=== PATIENT | female | born 1935 | race Caucasian/White ===

== ENCOUNTER → 2016-05-08 | Emergency (ER) | payer MEDICARE, OTHER ==
[~2016-05-08] VITALS: Wt 79.0 kg
[~2016-05-08] MED LIST: ATOR20TA38 PO; GLIP-95 PO; HYDR-905 PO; HYDROCODONE/APAP (5/325) TAB PO ONE; IBUP400T22 PO; IBUPROFEN 200 MG TAB PO ONE; LOSA100T47 PO; METF500T4 PO; METH-70 PO; OMEP40CA6 PO; RANI25TA PO
--- NOTE | 2016-05-08 20:48 | ERD ---
ER Documentation Chief Complaint Date/Time DATE: 05/08/16 TIME: 20:45 Chief Complaint RIGHT NECK AND RIGHT ARM PAIN NON TRAUMATIC FOR 5 DAYS. NO RAZO OR NEURO DEF HPI This is a 80-year-old female complains of pain to the right trapezius and right shoulder with radiation down the right arm with some tingling to the digits 3 4 and 5. This is been going on for the past 5 days. Patient has no headache no symptoms in the legs no speech change no visual change. Pain is described as sharp and worse with movement better with rest. No weakness in the arm. Pain is worse with movement specifically when she shrugs her shoulders or moves her shoulder joint ROS All systems reviewed and are negative except as per history of present illness. Medications Home Meds Active Scripts Hydrocodone/Acetaminophen ([place] 7.5-325 Tablet) 1 Each Tablet, 1 EACH PO EVERY 4-6 HOURS, #14 TAB Prov:CARIN CHÁVEZ DO 05/08/16 Methocarbamol* (Robaxin*) 750 Mg Tablet, 750 MG PO BID for MUSCLE SPASMS, #14 TAB Prov:CARIN CHÁVEZ. DO 05/08/16 Ibuprofen* (Motrin*) 400 Mg Tab, 400 MG PO Q8, #30 TAB Prov:CARIN CHÁVEZ DO 05/08/16 Reported Medications Losartan Potassium* (Cozaar*) 100 Mg Tablet, 100 MG PO DAILY 12/08/12 Atorvastatin Calcium* (Atorvastatin Calcium*) 20 Mg Tablet, 20 MG PO DAILY 12/08/12 Metformin* (Glucophage*) 500 Mg Tab, 500 MG PO DAILY 12/08/12 Glipizide* (Glipizide*) 10 Mg Tablet, 10 MG PO DAILY 12/08/12 Ranitidine Hcl (Zantac 25) 25 Mg Tablet.eff, 300 MG PO DAILY 12/08/12 Omeprazole* (Omeprazole*) 40 Mg Capsule.dr, 40 MG PO DAILY 12/08/12 Allergies Allergies: Coded Allergies: No Known Allergy (Unverified , 12/08/12) PMhx/Soc History of Surgery: Yes (HYSTERECTOMY, CHOLECYSTECTOMY) Anesthesia Reaction: No Hx Neurological Disorder: No Hx Respiratory Disorders: Yes (CURRENT COUGH 1 MONTH, STATES ONLY CLEAR SPUTUM) Hx Cardiac Disorders: Yes (HTN ) Hx Psychiatric Problems: No Hx Miscellaneous Medical Probl: No Hx Alcohol Use: No Hx Substance Use: No Hx Tobacco Use: No Smoking Status: Never smoker FmHx Family History: No coronary disease Physical Exam Vitals Vital Signs Date Time Temp Pulse Resp B/P Pulse Ox O2 Delivery O2 Flow Rate FiO2 05/08/16 18:15 98.9 72 20 168/74 98 Physical Exam Const: Well-developed, well-nourished Head: Atraumatic, normocephalic Eyes: Normal Conjunctiva, PERRLA, EOMI, normal sclera, no nystagmus ENT: Normal External Ears, Nose and Mouth, moist mucus membranes. Neck: Full range of motion. No meningismus, no lymphadenopathy. Resp: Clear to auscultation bilaterally, no wheezing, rhonchi, rales Cardio: Regular rate and rhythm, no murmurs, S1 S2 present Abd: Soft, non tender x 4, non distended. Normal bowel sounds, no guarding or rebound, no pulsitile abdominal masses or bruits Skin: No petechiae or rashes, no ecchymosis , no maculopapular rash Back: No midline or flank tenderness Ext: No cyanosis, or edema, FROM x 4, normal inspection, neurovascularly intact x 4, severe muscle spasm to the right trapezius and right paraspinal cervical region along with some pain with range of motion of the right shoulder. There is also some subjective tingling in the digits as described above. Strength is 5 out of 5. Turning the head to the left with right arm extension and abduction will cause worsening symptoms. Neur: Awake and alert, STR 5/5 x 4, sensation intact x 4, no focal findings, cerebellum intact Psych: Normal Mood and Affect Results 24 hrs Current Medications Medications (Trade) Dose Ordered Sig/Shakira Route PRN Reason Start Time Stop Time Status Last Admin Dose Admin Ibuprofen (Motrin) 400 mg ONCE ONCE PO 05/08/16 21:00 05/08/16 21:01 Acetaminophen/ Hydrocodone Bitart ([place]ell (5/325)) 1 tab ONCE ONCE PO 05/08/16 21:00 05/08/16 21:01 Procedures/MDM Feel this is clearly a musculoskeletal issue with muscle spasm and radiculopathy she may have something such as a disc bulge causing nerve impingement she will need to follow up with her primary Departure Diagnosis: Primary Impression: Cervical radiculopathy Condition: Stable Patient Instructions: Radiculopathy, Cervical CARIN CHÁVEZ DO May 08, 2016 20:48
== END | disposition home or self-care (01) ==
LOC: FTE 17:57
DX: M54.12 Radiculopathy, cervical region (principal); I10 Essential (primary) hypertension; E11.9 Type 2 diabetes mellitus without complications; Z79.84 Long term (current) use of oral hypoglycemic drugs
CPT/HCPCS: 99284

== ENCOUNTER 2018-03-15 06:05 | Inpatient (IN) | payer OTHER ==
[~2018-03-15] VITALS: Ht 162.6 cm; Wt 85.0 kg
[~2018-03-15 06:05] MED LIST changes: +ASPI-903 PO; +ATEN-51 PO; -ATOR20TA38 PO; +ATOR40TA68 PO; +CALC500T91 PO; +CARB1TAB34 PO; +FENO145T37 PO; +GEMF600T8 PO; +GLIM2TAB PO; -GLIP-95 PO; +GLIP10TA14 PO; -HYDR-905 PO; -HYDROCODONE/APAP (5/325) TAB PO ONE; -IBUP400T22 PO; -IBUPROFEN 200 MG TAB PO ONE; +LISI10TA2 PO; -LOSA100T47 PO; +MECL-77 PO; +MELO7.5O PO; -METF500T4 PO; -METH-70 PO; +ONDA4TAB14 PO; +OXYB5TAB22 PO; -RANI25TA PO; +ROPI0.5T2 PO; +VENL75CA89 PO
[2018-03-15 06:07] VITALS: Ht 162.6 cm; Wt 85.0 kg
--- NOTE | 2018-03-15 06:45 | ERD ---
ER Documentation Chief Complaint Chief Complaint BIB DTR; ALOC X1DAY; RECENTLY DX'D WITH STOMACH INFECTION HPI 82-year-old female history of diabetes, hypertension, hyperlipidemia, coronary artery disease status post remote hysterectomy, appendectomy, cholecystectomy brought to the ED by daughter for evaluation of 5-day history of abdominal pain with fevers and mild confusion since yesterday. Patient complains of mild, generalized, crampy and sharp, nonradiating pain was localized to the upper abdomen. For the first several days of the illness had profuse watery diarrhea which has since resolved but continues to have pain. Mild nausea but no vomiting. No hematemesis, hematochezia or melanotic stools. Foul-smelling ur ine and incontinence but no dysuria. Denies chest pain, palpitations, shortness of breath or cough. Daughter reports that at times patient has brief episodes of confusion but not currently. Patient denies headache, neck or back pain. No visual changes, focal weakness or numbness. Subjective fevers and chills. Patient last seen in the ED 03/12/2017 for abdominal pain and diagnosed with gastroenteritis likely viral. ROS All systems reviewed and are negative except as per history of present illness. Medications Home Meds Active Scripts Pantoprazole* (Pantoprazole*) 40 Mg Tablet.dr, 40 MG PO DAILY for 30 Days, #30 TAB 1 Refill Prov:ABMARYDAVID . 03/18/18 Lactobacillus Rhamnosus* (Culturelle*) 1 Each Cap.sprink, 1 CAP PO BID, #20 CAP Prov:ABMARYDAVID . 03/18/18 Levofloxacin* (Levaquin*) 750 Mg Tablet, 750 MG PO DAILY for 7 Days, #7 TAB Prov:ABMARYDAVID . 03/18/18 Nitrofurantoin Monohyd Macrocr* (Macrobid*) 100 Mg Capsr, 100 MG PO BID, #20 CAP Prov:ABMARYDAVID . 03/18/18 Reported Medications Cholecalciferol* (Vitamin D*) Unknown Strength Tablet, PO DAILY, TAB 03/15/18 Aspirin* (Aspirin* Chew) 81 Mg Tab.chew, 81 MG PO DAILY, TAB.CHEW 03/12/18 Calcium Carbonate ([id number]) 500 Mg Tablet, 500 MG PO BID, TAB 03/12/18 Fenofibrate Nanocrystallized* (Fenofibrate*) 145 Mg Tablet, 145 MG PO DAILY, TAB 03/12/18 Venlafaxine Hcl* (Venlafaxine Hcl ER*) 75 Mg Cap.er.24h, 75 MG PO DAILY, CAP 03/12/18 Ropinirole Hcl* (Ropinirole Hcl*) 0.5 Mg Tablet, 0.5 MG PO QID TAKE AT 7:00 A.M, 11:00 AM, 3:00PM, & 7:00 PM 03/12/18 Carbidopa/Levodopa (Carbidopa-Levodopa 25-100 Tab) 1 Each Tablet, 1 TAB PO QID 03/12/18 Meclizine Hcl* (Meclizine Hcl*) 25 Mg Tablet, 12.5 MG PO Q8H PRN for DIZZINESS, TAB 03/12/18 Oxybutynin Chloride* (Ditropan* XL) 5 Mg Tabsr, 5 MG PO DAILY, TAB.SA 03/12/18 Meloxicam* (Meloxicam*) 7.5 Mg/5 Ml Oral.susp, 15 MG PO DAILY, #300 ML 03/12/18 Gemfibrozil* (Gemfibrozil*) 600 Mg Tablet, 600 MG PO BID, TAB 03/12/18 Atorvastatin* (Atorvastatin*) 40 Mg Tablet, 40 MG PO QHS, #30 TAB 03/12/18 Lisinopril* (Lisinopril*) 10 Mg Tablet, 10 MG PO DAILY, #30 TAB 03/12/18 Atenolol* (Atenolol*) 25 Mg Tablet, 25 MG PO DAILY, #30 TAB 03/12/18 Glipizide* (Glipizide*) 10 Mg Tablet, 10 MG PO BID 12/08/12 Omeprazole* (Omeprazole*) 40 Mg Capsule.dr, 40 MG PO AC BREAKFAST 12/08/12 Discontinued Reported Medications Fenofibrate* (Fenofibrate*) 200 Mg Cap, 160 MG PO DAILY, CAP 03/15/18 Glimepiride* (Glimepiride*) 2 Mg Tablet, 2 MG PO DAILY, TAB 03/12/18 Losartan Potassium* (Cozaar*) 100 Mg Tablet, 100 MG PO DAILY 12/08/12 Atorvastatin Calcium* (Atorvastatin Calcium*) 20 Mg Tablet, 20 MG PO DAILY 12/08/12 Metformin* (Glucophage*) 500 Mg Tab, 500 MG PO DAILY 12/08/12 Ranitidine Hcl (Zantac 25) 25 Mg Tablet.eff, 300 MG PO DAILY 12/08/12 Discontinued Scripts Ondansetron (Ondansetron Odt) 4 Mg Tab.rapdis, 4 MG PO Q6H PRN for NAUSEA AND/OR VOMITING, #10 TAB Prov:RICKIE LARSEN MD 03/12/18 Hydrocodone/Acetaminophen ([place] 7.5-325 Tablet) 1 Each Tablet, 1 EACH PO EVERY 4-6 HOURS, #14 TAB Prov:LEKKOS,APOSTOLOS A. DO 05/08/16 Methocarbamol* (Robaxin*) 750 Mg Tablet, 750 MG PO BID for MUSCLE SPASMS, #14 TAB Prov:LEKKOS,APOSTOLOS A. DO 05/08/16 Ibuprofen* (Motrin*) 400 Mg Tab, 400 MG PO Q8, #30 TAB Prov:LEKKOS,APOSTOLOS A. DO 05/08/16 Allergies Allergies: Coded Allergies: No Known Allergies (Unverified Allergy, Unknown, 03/15/18) PMhx/Soc Reviewed in chart. As per HPI. History of Surgery: Yes (HYSTERECTOMY, appendectomy, cholecystectomy ) Anesthesia Reaction: No Hx Neurological Disorder: Yes (PARKINSONS DISORDER) Hx Respiratory Disorders: No Hx Cardiac Disorders: Yes (PA, htn , high cholesterol ) Hx Psychiatric Problems: No Hx Miscellaneous Medical Probl: Yes (DM ) Hx Alcohol Use: No Hx Substance Use: No Hx Tobacco Use: No FmHx Daughter: Ovarian cancer. Mother: Diabetes and hypertension. Physical Exam Vitals Vital Signs Date Temp Pulse Resp B/P (MAP) Pulse Ox O2 O2 Flow FiO2 Time Delivery Rate 03/15/18 98.8 66 16 108/62 100 Nasal 2.0 07:55 (77) Cannula 03/15/18 Nasal 2 07:22 Cannula 03/15/18 101.5 07:19 Physical Exam Const: Moderate distress. Head: Atraumatic Eyes: Pupils equal reactive to light, extraocular movements are intact. Normal Conjunctiva ENT: Normal External Ears, Nose and Mouth. Pharynx is clear without erythema or exudate. Mucous membranes are dry. Neck: Full range of motion. Nontender. No JVD. No meningismus. Resp: Breath sounds are equal but mildly diminished at the bases. Clear to auscultation without rales rhonchi or wheezes. Cardio: Regular rate and rhythm, no murmurs Abd: Soft, mild, generalized tenderness but no rebound or guarding. No masses. Normal bowel sounds Skin: No petechiae or rashes Back: No midline or flank tenderness Ext: No cyanosis, or edema Neur: Awake and alert. Cranial nerves II through XII are grossly intact. Motor and sensory equal bilaterally. No focal deficit. Psych: Cooperative. Normal Mood and Affect Result Diagram: 03/18/1853203/18/18 05 Results 24 hrs Laboratory Tests Test 03/15/18 07:12 03/15/18 07:15 03/15/18 07:33 03/15/18 09:20 Prothrombin Time 13.7 Sec Prothrombin Time 1.1 Ratio INR International 1.04 Normalized Ratio Activated 33.2 Sec Partial Thrombopl ast Time Urine Color YELLOW Urine Clarity SLIGHTLY CLOUDY Urine pH 7.0 Urine Specific 1.013 [place] Urine Ketones NEGATIVE mg/dL Urine Nitrite NEGATIVE mg/dL Urine Bilirubin NEGATIVE mg/dL Urine 1+ mg/dL Urobilinogen Urine Leukocyte 1+ Noe/ul Esterase Urine Microscopic 1 /HPF RBC Urine Microscopic 12 /HPF WBC Urine Bacteria FEW /HPF Urine Hemoglobin 1+ mg/dL Urine Glucose NEGATIVE mg/dL Urine Total NEGATIVE mg/dl Protein Hemoglobin A1c 6.4 % Osmolality 272 mOsm/kg B-Type 907 PG/ML Natriuretic Peptide Lipase 292 U/L Thyroid 3.180 MIU/L Stimulating Hormone (TSH) Free Thyroxine 0.99 ng/dl White Blood Count 8.1 10^3/ul Red Blood Count 4.14 10^6/ul Hemoglobin 12.1 g/dl Hematocrit 36.3 % Mean Corpuscular 87.7 fl Volume Mean Corpuscular 29.2 pg Hemoglobin Mean Corpuscular 33.3 g/dl Hemoglobin Concen t Red Cell 13.6 % Distribution Width Platelet Count 257 10^3/UL Mean Platelet 10.8 fl Volume Immature 0.400 % Granulocytes % Neutrophils % 73.2 % Lymphocytes % 19.2 % Monocytes % 6.7 % Eosinophils % 0.1 % Basophils % 0.4 % Nucleated Red 0.0 /100WBC Blood Cells % Immature 0.030 10^3/ul Granulocytes # Neutrophils # 5.9 10^3/ul Lymphocytes # 1.6 10^3/ul Monocytes # 0.5 10^3/ul Eosinophils # 0.0 10^3/ul Basophils # 0.0 10^3/ul Nucleated Red 0.0 10^3/ul Blood Cells # Sodium Level 129 mmol/L Potassium Level 4.8 mmol/L Chloride Level 92 mmol/L Carbon Dioxide 28 mmol/L Level Anion Gap 9 Blood Urea 22 mg/dl Nitrogen Creatinine 1.01 mg/dl Est Glomerular mL/min Filtrat Rate mL/min Glucose Level 145 mg/dl Calcium Level 9.0 mg/dl Total Bilirubin 0.2 mg/dl Direct Bilirubin 0.00 mg/dl Indirect 0.2 mg/dl Bilirubin Aspartate Amino 82 IU/L Transf (AST/SGOT) Alanine 97 IU/L Aminotransferase (ALT/SGPT) Alkaline 58 IU/L Phosphatase Troponin I < 0.012 ng/ml Total Protein 7.3 g/dl Albumin 3.9 g/dl Globulin 3.40 g/dl Albumin/Globulin 1.14 Ratio POC Venous 1.6 mmol/L 1.2 mmol/L Lactate Current Medications Medications Dose Sig/Shakira Start Time Status Last (Trade) Ordered Route PRN Stop Time Admin Dose Reason Admin Sodium 2,540 ml BOLUS OVER 2 03/15/18 DC 03/15/18 Chloride HOURS STAT 06:53 07:18 (NS) IV* 03/15/18 06:57 650 mg ONCE STAT 03/15/18 DC 03/15/18 Acetaminophen PO 06:53 07:19 (Tylenol 03/15/18 06:57 Tab) Ondansetron 4 mg ONCE STAT 03/15/18 DC 03/15/18 HCl (Zofran IV 06:53 07:18 Inj) 03/15/18 06:57 Piperacillin 100 ml @ ONCE STAT 03/15/18 DC 03/15/18 Sod/ 200 mls/hr IVPB 06:53 07:18 Tazobactam 03/15/18 07:22 Sod IV Flush 10 ml STK-MED 03/15/18 DC 03/15/18 (NS 10 ml) ONCE .ROUTE 07:59 08:21 03/15/18 08:00 Sodium 100 ml @ ud STK-MED 03/15/18 DC 03/15/18 Chloride ONCE .ROUTE 07:59 08:21 03/15/18 08:00 Iodixanol 100 ml STK-MED 03/15/18 DC 03/15/18 (Visipaque ONCE .ROUTE 07:59 08:21 Locm) 03/15/18 08:00 Procedures/MDM DOCUMENTS REVIEWED: ED nurse, prior ED, prior records EKG: Time: 0743. Sinus rhythm. Ventricular rate 68. Normal [place] and QRS. Incomplete right bundle branch block. Poor R wave progression in the anterior leads. No acute ST segment elevation or depression. No ectopy. My Interpretation IMAGING: PROCEDURE: XR chest. CLINICAL INDICATION: Possible sepsis TECHNIQUE: A single portable view of the chest was obtained. COMPARISON: None. FINDINGS: The lung volumes are small with patchy interstitial and airspace opacities in the mid to lower lungs which could represent atelectasis and/or airspace disease. No pleural effusion or pneumothorax is seen. The cardiac silhouette is within normal limits for the portable AP technique. The aorta is tortuous and atherosclerotic. IMPRESSION: 1. Patchy interstitial and airspace opacities most prominent in the mid to lower lungs may represent infection or pulmonary edema in the acute setting. Recommend follow-up to resolution. RPTAT: AAEE Physician Jadyn Date Time Electronically viewed and signed by Physician Jadyn on 03/15/2018 07:26 RF/ PROCEDURE: CT Abdomen and Pelvis with contrast. CLINICAL INDICATION: Abdominal pain, fever TECHNIQUE: CT scan of the abdomen and pelvis with contrast was performed on a multi-detector high-resolution CT scanner. The patient was scanned following the uncomplicated intravenous administration of 90 cc of Visipaque 320. Coronal and sagittal reformatted images were obtained from the axial source images. The total exam CTDI equals 16 mGy and the total exam DLP equals 929 mGy-cm. DICOM images are available. One or more of the following dose reduction techniques were utilized: 1.) Automated exposure control 2.) Adjustment of the mA +/- kV according to patient's size 3.) Use of iterative reconstruction technique. COMPARISON: None FINDINGS: Imaged portions of the chest demonstrates bibasilar dependent atelectasis. The liver, pancreas, and spleen are unremarkable. The patient status post cholecystectomy. There is expected postoperative dilatation of the biliary tree. No adrenal nodules are identified. The kidneys enhance symmetrically bilaterally and there is no hydronephrosis. There is a left-sided renal cysts tiny low attenuation renal lesions, too small to characterize. The patient status post hysterectomy. There are no suspicious adnexal lesions. The urinary bladder is unremarkable. There is no evidence for bowel obstruction. The appendix is not identified. There are no right lower quadrant inflammatory changes seen. There is colonic diverticulosis without evidence for diverticulitis. Smooth wall thickening involving the sigmoid colon is likely on the basis of intramural hypertrophy. There is no ascites. There is no intra-abdominal free air. There is no mesenteric, retroperitoneal or pelvic sidewall lymphadenopathy. The abdominal aorta is normal in caliber. There are atherosclerotic changes per Visualized osseous structures are intact. There are degenerative changes of the spine. IMPRESSION: Sigmoid diverticulosis without definite evidence for diverticulitis. Wall thickening of the sigmoid colon is favored to be on the basis of intramural hypertrophy without discrete pericolonic inflammatory change. Status post cholecystectomy with expected postoperative dilatation of the biliary tree. Remainder of the findings, as described above. RPTAT: HAP Admit-r Aly Physician Date Time Electronically viewed and signed by Suzy Lu, Physician on 03/15/2018 08:32 AP/ MEDICAL DECISION MAKIN-year-old female history of diabetes, hypertension, hyperlipidemia, coronary artery disease status post remote hysterectomy, appendectomy, cholecystectomy brought to the ED by daughter for evaluation of 5- day history of abdominal pain with fevers and mild confusion since yesterday. CBC unremarkable for leukocytosis, anemia or thrombocytopenia. Chemistry reveals mild hyponatremia and elevated BUN/creatinine. Liver function test significant for mild transaminitis but no hyperbilirubinemia. Lipase is negative. Urinalysis reveals 12 WBCs with 1+ esterase but negative nitrate and a culture is pending. EKG negative for acute ischemic changes, dysrhythmia or heart block. Chest x-ray reveals bilateral interstitial changes in the lower l obes, differential includes volume overload versus infection. CT of the abdomen and pelvis significant for prior cholecystectomy, diverticulosis without diverticulitis and colonic wall thickening but there is no evidence of ischemic colitis. Patient has had intermittent episodes of confusion consistent with acute encephalopathy but she has no focal deficits, signs of CVA/TIA and CT of the brain is not indicated. Patient presents with fever but no other criteria for systemic inflammatory response syndrome or sepsis. Serial lactates are less than 2.0 mmol/L. Infectious etiology is uncertain but potential etiologies include pneumonia, urinary tract infection and intra-abdominal source. Broad- spectrum antibiotics are initiated after cultures. Admit to med/surg for further evaluation and management. PATIENT CARE TRANSITIONED: Time: 0938, Dr. Raleigh Le. Counseled patient and family regarding diagnosis, diagnostic results and plan for admission. Departure Diagnosis: Primary Impression: Fever Fever type: unspecified Qualified Codes: R50.9 - Fever, unspecified Additional Impressions: UTI (urinary tract infection) Urinary tract infection type: acute cystitis Hematuria presence: without hematuria Qualified Codes: N30.00 - Acute cystitis without hematuria Acute generalized abdominal pain Diabetes mellitus type 2 in obese Dehydration Hyponatremia Acute encephalopathy Condition: Serious NAYA BENAVIDES MD Mar 15, 2018 06:45
[2018-03-15] MEDS ORDERED: ONDANSETRON 4 MG INJ IV STA (06:53)
[2018-03-15] MEDS ORDERED: ACETAMINOPHEN 325 MG TAB PO STA (06:53)
[2018-03-15] MEDS ORDERED: PIPER-TAZO 3.375 GM IV (PMX) 100 ML IVPB STA (06:53)
[2018-03-15] MEDS ORDERED: SODIUM CHLORIDE 0.9% 1L BAG IV* STA (06:53)
[2018-03-15] MEDS ORDERED: IODIXANOL LOCM 100 ML BTL ONE (07:59)
[2018-03-15] MEDS ORDERED: SOD CHLORIDE 0.9% 100 ML ONE (07:59)
--- NOTE | 2018-03-15 08:25 | NUR ---
Procedure Ordered:CT ABD/PEL W/CONTRAST Reason for Exam Today:ABD PAIN/FEVER Previous Exams: Allergies:NKDA Current Medications Taken: Glucophage ( ) Metformin ( ) Previous reaction to contrast media: Yes ( ) No (X ) : Yes ( ) No (X ) Asthma: Yes ( ) No (X ) Diabetes: Yes ( X) No ( ) Myeloma: Yes ( ) No (X ) Heart Disease: Yes (X ) No ( ) Cardiac Disease: Yes (X ) No ( ) Kidney Disease: Yes ( ) No ( X) Vascular Disease: Yes ( ) No ( X) Patient Teaching done: Yes ( ) No ( ) Yeast Culture Operator Used: Yes ( ) No ( ) Name of Yeast Culture Operator: Language Used: As part of the test requested by your doctor, contrast media may be injected into your vein while the x-rays are being taken. Occasionally, reactions from IV contrast may occur. The physician and staff of this hospital are trained to treat these reactions. Select the type of Contrast that will be given to patient: Isovue 300 ( ) Isovue 370 ( ) Visipaque ( X) Cystografin ( ) Gastrographin ( ) Redi-cat ( ) Volumen ( ) Amount of contrast to be given: 90CC IV ( X) PO ( ) Date given:03/15/18 Lab Values: BUN: 22 Creatinine:1.01 Reason why contrast cannot be given: Location of patient pre-procedure:[facility] Location of patient post procedure:[facility] 10 PT TOLERATED IV CONTRAST INJECTION WELL
[2018-03-15] MEDS ORDERED: ONDANSETRON 4 MG INJ IV PRN ×2 (10:00→11:00)
[2018-03-15] MEDS ORDERED: ACETAMINOPHEN 325 MG TAB PO PRN ×2 (10:00→11:00)
[2018-03-15] MEDS ORDERED: NACL 0.9% 3 ML SYG IV SCH (11:00)
[2018-03-15 11:33] VITALS: BP 113/56; PULSE 57; RESP 16
--- NOTE | 2018-03-15 11:34 | NUR ---
RECEIVED PT FROM ER AT 1045 IN STABLE CONDITION. DAUGHTER WITH PT. PT PASHTO SPEAKING ONLY, ABLE TO PROVIDE TRANSLATION WITH DAUGHTER. VSS, ORIENTED TO ROOM, CALL LIGHT PLACED WITHIN REACH. MD INFORMED OF PT'S ARRIVAL. NO COMPLAINTS OF PAIN, NO FEVER. ENDORSED CARE TO ONCOMING NURSE DENITA RESTREPO.
[2018-03-15] MEDS: SOD CHLORIDE 0.9% 1,000 ML IV SCH ×2 (12:06→23:52)
--- NOTE | 2018-03-15 12:09 | HP ---
Date/Time of Note Date/Time of Note DATE: 03/15/18 TIME: 12:09 Assessment/Plan VTE Prophylaxis Pharmacological prophylaxis: LMWH Assessment/Plan Hospital Course 82-year-old female with comorbidities including hypertension, diabetes mellitus type 2, dyslipidemia, Parkinson's disease, TIA, gastric ulcer, hiatal hernia, gastroesophageal reflux disease, and gastritis who started having abdominal pain since 03/10/2018 and was evaluated by the ER on 03/12/2018. The patient returned back to the ER on 03/15/2018 because of continuing abdominal pain with associated nausea, vomiting, diarrhea, and confusion. The patient will be admitted to inpatient setting for further treatment and evaluation. 1. Acute abdominal pain with associated gastrointestinal symptoms. -Etiology unclear. -Started after eating meat exported from [place]. -Continue empiric antimicrobials including coverage for anaerobes -Send stool studies. -Gastroenterology consult. -PPI(known history of GERD, gastritis, and gastric ulcers). 2. Suspected community-acquired pneumonia. -Continue antimicrobials. 3. Hyponatremia. -Etiology unclear. -Obtain serum and urine osmolality, and urine sodium levels. -Correct sodium level slowly. -Obtain nephrology consult. 4. Acute encephalopathy. -Most probably toxic metabolic in origin. -Monitor mental status closely. 5. Essential hypertension. -Resume antihypertensives 6. Diabetes mellitus type 2. -Hold oral medications -Start the patient on SSI. -Obtain hemoglobin A1c to evaluate the blood glucose control over the past few weeks. 7. Parkinson's disease. -Resume antiparkinsonian medications. 8. History of, gastritis, gastric ulcer. -Continue PPI. Plan: The patient will be admitted to inpatient medical surgical floor. The patient will be started on a clear liquid diet. The patient will be started on DVT prophylaxis and gastrointestinal prophylaxis. The patient will remain a full code. Activities will be as tolerated. The rest of the patient's management will be based on the clinical course, inputs from consultants, and the results of diagnostic studies. Based on the patient's clinical presentation, she most probably requires at least 2 midnights' stay for further management and evaluation of her clinical presentation. Patient was seen in collaboration with Dr. Le. Result Diagram: 03/15/18 0715 03/15/18 0715 Results 24hrs Laboratory Tests Test 03/15/18 07:12 03/15/18 07:15 1/21/19 07:33 03/15/18 09:20 Prothrombin Time 13.7 Prothrombin Time 1.1 Ratio INR International 1.04 Normalized Ratio Activated 33.2 Partial Thrombopl ast Time Urine Color YELLOW Urine Clarity SLIGHTLY CLOUDY A Urine pH 7.0 Urine Specific 1.013 [place] Urine Ketones NEGATIVE Urine Nitrite NEGATIVE Urine Bilirubin NEGATIVE Urine 1+ H Urobilinogen Urine Leukocyte 1+ H Esterase Urine Microscopic 1 RBC Urine Microscopic 12 H WBC Urine Bacteria FEW A Urine Hemoglobin 1+ H Urine Glucose NEGATIVE Urine Total NEGATIVE Protein Lipase 292 White Blood Count 8.1 # Red Blood Count 4.14 L Hemoglobin 12.1 Hematocrit 36.3 L Mean Corpuscular 87.7 Volume Mean Corpuscular 29.2 Hemoglobin Mean Corpuscular 33.3 Hemoglobin Concen t Red Cell 13.6 Distribution Width Platelet Count 257 Mean Platelet 10.8 H Volume Immature 0.400 Granulocytes % Neutrophils % 73.2 Lymphocytes % 19.2 Monocytes % 6.7 Eosinophils % 0.1 Basophils % 0.4 Nucleated Red 0.0 Blood Cells % Immature 0.030 Granulocytes # Neutrophils # 5.9 Lymphocytes # 1.6 Monocytes # 0.5 Eosinophils # 0.0 Basophils # 0.0 Nucleated Red 0.0 Blood Cells # Sodium Level 129 L Potassium Level 4.8 Chloride Level 92 L Carbon Dioxide 28 Level Anion Gap 9 Blood Urea 22 H Nitrogen Creatinine 1.01 H Est Glomerular Filtrat Rate mL/min Glucose Level 145 Calcium Level 9.0 Total Bilirubin 0.2 Direct Bilirubin 0.00 Indirect 0.2 Bilirubin Aspartate Amino 82 H Transf (AST/SGOT) Alanine 97 H Aminotransferase (ALT/SGPT) Alkaline 58 Phosphatase Troponin I < 0.012 Total Protein 7.3 Albumin 3.9 Globulin 3.40 H Albumin/Globulin 1.14 Ratio POC Venous 1.6 1.2 Lactate Test 03/15/18 10:44 Lactic Acid Level 0.9 HPI/ROS Admit Date/Time Admit Date/Time Mar 15, 2018 at 09:50 ROS This is a 82-year-old female with past medical history of hypertension, diabetes mellitus type 2, dyslipidemia, TIA, Parkinson's disease, gastritis, G ERD, hiatal hernia, and gastric ulcer. The patient started having abdominal pain on 03/10/2018. The patient initially came to the emergency room on March 12, 2018 because of abdominal pain, when she was evaluated and was discharged home on PRN Zofran. The patient started having abdominal pain with episodes of nausea, nonbloody nonbilious vomiting, and multiple episodes of diarrhea. There was no reported hematemesis, nausea, or melena. Patient's family did report eating meat from [place]". The patient started having symptoms since she ate this meat. However, the family members who ate the same meat has no gastrointestinal symptoms. The patient has also becoming progressively confused over the past few days. The patient had increased urinary frequency and urgency. The patient was also noticed to be diaphoretic by the family. The patient's family also reported a cough. There was no reported dyspnea. There was no reported rhinorrhea. In the emergency room, the patient was noticed as a fever as high as 101.5 F. The patient's urinalysis was positive with urine leukocyte esterase 1+ and urine microscopic WBC of 12. The patient underwent a CT scan of the abdomen and pelv is that was showing sigmoid diverticulosis without definite evidence for diverticulitis. The patient's chest x-ray was showing patchy interstitial and airspace opacities most prominent in the mid to lower lungs, that may represent infection or pulmonary edema. The patient was treated with a single dose of IV Zosyn along with IV fluids in the emergency room. Constitutional: chills, diaphoresis Eyes: no complaints ENT: no complaints Respiratory: cough Cardiovascular: no complaints Gastrointestinal: pain, diarrhea, nausea, vomiting Genitourinary: other (Urgency) Musculoskeletal: no complaints Skin: no complaints Neurologic: confusion Endocrine: polyuria Lymphatic: no complaints Psychological: confusion Immunologic: no complaints PMH/Family/Social Past Medical History 1. Gastritis. 2. GERD. 3. Hiatal hernia. 4. Gastric ulcer. 5. TIA. 6. Dyslipidemia. 7. Diabetes mellitus type 2. 8. Hypertension. 9. Parkinson's disease. Medications Current Medications Sodium Chloride 1,000 ml @ 75 mls/hr [id number] IV Last administered on 03/15/18at 12:06; Admin Dose 75 MLS/HR; Start 03/15/18 at 10:32 IV Flush (NS 3 ml) 3 ml PER PROTOCOL IV ; Start 03/15/18 at 11:00 Ondansetron HCl (Zofran Inj) 4 mg Q6H PRN IV NAUSEA AND/OR VOMITING; Start 03/15/18 at 11:00 Acetaminophen (Tylenol Tab) 650 mg Q6H PRN PO PAIN LEVEL 1-3 OR FEVER; Start 03/15/18 at 11:00 Coded Allergies: No Known Allergies (Unverified Allergy, Unknown, 03/15/18) Past Surgical History 1. Appendectomy. 2. Cholecystectomy. 3. Hysterectomy. Social History The patient lives at home with her family. Alcohol Use: none Smoking Status: Never smoker Drug Use: none Exam/Review of Systems Vital Signs Vitals Vital Signs Date Temp Pulse Resp B/P (MAP) Pulse Ox O2 O2 Flow FiO2 Time Delivery Rate 03/15/18 98.0 57 16 113/56 98 Nasal 2.0 11:33 (75) Cannula Exam Exam General: Adequately build 82 year-old female lying in bed in no apparent distress. HEENT: Normocephalic, atraumatic. Eyes: Anicteric sclerae, conjunctivae clear. ENT: Nasal septum midline, oral mucosa is dry moist. Neck supple. Respiratory: Bilaterally diminished breath sounds. No use of accessory muscles of respiration. No adventitious breath sounds. Cardiovascular: S1, S2 heard. Regular rate and rhythm. Abdomen: Soft and distended. Bowel sounds positive in all 4 quadrants. Genitourinary: Deferred. Extremities: No cyanosis, no clubbing, no edema. Peripheral pulses palpable. Neurologic: The patient is somnolent. Wakes up to call. Oriented to self and place. Additional Comments CT Abdomen and Pelvis IMPRESSION: Sigmoid diverticulosis without definite evidence for diverticulitis. Wall thickening of the sigmoid colon is favored to be on the basis of intramural hypertrophy without discrete pericolonic inflammatory change. Status post cholecystectomy with expected postoperative dilatation of the bili dora tree. CXR IMPRESSION: 1. Patchy interstitial and airspace opacities most prominent in the mid to lower lungs may represent infection or pulmonary edema in the acute setting. ALVARO JEAN NP Mar 15, 2018 12:09
[2018-03-15] MEDS ORDERED: VANCOMYCIN IV PER PHARMACY XX SCH (12:30)
[2018-03-15] MEDS ORDERED: VANCOMYCIN HCL 1.5 GM in SOD CHLORIDE 0.9% 250 ML IVPB SCH (14:00)
[2018-03-15] MEDS: ROPINIROLE 0.25 MG TAB PO SCH ×3 (14:21→21:07)
[2018-03-15] MEDS: CARBIDOPA/LEVODOPA (25/100) TAB PO SCH ×3 (14:21→20:39)
--- NOTE | 2018-03-15 14:23 | CONS ---
Date/Time of Note Date/Time of Note DATE: 03/15/18 TIME: 14:00 Assessment/Plan Assessment/Plan Hospital Course Summary Assessment and Plan: Assessment: Epigastric pain, with reported melena Diarrhea- resolved N/V/Fevers (influenza neg) Query PNA Hypertension DM, type 2, dyslipidemia Parkinson's disease History of :TIA, gastric ulcer Plan: Pt has been started on empirically antibiotics PPI BID We will await microbiology work-up NPO after 03/16/399 EGD tomorrow Patient seen in collaboration with Dr. Moser Result Diagram: 03/15/18 0715 03/15/1815 Results 24hrs Laboratory Tests Test 03/15/18 07:12 03/15/18 07:15 03/15/18 07:33 03/15/18 09:20 Prothrombin Time 13.7 Prothrombin Time 1.1 Ratio INR International 1.04 Normalized Ratio Activated 33.2 Partial Thrombopl ast Time Urine Color YELLOW Urine Clarity SLIGHTLY CLOUDY A Urine pH 7.0 Urine Specific 1.013 [place] Urine Ketones NEGATIVE Urine Nitrite NEGATIVE Urine Bilirubin NEGATIVE Urine 1+ H Urobilinogen Urine Leukocyte 1+ H Esterase Urine Microscopic 1 RBC Urine Microscopic 12 H WBC Urine Bacteria FEW A Urine Hemoglobin 1+ H Urine Glucose NEGATIVE Urine Total NEGATIVE Protein Hemoglobin A1c 6.4 H Osmolality 272 L B-Type 907 H Natriuretic Peptide Lipase 292 Thyroid 3.180 Stimulating Hormone (TSH) Free Thyroxine 0.99 White Blood Count 8.1 # Red Blood Count 4.14 L Hemoglobin 12.1 Hematocrit 36.3 L Mean Corpuscular 87.7 Volume Mean Corpuscular 29.2 Hemoglobin Mean Corpuscular 33.3 Hemoglobin Concen t Red Cell 13.6 Distribution Width Platelet Count 257 Mean Platelet 10.8 H Volume Immature 0.400 Granulocytes % Neutrophils % 73.2 Lymphocytes % 19.2 Monocytes % 6.7 Eosinophils % 0.1 Basophils % 0.4 Nucleated Red 0.0 Blood Cells % Immature 0.030 Granulocytes # Neutrophils # 5.9 Lymphocytes # 1.6 Monocytes # 0.5 Eosinophils # 0.0 Basophils # 0.0 Nucleated Red 0.0 Blood Cells # Sodium Level 129 L Potassium Level 4.8 Chloride Level 92 L Carbon Dioxide 28 Level Anion Gap 9 Blood Urea 22 H Nitrogen Creatinine 1.01 H Est Glomerular Filtrat Rate mL/min Glucose Level 145 Calcium Level 9.0 Total Bilirubin 0.2 Direct Bilirubin 0.00 Indirect 0.2 Bilirubin Aspartate Amino 82 H Transf (AST/SGOT) Alanine 97 H Aminotransferase (ALT/SGPT) Alkaline 58 Phosphatase Troponin I < 0.012 Total Protein 7.3 Albumin 3.9 Globulin 3.40 H Albumin/Globulin 1.14 Ratio POC Venous 1.6 1.2 Lactate Test 03/15/18 10:44 03/15/18 12:57 Lactic Acid Level 0.9 Bedside Glucose 89 CC: ARLINE MOSER ; Consultation Date/Type/Reason Admit Date/Time Mar 15, 2018 at 09:50 Date of Consultation: Mar 15, 2018 Type of Consult GI Reason for Consultation abdominal pain, melena Hx of Present Illness This is an 82 year old female with PMH of hypertension, diabetes mellitus type 2, dyslipidemia, Parkinson's disease, TIA, gastric ulcer, hiatal hernia, pyrosis, who presented to the ED with c/o change in mental status, n/v, abdominal pain, and diarrhea. Family is at bedside, patient now less confused but continues to have periods of forgetfulness. Pt's daughter symptoms began after she made meat from [employer], however the patient was the only one who then presented with symptoms. All other have been well. Daughter states diarrhea has now almost resolved, pt now having very small BMs,described as black. Pt c/o epigastric pain with palpation. No c/o n/v. Currently afebrile although did have a fever this am. CXR- Patchy interstitial and airspace opacities most prominent in the mid to lower lungs may represent infection or pulmonary edema in the acute setting, ABX have been started, CT abd/pelvis Sigmoid diverticulosis without definite evidence for diverticulitis. Wall thickening of the sigmoid colon is favored to be on the basis of intramural hypertrophy without discrete pericolonic inflammatory change. Status post cholecystectomy with expected postoperative dilatation of the biliary tree. Plan to proceed with EGD tomorrow given black stools and upper abd pain. However we will reschedule if respiratory status changes. Plan to continue PPI and alit further microbiology work-up. Review of Systems: A 12 system, review was conducted and is negative except as noted in the HPI or here. Past Medical History Medications Current Medications Sodium Chloride 1,000 ml @ 75 mls/hr [id number] IV Last administered on 03/15/18at 12:06; Admin Dose 75 MLS/HR; Start 03/15/18 at 10:32 IV Flush (NS 3 ml) 3 ml PER PROTOCOL IV ; Start 03/15/18 at 11:00 Ondansetron HCl (Zofran Inj) 4 mg Q6H PRN IV NAUSEA AND/OR VOMITING; Start 03/15/18 at 11:00 Acetaminophen (Tylenol Tab) 650 mg Q6H PRN PO PAIN LEVEL 1-3 OR FEVER; Start 03/15/18 at 11:00 Insulin Aspart (Novolog Insulin Pen) NOVOLOG *MILD* ALGORITHM WITH MEALS BEDTIME SC ; Start 03/15/18 at 18:00 Aspirin (Aspirin) 81 mg DAILY PO ; Start 03/16/18 at 09:00 Atenolol (Tenormin) 25 mg DAILY PO ; Start 03/16/18 at 09:00 Atorvastatin Calcium (Lipitor) 40 mg QHS PO ; Start 03/15/18 at 21:00 Calcium Carbonate (Oyster Shell Calcium) 1.25 gm BID PO ; Start 03/15/18 at 21:00 Carbidopa/Levodopa (Sinemet (25/ 100)) 1 tab QID PO ; Start 03/15/18 at 13:00 Fenofibrate (Tricor) 145 mg DAILY PO ; Start 03/16/18 at 09:00 Gemfibrozil (Lopid) 600 mg BID PO ; Start 03/15/18 at 21:00 Lisinopril (Zestril) 10 mg DAILY PO ; Start 03/16/18 at 09:00 Oxybutynin Chloride (Ditropan Xl) 5 mg DAILY PO ; Start 03/16/18 at 09:00 Ropinirole HCl (Requip) 0.5 mg QID PO ; Start 03/15/18 at 13:00 Venlafaxine HCl (Effexor Xr) 75 mg DAILY PO ; Start 03/16/18 at 09:00 Piperacillin Sod/ Tazobactam Sod 100 ml @ 200 mls/hr Q6 IVPB ; Start 03/15/18 at 18:00 Vancomycin HCl (Vanco Iv Per Pharmacy) VANCOMYCIN PER PHARMACY PER PROTOCOL XX ; Start 03/15/18 at 12:30 Pantoprazole (Protonix Iv) 40 mg BID@06,18 IV ; Start 03/15/18 at 18:00 Enoxaparin Sodium (Lovenox) 40 mg DAILY SC ; Start 03/16/18 at 09:00 Vancomycin HCl 1.5 gm/Sodium Chloride 250 ml @ 83.333 mls/ hr NOW IVPB ; Start 03/15/18 at 14:00; Stop 03/15/18 at 20:00 Allergies: Coded Allergies: No Known Allergies (Unverified Allergy, Unknown, 03/15/18) Social History Alcohol Use: none Smoking Status: Never smoker Drug Use: none Exam/Review of Systems Vital Signs Vitals Vital Signs Date Temp Pulse Resp B/P (MAP) Pulse Ox O2 O2 Flow FiO2 Time Delivery Rate 03/15/18 Nasal 2.0 12:16 Cannula 03/15/18 98.0 57 16 113/56 98 11:33 (75) Exam PHYSICAL EXAMINATION: GENERAL: Alert & oriented x 3, in no acute distress SKIN: No lesions EYES: Pupils equal reactive to light, no discharge. EARS/NOSE AND THROAT: Ears normal, nose normal, oropharynx normal NECK: Supple CHEST: Inspection within normal limits. CARDIOVASCULAR: Heart: Regular rate and rhythm RESPIRATORY: Diminished GASTROINTESTINAL AND LIVER: Abdomen: Soft, non tenderness, non-distended, no hernias, no masses, no organomegaly, no ascites, no guarding, no rebound tenderness, normoactive bowel sounds. Rectal: Deferred. Medications Medications Current Medications Sodium Chloride 1,000 ml @ 75 mls/hr [id number] IV Last administered on 03/15/18at 12:06; Admin Dose 75 MLS/HR; Start 03/15/18 at 10:32 IV Flush (NS 3 ml) 3 ml PER PROTOCOL IV ; Start 03/15/18 at 11:00 Ondansetron HCl (Zofran Inj) 4 mg Q6H PRN IV NAUSEA AND/OR VOMITING; Start 03/15/18 at 11:00 Acetaminophen (Tylenol Tab) 650 mg Q6H PRN PO PAIN LEVEL 1-3 OR FEVER; Start 03/15/18 at 11:00 Insulin Aspart (Novolog Insulin Pen) NOVOLOG *MILD* ALGORITHM WITH MEALS BEDTIME SC ; Start 03/15/18 at 18:00 Aspirin (Aspirin) 81 mg DAILY PO ; Start 03/16/18 at 09:00 Atenolol (Tenormin) 25 mg DAILY PO ; Start 03/16/18 at 09:00 Atorvastatin Calcium (Lipitor) 40 mg QHS PO ; Start 03/15/18 at 21:00 Calcium Carbonate (Oyster Shell Calcium) 1.25 gm BID PO ; Start 03/15/18 at 21:00 Carbidopa/Levodopa (Sinemet (25/ 100)) 1 tab QID PO ; Start 03/15/18 at 13:00 Fenofibrate (Tricor) 145 mg DAILY PO ; Start 03/16/18 at 09:00 Gemfibrozil (Lopid) 600 mg BID PO ; Start 03/15/18 at 21:00 Lisinopril (Zestril) 10 mg DAILY PO ; Start 03/16/18 at 09:00 Oxybutynin Chloride (Ditropan Xl) 5 mg DAILY PO ; Start 03/16/18 at 09:00 Ropinirole HCl (Requip) 0.5 mg QID PO ; Start 03/15/18 at 13:00 Venlafaxine HCl (Effexor Xr) 75 mg DAILY PO ; Start 03/16/18 at 09:00 Piperacillin Sod/ Tazobactam Sod 100 ml @ 200 mls/hr Q6 IVPB ; Start 03/15/18 at 18:00 Vancomycin HCl (Vanco Iv Per Pharmacy) VANCOMYCIN PER PHARMACY PER PROTOCOL XX ; Start 03/15/18 at 12:30 Pantoprazole (Protonix Iv) 40 mg BID@06,18 IV ; Start 03/15/18 at 18:00 Enoxaparin Sodium (Lovenox) 40 mg DAILY SC ; Start 03/16/18 at 09:00 Vancomycin HCl 1.5 gm/Sodium Chloride 250 ml @ 83.333 mls/ hr NOW IVPB ; Start 03/15/18 at 14:00; Stop 03/15/18 at 20:00 MARCIANO WEBB Mar 15, 2018 14:14
[2018-03-15] MEDS ORDERED: CHOL400T10 PO (15:22)
[2018-03-15] MEDS ORDERED: FENO200 PO (15:22)
--- NOTE | 2018-03-15 15:22 | NUR ---
VANCOMYCIN PER RX S/O: 82 y/o F to be started on vancomycin vs r/o CAP and diverticulitis. Also on Zosyn. Ht: 5'4" wt 84 kg Bun/Cr: 22/1.01 WBC 8.1 Tm 101.5 A/P: 1) Fever 2) Will load pt with 1.5 gm vanco, then 1.25 gm q24h 3) Rx will f/u level and renal fxn
--- NOTE | 2018-03-15 15:37 | CONS ---
Date/Time of Note Date/Time of Note DATE: 03/15/18 TIME: 15:37 Assessment/Plan Assessment/Plan Assessment/Plan 1. Hyponatremia due to hypovolemic Hyponatremia 2. Abdominal pain due to acute gastroenteritis 3. Possible Community acquired PNA 4. H/o HTN 5. H/o HL 6. H/o DM II 7. H/o Parkinsonism Plan: IVF NS at 80 cc/hr Iv abx zosyn and vancomycin to cover for Pneumonia,renally dose all abx and monitor electrolytes Urine na, urine osmolarity, Serum Osmolarity, Uric acid with AM albs continue other home meds Expecting Na to improve with AM albs Thanks for consultation, I will continue to follow up Result Diagram: 03/15/1815 03/15/1815 Results 24hrs Laboratory Tests Test 03/15/18 07:12 03/15/18 07:15 03/15/18 07:33 03/15/18 09:20 Prothrombin Time 13.7 Prothrombin Time 1.1 Ratio INR International 1.04 Normalized Ratio Activated 33.2 Partial Thrombopl ast Time Urine Color YELLOW Urine Clarity SLIGHTLY CLOUDY A Urine pH 7.0 Urine Specific 1.013 Huddy Urine Ketones NEGATIVE Urine Nitrite NEGATIVE Urine Bilirubin NEGATIVE Urine 1+ H Urobilinogen Urine Leukocyte 1+ H Esterase Urine Microscopic 1 RBC Urine Microscopic 12 H WBC Urine Bacteria FEW A Urine Hemoglobin 1+ H Urine Glucose NEGATIVE Urine Total NEGATIVE Protein Hemoglobin A1c 6.4 H Osmolality 272 L B-Type 907 H Natriuretic Peptide Lipase 292 Thyroid 3.180 Stimulating Hormone (TSH) Free Thyroxine 0.99 White Blood Count 8.1 # Red Blood Count 4.14 L Hemoglobin 12.1 Hematocrit 36.3 L Mean Corpuscular 87.7 Volume Mean Corpuscular 29.2 Hemoglobin Mean Corpuscular 33.3 Hemoglobin Concen t Red Cell 13.6 Distribution Width Platelet Count 257 Mean Platelet 10.8 H Volume Immature 0.400 Granulocytes % Neutrophils % 73.2 Lymphocytes % 19.2 Monocytes % 6.7 Eosinophils % 0.1 Basophils % 0.4 Nucleated Red 0.0 Blood Cells % Immature 0.030 Granulocytes # Neutrophils # 5.9 Lymphocytes # 1.6 Monocytes # 0.5 Eosinophils # 0.0 Basophils # 0.0 Nucleated Red 0.0 Blood Cells # Sodium Level 129 L Potassium Level 4.8 Chloride Level 92 L Carbon Dioxide 28 Level Anion Gap 9 Blood Urea 22 H Nitrogen Creatinine 1.01 H Est Glomerular Filtrat Rate mL/min Glucose Level 145 Calcium Level 9.0 Total Bilirubin 0.2 Direct Bilirubin 0.00 Indirect 0.2 Bilirubin Aspartate Amino 82 H Transf (AST/SGOT) Alanine 97 H Aminotransferase (ALT/SGPT) Alkaline 58 Phosphatase Troponin I < 0.012 Total Protein 7.3 Albumin 3.9 Globulin 3.40 H Albumin/Globulin 1.14 Ratio POC Venous 1.6 1.2 Lactate Test 03/15/18 10:44 03/15/18 12:57 Lactic Acid Level 0.9 Bedside Glucose 89 Consultation Date/Type/Reason Admit Date/Time Mar 15, 2018 at 09:50 Date of Consultation: Mar 15, 2018 Type of Consult NEPHROLOGY Reason for Consultation acute kidney injury, Hyponatremia Requesting Provider: JC MAGANA MD Hx of Present Illness 82-year-old female with comorbidities including hypertension, diabetes mellitus type 2, dyslipidemia, Parkinson's disease, TIA, gastric ulcer, hiatal hernia, gastroesophageal reflux disease, and gastritis who started having abdominal pain since 03/10/2018 and was evaluated by the ER on 03/12/2018. The patient returned back to the ER on 03/15/2018 because of continuing abdominal pain with associated nausea, vomiting, diarrhea, and a confusion.pt has a possible suspected Pneumonia, has been started on IV abx, pt had a Na 129 and renal has been consulted for hyponatremia. Constitutional: no complaints Eyes: no complaints ENT: no complaints Respiratory: shortness of breath Cardiovascular: no complaints Gastrointestinal: pain, vomiting Genitourinary: no complaints Musculoskeletal: no complaints Skin: no complaints Neurologic: no complaints Endocrine: no complaints Lymphatic: no complaints Psychological: no complaints Immunologic: no complaints Past Medical History Medical History: diabetes, high cholesterol, hypertension, other (Parkinson's disease, TIA, gastric ulcer, hiatal hernia, gastroesophageal reflux disease, and gastritis) Medications Current Medications Sodium Chloride 1,000 ml @ 75 mls/hr [id number] IV Last administered on 03/15/18at 12:06; Admin Dose 75 MLS/HR; Start 03/15/18 at 10:32 IV Flush (NS 3 ml) 3 ml PER PROTOCOL IV ; Start 03/15/18 at 11:00 Ondansetron HCl (Zofran Inj) 4 mg Q6H PRN IV NAUSEA AND/OR VOMITING; Start 03/15/18 at 11:00 Acetaminophen (Tylenol Tab) 650 mg Q6H PRN PO PAIN LEVEL 1-3 OR FEVER; Start 03/15/18 at 11:00 Insulin Aspart (Novolog Insulin Pen) NOVOLOG *MILD* ALGORITHM WITH MEALS BEDTIME SC ; Start 03/15/18 at 18:00 Aspirin (Aspirin) 81 mg DAILY PO ; Start 03/16/18 at 09:00 Atenolol (Tenormin) 25 mg DAILY PO ; Start 03/16/18 at 09:00 Atorvastatin Calcium (Lipitor) 40 mg QHS PO ; Start 03/15/18 at 21:00 Calcium Carbonate (Oyster Shell Calcium) 1.25 gm BID PO ; Start 03/15/18 at 21:00 Carbidopa/Levodopa (Sinemet (25/ 100)) 1 tab QID PO Last administered on 03/15at 14:21; Admin Dose 1 TAB; Start 03/15/18 at 13:00 Fenofibrate (Tricor) 145 mg DAILY PO ; Start 03/16/18 at 09:00 Gemfibrozil (Lopid) 600 mg BID PO ; Start 03/15/18 at 21:00 Lisinopril (Zestril) 10 mg DAILY PO ; Start 03/16/18 at 09:00 Oxybutynin Chloride (Ditropan Xl) 5 mg DAILY PO ; Start 03/16/18 at 09:00 Ropinirole HCl (Requip) 0.5 mg QID PO Last administered on 03/15/18at 14:21; Admin Dose 0.5 MG; Start 03/15/18 at 13:00 Venlafaxine HCl (Effexor Xr) 75 mg DAILY PO ; Start 03/16/18 at 09:00 Piperacillin Sod/ Tazobactam Sod 100 ml @ 200 mls/hr Q6 IVPB ; Start 03/15/18 at 18:00 Vancomycin HCl (Vanco Iv Per Pharmacy) VANCOMYCIN PER PHARMACY PER PROTOCOL XX ; Start 03/15/18 at 12:30 Pantoprazole (Protonix Iv) 40 mg BID@06,18 IV ; Start 03/15/18 at 18:00 Enoxaparin Sodium (Lovenox) 40 mg DAILY SC ; Start 03/16/18 at 09:00 Vancomycin HCl 1.5 gm/Sodium Chloride 250 ml @ 83.333 mls/ hr NOW IVPB ; Start 03/15/18 at 14:00; Stop 03/15/18 at 20:00 Vancomycin HCl 1.25 gm/Sodium Chloride 250 ml @ 83.333 mls/ hr Q24H IVPB ; Start 03/16/18 at 14:00 Allergies: Coded Allergies: No Known Allergies (Unverified Allergy, Unknown, 03/15/18) Past Surgical History Past Surgical Hx: appendectomy, cholecystectomy, other (Hysterectomy ) Family History Significant Family History: no pertinent family hx Social History Alcohol Use: none Smoking Status: Never smoker Drug Use: none Exam/Review of Systems Vital Signs Vitals Vital Signs Date Temp Pulse Resp B/P (MAP) Pulse Ox O2 O2 Flow FiO2 Time Delivery Rate 03/15/18 Nasal 2.0 12:16 Cannula 03/15/18 98.0 57 16 113/56 98 11:33 (75) Exam Constitutional: alert Psych: no complaints Head: normocephalic Eyes: nl conjunctiva ENMT: nl external ears & nose Neck: supple, non-tender Respiratory: clear to auscultation, diminished breath sounds Cardiovascular: regular rate and rhythm, nl pulses Gastrointestinal: soft, distended, tender Musculoskeletal: nl extremities to inspection Extremities: normal pulses Neurological: LYRIC WRITER II-XII intact, nl mental status, nl speech, nl strength Skin: nl turgor Lymph: nl lymph nodes Medications Medications Current Medications Sodium Chloride 1,000 ml @ 75 mls/hr [id number] IV Last administered on 03/15/18at 12:06; Admin Dose 75 MLS/HR; Start 03/15/18 at 10:32 IV Flush (NS 3 ml) 3 ml PER PROTOCOL IV ; Start 03/15/18 at 11:00 Ondansetron HCl (Zofran Inj) 4 mg Q6H PRN IV NAUSEA AND/OR VOMITING; Start 03/15/18 at 11:00 Acetaminophen (Tylenol Tab) 650 mg Q6H PRN PO PAIN LEVEL 1-3 OR FEVER; Start 03/15/18 at 11:00 Insulin Aspart (Novolog Insulin Pen) NOVOLOG *MILD* ALGORITHM WITH MEALS BEDTIME SC ; Start 03/15/18 at 18:00 Aspirin (Aspirin) 81 mg DAILY PO ; Start 03/16/18 at 09:00 Atenolol (Tenormin) 25 mg DAILY PO ; Start 03/16/18 at 09:00 Atorvastatin Calcium (Lipitor) 40 mg QHS PO ; Start 03/15/18 at 21:00 Calcium Carbonate (Oyster Shell Calcium) 1.25 gm BID PO ; Start 03/15/18 at 21:00 Carbidopa/Levodopa (Sinemet (25/ 100)) 1 tab QID PO Last administered on 03/15at 14:21; Admin Dose 1 TAB; Start 03/15/18 at 13:00 Fenofibrate (Tricor) 145 mg DAILY PO ; Start 03/16/18 at 09:00 Gemfibrozil (Lopid) 600 mg BID PO ; Start 03/15/18 at 21:00 Lisinopril (Zestril) 10 mg DAILY PO ; Start 03/16/18 at 09:00 Oxybutynin Chloride (Ditropan Xl) 5 mg DAILY PO ; Start 03/16/18 at 09:00 Ropinirole HCl (Requip) 0.5 mg QID PO Last administered on 03/15/18at 14:21; Admin Dose 0.5 MG; Start 03/15/18 at 13:00 Venlafaxine HCl (Effexor Xr) 75 mg DAILY PO ; Start 03/16/18 at 09:00 Piperacillin Sod/ Tazobactam Sod 100 ml @ 200 mls/hr Q6 IVPB ; Start 03/15/18 at 18:00 Vancomycin HCl (Vanco Iv Per Pharmacy) VANCOMYCIN PER PHARMACY PER PROTOCOL XX ; Start 03/15/18 at 12:30 Pantoprazole (Protonix Iv) 40 mg BID@06,18 IV ; Start 03/15/18 at 18:00 Enoxaparin Sodium (Lovenox) 40 mg DAILY SC ; Start 03/16/18 at 09:00 Vancomycin HCl 1.5 gm/Sodium Chloride 250 ml @ 83.333 mls/ hr NOW IVPB ; Start 03/15/18 at 14:00; Stop 03/15/18 at 20:00 Vancomycin HCl 1.25 gm/Sodium Chloride 250 ml @ 83.333 mls/ hr Q24H IVPB ; Start 03/16/18 at 14:00 MATTY MANCILLA MD Mar 15, 2018 15:37
[2018-03-15] MEDS: INSULIN ASPART [NOVOLOG] 3 ML PEN SC SCH ×2 (17:20→20:40)
[2018-03-15] MEDS: PANTOPRAZOLE 40 MG INJ IV SCH (17:26)
--- NOTE | 2018-03-15 18:59 | NUR ---
End of shift report Received pt around 1100 from DENITA Hollingsworth. Occasional confusion and forgetfulness reported by daughter. Able to ambulate short distance in steady gait with assist. Able to verbalize needs. No complaints of pain/discomfort noted throughout the shift. Will continue to monitor.
[2018-03-15 20:10] VITALS: BP 132/62; PULSE 66; RESP 18
[2018-03-15] MEDS: PIPER-TAZO 3.375 GM IV (PMX) 100 ML IVPB SCH (20:31)
[2018-03-15] MEDS: ATORVASTATIN 40 MG TAB PO SCH (20:39)
[2018-03-15] MEDS: CALCIUM CARBONATE 1.25 GM TAB PO SCH (20:40)
[2018-03-15] MEDS: GEMFIBROZIL 600 MG TAB PO SCH (20:40)
[2018-03-16] VITALS (12 sets, daily range): BP systolic 118–166; BP diastolic 48–78; PULSE 54–69; RESP 16–24
[2018-03-16] MEDS: PIPER-TAZO 3.375 GM IV (PMX) 100 ML IVPB SCH ×5 (01:13→23:44)
[2018-03-16] MEDS: PANTOPRAZOLE 40 MG INJ IV SCH ×2 (05:36→17:17)
[2018-03-16] MEDS: SOD CHLORIDE 0.9% 1,000 ML IV SCH (05:38)
--- NOTE | 2018-03-16 06:30 | NUR ---
END OF SHIFT REPORT Pt alert and oriented x4. Pt's daughter at bedside. Pt on bed in low position with call light within reach and bed alarm activated. Pt ambulates to bathroom. Vitals stable. No acute distress noted. All due meds given. All stool and urine collected and sent to lab. Throat culture for strep A collected and sent to lab. Pt NPO after midnight for EGD today. Will endorse pt to AM shift nurse for continuation of care.
[2018-03-16] MEDS: INSULIN ASPART [NOVOLOG] 3 ML PEN SC SCH ×4 (08:00→20:28)
[2018-03-16] MEDS: CARBIDOPA/LEVODOPA (25/100) TAB PO SCH ×4 (08:30→20:28)
[2018-03-16] MEDS: ROPINIROLE 0.25 MG TAB PO SCH ×4 (08:31→20:28)
[2018-03-16] MEDS: VENLAFAXINE (XR) 75 MG CAP PO SCH (08:31)
[2018-03-16] MEDS: LISINOPRIL 10 MG TAB PO SCH (08:31)
[2018-03-16] MEDS: CALCIUM CARBONATE 1.25 GM TAB PO SCH ×2 (08:31→20:28)
[2018-03-16] MEDS: GEMFIBROZIL 600 MG TAB PO SCH ×2 (08:31→20:28)
[2018-03-16] MEDS: ATENOLOL 25 MG TAB PO SCH (08:32)
[2018-03-16] MEDS: FENOFIBRATE 145 MG TAB PO SCH (08:33)
[2018-03-16] MEDS: OXYBUTYNIN (XL) 5 MG TAB PO SCH (08:33)
[2018-03-16] MEDS: ASPIRIN 81 MG TAB PO SCH (08:33)
[2018-03-16] MEDS ORDERED: DEXTROSE 50% 50 ML SYRINGE IV ONE (09:00)
[2018-03-16] MEDS ORDERED: ENOXAPARIN 40 MG/0.4 ML SYG SC SCH (09:00)
--- NOTE | 2018-03-16 12:10 | CONS ---
Assessment/Plan Assessment/Plan Assessment/Plan 1. Hyponatremia due to hypovolemic Hyponatremia 2. Abdominal pain due to acute gastroenteritis 3. Possible Community acquired PNA 4. H/o HTN 5. H/o HL 6. H/o DM II 7. H/o Parkinsonism Plan: Na imrpoved to 133, plan for EGD today - decrease IVF NS to 50 cc/hr to avoid fluid overload Iv abx zosyn and vancomycin to cover for Pneumonia,renally dose all abx and monitor electrolytes continue other home meds will follow up Result Diagram: 03/15/18 0715 03/15/18 0715 Results 24hrs Laboratory Tests Test 03/15/18 12:57 03/15/18 17:20 03/15/18 20:38 03/15/18 21:00 Bedside Glucose 89 97 109 Urine Osmolality 283 Urine Random Sodium 76 Test 03/16/18 08:15 03/16/18 08:58 03/16/18 12:07 Bedside Glucose 50 L 132 72 Consultation Date/Type/Reason Admit Date/Time Mar 15, 2018 at 09:50 Initial Consult Date 03/15/18 Type of Consult NEPHROLOGY Requesting Provider: JC MAGANA MD 24 HR Interval Summary Free Text/Dictation Na improved to 133, Bp stable Exam/Review of Systems Vital Signs Vitals Vital Signs Date Temp Pulse Resp B/P (MAP) Pulse Ox O2 O2 Flow FiO2 Time Delivery Rate 03/16/18 Nasal 2.0 11:00 Cannula 03/16/18 98.5 66 16 138/64 95 07:42 (88) Intake and Output 03/15/18 03/15/18 03/16/18 1515:00 23:00 07:00 IntakeIntake Total 350 ml 1300 ml BalanceBalance 350 ml 1300 ml Exam Constitutional: alert Respiratory: clear to auscultation, diminished breath sounds Cardiovascular: regular rate and rhythm, nl pulses Gastrointestinal: soft, distended, tender Musculoskeletal: nl extremities to inspection Extremities: normal pulses Neurological: PHARMACEUTICAL PLANT OPERATOR II-XII intact, nl mental status, nl speech, nl strength Medications Medications Current Medications Sodium Chloride 1,000 ml @ 75 mls/hr [id number] IV Last administered on 03/16/18at 05:38; Admin Dose 75 MLS/HR; Start 03/15/18 at 10:32 IV Flush (NS 3 ml) 3 ml PER PROTOCOL IV ; Start 03/15/18 at 11:00 Ondansetron HCl (Zofran Inj) 4 mg Q6H PRN IV NAUSEA AND/OR VOMITING; Start 03/15/18 at 11:00 Acetaminophen (Tylenol Tab) 650 mg Q6H PRN PO PAIN LEVEL 1-3 OR FEVER; Start 03/15/18 at 11:00 Insulin Aspart (Novolog Insulin Pen) NOVOLOG *MILD* ALGORITHM WITH MEALS BEDTIME SC ; Start 03/15/18 at 18:00 Aspirin (Aspirin) 81 mg DAILY PO Last administered on 03/16/18 08:33; Admin Dose 81 MG; Start 03/16/18 at 09:00 Atenolol (Tenormin) 25 mg DAILY PO Last administered on 03/16/18 08:32; Admin Dose 25 MG; Start 03/16/18 at 09:00 Atorvastatin Calcium (Lipitor) 40 mg QHS PO Last administered on 03/15/18 20:39; Admin Dose 40 MG; Start 03/15/18 at 21:00 Calcium Carbonate (Oyster Shell Calcium) 1.25 gm BID PO Last administered on 03/16/18 08:31; Admin Dose 1.25 GM; Start 03/15/18 at 21:00 Carbidopa/Levodopa (Sinemet (25/ 100)) 1 tab QID PO Last administered on 03/16/18 08:30; Admin Dose 1 TAB; Start 03/15/18 at 13:00 Fenofibrate (Tricor) 145 mg DAILY PO Last administered on 03/16/18 08:33; Admin Dose 145 MG; Start 03/16/18 at 09:00 Gemfibrozil (Lopid) 600 mg BID PO Last administered on 03/16/18 08:31; Admin Dose 600 MG; Start 03/15/18 at 21:00 Lisinopril (Zestril) 10 mg DAILY PO Last administered on 03/16/18 08:31; Admin Dose 10 MG; Start 03/16/18 at 09:00 Oxybutynin Chloride (Ditropan Xl) 5 mg DAILY PO Last administered on 03/16/18 08:33; Admin Dose 5 MG; Start 03/16/18 at 09:00 Ropinirole HCl (Requip) 0.5 mg QID PO Last administered on 03/16/18at 08:31; Ad min Dose 0.5 MG; Start 03/15/18 at 13:00 Venlafaxine HCl (Effexor Xr) 75 mg DAILY PO Last administered on 03/16/18at 08:31; Admin Dose 75 MG; Start 03/16/18 at 09:00 Piperacillin Sod/ Tazobactam Sod 100 ml @ 200 mls/hr Q6 IVPB Last administered on 03/16/18at 12:08; Admin Dose 200 MLS/HR; Start 03/15/18 at 18:00 Vancomycin HCl (Vanco Iv Per Pharmacy) VANCOMYCIN PER PHARMACY PER PROTOCOL XX ; Start 03/15/18 at 12:30 Pantoprazole (Protonix Iv) 40 mg BID@06,18 IV Last administered on 03/16/18at 05:36; Admin Dose 40 MG; Start 03/15/18 at 18:00 Enoxaparin Sodium (Lovenox) 40 mg DAILY SC ; Start 03/16/18 at 09:00 Vancomycin HCl 1.25 gm/Sodium Chloride 250 ml @ 83.333 mls/ hr Q24H IVPB ; Start 03/16/18 at 16:30 Date/Time of Note Date/Time of Note DATE: 03/16/18 TIME: 12:10 MATTY MANCILLA MD Mar 16, 2018 12:10
[2018-03-16] MEDS ORDERED: GLUCAGON 1 MG INJ IM PRN (12:30)
[2018-03-16] MEDS ORDERED: DEXTROSE 50% 50 ML SYRINGE IV PRN ×2 (12:30)
[2018-03-16] MEDS ORDERED: GLUCOSE GEL 15 GRAM TUBE BUCCAL PRN (12:30)
[2018-03-16] MEDS ORDERED: GLUCOSE GEL 15 GRAM TUBE PO PRN ×2 (12:30)
--- NOTE | 2018-03-16 12:59 | PN ---
Date/Time of Note Date/Time of Note DATE: 03/16/18 TIME: 12:53 Assessment/Plan VTE Prophylaxis Risk score (from Ns)>0 risk: 4 SCD applied (from Ns): Yes Pharmacological prophylaxis: other Pharm contraindication: bleeding Lines/Catheters IV [facility]ter Type (from [facility]): Peripheral IV Urinary Cath still in place: No Assessment/Plan Hospital Course SUBJECTIVE: Patient had 2 hypoglycemic episodes today. The patient is no more confused as per the family. No diarrhea reported. Continues to have abdominal pain. OBJECTIVE: Physical Exam General: Adequately build 82 year-old female lying in bed in no apparent distress. HEENT: Normocephalic, atraumatic. Eyes: Anicteric sclerae, conjunctivae clear. ENT: Nasal septum midline, oral mucosa is dry moist. Neck supple. Respiratory: Bilaterally diminished breath sounds. No use of accessory muscles of respiration. No adventitious breath sounds. Cardiovascular: S1, S2 heard. Regular rate and rhythm. Abdomen: Soft and distended. Bowel sounds positive in all 4 quadrants. Genitourinary: Deferred. Extremities: No cyanosis, no clubbing, no edema. Peripheral pulses palpable. Neurologic: The patient is somnolent. Wakes up to call. Oriented to self and place. Labs & Vitals per chart ASSESSMENT & PLAN 82-year-old female with comorbidities including hypertension, diabetes mellitus type 2, dyslipidemia, Parkinson's disease, TIA, gastric ulcer, hiatal hernia, gastroesophageal reflux disease, and gastritis who started having abdominal pain since 03/10/2018 and was evaluated by the ER on 03/12/2018. The patient returned back to the ER on 03/15/2018 because of continuing abdominal pain with associated nausea, vomiting, diarrhea, and confusion. The patient was admitted to inpatient setting for further treatment and evaluation. 1. Acute abdominal pain with associated gastrointestinal symptoms. -Etiology unclear. -CT of the abdomen and pelvis showing sigmoid diverticulosis without definite evidence for diverticulitis with wall thickening of the sigmoid colon. -Started after eating meat exported from [place]. -Continue empiric antimicrobials including coverage for anaerobes -Stool studies negative so far. -Gastroenterology following. -Plan for esophagogastroduodenoscopy. -PPI(known history of GERD, gastritis, and gastric ulcers). 2. Suspected community-acquired pneumonia. -Continue antimicrobials. 3. Hyponatremia. -Etiology unclear. -Probably secondary to hypovolemia. -Correct sodium level slowly. -Nephrology following. 4. Complicated urinary tract infection. -Urine culture showing gram-negative rods with colony count more than 100,000 CFU per mL. -Continue empiric antibiotics until final culture and sensitivities are available. 5. Acute encephalopathy. -Most probably toxic metabolic in origin. -Monitor mental status closely. 6. Essential hypertension. -Continue antihypertensives. 7. Diabetes mellitus type 2. -Hold oral medications -Continue the patient on SSI. -Hemoglobin A1c 6.4. 8. Parkinson's disease. -Continue antiparkinsonian medications. 9. History of, gastritis, gastric ulcer. -Continue PPI. -Plan for esophagogastroduodenoscopy. 10. Fluids, electrolytes, and nutrition. -N.p.o. for procedure. -Continue IV fluids. 11. DVT prophylaxis. -Bilateral SCDs. 12. Plan. -Continue empiric antimicrobials. -Continue PPI. -Await esophagogastroduodenoscopy. -Await final cultures. The patient was seen in collaboration with Dr. Le. Plan of care was explained to the patient's daughter, who was at the bedside. Result Diagram: 03/15/18 0715 03/15/1815 Results 24hrs Laboratory Tests Test 03/15/18 12:57 03/15/18 17:20 03/15/18 20:38 03/15/18 21:00 Bedside Glucose 89 97 109 Urine Osmolality 283 Urine Random Sodium 76 Test 03/16/18 08:15 03/16/18 08:58 03/16/18 12:07 Bedside Glucose 50 L 132 72 Exam/Review of Systems Vital Signs Vitals Vital Signs Date Temp Pulse Resp B/P (MAP) Pulse Ox O2 O2 Flow FiO2 Time Delivery Rate 03/16/18 Nasal 2.0 11:00 Cannula 03/16/18 98.5 66 16 138/64 95 07:42 (88) Intake and Output 03/15/18 03/15/18 03/16/18 1515:00 23:00 07:00 IntakeIntake Total 350 ml 1300 ml BalanceBalance 350 ml 1300 ml Medications Medications Current Medications Sodium Chloride 1,000 ml @ 75 mls/hr [id number] IV Last administered on 03/16/18at 05:38; Admin Dose 75 MLS/HR; Start 03/15/18 at 10:32 IV Flush (NS 3 ml) 3 ml PER PROTOCOL IV ; Start 03/15/18 at 11:00 Ondansetron HCl (Zofran Inj) 4 mg Q6H PRN IV NAUSEA AND/OR VOMITING; Start 03/15/18 at 11:00 Acetaminophen (Tylenol Tab) 650 mg Q6H PRN PO PAIN LEVEL 1-3 OR FEVER; Start 03/15/18 at 11:00 Insulin Aspart (Novolog Insulin Pen) NOVOLOG *MILD* ALGORITHM WITH MEALS BEDTIME SC ; Start 03/15/18 at 18:00 Aspirin (Aspirin) 81 mg DAILY PO Last administered on 03/16/18 08:33; Admin Dose 81 MG; Start 03/16/18 at 09:00 Atenolol (Tenormin) 25 mg DAILY PO Last administered on 03/16/18 08:32; Admin Dose 25 MG; Start 03/16/18 at 09:00 Atorvastatin Calcium (Lipitor) 40 mg QHS PO Last administered on 03/15/18at 20:39; Admin Dose 40 MG; Start 03/15/18 at 21:00 Calcium Carbonate (Oyster Shell Calcium) 1.25 gm BID PO Last administered on 03/16/18 08:31; Admin Dose 1.25 GM; Start 03/15/18 at 21:00 Carbidopa/Levodopa (Sinemet (25/ 100)) 1 tab QID PO Last administered on 03/16/18 08:30; Admin Dose 1 TAB; Start 03/15/18 at 13:00 Fenofibrate (Tricor) 145 mg DAILY PO Last administered on 03/16/18 08:33; Admin Dose 145 MG; Start 03/16/18 at 09:00 Gemfibrozil (Lopid) 600 mg BID PO Last administered on 03/16/18 08:31; Admin Dose 600 MG; Start 03/15/18 at 21:00 Lisinopril (Zestril) 10 mg DAILY PO Last administered on 03/16/18 08:31; Admin Dose 10 MG; Start 03/16/18 at 09:00 Oxybutynin Chloride (Ditropan Xl) 5 mg DAILY PO Last administered on 03/16/18 08:33; Admin Dose 5 MG; Start 03/16/18 at 09:00 Ropinirole HCl (Requip) 0.5 mg QID PO Last administered on 03/16/18at 08:31; Admin Dose 0.5 MG; Start 03/15/18 at 13:00 Venlafaxine HCl (Effexor Xr) 75 mg DAILY PO Last administered on 03/16/18at 08:31; Admin Dose 75 MG; Start 03/16/18 at 09:00 Piperacillin Sod/ Tazobactam Sod 100 ml @ 200 mls/hr Q6 IVPB Last administered on 03/16/18at 12:08; Admin Dose 200 MLS/HR; Start 03/15/18 at 18:00 Vancomycin HCl (Vanco Iv Per Pharmacy) VANCOMYCIN PER PHARMACY PER PROTOCOL XX ; Start 03/15/18 at 12:30 Pantoprazole (Protonix Iv) 40 mg BID@06,18 IV Last administered on 03/16/18at 05:36; Admin Dose 40 MG; Start 03/15/18 at 18:00 Enoxaparin Sodium (Lovenox) 40 mg DAILY SC ; Start 03/16/18 at 09:00 Vancomycin HCl 1.25 gm/Sodium Chloride 250 ml @ 83.333 mls/ hr Q24H IVPB ; Start 03/16/18 at 16:30 Miscellaneous Information 1 ea NOTE XX ; Start 03/16/18 at 12:30 Glucose (Glutose) 15 gm Q15M PRN PO DECREASED GLUCOSE; Start 03/16/18 at 12:30 Glucose (Glutose) 22.5 gm Q15M PRN PO DECREASED GLUCOSE; Start 03/16/18 at 12:30 Dextrose (D50w Syringe) 25 ml Q15M PRN IV DECREASED GLUCOSE; Start 03/16/18 at 12:30 Dextrose (D50w Syringe) 50 ml Q15M PRN IV DECREASED GLUCOSE; Start 03/16/18 at 12:30 Glucagon (Glucagen) 1 mg Q15M PRN IM DECREASED GLUCOSE; Start 03/16/18 at 12:30 Glucose (Glutose) 15 gm Q15M PRN BUCCAL DECREASED GLUCOSE; Start 03/16/18 at 12:30 ALVARO JEAN NP Mar 16, 2018 12:59
[2018-03-16] MEDS ORDERED: VANCOMYCIN HCL 1.25 GM in SOD CHLORIDE 0.9% 250 ML IVPB SCH ×2 (14:00→16:30)
--- NOTE | 2018-03-16 14:46 | NUR ---
EGD Pt went down to GI for EGD
--- NOTE | 2018-03-16 15:09 | PREAC ---
Date/Time of Note Date/Time of Note DATE: 03/16/18 TIME: 15:06 Anesthesia Eval and Record Evaluation Time Pre-Procedure Interview DATE: 03/16/18 TIME: 15:06 Age 82 Sex female NPO: 8 hrs Preoperative diagnosis Abdominal Pain Planned procedure EGD Past Medical History Past Medical History: Includes Cardio: HTN, Dyslipidemia, ID (previoud History of ID), CAD Endo: Diabetes Neuro: Other (history of stroke, parkinsons) Surgery & Anesthesia Issues No known issue Meds Anticoagulation: No Beta Laila within 24 hr: No Reason Beta Laila not given: Pt. not on B-Laila Active Scripts Ondansetron (Ondansetron Odt) 4 Mg Tab.rapdis, 4 MG PO Q6H PRN for NAUSEA AND/OR VOMITING, #10 TAB Prov:RICKIE LARSEN MD 03/12/18 Reported Medications Fenofibrate* (Fenofibrate*) 200 Mg Cap, 160 MG PO DAILY, CAP 03/15/18 Cholecalciferol* (Vitamin D*) Unknown Strength Tablet, PO DAILY, TAB 03/15/18 Aspirin* (Aspirin* Chew) 81 Mg Tab.chew, 81 MG PO DAILY, TAB.CHEW 03/12/18 Calcium Carbonate ([id number]) 500 Mg Tablet, 500 MG PO BID, TAB 03/12/18 Fenofibrate Nanocrystallized* (Fenofibrate*) 145 Mg Tablet, 145 MG PO DAILY, TAB 03/12/18 Venlafaxine Hcl* (Venlafaxine Hcl ER*) 75 Mg Cap.er.24h, 75 MG PO DAILY, CAP 03/12/18 Ropinirole Hcl* (Ropinirole Hcl*) 0.5 Mg Tablet, 0.5 MG PO QID TAKE AT 7:00 A.M, 11:00 AM, 3:00PM, & 7:00 PM 03/12/18 Carbidopa/Levodopa (Carbidopa-Levodopa 25-100 Tab) 1 Each Tablet, 1 TAB PO QID 03/12/18 Meclizine Hcl* (Meclizine Hcl*) 25 Mg Tablet, 12.5 MG PO Q8H PRN for DIZZINESS, TAB 03/12/18 Oxybutynin Chloride* (Ditropan* XL) 5 Mg Tabsr, 5 MG PO DAILY, TAB.SA 03/12/18 Meloxicam* (Meloxicam*) 7.5 Mg/5 Ml Oral.susp, 15 MG PO DAILY, #300 ML 03/12/18 Gemfibrozil* (Gemfibrozil*) 600 Mg Tablet, 600 MG PO BID, TAB 03/12/18 Atorvastatin* (Atorvastatin*) 40 Mg Tablet, 40 MG PO QHS, #30 TAB 03/12/18 Glimepiride* (Glimepiride*) 2 Mg Tablet, 2 MG PO DAILY, TAB 03/12/18 Lisinopril* (Lisinopril*) 10 Mg Tablet, 10 MG PO DAILY, #30 TAB 03/12/18 Atenolol* (Atenolol*) 25 Mg Tablet, 25 MG PO DAILY, #30 TAB 03/12/18 Glipizide* (Glipizide*) 10 Mg Tablet, 10 MG PO BID 12/08/12 Omeprazole* (Omeprazole*) 40 Mg Capsule.dr, 40 MG PO AC BREAKFAST 12/08/12 Discontinued Reported Medications Losartan Potassium* (Cozaar*) 100 Mg Tablet, 100 MG PO DAILY 12/08/12 Atorvastatin Calcium* (Atorvastatin Calcium*) 20 Mg Tablet, 20 MG PO DAILY 12/08/12 Metformin* (Glucophage*) 500 Mg Tab, 500 MG PO DAILY 12/08/12 Ranitidine Hcl (Zantac 25) 25 Mg Tablet.eff, 300 MG PO DAILY 12/08/12 Discontinued Scripts Hydrocodone/Acetaminophen ([place] 7.5-325 Tablet) 1 Each Tablet, 1 EACH PO EVERY 4-6 HOURS, #14 TAB Prov:RUCHI CHÁVEZSTPAULS A. DO 05/08/16 Methocarbamol* (Robaxin*) 750 Mg Tablet, 750 MG PO BID for MUSCLE SPASMS, #14 TAB Prov:LEKKOS,APOSTOLOS A. DO 05/08/16 Ibuprofen* (Motrin*) 400 Mg Tab, 400 MG PO Q8, #30 TAB Prov:LEKKOS,APOSTOLOS A. DO 05/08/16 Current Medications Sodium Chloride 1,000 ml @ 75 mls/hr [id number] IV Last administered on 03/16/18at 05:38; Admin Dose 75 MLS/HR; Start 03/15/18 at 10:32 IV Flush (NS 3 ml) 3 ml PER PROTOCOL IV ; Start 03/15/18 at 11:00 Ondansetron HCl (Zofran Inj) 4 mg Q6H PRN IV NAUSEA AND/OR VOMITING; Start 03/15/18 at 11:00 Acetaminophen (Tylenol Tab) 650 mg Q6H PRN PO PAIN LEVEL 1-3 OR FEVER; Start 03/15/18 at 11:00 Insulin Aspart (Novolog Insulin Pen) NOVOLOG *MILD* ALGORITHM WITH MEALS BEDTIME SC ; Start 03/15/18 at 18:00 Aspirin (Aspirin) 81 mg DAILY PO Last administered on 03/16/18 08:33; Admin Dose 81 MG; Start 03/16/18 at 09:00 Atenolol (Tenormin) 25 mg DAILY PO Last administered on 03/16/18 08:32; Admin Dose 25 MG; Start 03/16/18 at 09:00 Atorvastatin Calcium (Lipitor) 40 mg QHS PO Last administered on 03/15/18 20:39; Admin Dose 40 MG; Start 03/15/18 at 21:00 Calcium Carbonate (Oyster Shell Calcium) 1.25 gm BID PO Last administered on 03/16/18 08:31; Admin Dose 1.25 GM; Start 03/15/18 at 21:00 Carbidopa/Levodopa (Sinemet (25/ 100)) 1 tab QID PO Last administered on 03/16/18 13:24; Admin Dose 1 TAB; Start 03/15/18 at 13:00 Fenofibrate (Tricor) 145 mg DAILY PO Last administered on 03/16/18 08:33; Admin Dose 145 MG; Start 03/16/18 at 09:00 Gemfibrozil (Lopid) 600 mg BID PO Last administered on 03/16/18 08:31; Admin Dose 600 MG; Start 03/15/18 at 21:00 Lisinopril (Zestril) 10 mg DAILY PO Last administered on 03/16/18 08:31; Admin Dose 10 MG; Start 03/16/18 at 09:00 Oxybutynin Chloride (Ditropan Xl) 5 mg DAILY PO Last administered on 03/16/18 08:33; Admin Dose 5 MG; Start 03/16/18 at 09:00 Ropinirole HCl (Requip) 0.5 mg QID PO Last administered on 03/16/18at 13:25; Admin Dose 0.5 MG; Start 03/15/18 at 13:00 Venlafaxine HCl (Effexor Xr) 75 mg DAILY PO Last administered on 03/16/18at 08:31; Admin Dose 75 MG; Start 03/16/18 at 09:00 Piperacillin Sod/ Tazobactam Sod 100 ml @ 200 mls/hr Q6 IVPB Last administered on 03/16/18at 12:08; Admin Dose 200 MLS/HR; Start 03/15/18 at 18:00 Vancomycin HCl (Vanco Iv Per Pharmacy) VANCOMYCIN PER PHARMACY PER PROTOCOL XX ; Start 03/15/18 at 12:30 Pantoprazole (Protonix Iv) 40 mg BID@06,18 IV Last administered on 03/16/18at 05:36; Admin Dose 40 MG; Start 03/15/18 at 18:00 Enoxaparin Sodium (Lovenox) 40 mg DAILY SC ; Start 03/16/18 at 09:00 Vancomycin HCl 1.25 gm/Sodium Chloride 250 ml @ 83.333 mls/ hr Q24H IVPB ; Start 03/16/18 at 16:30 Miscellaneous Information 1 ea NOTE XX ; Start 03/16/18 at 12:30 Glucose (Glutose) 15 gm Q15M PRN PO DECREASED GLUCOSE; Start 03/16/18 at 12:30 Glucose (Glutose) 22.5 gm Q15M PRN PO DECREASED GLUCOSE; Start 03/16/18 at 12:30 Dextrose (D50w Syringe) 25 ml Q15M PRN IV DECREASED GLUCOSE; Start 03/16/18 at 12:30 Dextrose (D50w Syringe) 50 ml Q15M PRN IV DECREASED GLUCOSE; Start 03/16/18 at 12:30 Glucagon (Glucagen) 1 mg Q15M PRN IM DECREASED GLUCOSE; Start 03/16/18 at 12:30 Glucose (Glutose) 15 gm Q15M PRN BUCCAL DECREASED GLUCOSE; Start 03/16/18 at 12:30 Meds reviewed: Yes Allergies Coded Allergies: No Known Allergies (Unverified Allergy, Unknown, 03/15/18) Allergies Reviewed: Yes Labs/Studies Labs Reviewed: Reviewed by anesthesiologist Result Diagram: 03/15/18 0715 03/16/18 1231 Laboratory Tests 03/16/18 12:31 test: N/A Studies: ECG (n/a), CXR (n/a) Pre-procedure Exam Last vitals Vital Signs Date Temp Pulse Resp B/P (MAP) Pulse Ox O2 O2 Flow FiO2 Time Delivery Rate 03/16/18 98.1 60 124/56 98 Nasal 14:27 (78) Cannula 03/16/18 2.0 11:00 03/16/18 16 07:42 Airway: Adequate mouth opening, Adequate thyromental dist Mallampati: Mallampati II Teeth: Normal Lung: Normal Heart: Normal ASA Physical Status ASA physical status: 3 Emergency: None Planned Anesthetic General/MAC: MAC Planned Pain Management Parenteral pain med Pre-operative Attestations Prior to commencing anesthesia and surgery, the patient was re-evaluated, there was verification of: *The patient's identity *The results of appropriate recent lab work and preoperative vital signs *The above evaluation not changing prior to induction *Anesthetic plan, risk benefits, alternative and complications discussed with patient/family; questions answered; patient/family understands, accepts and wishes to proceed. AMY BAILEY MD Mar 16, 2018 15:09
[2018-03-16] MEDS ORDERED: METOCLOPRAMIDE 10 MG INJ IV PRN (15:30)
[2018-03-16] MEDS ORDERED: LABETALOL HCL 20MG INJ IV PRN (15:30)
[2018-03-16] MEDS ORDERED: HYDROmorphONE 1 MG/5 ML IV SYRINGE IV PRN ×2 (15:30)
[2018-03-16] MEDS ORDERED: FENTAnyl 50 MCG/ML VIAL IV PRN ×2 (15:30)
[2018-03-16] MEDS ORDERED: ONDANSETRON 4 MG INJ IV PRN (15:30)
[2018-03-16] MEDS ORDERED: EPHEDrine SULFATE 50 MG/5 ML SYG IV PRN (15:30)
[2018-03-16] MEDS ORDERED: hydrALAzine 20 MG INJ IV PRN (15:30)
--- NOTE | 2018-03-16 15:31 | PAC ---
Date/Time of Note Date/Time of Note DATE: 03/16/18 TIME: 15:31 Post-Anesthesia Notes Post-Anesthesia Note Last documented vital signs Vital Signs Date Temp Pulse Resp B/P (MAP) Pulse Ox O2 O2 Flow FiO2 Time Delivery Rate 03/16/18 98.1 60 16 124/56 98 Nasal 15:37 (78) Cannula 03/16/18 2.0 11:00 03/16/18 16 07:42 Activity: WNL Respiratory function: WNL Cardiovascular function: WNL Mental status: Baseline Pain reasonably controlled: Yes Hydration appropriate: Yes Nausea/Vomiting absent: Yes AMY BAILEY MD Mar 16, 2018 15:31
[2018-03-16] MEDS ORDERED: PROPOFOL 40 ML ONE (15:32)
--- NOTE | 2018-03-16 15:43 | NUR ---
S/P EGD. STABLE. DENIES PAIN/DISCOMFORT.V/S WNL. AWAKE/ALERT FOLLOWS COMMANDS
--- NOTE | 2018-03-16 15:53 | HPN ---
Date/Time of Note Date/Time of Note DATE: 03/16/18 TIME: 15:53 Interval H&P Admission Note Pt. seen H&P reviewed: No system changes ARLINE MOSER Mar 16, 2018 15:53
--- NOTE | 2018-03-16 18:03 | NUR ---
END OF SHIFT SUMMARY Pt alert and oriented, all due meds given as ordered. No acute distress noted. Pt remained NPO until EGD was done at approx.3pm. Study showed gastritis without bleeding. Plan is to wait for biopsy results avoid GERD producing foods and take PPI. Pt able to eat now; carb controlled diet, tolerating well. IV ATB hung per order. Accu-checks done as indicated. Pt was hypoglycemic in the AM. BK Barney made aware. IV dextrose ordered and given. Pt tolerated well, stabilized. Will continue to monitor pt and endorse new plan of care to oncoming shift.
[2018-03-16] MEDS: ATORVASTATIN 40 MG TAB PO SCH (20:27)
[2018-03-17 02:00] VITALS: BP 146/67; PULSE 59; RESP 17
[2018-03-17] MEDS: SOD CHLORIDE 0.9% 1,000 ML IV SCH ×2 (02:07→05:01)
--- NOTE | 2018-03-17 04:26 | NUR ---
nurses notes: patient alert and oriented x3.no respiratory distress noted. denies any pain.vital signs stable.turned q 2 hrs.call light within reach instructed to call for assistance.slept at intervals.bed alarm on.bed in lowest position.no significant changes overnight.monitored through the night.
[2018-03-17] MEDS: PIPER-TAZO 3.375 GM IV (PMX) 100 ML IVPB SCH ×3 (05:58→17:24)
[2018-03-17] MEDS: PANTOPRAZOLE 40 MG INJ IV SCH ×2 (05:58→17:24)
[2018-03-17 08:00] VITALS: BP 126/59; PULSE 64; RESP 18
[2018-03-17] MEDS: INSULIN ASPART [NOVOLOG] 3 ML PEN SC SCH ×4 (08:00→20:37)
--- NOTE | 2018-03-17 08:18 | CONS ---
Assessment/Plan Assessment/Plan Assessment/Plan 1. Hyponatremia due to hypovolemic Hyponatremia 2. Abdominal pain due to acute gastroenteritis 3. Possible Community acquired PNA 4. H/o HTN 5. H/o HL 6. H/o DM II 7. H/o Parkinsonism Plan: Na imrpoved to 135, d/c IVF now Iv abx zosyn and vancomycin to cover for Pneumonia,renally dose all abx and monitor electrolytes continue other home meds will follow up Result Diagram: 03/17/18 0543 03/17/1843 Results 24hrs Laboratory Tests Test 03/16/18 08:58 03/16/18 12:07 03/16/18 12:31 03/16/18 17:15 Bedside Glucose 132 72 51 L Sodium Level 133 L Potassium Level 3.9 Chloride Level 98 Carbon Dioxide Level 26 Anion Gap 9 Blood Urea Nitrogen 11 # Creatinine 0.97 Est Glomerular Filtrat Rate mL/min Glucose Level 69 #L Calcium Level 8.3 L Test 03/16/18 19:08 03/16/18 20:26 03/17/18 05:43 03/17/18 07:43 Bedside Glucose 141 149 175 White Blood Count 6.2 # Red Blood Count 3.31 #L Hemoglobin 9.8 L Hematocrit 29.6 L Mean Corpuscular 89.4 Volume Mean Corpuscular 29.6 Hemoglobin Mean Corpuscular 33.1 Hemoglobin Concent Red Cell 13.6 Distribution Width Platelet Count 218 Mean Platelet Volume 10.5 H Immature 0.600 H Granulocytes % Neutrophils % 66.7 Lymphocytes % 24.1 Monocytes % 6.7 Eosinophils % 1.4 Basophils % 0.5 Nucleated Red Blood 0.0 Cells % Immature 0.040 H Granulocytes # Neutrophils # 4.2 Lymphocytes # 1.5 Monocytes # 0.4 Eosinophils # 0.1 Basophils # 0.0 Nucleated Red Blood 0.0 Cells # Sodium Level 135 Potassium Level 3.8 Chloride Level 99 Carbon Dioxide Level 25 Anion Gap 11 Blood Urea Nitrogen 11 Creatinine 0.89 Est Glomerular Filtrat Rate mL/min Glucose Level 172 # Calcium Level 8.3 L Magnesium Level 1.8 Total Bilirubin 0.1 L Direct Bilirubin 0.00 Indirect Bilirubin 0.1 Aspartate Amino 56 H Transf (AST/SGOT) Alanine 39 Aminotransferase (AL T/SGPT) Alkaline Phosphatase 44 Total Protein 6.0 #L Albumin 3.0 L Globulin 3.00 Albumin/Globulin 1.00 Ratio Hepatitis B Surface NEGATIVE Antigen Hepatitis B Surface NEGATIVE Antibody Hepatitis B Core NEGATIVE Total Antibody Hepatitis C Antibody NEGATIVE Consultation Date/Type/Reason Admit Date/Time Mar 15, 2018 at 09:50 Initial Consult Date 03/15/18 Type of Consult NEPHROLOGY Requesting Provider: JC MAGANA MD Exam/Review of Systems Vital Signs Vitals Vital Signs Date Temp Pulse Resp B/P (MAP) Pulse Ox O2 O2 Flow FiO2 Time Delivery Rate 03/17/18 98.7 59 17 146/67 100 02:00 (93) 03/16/18 Nasal 2.0 20:00 Cannula Intake and Output 03/16/18 03/16/18 03/17/18 1414:59 22:59 06:59 IntakeIntake Total 100 ml 550 ml 1250 ml BalanceBalance 100 ml 550 ml 1250 ml Exam Constitutional: alert Respiratory: clear to auscultation, diminished breath sounds Cardiovascular: regular rate and rhythm, nl pulses Gastrointestinal: soft, distended, tender Musculoskeletal: nl extremities to inspection Extremities: normal pulses Neurological: PROGRAM DIRECTOR/AIR PERSONALITY II-XII intact, nl mental status, nl speech, nl strength Medications Medications Current Medications Sodium Chloride 1,000 ml @ 50 mls/hr Q20H IV Last administered on 03/17/18at 02:07; Admin Dose 50 MLS/HR; Start 03/15/18 at 10:32 IV Flush (NS 3 ml) 3 ml PER PROTOCOL IV ; Start 03/15/18 at 11:00 Ondansetron HCl (Zofran Inj) 4 mg Q6H PRN IV NAUSEA AND/OR VOMITING; Start 03/15/18 at 11:00 Acetaminophen (Tylenol Tab) 650 mg Q6H PRN PO PAIN LEVEL 1-3 OR FEVER; Start 03/15/18 at 11:00 Insulin Aspart (Novolog Insulin Pen) NOVOLOG *MILD* ALGORITHM WITH MEALS BEDTIME SC ; Start 03/15/18 at 18:00 Aspirin (Aspirin) 81 mg DAILY PO Last administered on 03/16/18at 08:33; Admin Dose 81 MG; Start 03/16/18 at 09:00 Atenolol (Tenormin) 25 mg DAILY PO Last administered on 03/16/18at 08:32; Admin Dose 25 MG; Start 03/16/18 at 09:00 Atorvastatin Calcium (Lipitor) 40 mg QHS PO Last administered on 03/16/18 20:27; Admin Dose 40 MG; Start 03/15/18 at 21:00 Calcium Carbonate (Oyster Shell Calcium) 1.25 gm BID PO Last administered on 03/16/18 20:28; Admin Dose 1.25 GM; Start 03/15/18 at 21:00 Carbidopa/Levodopa (Sinemet (25/ 100)) 1 tab QID PO Last administered on 03/16 20:28; Admin Dose 1 TAB; Start 03/15/18 at 13:00 Fenofibrate (Tricor) 145 mg DAILY PO Last administered on 03/16/18 08:33; Admin Dose 145 MG; Start 03/16/18 at 09:00 Gemfibrozil (Lopid) 600 mg BID PO Last administered on 03/16/18 20:28; Admin Dose 600 MG; Start 03/15/18 at 21:00 Lisinopril (Zestril) 10 mg DAILY PO Last administered on 03/16/18 08:31; Admin Dose 10 MG; Start 03/16/18 at 09:00 Oxybutynin Chloride (Ditropan Xl) 5 mg DAILY PO Last administered on 03/16/18 08:33; Admin Dose 5 MG; Start 03/16/18 at 09:00 Ropinirole HCl (Requip) 0.5 mg QID PO Last administered on 03/16/18 20:28; Admin Dose 0.5 MG; Start 03/15/18 at 13:00 Venlafaxine HCl (Effexor Xr) 75 mg DAILY PO Last administered on 03/16/18 08:31; Admin Dose 75 MG; Start 03/16/18 at 09:00 Piperacillin Sod/ Tazobactam Sod 100 ml @ 200 mls/hr Q6 IVPB Last administered on 03/17/18 05:58; Admin Dose 200 MLS/HR; Start 03/15/18 at 18:00 Vancomycin HCl (Vanco Iv Per Pharmacy) VANCOMYCIN PER PHARMACY PER PROTOCOL XX ; Start 03/15/18 at 12:30 Pantoprazole (Protonix Iv) 40 mg BID@06,18 IV Last administered on 03/17/18 05:58; Admin Dose 40 MG; Start 03/15/18 at 18:00 Enoxaparin Sodium (Lovenox) 40 mg DAILY SC ; Start 03/16/18 at 09:00; Status Hold Vancomycin HCl 1.25 gm/Sodium Chloride 250 ml @ 83.333 mls/ hr Q24H IVPB Last administered on 03/16/18at 16:39; Admin Dose 83.333 MLS/HR; Start 03/16/18 at 16:30 Miscellaneous Information 1 ea NOTE XX ; Start 03/16/18 at 12:30 Glucose (Glutose) 15 gm Q15M PRN PO DECREASED GLUCOSE; Start 03/16/18 at 12:30 Glucose (Glutose) 22.5 gm Q15M PRN PO DECREASED GLUCOSE; Start 03/16/18 at 12:30 Dextrose (D50w Syringe) 25 ml Q15M PRN IV DECREASED GLUCOSE; Start 03/16/18 at 12:30 Dextrose (D50w Syringe) 50 ml Q15M PRN IV DECREASED GLUCOSE; Start 03/16/18 at 12:30 Glucagon (Glucagen) 1 mg Q15M PRN IM DECREASED GLUCOSE; Start 03/16/18 at 12:30 Glucose (Glutose) 15 gm Q15M PRN BUCCAL DECREASED GLUCOSE; Start 03/16/18 at 12:30 Date/Time of Note Date/Time of Note DATE: 03/17/18 TIME: 08:18 MATTY MANCILLA MD Mar 17, 2018 08:18
[2018-03-17] MEDS: CALCIUM CARBONATE 1.25 GM TAB PO SCH ×2 (08:42→20:36)
[2018-03-17] MEDS: ASPIRIN 81 MG TAB PO SCH (08:42)
[2018-03-17] MEDS: CARBIDOPA/LEVODOPA (25/100) TAB PO SCH ×4 (08:42→20:36)
[2018-03-17] MEDS: VENLAFAXINE (XR) 75 MG CAP PO SCH (08:42)
[2018-03-17] MEDS: LISINOPRIL 10 MG TAB PO SCH (08:42)
[2018-03-17] MEDS: FENOFIBRATE 145 MG TAB PO SCH (08:42)
[2018-03-17] MEDS: ROPINIROLE 0.25 MG TAB PO SCH ×4 (08:42→20:35)
[2018-03-17] MEDS: GEMFIBROZIL 600 MG TAB PO SCH ×2 (08:43→20:36)
[2018-03-17] MEDS: ATENOLOL 25 MG TAB PO SCH (08:43)
[2018-03-17] MEDS: OXYBUTYNIN (XL) 5 MG TAB PO SCH (08:45)
--- NOTE | 2018-03-17 10:17 | NUR ---
isolation precautions initiated r/t ESBL in urine
--- NOTE | 2018-03-17 13:43 | PN ---
Date/Time of Note Date/Time of Note DATE: 03/17/18 TIME: 13:43 Assessment/Plan VTE Prophylaxis Risk score (from Ns)>0 risk: 3 SCD applied (from Ns): Yes Pharmacological prophylaxis: NA/contraindicated Pharm contraindication: other (Anemia.) Lines/Catheters IV C[facility]ter Type (from [facility] Peripheral IV Urinary Cath still in place: No Assessment/Plan Hospital Course SUBJECTIVE: Denies any abdominal pain. Denies any diarrhea. OBJECTIVE: Physical Exam General: Adequately build 82 year-old female lying in bed in no apparent distress. HEENT: Normocephalic, atraumatic. Eyes: Anicteric sclerae, conjunctivae clear. ENT: Nasal septum midline, oral mucosa is dry moist. Neck supple. Respiratory: Bilaterally diminished breath sounds. No use of accessory muscles of respiration. No adventitious breath sounds. Cardiovascular: S1, S2 heard. Regular rate and rhythm. Abdomen: Soft and distended. Bowel sounds positive in all 4 quadrants. Genitourinary: Deferred. Extremities: No cyanosis, no clubbing, no edema. Peripheral pulses palpable. Neurologic: The patient is awake, alert, and oriented. Labs & Vitals per chart ASSESSMENT & PLAN 82-year-old female with comorbidities including hypertension, diabetes mellitus type 2, dyslipidemia, Parkinson's disease, TIA, gastric ulcer, hiatal hernia, gastroesophageal reflux disease, and gastritis who started having abdominal pain since 03/10/2018 and was evaluated by the ER on 03/12/2018. The patient returned back to the ER on 03/15/2018 because of continuing abdominal pain with associated nausea, vomiting, diarrhea, and confusion. The patient was admitted to inpatient setting for further treatment and evaluation. 1. Acute abdominal pain with associated gastrointestinal symptoms. -Etiology unclear. -CT of the abdomen and pelvis showing sigmoid diverticulosis without definite evidence for diverticulitis with wall thickening of the sigmoid colon. -Started after eating meat exported from [place]. -Continue empiric antimicrobials including coverage for anaerobes -Stool studies negative so far. -Gastroenterology following. - S/P esophagogastroduodenoscopy on 03/16/2018. -PPI(known history of GERD, gastritis, and gastric ulcers). 2. Suspected community-acquired pneumonia. -Continue antimicrobials. -Repeat CXR showing no infiltrates. 3. Hyponatremia. -Etiology unclear. -Probably secondary to hypovolemia. -Resolved. -Nephrology following. 4. Complicated urinary tract infection with E. coli ESBL. -Continue antimicrobials as per sensitivities. 5. Acute encephalopathy. -Most probably toxic metabolic in origin. -Monitor mental status closely. -Resolved. 6. Essential hypertension. -Continue antihypertensives. 7. Diabetes mellitus type 2. -Hold oral medications -Continue the patient on SSI. -Hemoglobin A1c 6.4. 8. Parkinson's disease. -Continue antiparkinsonian medications. 9. History of, gastritis, gastric ulcer. -Continue PPI. -Status post esophagogastroduodenoscopy on 03/16/2018. 10. Fluids, electrolytes, and nutrition. -Carbohydrate controlled diet. 11. DVT prophylaxis. -Subcutaneous Lovenox on hold because of drop in H&H. 12. Plan. -Continue antimicrobials. -Continue PPI. -ID consult for antimicrobial management. -Stop IV vancomycin. The patient was seen in collaboration with Dr. Le. Plan of care was explained to the patient's daughter, who was at the bedside. Result Diagram: 03/17/18 0543 03/17/18 0543 Results 24hrs Laboratory Tests Test 03/16/18 17:15 03/16/18 19:08 03/16/18 20:26 03/17/18 05:43 Bedside Glucose 51 L 141 149 White Blood Count 6.2 # Red Blood Count 3.31 #L Hemoglobin 9.8 L Hematocrit 29.6 L Mean Corpuscular 89.4 Volume Mean Corpuscular 29.6 Hemoglobin Mean Corpuscular 33.1 Hemoglobin Concent Red Cell 13.6 Distribution Width Platelet Count 218 Mean Platelet Volume 10.5 H Immature 0.600 H Granulocytes % Neutrophils % 66.7 Lymphocytes % 24.1 Monocytes % 6.7 Eosinophils % 1.4 Basophils % 0.5 Nucleated Red Blood 0.0 Cells % Immature 0.040 H Granulocytes # Neutrophils # 4.2 Lymphocytes # 1.5 Monocytes # 0.4 Eosinophils # 0.1 Basophils # 0.0 Nucleated Red Blood 0.0 Cells # Sodium Level 135 Potassium Level 3.8 Chloride Level 99 Carbon Dioxide Level 25 Anion Gap 11 Blood Urea Nitrogen 11 Creatinine 0.89 Est Glomerular Filtrat Rate mL/min Glucose Level 172 # Calcium Level 8.3 L Magnesium Level 1.8 Total Bilirubin 0.1 L Direct Bilirubin 0.00 Indirect Bilirubin 0.1 Aspartate Amino 56 H Transf (AST/SGOT) Alanine 39 Aminotransferase (AL T/SGPT) Alkaline Phosphatase 44 Total Protein 6.0 #L Albumin 3.0 L Globulin 3.00 Albumin/Globulin 1.00 Ratio Hepatitis B Surface NEGATIVE Antigen Hepatitis B Surface NEGATIVE Antibody Hepatitis B Core NEGATIVE Total Antibody Hepatitis C Antibody NEGATIVE Test 03/17/18 07:43 03/17/18 12:25 Bedside Glucose 175 169 Exam/Review of Systems Vital Signs Vitals Vital Signs Date Temp Pulse Resp B/P (MAP) Pulse Ox O2 O2 Flow FiO2 Time Delivery Rate 03/17/18 Nasal 2.0 09:45 Cannula 03/17/18 98.2 64 18 126/59 97 08:00 (81) Intake and Output 03/16/18 03/16/18 03/17/18 1515:00 23:00 07:00 IntakeIntake Total 100 ml 550 ml 1250 ml BalanceBalance 100 ml 550 ml 1250 ml Medications Medications Current Medications Sodium Chloride 1,000 ml @ 50 mls/hr Q20H IV Last administered on 03/17/18at 02:07; Admin Dose 50 MLS/HR; Start 03/15/18 at 10:32 IV Flush (NS 3 ml) 3 ml PER PROTOCOL IV ; Start 03/15/18 at 11:00 Ondansetron HCl (Zofran Inj) 4 mg Q6H PRN IV NAUSEA AND/OR VOMITING; Start 03/15/18 at 11:00 Acetaminophen (Tylenol Tab) 650 mg Q6H PRN PO PAIN LEVEL 1-3 OR FEVER; Start 03/15/18 at 11:00 Insulin Aspart (Novolog Insulin Pen) NOVOLOG *MILD* ALGORITHM WITH MEALS BEDTIME SC Last administered on 03/17/18at 12:27; Admin Dose 1 UNIT; Start 03/15/18 at 18:00 Aspirin (Aspirin) 81 mg DAILY PO Last administered on 03/17/18at 08:42; Admin Dose 81 MG; Start 03/16/18 at 09:00 Atenolol (Tenormin) 25 mg DAILY PO Last administered on 03/17/18at 08:43; Admin Dose 25 MG; Start 03/16/18 at 09:00 Atorvastatin Calcium (Lipitor) 40 mg QHS PO Last administered on 03/16/18at 20:27; Admin Dose 40 MG; Start 03/15/18 at 21:00 Calcium Carbonate (Oyster Shell Calcium) 1.25 gm BID PO Last administered on 03/17/18 08:42; Admin Dose 1.25 GM; Start 03/15/18 at 21:00 Carbidopa/Levodopa (Sinemet (25/ 100)) 1 tab QID PO Last administered on 03/17/18 12:26; Admin Dose 1 TAB; Start 03/15/18 at 13:00 Fenofibrate (Tricor) 145 mg DAILY PO Last administered on 03/17/18 08:42; Admin Dose 145 MG; Start 03/16/18 at 09:00 Gemfibrozil (Lopid) 600 mg BID PO Last administered on 03/17/18 08:43; Admin Dose 600 MG; Start 03/15/18 at 21:00 Lisinopril (Zestril) 10 mg DAILY PO Last administered on 03/17/18 08:42; Admin Dose 10 MG; Start 03/16/18 at 09:00 Oxybutynin Chloride (Ditropan Xl) 5 mg DAILY PO Last administered on 03/17/18 08:45; Admin Dose 5 MG; Start 03/16/18 at 09:00 Ropinirole HCl (Requip) 0.5 mg QID PO Last administered on 03/17/18 12:26; Admin Dose 0.5 MG; Start 03/15/18 at 13:00 Venlafaxine HCl (Effexor Xr) 75 mg DAILY PO Last administered on 03/17/18 08:42; Admin Dose 75 MG; Start 03/16/18 at 09:00 Piperacillin Sod/ Tazobactam Sod 100 ml @ 200 mls/hr Q6 IVPB Last administered on 03/17/18 12:27; Admin Dose 200 MLS/HR; Start 03/15/18 at 18:00 Vancomycin HCl (Vanco Iv Per Pharmacy) VANCOMYCIN PER PHARMACY PER PROTOCOL XX ; Start 03/15/18 at 12:30 Pantoprazole (Protonix Iv) 40 mg BID@06,18 IV Last administered on 03/17/18 05:58; Admin Dose 40 MG; Start 03/15/18 at 18:00 Enoxaparin Sodium (Lovenox) 40 mg DAILY SC ; Start 03/16/18 at 09:00; Status Hold Vancomycin HCl 1.25 gm/Sodium Chloride 250 ml @ 83.333 mls/ hr Q24H IVPB Last administered on 03/16/18at 16:39; Admin Dose 83.333 MLS/HR; Start 03/16/18 at 16:30 Miscellaneous Information 1 ea NOTE XX ; Start 03/16/18 at 12:30 Glucose (Glutose) 15 gm Q15M PRN PO DECREASED GLUCOSE; Start 03/16/18 at 12:30 Glucose (Glutose) 22.5 gm Q15M PRN PO DECREASED GLUCOSE; Start 03/16/18 at 12:30 Dextrose (D50w Syringe) 25 ml Q15M PRN IV DECREASED GLUCOSE; Start 03/16/18 at 12:30 Dextrose (D50w Syringe) 50 ml Q15M PRN IV DECREASED GLUCOSE; Start 03/16/18 at 12:30 Glucagon (Glucagen) 1 mg Q15M PRN IM DECREASED GLUCOSE; Start 03/16/18 at 12:30 Glucose (Glutose) 15 gm Q15M PRN BUCCAL DECREASED GLUCOSE; Start 03/16/18 at 12:30 ALVARO JEAN NP Mar 17, 2018 13:43
[2018-03-17 14:00] VITALS: BP 116/57; PULSE 55; RESP 18
--- NOTE | 2018-03-17 14:36 | CONS ---
DATE OF ADMISSION: 03/15/2018 DATE OF CONSULTATION: 03/17/2018 TYPE OF CONSULTATION: Infectious disease. REASON FOR CONSULTATION: Antibiotic management. HISTORY OF PRESENT ILLNESS: Davina Mckenzie is an 82-year-old female who was brought in by her daughter f or altered levels of consciousness for 1 day. As noted, she is an 82-year-old female. Her past problems include: 1. Adult-onset diabetes mellitus. 2. Hypertension. 3. Hyperlipidemia. 4. Coronary artery disease. 5. Status post remote hysterectomy. 6. Appendectomy. 7. Cholecystectomy. The patient was brought into the ER by her daughter for evaluation of 5-day history of abdominal pain with fevers and some mild confusion since yesterday. The patient complains of mild, generalized, cr ampy and sharp, nonradiating pain which was localized to the upper abdomen. She had profuse watery d iarrhea for the first few days which has since resolved, but she continues to have pain. She has mil d nausea, but no vomiting, no hematemesis or melena, foul-smelling urine, urinary incontinence, but n o dysuria. Denies chest pain, palpitation, shortness of breath or cough. Daughter reports that at t imes the patient has brief episodes of confusion. She denies headache, neck or back pain, no visual changes. She was last seen in the emergency room in 03/12/2018 for abdominal pain and diagnosed with gastroenteritis likely viral. PAST SURGICAL HISTORY: Status post hysterectomy, status post appendectomy, status post cholecystecto my. PAST MEDICAL HISTORY: Neurologically, she has Parkinson's disease. Cardiac: She has a history of M I, hypertension, hypercholesterolemia. She has a history of diabetes mellitus as mentioned. FAMILY HISTORY: Positive for ovarian cancer, diabetes and hypertension. SOCIAL HISTORY: She does not smoke, drink or abuse drugs. ALLERGIES: NONE TO PENICILLIN, SULFA OR FOODS. MEDICATIONS: Per chart. REVIEW OF SYSTEMS: As per HPI. PHYSICAL EXAMINATION: GENERAL: The patient is alert, responsive, in no acute distress. VITAL SIGNS: T-max in the emergency room when she was admitted was 101.1. SKIN: Without generalized rash. HEENT: Within normal limits. NECK: Supple. LYMPH NODES: None palpable. CHEST: Decreased breath sounds at the bases. HEART: Without murmur or gallop. ABDOMEN: Soft, nontender without organosplenomegaly or masses. EXTREMITIES: Without cyanosis, clubbing or edema. RECTAL AND GENITAL: Deferred. NEUROLOGIC: No focal neurological abnormality. ANCILLARY LABORATORY DATA: White count of 8.1, H and H of 12.1 and 36.3, platelet count 257,000. BU N and creatinine is 22/1.01. Random glucose of 145. Urine is negative for nitrite, 1+ leukocyte est erase, 12 white cells per high powered field. The patient was started on Zosyn. DIAGNOSTIC DATA: Chest x-ray showed patchy interstitial and airspace opacities most prominent in mid to lower lungs, may represent infection or pulmonary edema in the acute setting. A CT scan of the a bdomen and pelvis showed sigmoid diverticulosis without any evidence of diverticulitis, wall thickeni ng of the sigmoid colon is favored on the basis of intramural hypertrophy without discrete pericoloni c inflammatory change, status post cholecystectomy with expected postoperative dilatation of the bili dora tree. Remaining of the findings are chest which demonstrates bibasilar dependent atelectasis. L iver, pancreas and spleen are unremarkable, status post cholecystectomy, status post hysterectomy. N o ascites. No degenerative changes of the spine. HOSPITAL COURSE: The patient was seen in collaboration with Dr. Adams of GI and EGD was scheduled. Sh e was seen by Dr. Hemal Mccracken. The patient is on vancomycin and Zosyn to cover for pneumonia, myke lly dosed. Currently, the patient is an 82-year-old female with multiple comorbidities. She has acu te abdominal pain with associated GI symptoms. CT of the abdomen showed diverticulosis without evide nce of definite diverticulitis. This started after eating meat exported from [place]. Stool studies are so far negative. Status post EGD on 03/16/2018. IMPRESSION AND PLAN: The patient has a history of gastroesophageal reflux disease, gastritis, gastri c ulcers, suspect community-acquired pneumonia, acute encephalopathy, toxic metabolic in origin, poss ibly related to sepsis. We will continue antimicrobial agents at this point. She grew out Escherich ia coli extended-spectrum beta-lactamase from the urine, sensitive to cefepime and to Zosyn. Rapid S trep antigen was negative. The patient is on Zosyn at the present time. We will continue her on cur rent therapy. I will dictate my findings to the hospitalist and the aforementioned consultants. Dictated By: BARBARA PIMENTEL MD, JD/MATTHEW Conf#: [id number] DID#: [id number] CC: JC MAGANA MD;*End*
--- NOTE | 2018-03-17 15:16 | PN ---
Date/Time of Note Date/Time of Note DATE: 03/17/18 TIME: 15:16 Assessment/Plan VTE Prophylaxis Risk score (from Ns)>0 risk: 3 SCD applied (from Ns): Yes Pharmacological prophylaxis: other (scds) Lines/Catheters IV Catheter Type (from [facility]): Peripheral IV Urinary Cath still in place: No Assessment/Plan Hospital Course Summary Assessment and Plan: Assessment: Epigastric pain, with reported melena 03/16/18 EGD Gastritis, unspecified, without bleeding Diarrhea- resolved N/V/Fevers (influenza neg) Query PNA UTI- E.coli Isolated elevated AST, mild- trending down Hypertension DM, type 2, dyslipidemia Parkinson's disease History of :TIA, gastric ulcer Plan: ABX per ID Plan await biopsy results PPI twice daily Avoid NSAIDs Antiemetics PRN Patient seen in collaboration with Dr. Adams/noah Subjective: Course reviewed with nursing staff Patient interviewed and examined All labs, imaging and other results reviewed The patient states she feels a little better today, epigastric pain has improved No c/o n/v or diarrhea. Tolerating diet well. Continue observation. PHYSICAL EXAMINATION: GENERAL: Alert & oriented x 3, in no acute distress SKIN: No lesions EYES: Pupils equal reactive to light, no discharge. EARS/NOSE AND THROAT: Ears normal, nose normal, oropharynx normal NECK: Supple CHEST: Inspection within normal limits. CARDIOVASCULAR: Heart: Regular rate and rhythm RESPIRATORY: Diminished GASTROINTESTINAL AND LIVER: Abdomen: Soft, non tenderness, non-distended, no h ernias, no masses, no organomegaly, no ascites, no guarding, no rebound tenderness, normoactive bowel sounds. Rectal: Deferred. Result Diagram: 03/17/18 0543 03/17/18 0543 Results 24hrs Laboratory Tests Test 03/16/18 17:15 03/16/18 19:08 03/16/18 20:26 03/17/18 05:43 Bedside Glucose 51 L 141 149 White Blood Count 6.2 # Red Blood Count 3.31 #L Hemoglobin 9.8 L Hematocrit 29.6 L Mean Corpuscular 89.4 Volume Mean Corpuscular 29.6 Hemoglobin Mean Corpuscular 33.1 Hemoglobin Concent Red Cell 13.6 Distribution Width Platelet Count 218 Mean Platelet Volume 10.5 H Immature 0.600 H Granulocytes % Neutrophils % 66.7 Lymphocytes % 24.1 Monocytes % 6.7 Eosinophils % 1.4 Basophils % 0.5 Nucleated Red Blood 0.0 Cells % Immature 0.040 H Granulocytes # Neutrophils # 4.2 Lymphocytes # 1.5 Monocytes # 0.4 Eosinophils # 0.1 Basophils # 0.0 Nucleated Red Blood 0.0 Cells # Sodium Level 135 Potassium Level 3.8 Chloride Level 99 Carbon Dioxide Level 25 Anion Gap 11 Blood Urea Nitrogen 11 Creatinine 0.89 Est Glomerular Filtrat Rate mL/min Glucose Level 172 # Calcium Level 8.3 L Magnesium Level 1.8 Total Bilirubin 0.1 L Direct Bilirubin 0.00 Indirect Bilirubin 0.1 Aspartate Amino 56 H Transf (AST/SGOT) Alanine 39 Aminotransferase (AL T/SGPT) Alkaline Phosphatase 44 Total Protein 6.0 #L Albumin 3.0 L Globulin 3.00 Albumin/Globulin 1.00 Ratio Hepatitis B Surface NEGATIVE Antigen Hepatitis B Surface NEGATIVE Antibody Hepatitis B Core NEGATIVE Total Antibody Hepatitis C Antibody NEGATIVE Test 03/17/18 07:43 03/17/18 12:25 Bedside Glucose 175 169 Exam/Review of Systems Vital Signs Vitals Vital Signs Date Temp Pulse Resp B/P (MAP) Pulse Ox O2 O2 Flow FiO2 Time Delivery Rate 03/17/18 Nasal 2.0 09:45 Cannula 03/17/18 98.2 64 18 126/59 97 08:00 (81) Intake and Output 03/16/18 03/16/18 03/17/18 1414:59 22:59 06:59 IntakeIntake Total 100 ml 550 ml 1250 ml BalanceBalance 100 ml 550 ml 1250 ml Medications Medications Current Medications Sodium Chloride 1,000 ml @ 50 mls/hr Q20H IV Last administered on 03/17/18at 02:07; Admin Dose 50 MLS/HR; Start 03/15/18 at 10:32 IV Flush (NS 3 ml) 3 ml PER PROTOCOL IV ; Start 03/15/18 at 11:00 Ondansetron HCl (Zofran Inj) 4 mg Q6H PRN IV NAUSEA AND/OR VOMITING; Start 03/15/18 at 11:00 Acetaminophen (Tylenol Tab) 650 mg Q6H PRN PO PAIN LEVEL 1-3 OR FEVER; Start 03/15/18 at 11:00 Insulin Aspart (Novolog Insulin Pen) NOVOLOG *MILD* ALGORITHM WITH MEALS BEDTIME SC Last administered on 03/17/18 12:27; Admin Dose 1 UNIT; Start 03/15/18 at 18:00 Aspirin (Aspirin) 81 mg DAILY PO Last administered on 03/17/18 08:42; Admin Dose 81 MG; Start 03/16/18 at 09:00 Atenolol (Tenormin) 25 mg DAILY PO Last administered on 03/17/18 08:43; Admin Dose 25 MG; Start 03/16/18 at 09:00 Atorvastatin Calcium (Lipitor) 40 mg QHS PO Last administered on 03/16/18 20:27; Admin Dose 40 MG; Start 03/15/18 at 21:00 Calcium Carbonate (Oyster Shell Calcium) 1.25 gm BID PO Last administered on 03/17/18 08:42; Admin Dose 1.25 GM; Start 03/15/18 at 21:00 Carbidopa/Levodopa (Sinemet (25/ 100)) 1 tab QID PO Last administered on 03/17/18 12:26; Admin Dose 1 TAB; Start 03/15/18 at 13:00 Fenofibrate (Tricor) 145 mg DAILY PO Last administered on 03/17/18 08:42; Admin Dose 145 MG; Start 03/16/18 at 09:00 Gemfibrozil (Lopid) 600 mg BID PO Last administered on 03/17/18 08:43; Admin Dose 600 MG; Start 03/15/18 at 21:00 Lisinopril (Zestril) 10 mg DAILY PO Last administered on 03/17/18 08:42; Admin Dose 10 MG; Start 03/16/18 at 09:00 Oxybutynin Chloride (Ditropan Xl) 5 mg DAILY PO Last administered on 03/17/18 08:45; Admin Dose 5 MG; Start 03/16/18 at 09:00 Ropinirole HCl (Requip) 0.5 mg QID PO Last administered on 03/17/18 12:26; Admin Dose 0.5 MG; Start 03/15/18 at 13:00 Venlafaxine HCl (Effexor Xr) 75 mg DAILY PO Last administered on 03/17/18 08:42; Admin Dose 75 MG; Start 03/16/18 at 09:00 Piperacillin Sod/ Tazobactam Sod 100 ml @ 200 mls/hr Q6 IVPB Last administered on 03/17/18at 12:27; Admin Dose 200 MLS/HR; Start 03/15/18 at 18:00 Pantoprazole (Protonix Iv) 40 mg BID@06,18 IV Last administered on 03/17/18at 05:58; Admin Dose 40 MG; Start 03/15/18 at 18:00 Enoxaparin Sodium (Lovenox) 40 mg DAILY SC ; Start 03/16/18 at 09:00; Status Hold Miscellaneous Information 1 ea NOTE XX ; Start 03/16/18 at 12:30 Glucose (Glutose) 15 gm Q15M PRN PO DECREASED GLUCOSE; Start 03/16/18 at 12:30 Glucose (Glutose) 22.5 gm Q15M PRN PO DECREASED GLUCOSE; Start 03/16/18 at 12:30 Dextrose (D50w Syringe) 25 ml Q15M PRN IV DECREASED GLUCOSE; Start 03/16/18 at 12:30 Dextrose (D50w Syringe) 50 ml Q15M PRN IV DECREASED GLUCOSE; Start 03/16/18 at 12:30 Glucagon (Glucagen) 1 mg Q15M PRN IM DECREASED GLUCOSE; Start 03/16/18 at 12:30 Glucose (Glutose) 15 gm Q15M PRN BUCCAL DECREASED GLUCOSE; Start 03/16/18 at 12:30 MARCIANO WEBB Mar 17, 2018 15:16
--- NOTE | 2018-03-17 17:53 | NUR ---
aox3, no complaints of pain during this shift, family at bedside, blood glucose in the upper 100s, pt has good appetite, OOB to chair for half the shift
[2018-03-17 20:21] VITALS: BP 121/58; PULSE 58; RESP 16
[2018-03-17] MEDS: ATORVASTATIN 40 MG TAB PO SCH (20:35)
[2018-03-18] MEDS: PIPER-TAZO 3.375 GM IV (PMX) 100 ML IVPB SCH ×2 (00:15→05:56)
[2018-03-18 02:34] VITALS: BP 144/67; PULSE 58; RESP 16
[2018-03-18] MEDS: SOD CHLORIDE 0.9% 1,000 ML IV SCH (02:44)
[2018-03-18] MEDS: PANTOPRAZOLE 40 MG INJ IV SCH (05:56)
--- NOTE | 2018-03-18 06:57 | NUR ---
Patient calm and comfortable on bed, able to make needs known, no sob, no fever, no chills, no nausea, no vomiting, no abdominal pain or discomfort, no diarrhea, no pain noted overnight. Will continue to monitor, patient's daughter at bedside for support.
[2018-03-18 07:41] VITALS: BP 137/65; PULSE 56; RESP 18
[2018-03-18] MEDS: INSULIN ASPART [NOVOLOG] 3 ML PEN SC SCH ×2 (08:00→12:00)
[2018-03-18] MEDS: ASPIRIN 81 MG TAB PO SCH (08:55)
[2018-03-18] MEDS: VENLAFAXINE (XR) 75 MG CAP PO SCH (08:55)
[2018-03-18] MEDS: FENOFIBRATE 145 MG TAB PO SCH (08:55)
[2018-03-18] MEDS: CALCIUM CARBONATE 1.25 GM TAB PO SCH (08:55)
[2018-03-18] MEDS: GEMFIBROZIL 600 MG TAB PO SCH (08:55)
[2018-03-18] MEDS: ROPINIROLE 0.25 MG TAB PO SCH ×2 (08:55→12:47)
[2018-03-18] MEDS: OXYBUTYNIN (XL) 5 MG TAB PO SCH (08:55)
[2018-03-18] MEDS: CARBIDOPA/LEVODOPA (25/100) TAB PO SCH ×2 (08:55→12:47)
[2018-03-18] MEDS: LISINOPRIL 10 MG TAB PO SCH (08:56)
[2018-03-18] MEDS: ATENOLOL 25 MG TAB PO SCH (08:56)
--- NOTE | 2018-03-18 11:26 | CONS ---
Assessment/Plan Assessment/Plan Assessment/Plan (Daily) 1. Hyponatremia due to hypovolemic Hyponatremia 2. Abdominal pain due to acute gastroenteritis 3. Possible Community acquired PNA 4. H/o HTN 5. H/o HL 6. H/o DM II 7. H/o Parkinsonism Plan: Na imrpoved to 137, d/c IVF now Iv abx zosyn and vancomycin to cover for Pneumonia,renally dose all abx and monitor electrolytes continue other home meds will follow up Consultation Date/Type/Reason Admit Date/Time Mar 15, 2018 at 09:50 Initial Consult Date 03/15/18 Type of Consult NEPHROLOGY Requesting Provider: JC MAGANA MD Exam/Review of Systems Vital Signs Vitals Vital Signs Date Temp Pulse Resp B/P (MAP) Pulse Ox O2 O2 Flow FiO2 Time Delivery Rate 03/18/18 Nasal 2.0 08:00 Cannula 03/18/18 98.0 56 18 137/65 94 07:41 (89) Intake and Output 03/17/18 03/17/18 03/18/18 1515:00 23:00 07:00 IntakeIntake Total 900 ml 960 ml 565 ml BalanceBalance 900 ml 960 ml 565 ml Exam Constitutional: alert Respiratory: clear to auscultation, diminished breath sounds Cardiovascular: regular rate and rhythm, nl pulses Gastrointestinal: soft, distended, tender Musculoskeletal: nl extremities to inspection Extremities: normal pulses Neurological: OPTICAL DISPENSER II-XII intact, nl mental status, nl speech, nl strength Results Result Diagram: 03/18/18 0533 03/18/18 0533 Results 24hrs Laboratory Tests Test 03/17/18 12:25 03/17/18 17:07 03/17/18 20:34 03/18/18 02:45 Bedside Glucose 169 154 190 125 Test 03/18/18 05:33 03/18/18 07:14 03/18/18 08:07 White Blood Count 6.2 Red Blood Count 3.30 L Hemoglobin 9.7 L Hematocrit 29.5 L Mean Corpuscular 89.4 Volume Mean Corpuscular 29.4 Hemoglobin Mean Corpuscular 32.9 Hemoglobin Concent Red Cell 13.6 Distribution Width Platelet Count 277 # Mean Platelet 10.7 H Volume Immature 0.600 H Granulocytes % Neutrophils % 53.8 Lymphocytes % 35.0 Monocytes % 7.6 Eosinophils % 2.7 Basophils % 0.3 Nucleated Red 0.0 Blood Cells % Immature 0.040 H Granulocytes # Neutrophils # 3.3 Lymphocytes # 2.2 Monocytes # 0.5 Eosinophils # 0.2 Basophils # 0.0 Nucleated Red 0.0 Blood Cells # Sodium Level 137 Potassium Level 4.1 Chloride Level 103 Carbon Dioxide 24 Level Anion Gap 10 Blood Urea 14 Nitrogen Creatinine 0.83 Est Glomerular Filtrat Rate mL/min Glucose Level 106 # Calcium Level 8.9 Phosphorus Level 3.4 Magnesium Level 1.7 Total Bilirubin 0.0 L Direct Bilirubin 0.00 Indirect Bilirubin 0.0 Aspartate Amino 39 Transf (AST/SGOT) Alanine 26 Aminotransferase ( ALT/SGPT) Alkaline 44 Phosphatase Total Protein 6.1 Albumin 3.2 L Globulin 2.90 Albumin/Globulin 1.10 Ratio Lab Scanned Report REFERENCE LAB Bedside Glucose 109 Date/Time of Note Date/Time of Note DATE: 03/18/18 TIME: 11:26 MATTY MANCILLA MD Mar 18, 2018 11:26
[2018-03-18] MEDS ORDERED: ERTAPENEM SODIUM 1 GM in SOD CHLORIDE 0.9% 100 ML IVPB SCH (13:00)
[2018-03-18 14:45] VITALS: BP 124/57; PULSE 54; RESP 18
--- NOTE | 2018-03-18 14:56 | PN ---
Date/Time of Note Date/Time of Note DATE: 03/18/18 TIME: 14:55 Assessment/Plan VTE Prophylaxis Risk score (from Ns)>0 risk: 5 SCD applied (from Ns): Yes Pharmacological prophylaxis: other (scds) Lines/Catheters IV [facility]ter [facility] (from [facility] Peripheral IV Urinary Cath still in place: No Assessment/Plan Hospital Course Summary Assessment and Plan: Assessment: Epigastric pain, with reported melena 03/16/18 EGD Gastritis, unspecified, without bleeding Diarrhea- resolved N/V/Fevers (influenza neg) Query PNA UTI- E.coli Isolated elevated AST, mild- trending down Hypertension DM, type 2, dyslipidemia Parkinson's disease History of :TIA, gastric ulcer Plan: HGB stable- pt appears stable from GI point of view for out-pt management- pt to continue PPI daily x4 weeks Recommend to f/u in office to review gastric bx results Patient seen in collaboration with Dr. Adams/noah Subjective: Course reviewed with nursing staff Patient interviewed and examined All labs, imaging and other results reviewed No over night events HGB stable, patient tolerating diet well Cleared from GI for out-pt management PHYSICAL EXAMINATION: GENERAL: Alert & oriented x 3, in no acute distress SKIN: No lesions EYES: Pupils equal reactive to light, no discharge. EARS/NOSE AND THROAT: Ears normal, nose normal, oropharynx normal NECK: Supple CHEST: Inspection within normal limits. CARDIOVASCULAR: Heart: Regular rate and rhythm RESPIRATORY: Diminished GASTROINTESTINAL AND LIVER: Abdomen: Soft, non tenderness, non-distended, no hernias, no masses, no organomegaly, no ascites, no guarding, no rebound tenderness, normoactive bowel sounds. Rectal: Deferred. Result Diagram: 03/18/1833 03/18/18 0533 Results 24hrs Laboratory Tests Test 03/17/18 17:07 03/17/18 20:34 03/18/18 02:45 03/18/18 05:33 Bedside Glucose 154 190 125 White Blood Count 6.2 Red Blood Count 3.30 L Hemoglobin 9.7 L Hematocrit 29.5 L Mean Corpuscular 89.4 Volume Mean Corpuscular 29.4 Hemoglobin Mean Corpuscular 32.9 Hemoglobin Concent Red Cell 13.6 Distribution Width Platelet Count 277 # Mean Platelet 10.7 H Volume Immature 0.600 H Granulocytes % Neutrophils % 53.8 Lymphocytes % 35.0 Monocytes % 7.6 Eosinophils % 2.7 Basophils % 0.3 Nucleated Red 0.0 Blood Cells % Immature 0.040 H Granulocytes # Neutrophils # 3.3 Lymphocytes # 2.2 Monocytes # 0.5 Eosinophils # 0.2 Basophils # 0.0 Nucleated Red 0.0 Blood Cells # Sodium Level 137 Potassium Level 4.1 Chloride Level 103 Carbon Dioxide 24 Level Anion Gap 10 Blood Urea 14 Nitrogen Creatinine 0.83 Est Glomerular Filtrat Rate mL/min Glucose Level 106 # Calcium Level 8.9 Phosphorus Level 3.4 Magnesium Level 1.7 Total Bilirubin 0.0 L Direct Bilirubin 0.00 Indirect Bilirubin 0.0 Aspartate Amino 39 Transf (AST/SGOT) Alanine 26 Aminotransferase ( ALT/SGPT) Alkaline 44 Phosphatase Total Protein 6.1 Albumin 3.2 L Globulin 2.90 Albumin/Globulin 1.10 Ratio Test 03/18/18 07:14 03/18/18 08:07 03/18/18 12:44 Lab Scanned Report REFERENCE LAB Bedside Glucose 109 124 Exam/Review of Systems Exam Vitals Vital Signs Date Temp Pulse Resp B/P (MAP) Pulse Ox O2 O2 Flow FiO2 Time Delivery Rate 03/18/18 Nasal 2.0 08:00 Cannula 03/18/18 98.0 56 18 137/65 94 07:41 (89) Intake and Output 03/17/18 03/17/18 03/18/18 1515:00 23:00 07:00 IntakeIntake Total 900 ml 960 ml 565 ml BalanceBalance 900 ml 960 ml 565 ml Results Results 24hrs Laboratory Tests Test 03/17/18 17:07 03/17/18 20:34 03/18/18 02:45 03/18/18 05:33 Bedside Glucose 154 190 125 White Blood Count 6.2 Red Blood Count 3.30 L Hemoglobin 9.7 L Hematocrit 29.5 L Mean Corpuscular 89.4 Volume Mean Corpuscular 29.4 Hemoglobin Mean Corpuscular 32.9 Hemoglobin Concent Red Cell 13.6 Distribution Width Platelet Count 277 # Mean Platelet 10.7 H Volume Immature 0.600 H Granulocytes % Neutrophils % 53.8 Lymphocytes % 35.0 Monocytes % 7.6 Eosinophils % 2.7 Basophils % 0.3 Nucleated Red 0.0 Blood Cells % Immature 0.040 H Granulocytes # Neutrophils # 3.3 Lymphocytes # 2.2 Monocytes # 0.5 Eosinophils # 0.2 Basophils # 0.0 Nucleated Red 0.0 Blood Cells # Sodium Level 137 Potassium Level 4.1 Chloride Level 103 Carbon Dioxide 24 Level Anion Gap 10 Blood Urea 14 Nitrogen Creatinine 0.83 Est Glomerular Filtrat Rate mL/min Glucose Level 106 # Calcium Level 8.9 Phosphorus Level 3.4 Magnesium Level 1.7 Total Bilirubin 0.0 L Direct Bilirubin 0.00 Indirect Bilirubin 0.0 Aspartate Amino 39 Transf (AST/SGOT) Alanine 26 Aminotransferase ( ALT/SGPT) Alkaline 44 Phosphatase Total Protein 6.1 Albumin 3.2 L Globulin 2.90 Albumin/Globulin 1.10 Ratio Test 03/18/18 07:14 03/18/18 08:07 03/18/18 12:44 Lab Scanned Report REFERENCE LAB Bedside Glucose 109 124 MARCIANO WEBB Mar 18, 2018 14:56
[2018-03-18] MEDS ORDERED: LEVO750T25 PO (15:00)
[2018-03-18] MEDS ORDERED: LACT1CAP57 PO (15:00)
[2018-03-18] MEDS ORDERED: NITR-58 PO (15:00)
[2018-03-18] MEDS ORDERED: PANT40TA4 PO (15:03)
--- NOTE | 2018-03-18 15:06 | PDOCDIS ---
Discharge Instructions CONDITION [id number] Patient Condition: Godey4y Stable HOME CARE INSTRUCTIONS: [id number] Diet Instructions: Zsmiy1b Low Fat /Cholesterol ACTIVITY: [id number] Activity Restrictions: [id number] Slowly Increase Activity Rest between Activity FOLLOW UP/APPOINTMENTS Follow-up Plan Follow up with the social worker health services for your biopsy results Name, Degree: Becky Reddy MD Specialty: Gastroenterology Comments: Office Address: [address] [place] [address] Office Office Also f/u with your PCP Dr. Rene Fink within the next week I have called them to let them know that you need a repeat urine culture at the end of your antibiotic course Review your medication list with your nurse before leaving and if you need new prescriptions please let your nurse know. I may have made changes to your home medications or given you new prescriptions, please let your primary doctor know as well. Stay compliant with your medications and report any side effects to your PCP or pharmacist. Return to the ER if you have any concerns and cannot reach your doctors or call your insurance company, they usually have a nurse that can help you. WHIT BERGER Mar 18, 2018 15:06
--- NOTE | 2018-03-18 15:21 | CONS ---
Assessment/Plan Assessment/Plan Hospital Course (Demo Recall) Patient is alert sitting up in a chair feels good denies pain no fevers no dysuria WBC 6.2 platelets 277 BUN 14 creatinine 0.3 Microbiology: Urine culture on admission grew E. coli ESBL Physical examination: This is a obese well-developed elderly woman who is alert in no distress. Head atraumatic normocephalic neck is supple chest rise symmetrical breath sounds clear. Heart: S1-S2. Abdomen soft bowel sounds present Assessment: 1. E. coli ESBL UTI, on Invanz, status post Zosyn 2. Systemic inflammatory response syndrome with resolving encephalopathy 3. Obesity Plan: Patient is stable, improving on current antibiotics she is on Invanz Consultation Date/Type/Reason Admit Date/Time Mar 15, 2018 at 09:50 Initial Consult Date 03/15/18 Type of Consult id Requesting Provider: JC MAGANA MD Date/Time of Note DATE: 03/18/18 TIME: 15:21 Exam/Review of Systems Exam Vitals Vital Signs Date Temp Pulse Resp B/P (MAP) Pulse Ox O2 O2 Flow FiO2 Time Delivery Rate 03/18/18 98.4 54 18 124/57 94 14:45 (79) 03/18/18 Nasal 2.0 08:00 Cannula Intake and Output 03/17/18 03/17/18 03/18/18 1515:00 23:00 07:00 IntakeIntake Total 900 ml 960 ml 565 ml BalanceBalance 900 ml 960 ml 565 ml Results Result Diagram: 03/18/18 0533 03/18/18 0533 Results 24hrs Laboratory Tests Test 03/17/18 17:07 03/17/18 20:34 03/18/18 02:45 03/18/18 05:33 Bedside Glucose 154 190 125 White Blood Count 6.2 Red Blood Count 3.30 L Hemoglobin 9.7 L Hematocrit 29.5 L Mean Corpuscular 89.4 Volume Mean Corpuscular 29.4 Hemoglobin Mean Corpuscular 32.9 Hemoglobin Concent Red Cell 13.6 Distribution Width Platelet Count 277 # Mean Platelet 10.7 H Volume Immature 0.600 H Granulocytes % Neutrophils % 53.8 Lymphocytes % 35.0 Monocytes % 7.6 Eosinophils % 2.7 Basophils % 0.3 Nucleated Red 0.0 Blood Cells % Immature 0.040 H Granulocytes # Neutrophils # 3.3 Lymphocytes # 2.2 Monocytes # 0.5 Eosinophils # 0.2 Basophils # 0.0 Nucleated Red 0.0 Blood Cells # Sodium Level 137 Potassium Level 4.1 Chloride Level 103 Carbon Dioxide 24 Level Anion Gap 10 Blood Urea 14 Nitrogen Creatinine 0.83 Est Glomerular Filtrat Rate mL/min Glucose Level 106 # Calcium Level 8.9 Phosphorus Level 3.4 Magnesium Level 1.7 Total Bilirubin 0.0 L Direct Bilirubin 0.00 Indirect Bilirubin 0.0 Aspartate Amino 39 Transf (AST/SGOT) Alanine 26 Aminotransferase ( ALT/SGPT) Alkaline 44 Phosphatase Total Protein 6.1 Albumin 3.2 L Globulin 2.90 Albumin/Globulin 1.10 Ratio Test 03/18/18 07:14 03/18/18 08:07 03/18/18 12:44 Lab Scanned Report REFERENCE LAB Bedside Glucose 109 124 NOÉ ABDUL NP Mar 18, 2018 15:21
--- NOTE | 2018-03-18 15:50 | NUR ---
Case Management Notes/D/c notes: Received an order for HH for home assessment. T/c made to [facility] ) to discuss the order. As per Laxmi we can d/c the patient and she will set up the HH, will call the number in the FS to set up an appointment. ISRRAEL Bell was notified. SOC will be within 24 hrs post patient d/c.
[2018-03-18] MEDS ORDERED: PANTOPRAZOLE (EC) 40 MG TAB PO SCH (18:00)
--- NOTE | 2018-03-18 18:20 | NUR ---
Discharge Summary Patient alert and oriented x 4, in no acute distress. Patient and daughter verbalized understanding of all discharge instructions including prescriptions and follow ups. IV and ID removed. Patient escorted via wheelchair to private vehicle accompanied by daughter headed for home.
--- NOTE | 2018-03-18 19:27 | DS ---
DATE OF ADMISSION: 03/15/2018 DATE OF DISCHARGE: 03/18/2018 PRESENTING COMPLAINT: Acute abdominal pain with nausea, vomiting and multiple episodes of diarrhea. FINAL DIAGNOSES: 1. Acute viral gastroenteritis: Status post EGD: Resolved. 2. Community-acquired pneumonia with evidence of patchy interstitial and airspace opacities on chest x-ray. 3. ____, resolved. 4. Complicated urinary tract infection with Escherichia coli extended-spectrum beta-lactamase. 5. Acute encephalopathy, resolved, secondary to the above. 6. Hypertension with good control. 7. Diabetes mellitus type 2 with hemoglobin A1c of 6.4 with good control. 8. Chronic Parkinson's disease, stable. 9. History of gastritis and gastric ulcers seen on EGD on 03/16/2018: On PPI therapy, status post biopsy for which patient is going to follow up with GI for biopsy results, evidence of gastritis, but no gastric ulcer on EGD. CONSULTS ON THE CASE: 1. Becky Reddy MD/Brandon Adams MD for GI. 2. Reagan Pimentel MD, for infectious disease. 3. Hemal Mccracken MD, nephrology. INTERVENTIONS: The patient had an upper endoscopy that showed gastritis, unspecified without bleeding. She also had a chest x-ray that was initially suggestive of interstitial and airspace opacities suggestive of infiltrate versus pulmonary edema but on repeat x-ray had improved. The patient also had a CT of the abdomen and pelvis which showed sigmoid diverticulosis without diverticulitis, wall thickening of the sigmoid colon, but no inflammatory changes, status post cholecystectomy with expected postoperative dilatation of the biliary tree. SHORT HOSPITALIZATION COURSE: Full details are available in chart for review. In summary, this pleasant 82-year-old female was brought to the emergency room by her daughter with concerns for abdominal pain. Pain was persistent, now associated with diarrhea and she also has vomiting. She was admitted and worked up with upper endoscopy was found to have gastritis. Her symptoms improved, but she was started on empiric antibiotics with concern for possible pneumonia. Urine culture grew out E. coli ESBL. Infectious disease was on the case and consulted for the patient. The patient has done well at this time. She is ambulatory, tolerating a regular diet. She is stable for discharge for continued treatment outpatient. I spoke with ID and Dr. Pimentel did note that the patient could be discharged on high dose Macrobid and they recommended test of cure after completion of therapy. I called the patient's primary doctor, Dr. Rene Fink and let them know that the patient is going to require repeat culture at the end of antibiotic course and also this was notified to the patient's daughter to ensure that the patient had a complete eradication of ESBL in her urine. The patient has verbalized understanding and the office expressed agreement with the plan and a willingness to cooperate. At this time, patient is stable for discharge. She has been cleared by all specialties. DISCHARGE CONDITION: Stable. DISCHARGE MEDICATIONS: For a complete list, please review the patient's chart. DISCHARGE ACTIVITIES: As tolerated. FINAL DIAGNOSES: As summarized above. FOLLOWUP: With her primary care doctor next week to ensure continued resolution of symptoms and complete eradication of ESBL. Time spent on discharge coordination is 1 hour. Dictated By: WHIT BERGER MD BA/NTS Conf#: [id number] DID#: [id number] CC: REAGAN PIMENTEL MD; JC MAGANA MD;*EndCC* MTDD
== END 2018-03-18 17:39 | disposition home health service (06) | DRG 391 ==
LOC: E/R 06:05 → 5EC 09:50
PROVIDERS: ADMIT Internal Medicine; ATTEND Internal Medicine
PROC: 0DB78ZX Excision of Stomach, Pylorus, Via Natural or Artificial Opening Endoscopic, Diagnostic (ICD-10-PCS; principal; 2018-03-16 16:00)
DX: A08.4 Viral intestinal infection, unspecified (principal); J18.9 Pneumonia, unspecified organism; G92 Toxic encephalopathy; N39.0 Urinary tract infection, site not specified; E87.1 Hypo-osmolality and hyponatremia; K92.1 Melena; R65.10 Systemic inflammatory response syndrome (SIRS) of non-infectious origin without acute organ dysfunction; K29.70 Gastritis, unspecified, without bleeding; B96.20 Unspecified Escherichia coli [E. coli] as the cause of diseases classified elsewhere; G20 Parkinson's disease; E11.9 Type 2 diabetes mellitus without complications; E86.0 Dehydration; Z16.12 Extended spectrum beta lactamase (ESBL) resistance
CPT/HCPCS: 36415; 71045; 74177; 80048; 80053; 81001; 82962; 83036; 83605; 83690; 83735; 83880; 83930; 83935; 84100; 84300; 84439; 84443; 84484; 85025; 85610; 85730; 86674; 86704; 86706; 86709; 86803; 87040; 87045; 87075; 87086; 87205; 87340; 87400; 87449; 87880; 88305; 88313; 88342; 90686; 93005; 96374; 96375; C9113; J1335; J1815; J2405; J2543; J3370; J7030; J7050; Q9967

== ENCOUNTER 2018-07-15 17:31 | Inpatient (IN) | payer OTHER ==
[~2018-07-15] VITALS: Ht 152.4 cm; Wt 74.3 kg
[~2018-07-15 17:31] MED LIST changes: +CHOL400T10 PO; -GLIM2TAB PO; +LACT1CAP57 PO; +LEVO750T25 PO; +NITR-58 PO; -ONDA4TAB14 PO; +PANT40TA4 PO
--- NOTE | 2018-07-15 19:02 | EN ---
Date/Time of Note Date/Time of Note DATE: 07/15/18 TIME: 19:02 ER Progress Note Rapid medical evaluation was initiated on this patient. Orders were placed. 83-year-old female presented to the emergency department complaining of left flank pain which is severe for the past 4 to 5 days. She also reports malodorous urine which is dark in color. She denies any fevers, chills, hematuria, or other symptoms at this time. Patient will be seen by other maik haile Provider for further evaluation and treatment if required. BANDAR JACKSON PA-C July 15, 2018 19:02
[2018-07-15] MEDS ORDERED: morphine 4 MG/ML VIAL IV STA (20:04)
[2018-07-15] MEDS ORDERED: ONDANSETRON 4 MG INJ IV STA (20:04)
[2018-07-15] MEDS ORDERED: SOD CHLORIDE 0.9% 1,000 ML IV STA (20:24)
[2018-07-15] MEDS ORDERED: CEFTRIAXONE 1 GM/50 ML (PMX) 50 ML IVPB ONE (20:30)
[2018-07-15] MEDS ORDERED: ONDANSETRON 4 MG INJ IV PRN (21:30)
[2018-07-15] MEDS ORDERED: ACETAMINOPHEN 325 MG TAB PO PRN (21:30)
--- NOTE | 2018-07-15 22:05 | ERD ---
ER Documentation Chief Complaint Chief Complaint LEFT FLANLK PAIN WIT FOUL ODOR URINE AND INCONTINENCE X 8 DAYS HPI Patient is an 83-year-old female with hypertension and diabetes who presents with left-sided flank pain. The patient has left-sided abdominal pain as well. The symptoms started 1 month ago and the pain comes and goes. She tried Tylenol. The patient has had 10 days of frequent urination and inability to control her urination. Upon review of old medical record the patient has multiple visits to the ER for various complaints. The patient's primary doctor is Dr. Rene Fink. ROS All systems reviewed and are negative except as per history of present illness. Medications Home Meds Active Scripts Pantoprazole* (Pantoprazole*) 40 Mg Tablet.dr, 40 MG PO DAILY for 30 Days, #30 TAB 1 Refill Prov:FREDRICK BERGERJoselyn . 03/18/18 Lactobacillus Rhamnosus* (Culturelle*) 1 Each Cap.sprink, 1 CAP PO BID, #20 CAP Prov:MARY BERGERDAVID . 03/18/18 Levofloxacin* (Levaquin*) 750 Mg Tablet, 750 MG PO DAILY for 7 Days, #7 TAB Prov:FREDRICK BERGERJoselyn . 03/18/18 Nitrofurantoin Monohyd Macrocr* (Macrobid*) 100 Mg Capsr, 100 MG PO BID, #20 CAP Prov:FREDRICK BERGERJoselyn . 03/18/18 Reported Medications Cholecalciferol* (Vitamin D*) Unknown Strength Tablet, PO DAILY, TAB 03/15/18 Aspirin* (Aspirin* Chew) 81 Mg Tab.chew, 81 MG PO DAILY, TAB.CHEW 03/12/18 Calcium Carbonate ([id number]) 500 Mg Tablet, 500 MG PO BID, TAB 03/12/18 Fenofibrate Nanocrystallized* (Fenofibrate*) 145 Mg Tablet, 145 MG PO DAILY, TAB 03/12/18 Venlafaxine Hcl* (Venlafaxine Hcl ER*) 75 Mg Cap.er.24h, 75 MG PO DAILY, CAP 03/12/18 Ropinirole Hcl* (Ropinirole Hcl*) 0.5 Mg Tablet, 0.5 MG PO QID TAKE AT 7:00 A.M, 11:00 AM, 3:00PM, & 7:00 PM 03/12/18 Carbidopa/Levodopa (Carbidopa-Levodopa 25-100 Tab) 1 Each Tablet, 1 TAB PO QID 03/12/18 Meclizine Hcl* (Meclizine Hcl*) 25 Mg Tablet, 12.5 MG PO Q8H PRN for DIZZINESS, TAB 03/12/18 Oxybutynin Chloride* (Ditropan* XL) 5 Mg Tabsr, 5 MG PO DAILY, TAB.SA 03/12/18 Meloxicam* (Meloxicam*) 7.5 Mg/5 Ml Oral.susp, 15 MG PO DAILY, #300 ML 03/12/18 Gemfibrozil* (Gemfibrozil*) 600 Mg Tablet, 600 MG PO BID, TAB 03/12/18 Atorvastatin* (Atorvastatin*) 40 Mg Tablet, 40 MG PO QHS, #30 TAB 03/12/18 Lisinopril* (Lisinopril*) 10 Mg Tablet, 10 MG PO DAILY, #30 TAB 03/12/18 Atenolol* (Atenolol*) 25 Mg Tablet, 25 MG PO DAILY, #30 TAB 03/12/18 Glipizide* (Glipizide*) 10 Mg Tablet, 10 MG PO BID 12/08/12 Omeprazole* (Omeprazole*) 40 Mg Capsule.dr, 40 MG PO AC BREAKFAST 12/08/12 Allergies Allergies: Coded Allergies: No Known Allergies (Unverified Allergy, Unknown, 03/15/18) PMhx/Soc History of Surgery: Yes (appendectomy, cholecystectomy, hysterectomy) Anesthesia Reaction: No Hx Neurological Disorder: Yes (Parkinson's disease) Hx Respiratory Disorders: No Hx Cardiac Disorders: Yes ([place] (2015) ) Hx Psychiatric Problems: Yes (daughter reported deep "sadness" every night) Hx Miscellaneous Medical Probl: No Hx Alcohol Use: No Hx Substance Use: No Hx Tobacco Use: No Smoking Status: Never smoker FmHx Family History: diabetes Physical Exam Vitals Vital Signs Date Temp Pulse Resp B/P (MAP) Pulse Ox O2 O2 Flow FiO2 Time Delivery Rate 07/15/18 61 22 147/71 95 Room Air 21:42 (96) 07/15/18 98.6 54 18 154/70 99 17:33 (98) Physical Exam Const: Moderate distress Head: Atraumatic Eyes: Normal Conjunctiva ENT: Normal External Ears, Nose and Mouth. Neck: Full range of motion. No meningismus. Resp: Clear to auscultation bilaterally Cardio: Regular rate and rhythm, no murmurs Abd: Soft, left-sided abdominal and flank pain with palpation Skin: No petechiae or rashes Back: Left-sided CVA tenderness to palpation Ext: No cyanosis, or edema Neur: Awake and alert Psych: Normal Mood and Affect Result Diagram: 07/15/18193907/15/181939 Results 24 hrs Laboratory Tests Test 07/15/18 19:40 White Blood Count 8.2 10^3/ul Red Blood Count 3.87 10^6/ul Hemoglobin 11.7 g/dl Hematocrit 36.1 % Mean Corpuscular Volume 93.3 fl Mean Corpuscular Hemoglobin 30.2 pg Mean Corpuscular Hemoglobin Concent 32.4 g/dl Red Cell Distribution Width 13.2 % Platelet Count 360 10^3/UL Mean Platelet Volume 10.4 fl Immature Granulocytes % 0.400 % Neutrophils % 53.7 % Lymphocytes % 32.2 % Monocytes % 9.4 % Eosinophils % 3.7 % Basophils % 0.6 % Nucleated Red Blood Cells % 0.0 /100WBC Immature Granulocytes # 0.030 10^3/ul Neutrophils # 4.4 10^3/ul Lymphocytes # 2.6 10^3/ul Monocytes # 0.8 10^3/ul Eosinophils # 0.3 10^3/ul Basophils # 0.1 10^3/ul Nucleated Red Blood Cells # 0.0 10^3/ul Urine Color YELLOW Urine Clarity SLIGHTLY CLOUDY Urine pH 6.0 Urine Specific [place] 1.016 Urine Ketones NEGATIVE mg/dL Urine Nitrite NEGATIVE mg/dL Urine Bilirubin NEGATIVE mg/dL Urine Urobilinogen 1+ mg/dL Urine Leukocyte Esterase 3+ Noe/ul Urine Microscopic RBC 2 /HPF Urine Microscopic WBC 56 /HPF Urine Squamous Epithelial Cells MODERATE /HPF Urine Bacteria FEW /HPF Urine Hemoglobin NEGATIVE mg/dL Urine Glucose NEGATIVE mg/dL Urine Total Protein NEGATIVE mg/dl Sodium Level 140 mmol/L Potassium Level 4.4 mmol/L Chloride Level 101 mmol/L Carbon Dioxide Level 30 mmol/L Anion Gap 9 Blood Urea Nitrogen 30 mg/dl Creatinine 1.02 mg/dl Est Glomerular Filtrat Rate mL/min mL/min Glucose Level 69 mg/dl Calcium Level 9.5 mg/dl Total Bilirubin 0.3 mg/dl Direct Bilirubin 0.00 mg/dl Indirect Bilirubin 0.3 mg/dl Aspartate Amino Transf (AST/SGOT) 38 IU/L Alanine Aminotransferase (ALT/SGPT) 15 IU/L Alkaline Phosphatase 40 IU/L Total Protein 7.5 g/dl Albumin 4.2 g/dl Globulin 3.30 g/dl Albumin/Globulin Ratio 1.27 Lipase 284 U/L Current Medications Medications Dose Sig/Shakira Start Time Status Last (Trade) Ordered Route PRN Stop Time Admin Dose Reason Admin Morphine 4 mg ONCE STAT 07/15/18 DC 07/15/18 Sulfate IV 20:04 20:15 (morphine) 07/15/18 20:05 Ondansetron 4 mg ONCE STAT 07/15/18 DC 07/15/18 HCl (Zofran IV 20:04 20:15 Inj) 07/15/18 20:05 Ceftriaxone 50 ml @ ONCE ONCE 07/15/18 DC 07/15/18 Sodium 100 mls/hr IVPB 20:30 20:16 07/15/18 20:59 Sodium 1,000 ml @ Q1H STAT 07/15/18 DC 07/15/18 Chloride 1,000 mls/hr IV 20:24 20:24 07/15/18 21:23 Ondansetron 4 mg BRIDGE ORDER 07/15/18 HCl (Zofran PRN IV 21:30 Inj) NAUSEA/VOMITI 07/16/18 21:29 NG 650 mg ER BRIDGE 07/15/18 Acetaminophen PRN PO 21:30 (Tylenol .MILD PAIN 07/16/18 21:29 Tab) 1-3 OR TEMP Procedures/MDM CT abdomen and pelvis read by radiology. Patient is an 83-year-old female who presents with left-sided abdominal and flank pain. She was found to have acute pyelonephritis. I doubt sepsis at this time. The patient will be admitted to the care of Dr. Vizcaino from the panel team. Urine culture is pending. The patient was given ceftriaxone IV as well as fluids for dehydration. The patient was also given pain and nausea medications. Departure Diagnosis: Primary Impression: Pyelonephritis Additional Impression: Flank pain Condition: MARCI Souza MD July 15, 2018 22:05
[2018-07-16] MEDS ORDERED: SOD CHLORIDE 0.9% 1,000 ML IV SCH (01:32)
[2018-07-16] MEDS ORDERED: GLIP5TAB13 PO (01:42)
[2018-07-16] MEDS ORDERED: MELO15TA30 PO (01:42)
[2018-07-16] MEDS ORDERED: GABA100C14 PO (01:42)
[2018-07-16] MEDS ORDERED: FENO160T13 PO (01:42)
[2018-07-16] MEDS ORDERED: CALC1TAB79 PO (01:42)
[2018-07-16] MEDS ORDERED: DOCU-216 PO (01:42)
[2018-07-16] MEDS ORDERED: ERGO500013 PO (01:44)
[2018-07-16] MEDS ORDERED: LACT1TAB25 PO (01:44)
[2018-07-16] MEDS ORDERED: ONDANSETRON 4 MG INJ IV PRN (02:00)
[2018-07-16] MEDS ORDERED: ALBUTEROL/IPRATROPIUM (NEB) 3 ML AMP HHN PRN (02:00)
[2018-07-16] MEDS ORDERED: NACL 0.9% 3 ML SYG IV SCH (02:00)
[2018-07-16] MEDS ORDERED: MECLIZINE 12.5 MG TAB PO PRN (02:00)
[2018-07-16 08:00] VITALS: BP 152/70; PULSE 58; RESP 18
[2018-07-16] MEDS ORDERED: ASPIRIN 81 MG TAB PO SCH (09:00)
[2018-07-16] MEDS ORDERED: ATENOLOL 25 MG TAB PO SCH (09:00)
[2018-07-16] MEDS ORDERED: GEMFIBROZIL 600 MG TAB PO SCH (09:00)
[2018-07-16] MEDS ORDERED: FENOFIBRATE 145 MG TAB PO SCH (09:00)
[2018-07-16] MEDS ORDERED: LISINOPRIL 10 MG TAB PO SCH (09:00)
[2018-07-16] MEDS ORDERED: VENLAFAXINE (XR) 75 MG CAP PO SCH (09:00)
--- NOTE | 2018-07-16 09:43 | HP ---
Date/Time of Note Date/Time of Note DATE: 07/16/18 TIME: 09:35 Assessment/Plan VTE Prophylaxis Pharmacological prophylaxis: other Lines/Catheters IV Catheter Type (from Nrsg): Saline Lock Assessment/Plan Assessment/Plan 1. Left flank pain and left lower quadrant pain: Secondary to colitis and the possibly pyelonephritis -Treated with Zosyn -Follow-up urine culture and blood culture results 2. Hypoglycemia: Hold sulfonylurea 3. Hypertension: Continue home meds adjust as needed 4. Dyslipidemia: Statin 5. UTI: See #1 6. Parkinson's disease: Continue Sinemet Result Diagram: 07/16/1851907/16/18519 Results 24hrs Laboratory Tests Test 07/15/18 19:40 07/16/18 05:20 07/16/18 06:55 07/16/18 07:50 White Blood Count 8.2 # 8.0 Red Blood Count 3.87 L 3.65 L Hemoglobin 11.7 #L 10.9 L Hematocrit 36.1 #L 34.4 L Mean Corpuscular 93.3 94.2 Volume Mean Corpuscular 30.2 29.9 Hemoglobin Mean Corpuscular 32.4 31.7 L Hemoglobin Concen t Red Cell 13.2 13.3 Distribution Width Platelet Count 360 # 313 Mean Platelet 10.4 10.4 Volume Immature 0.400 0.400 Granulocytes % Neutrophils % 53.7 61.6 Lymphocytes % 32.2 25.2 Monocytes % 9.4 8.7 Eosinophils % 3.7 3.6 Basophils % 0.6 0.5 Nucleated Red 0.0 0.0 Blood Cells % Immature 0.030 0.030 Granulocytes # Neutrophils # 4.4 4.9 Lymphocytes # 2.6 2.0 Monocytes # 0.8 0.7 Eosinophils # 0.3 0.3 Basophils # 0.1 0.0 Nucleated Red 0.0 0.0 Blood Cells # Urine Color YELLOW Urine Clarity SLIGHTLY CLOUDY A Urine pH 6.0 Urine Specific 1.016 [place] Urine Ketones NEGATIVE Urine Nitrite NEGATIVE Urine Bilirubin NEGATIVE Urine 1+ H Urobilinogen Urine Leukocyte 3+ H Esterase Urine Microscopic 2 RBC Urine Microscopic 56 H WBC Urine Squamous MODERATE Epithelial Cells Urine Bacteria FEW A Urine Hemoglobin NEGATIVE Urine Glucose NEGATIVE Urine Total NEGATIVE Protein Sodium Level 140 140 Potassium Level 4.4 5.0 Chloride Level 101 104 Carbon Dioxide 30 32 H Level Anion Gap 9 4 L Blood Urea 30 H 27 H Nitrogen Creatinine 1.02 H 0.92 Est Glomerular Filtrat Rate mL/min Glucose Level 69 L 46 #*L Calcium Level 9.5 9.0 Total Bilirubin 0.3 0.2 Direct Bilirubin 0.00 0.00 Indirect 0.3 0.2 Bilirubin Aspartate Amino 38 32 Transf (AST/SGOT) Alanine 15 10 L Aminotransferase (ALT/SGPT) Alkaline 40 L 30 L Phosphatase Total Protein 7.5 6.3 # Albumin 4.2 3.5 Globulin 3.30 H 2.80 Albumin/Globulin 1.27 1.25 Ratio Lipase 284 Hemoglobin A1c 6.0 H Phosphorus Level 5.4 H Magnesium Level 1.8 Triglycerides 130 Level Cholesterol Level 121 LDL Cholesterol, 68 Calculated HDL Cholesterol 27 L Cholesterol/HDL 4.4 Ratio Bedside Glucose 71 96 HPI/ROS Admit Date/Time Admit Date/Time July 15, 2018 at 21:24 Hx of Present Illness This is an 83-year-old female with a history of hypertension, type 2 diabetes, dyslipidemia, Parkinson's disease and multiple abdominal surgeries (appendectomy, splenectomy and hysterectomy) who presented to the ER complaining of left flank pain and left lower quadrant pain. Symptoms been progressively getting worse for over 1 week. When she presented to the ER, she was febrile, however she was found to be hypoglycemic. Patient is on sulfonylurea at home. UA consistent with UTI. CT abdomen/pelvis shows the following: No hydronephrosis or urinary stone. Apparent circumferential wall thickening along the distal rectosigmoid colon. This raises the possibility of a proctocolitis, although no pericolonic inflammation is seen. Status post cholecystectomy and hysterectomy. Moderate sigmoid colon diverticulosis. Mild atherosclerotic arterial calcifications. PMH/Family/Social Past Medical History Medical History: other Medications Current Medications Sodium Chloride 1,000 ml @ 70 mls/hr [id number] IV Last administered on 07/16/18at 01:50; Admin Dose 70 MLS/HR; Start 07/16/18 at 01:32; Stop 07/16/18 at 16:00 IV Flush (NS 3 ml) 3 ml PER PROTOCOL IV ; Start 07/16/18 at 02:00 Ondansetron HCl (Zofran Inj) 4 mg Q6H PRN IV NAUSEA/VOMITING; Start 07/16/18 at 02:00 Acetaminophen (Tylenol Tab) 650 mg Q6H PRN PO .PAIN 1-3 OR TEMP; Start 07/16/18 at 02:00 Heparin Sodium (Porcine) (Heparin (5000 Units/1ml)) 5,000 unit Q12 SC ; Start 07/16/18 at 09:00 Albuterol/ Ipratropium (Duoneb) 3 ml Q2H RESP THERAPY PRN HHN SHORTNESS OF BREATH; Start 07/16/18 at 02:00 Aspirin (Aspirin) 81 mg DAILY PO ; Start 07/16/18 at 09:00 Atenolol (Tenormin) 25 mg DAILY PO ; Start 07/16/18 at 09:00 Atorvastatin Calcium (Lipitor) 40 mg QHS PO ; Start 07/16/18 at 21:00 Calcium Carbonate (Oyster Shell Calcium) 0.5 gm BID PO ; Start 07/16/18 at 09:00 Carbidopa/Levodopa (Sinemet (25/ 100)) 1 tab QID PO ; Start 07/16/18 at 09:00 Fenofibrate (Tricor) 145 mg DAILY PO ; Start 07/16/18 at 09:00 Gemfibrozil (Lopid) 600 mg BID PO ; Start 07/16/18 at 09:00 Lactobacillus Acidophilus/ Rhamnosus (Culturelle) 1 cap BID PO ; Start 07/16/18 at 09:00 Lisinopril (Zestril) 10 mg DAILY PO ; Start 07/16/18 at 09:00 Meclizine HCl (Antivert) 12.5 mg Q8H PRN PO DIZZINESS; Start 07/16/18 at 02:00 Oxybutynin Chloride (Ditropan Xl) 5 mg DAILY PO ; Start 07/16/18 at 09:00 Pantoprazole (Protonix Tab) 40 mg DAILY@0600 PO ; Start 07/16/18 at 06:00 Ropinirole HCl (Requip) 0.5 mg QID PO ; Start 07/16/18 at 09:00 Venlafaxine HCl (Effexor Xr) 75 mg DAILY PO ; Start 07/16/18 at 09:00 Coded Allergies: No Known Allergies (Unverified Allergy, Unknown, 07/16/18) Past Surgical History Past Surgical Hx: appendectomy, cholecystectomy, other Family History Significant Family History: no pertinent family hx Social History Alcohol Use: other Smoking Status: Never smoker Drug Use: other Exam/Review of Systems Vital Signs Vitals Vital Signs Date Temp Pulse Resp B/P (MAP) Pulse Ox O2 O2 Flow FiO2 Time Delivery Rate 07/16/18 98.1 58 18 152/70 96 08:00 (97) 07/16/18 Room Air 06:50 Intake and Output 07/15/18 07/15/18 07/16/18 1515:00 23:00 07:00 IntakeIntake Total 50 ml BalanceBalance 50 ml Exam Exam Constitutional: no acute distress Head: normocephalic, atraumatic Eyes: EOMI, PERRL Respiratory: clear to auscultation, normal air movement Cardiovascular: regular rate and rhythm, nl pulses Gastrointestinal: soft, non-tender Extremities: normal pulses BANDAR JASMINE MD July 16, 2018 09:43
[2018-07-16] MEDS: CARBIDOPA/LEVODOPA (25/100) TAB PO SCH ×4 (10:06→21:16)
[2018-07-16] MEDS: PANTOPRAZOLE (EC) 40 MG TAB PO SCH (10:06)
[2018-07-16] MEDS: CALCIUM CARBONATE 1.25 GM TAB PO SCH ×2 (10:07→21:16)
[2018-07-16] MEDS: OXYBUTYNIN (XL) 5 MG TAB PO SCH (10:07)
[2018-07-16] MEDS: ROPINIROLE 0.25 MG TAB PO SCH ×4 (10:08→21:16)
[2018-07-16] MEDS: HEPARIN 5,000 UNIT/1 ML VIAL SC SCH ×2 (10:10→21:17)
[2018-07-16] MEDS: LACTOBACILLUS RHAMNOSUS CAP PO SCH ×2 (10:15→21:16)
[2018-07-16] MEDS: PIPER-TAZO 2.25 GM (PMX) 50 ML IVPB SCH ×2 (11:23→17:11)
[2018-07-16 14:00] VITALS: BP 148/65; PULSE 56; RESP 20
--- NOTE | 2018-07-16 14:12 | PN ---
Date/Time of Note Date/Time of Note DATE: 07/16/18 TIME: 14:10 Assessment/Plan VTE Prophylaxis Risk score (from Ns)>0 risk: 1 SCD applied (from [facility] [place] Yes SCD contraindicated: low risk/ambulating Pharmacological prophylaxis: LMWH Lines/Catheters IV Catheter Type (from [facility]): Peripheral IV Assessment/Plan Hospital Course Assessment and plan 1. Proctocolitis? Mod stable consult GI. Etiology constipation versus a ischemia? 2. Constipation; previous colonoscopies have been unremarkable 3. Hypoglycemia resolved 4. Type 2 diabetes 5. Parkinsonism? 6. Dyslipidemia 7. Hypertension 8. Metabolic syndrome 9. Diverticulosis 10. Acute cystitis S: Lwr abd pain, no nausea vomiting fever. Occasionally eats nuts or seeds but has been having issues with constipation. Possible dysuria and urinary incontinence O: Vital signs stable PE No pallor adenopathy Regular no m/r/g Clear Bs diminish tender below the umbilicus no rigidity rebound guarding No edema Result Diagram: 07/16/18 0507/16/18 0520 Results 24hrs Laboratory Tests Test 07/15/18 19:40 07/16/18 05:20 07/16/18 06:55 07/16/18 07:50 White Blood Count 8.2 # 8.0 Red Blood Count 3.87 L 3.65 L Hemoglobin 11.7 #L 10.9 L Hematocrit 36.1 #L 34.4 L Mean Corpuscular 93.3 94.2 Volume Mean Corpuscular 30.2 29.9 Hemoglobin Mean Corpuscular 32.4 31.7 L Hemoglobin Concen t Red Cell 13.2 13.3 Distribution Width Platelet Count 360 # 313 Mean Platelet 10.4 10.4 Volume Immature 0.400 0.400 Granulocytes % Neutrophils % 53.7 61.6 Lymphocytes % 32.2 25.2 Monocytes % 9.4 8.7 Eosinophils % 3.7 3.6 Basophils % 0.6 0.5 Nucleated Red 0.0 0.0 Blood Cells % Immature 0.030 0.030 Granulocytes # Neutrophils # 4.4 4.9 Lymphocytes # 2.6 2.0 Monocytes # 0.8 0.7 Eosinophils # 0.3 0.3 Basophils # 0.1 0.0 Nucleated Red 0.0 0.0 Blood Cells # Urine Color YELLOW Urine Clarity SLIGHTLY CLOUDY A Urine pH 6.0 Urine Specific 1.016 [place] Urine Ketones NEGATIVE Urine Nitrite NEGATIVE Urine Bilirubin NEGATIVE Urine 1+ H Urobilinogen Urine Leukocyte 3+ H Esterase Urine Microscopic 2 RBC Urine Microscopic 56 H WBC Urine Squamous MODERATE Epithelial Cells Urine Bacteria FEW A Urine Hemoglobin NEGATIVE Urine Glucose NEGATIVE Urine Total NEGATIVE Protein Sodium Level 140 140 Potassium Level 4.4 5.0 Chloride Level 101 104 Carbon Dioxide 30 32 H Level Anion Gap 9 4 L Blood Urea 30 H 27 H Nitrogen Creatinine 1.02 H 0.92 Est Glomerular Filtrat Rate mL/min Glucose Level 69 L 46 #*L Calcium Level 9.5 9.0 Total Bilirubin 0.3 0.2 Direct Bilirubin 0.00 0.00 Indirect 0.3 0.2 Bilirubin Aspartate Amino 38 32 Transf (AST/SGOT) Alanine 15 10 L Aminotransferase (ALT/SGPT) Alkaline 40 L 30 L Phosphatase Total Protein 7.5 6.3 # Albumin 4.2 3.5 Globulin 3.30 H 2.80 Albumin/Globulin 1.27 1.25 Ratio Lipase 284 Hemoglobin A1c 6.0 H Phosphorus Level 5.4 H Magnesium Level 1.8 Triglycerides 130 Level Cholesterol Level 121 LDL Cholesterol, 68 Calculated HDL Cholesterol 27 L Cholesterol/HDL 4.4 Ratio Bedside Glucose 71 96 Test 07/16/18 12:13 Bedside Glucose 124 Exam/Review of Systems Exam Vitals Vital Signs Date Temp Pulse Resp B/P (MAP) Pulse Ox O2 O2 Flow FiO2 Time Delivery Rate 07/16/18 98.1 58 18 152/70 96 08:00 (97) 07/16/18 Room Air 06:50 Intake and Output 07/15/18 07/15/18 07/16/18 1515:00 23:00 07:00 IntakeIntake Total 50 ml BalanceBalance 50 ml Results Results 24hrs Laboratory Tests Test 07/15/18 19:40 07/16/18 05:20 07/16/18 06:55 07/16/18 07:50 White Blood Count 8.2 # 8.0 Red Blood Count 3.87 L 3.65 L Hemoglobin 11.7 #L 10.9 L Hematocrit 36.1 #L 34.4 L Mean Corpuscular 93.3 94.2 Volume Mean Corpuscular 30.2 29.9 Hemoglobin Mean Corpuscular 32.4 31.7 L Hemoglobin Concen t Red Cell 13.2 13.3 Distribution Width Platelet Count 360 # 313 Mean Platelet 10.4 10.4 Volume Immature 0.400 0.400 Granulocytes % Neutrophils % 53.7 61.6 Lymphocytes % 32.2 25.2 Monocytes % 9.4 8.7 Eosinophils % 3.7 3.6 Basophils % 0.6 0.5 Nucleated Red 0.0 0.0 Blood Cells % Immature 0.030 0.030 Granulocytes # Neutrophils # 4.4 4.9 Lymphocytes # 2.6 2.0 Monocytes # 0.8 0.7 Eosinophils # 0.3 0.3 Basophils # 0.1 0.0 Nucleated Red 0.0 0.0 Blood Cells # Urine Color YELLOW Urine Clarity SLIGHTLY CLOUDY A Urine pH 6.0 Urine Specific 1.016 [place] Urine Ketones NEGATIVE Urine Nitrite NEGATIVE Urine Bilirubin NEGATIVE Urine 1+ H Urobilinogen Urine Leukocyte 3+ H Esterase Urine Microscopic 2 RBC Urine Microscopic 56 H WBC Urine Squamous MODERATE Epithelial Cells Urine Bacteria FEW A Urine Hemoglobin NEGATIVE Urine Glucose NEGATIVE Urine Total NEGATIVE Protein Sodium Level 140 140 Potassium Level 4.4 5.0 Chloride Level 101 104 Carbon Dioxide 30 32 H Level Anion Gap 9 4 L Blood Urea 30 H 27 H Nitrogen Creatinine 1.02 H 0.92 Est Glomerular Filtrat Rate mL/min Glucose Level 69 L 46 #*L Calcium Level 9.5 9.0 Total Bilirubin 0.3 0.2 Direct Bilirubin 0.00 0.00 Indirect 0.3 0.2 Bilirubin Aspartate Amino 38 32 Transf (AST/SGOT) Alanine 15 10 L Aminotransferase (ALT/SGPT) Alkaline 40 L 30 L Phosphatase Total Protein 7.5 6.3 # Albumin 4.2 3.5 Globulin 3.30 H 2.80 Albumin/Globulin 1.27 1.25 Ratio Lipase 284 Hemoglobin A1c 6.0 H Phosphorus Level 5.4 H Magnesium Level 1.8 Triglycerides 130 Level Cholesterol Level 121 LDL Cholesterol, 68 Calculated HDL Cholesterol 27 L Cholesterol/HDL 4.4 Ratio Bedside Glucose 71 96 Test 07/16/18 12:13 Bedside Glucose 124 Medications Medication Current Medications Sodium Chloride 1,000 ml @ 70 mls/hr [id number] IV Last administered on 07/16/18at 01:50; Admin Dose 70 MLS/HR; Start 07/16/18 at 01:32; Stop 07/16/18 at 16:00 IV Flush (NS 3 ml) 3 ml PER PROTOCOL IV ; Start 07/16/18 at 02:00 Ondansetron HCl (Zofran Inj) 4 mg Q6H PRN IV NAUSEA/VOMITING; Start 07/16/18 at 02:00 Acetaminophen (Tylenol Tab) 650 mg Q6H PRN PO .PAIN 1-3 OR TEMP; Start 07/16/18 at 02:00 Heparin Sodium (Porcine) (Heparin (5000 Units/1ml)) 5,000 unit Q12 SC Last administered on 07/16/18 10:10; Admin Dose 5,000 UNIT; Start 07/16/18 at 09:00 Albuterol/ Ipratropium (Duoneb) 3 ml Q2H RESP THERAPY PRN HHN SHORTNESS OF BREATH; Start 07/16/18 at 02:00 Aspirin (Aspirin) 81 mg DAILY PO Last administered on 07/16/18 10:07; Admin Dose 81 MG; Start 07/16/18 at 09:00 Atenolol (Tenormin) 25 mg DAILY PO Last administered on 07/16/18 10:09; Admin Dose 25 MG; Start 07/16/18 at 09:00 Atorvastatin Calcium (Lipitor) 40 mg QHS PO ; Start 07/16/18 at 21:00 Calcium Carbonate (Oyster Shell Calcium) 0.5 gm BID PO Last administered on 07/16/18 10:07; Admin Dose 0.5 GM; Start 07/16/18 at 09:00 Carbidopa/Levodopa (Sinemet (25/ 100)) 1 tab QID PO Last administered on 07/16/18 13:48; Admin Dose 1 TAB; Start 07/16/18 at 09:00 Fenofibrate (Tricor) 145 mg DAILY PO Last administered on 07/16/18 10:06; Admin Dose 145 MG; Start 07/16/18 at 09:00 Gemfibrozil (Lopid) 600 mg BID PO Last administered on 07/16/18 10:08; Admin Dose 600 MG; Start 07/16/18 at 09:00 Lactobacillus Acidophilus/ Rhamnosus (Culturelle) 1 cap BID PO ; Start 07/16/18 at 09:00 Lisinopril (Zestril) 10 mg DAILY PO Last administered on 07/16/18 10:09; Admin Dose 10 MG; Start 07/16/18 at 09:00 Meclizine HCl (Antivert) 12.5 mg Q8H PRN PO DIZZINESS; Start 07/16/18 at 02:00 Oxybutynin Chloride (Ditropan Xl) 5 mg DAILY PO Last administered on 07/16/18 10:07; Admin Dose 5 MG; Start 07/16/18 at 09:00 Pantoprazole (Protonix Tab) 40 mg DAILY@0600 PO Last administered on 07/16/18 10:06; Admin Dose 40 MG; Start 07/16/18 at 06:00 Ropinirole HCl (Requip) 0.5 mg QID PO Last administered on 07/16/18 13:48; Admin Dose 0.5 MG; Start 07/16/18 at 09:00 Venlafaxine HCl (Effexor Xr) 75 mg DAILY PO Last administered on 07/16/18 10:07; Admin Dose 75 MG; Start 07/16/18 at 09:00 Piperacillin Sod/ Tazobactam Sod 50 ml @ 200 mls/hr Q6 IVPB Last administered on 07/16/18at 11:23; Admin Dose 200 MLS/HR; Start 07/16/18 at 12:00 GRACIE TILLMAN MD July 16, 2018 14:12
[2018-07-16] MEDS ORDERED: DEXTROSE 50% 50 ML SYRINGE IV PRN ×2 (14:30)
[2018-07-16] MEDS ORDERED: GLUCAGON 1 MG INJ IM PRN (14:30)
[2018-07-16] MEDS ORDERED: GLUCOSE GEL 15 GRAM TUBE BUCCAL PRN (14:30)
[2018-07-16] MEDS ORDERED: GLUCOSE GEL 15 GRAM TUBE PO PRN ×2 (14:30)
[2018-07-16] MEDS: D5W-0.45 NACL + KCL 20 MEQ 1,000 ML IV SCH (14:35)
[2018-07-16] MEDS ORDERED: INSULIN ASPART [NOVOLOG] 3 ML PEN SC SCH (17:00)
[2018-07-16] MEDS: INSULIN ASPART [NOVOLOG] 3 ML PEN SC SCH ×2 (17:38→21:38)
[2018-07-16] MEDS ORDERED: POLYETHYLENE GLYCOL 17 GM PACKET PO PRN (20:00)
[2018-07-16 20:14] VITALS: BP 118/65; PULSE 59; RESP 18
[2018-07-16] MEDS ORDERED: ATORVASTATIN 40 MG TAB PO SCH (21:00)
[2018-07-17] MEDS: PIPER-TAZO 2.25 GM (PMX) 50 ML IVPB SCH ×3 (00:09→11:39)
[2018-07-17] MEDS: ACCU-CHEK XX SCH (02:00)
[2018-07-17 02:12] VITALS: BP 134/71; PULSE 55; RESP 20
[2018-07-17] MEDS: PANTOPRAZOLE (EC) 40 MG TAB PO SCH (06:30)
[2018-07-17] MEDS: ACETAMINOPHEN 325 MG TAB PO PRN ×2 (06:35→20:28)
[2018-07-17 08:00] VITALS: BP 159/70; PULSE 60; RESP 18
[2018-07-17] MEDS: HEPARIN 5,000 UNIT/1 ML VIAL SC SCH ×2 (08:18→20:31)
[2018-07-17] MEDS: INSULIN ASPART [NOVOLOG] 3 ML PEN SC SCH ×4 (08:18→20:28)
[2018-07-17] MEDS: LACTOBACILLUS RHAMNOSUS CAP PO SCH ×2 (08:19→20:27)
[2018-07-17] MEDS: OXYBUTYNIN (XL) 5 MG TAB PO SCH (08:19)
[2018-07-17] MEDS: CARBIDOPA/LEVODOPA (25/100) TAB PO SCH ×4 (08:19→20:32)
[2018-07-17] MEDS: ROPINIROLE 0.25 MG TAB PO SCH ×4 (08:19→20:27)
[2018-07-17] MEDS: CALCIUM CARBONATE 1.25 GM TAB PO SCH ×2 (08:19→20:27)
[2018-07-17] MEDS: D5W-0.45 NACL + KCL 20 MEQ 1,000 ML IV SCH ×2 (10:30→14:59)
[2018-07-17 14:00] VITALS: BP 154/82; RESP 20
[2018-07-17] MEDS: MEROPENEM 500MG/50 ML (PMX) 50 ML IVPB SCH ×2 (14:14→20:32)
--- NOTE | 2018-07-17 16:16 | PN ---
Date/Time of Note Date/Time of Note DATE: 07/17/18 TIME: 16:15 Assessment/Plan VTE Prophylaxis Risk score (from Ns)>0 risk: 5 SCD applied (from [facility] [place]): No SCD contraindicated: low risk/ambulating Pharmacological prophylaxis: LMWH Lines/Catheters IV Catheter Type (from [facility]): Peripheral IV Assessment/Plan Hospital Course Assessment and plan 1. Proctocolitis? stable. Etio constipation vs ischemia? 2. Constipation; previous colonoscopies have been unremarkable 3. Hypoglycemia resolved 4. Type 2 diabetes 5. Parkinsonism? 6. Dyslipidemia 7. Hypertension 8. Metabolic syndrome 9. Diverticulosis 10. Acute cystitisE. coli continue meropenem S: 07/16 Lwr abd pain, no nausea vomiting fever. Occasionally eats nuts or seeds but has been having issues with constipation. Possible dysuria and urinary incontinence /25 less distress. O: Vital signs stable PE No pallor Regular no m/r/g Clear Bs diminish less tender below the umbilicus no r/r/g No edema Result Diagram: 07/17/18 0432 07/17/18 0432 Results 24hrs Laboratory Tests Test 07/16/18 17:10 07/16/18 21:22 07/17/18 01:59 07/17/18 04:32 Bedside Glucose 155 184 160 White Blood Count 5.3 # Red Blood Count 3.59 L Hemoglobin 11.0 L Hematocrit 33.7 L Mean Corpuscular 93.9 Volume Mean Corpuscular 30.6 Hemoglobin Mean Corpuscular 32.6 Hemoglobin Concent Red Cell 13.2 Distribution Width Platelet Count 308 Mean Platelet Volume 11.0 H Immature 0.400 Granulocytes % Neutrophils % 54.0 Lymphocytes % 29.2 Monocytes % 10.3 Eosinophils % 5.4 Basophils % 0.7 Nucleated Red Blood 0.0 Cells % Immature 0.020 Granulocytes # Neutrophils # 2.9 Lymphocytes # 1.6 Monocytes # 0.6 Eosinophils # 0.3 Basophils # 0.0 Nucleated Red Blood 0.0 Cells # Sodium Level 139 Potassium Level 4.5 Chloride Level 104 Carbon Dioxide Level 27 Anion Gap 8 Blood Urea Nitrogen 28 H Creatinine 1.05 H Est Glomerular Filtrat Rate mL/min Glucose Level 142 Hemoglobin A1c 6.2 H Calcium Level 9.0 Phosphorus Level 4.2 Magnesium Level 1.8 Total Bilirubin 0.2 Direct Bilirubin 0.00 Indirect Bilirubin 0.2 Aspartate Amino 24 Transf (AST/SGOT) Alanine 14 Aminotransferase (AL T/SGPT) Alkaline Phosphatase 28 L Total Protein 6.3 Albumin 3.5 Globulin 2.80 Albumin/Globulin 1.25 Ratio Thyroid Stimulating 1.900 Hormone (TSH) Test 07/17/18 08:16 07/17/18 12:10 Bedside Glucose 142 164 Exam/Review of Systems Exam Vitals Vital Signs Date Temp Pulse Resp B/P (MAP) Pulse Ox O2 O2 Flow FiO2 Time Delivery Rate 07/17/18 97.8 20 154/82 96 14:00 (106) 07/17/18 60 08:00 07/16/18 Room Air 06:50 Intake and Output 07/16/18 07/16/18 07/17/18 1515:00 23:00 07:00 IntakeIntake Total 1440 ml 450 ml 600 ml BalanceBalance 1440 ml 450 ml 600 ml Results Results 24hrs Laboratory Tests Test 07/16/18 17:10 07/16/18 21:22 07/17/18 01:59 07/17/18 04:32 Bedside Glucose 155 184 160 White Blood Count 5.3 # Red Blood Count 3.59 L Hemoglobin 11.0 L Hematocrit 33.7 L Mean Corpuscular 93.9 Volume Mean Corpuscular 30.6 Hemoglobin Mean Corpuscular 32.6 Hemoglobin Concent Red Cell 13.2 Distribution Width Platelet Count 308 Mean Platelet Volume 11.0 H Immature 0.400 Granulocytes % Neutrophils % 54.0 Lymphocytes % 29.2 Monocytes % 10.3 Eosinophils % 5.4 Basophils % 0.7 Nucleated Red Blood 0.0 Cells % Immature 0.020 Granulocytes # Neutrophils # 2.9 Lymphocytes # 1.6 Monocytes # 0.6 Eosinophils # 0.3 Basophils # 0.0 Nucleated Red Blood 0.0 Cells # Sodium Level 139 Potassium Level 4.5 Chloride Level 104 Carbon Dioxide Level 27 Anion Gap 8 Blood Urea Nitrogen 28 H Creatinine 1.05 H Est Glomerular Filtrat Rate mL/min Glucose Level 142 Hemoglobin A1c 6.2 H Calcium Level 9.0 Phosphorus Level 4.2 Magnesium Level 1.8 Total Bilirubin 0.2 Direct Bilirubin 0.00 Indirect Bilirubin 0.2 Aspartate Amino 24 Transf (AST/SGOT) Alanine 14 Aminotransferase (AL T/SGPT) Alkaline Phosphatase 28 L Total Protein 6.3 Albumin 3.5 Globulin 2.80 Albumin/Globulin 1.25 Ratio Thyroid Stimulating 1.900 Hormone (TSH) Test 07/17/18 08:16 07/17/18 12:10 Bedside Glucose 142 164 Medications Medication Current Medications IV Flush (NS 3 ml) 3 ml PER PROTOCOL IV ; Start 07/16/18 at 02:00 Ondansetron HCl (Zofran Inj) 4 mg Q6H PRN IV NAUSEA/VOMITING; Start 07/16/18 at 02:00 Acetaminophen (Tylenol Tab) 650 mg Q6H PRN PO .PAIN 1-3 OR TEMP Last administered on 07/17/18 06:35; Admin Dose 650 MG; Start 07/16/18 at 02:00 Heparin Sodium (Porcine) (Heparin (5000 Units/1ml)) 5,000 unit Q12 SC Last administered on 07/17/18 08:18; Admin Dose 5,000 UNIT; Start 07/16/18 at 09:00 Albuterol/ Ipratropium (Duoneb) 3 ml Q2H RESP THERAPY PRN HHN SHORTNESS OF BREATH; Start 07/16/18 at 02:00 Calcium Carbonate (Oyster Shell Calcium) 0.5 gm BID PO Last administered on 07/17/18 08:19; Admin Dose 0.5 GM; Start 07/16/18 at 09:00 Carbidopa/Levodopa (Sinemet (25/ )) 1 tab QID PO Last administered on 07/17/18 12:11; Admin Dose 1 TAB; Start 07/16/18 at 09:00 Lactobacillus Acidophilus/ Rhamnosus (Culturelle) 1 cap BID PO Last administered on 07/17/18 08:19; Admin Dose 1 CAP; Start 07/16/18 at 09:00 Meclizine HCl (Antivert) 12.5 mg Q8H PRN PO DIZZINESS; Start 07/16/18 at 02:00 Oxybutynin Chloride (Ditropan Xl) 5 mg DAILY PO Last administered on 07/17/18 08:19; Admin Dose 5 MG; Start 07/16/18 at 09:00 Pantoprazole (Protonix Tab) 40 mg DAILY@0600 PO Last administered on 07/17/18 06:30; Admin Dose 40 MG; Start 07/16/18 at 06:00 Ropinirole HCl (Requip) 0.5 mg QID PO Last administered on 07/17/18at 12:12; Admin Dose 0.5 MG; Start 07/16/18 at 09:00 Aspirin (Aspirin) 81 mg DAILY PO ; Start 07/19/18 at 09:00 Atenolol (Tenormin) 25 mg DAILY PO ; Start 07/19/18 at 09:00 Atorvastatin Calcium (Lipitor) 40 mg QHS PO ; Start 07/19/18 at 21:00 Fenofibrate (Tricor) 145 mg DAILY PO ; Start 07/19/18 at 09:00 Gemfibrozil (Lopid) 600 mg BID PO ; Start 07/19/18 at 09:00 Lisinopril (Zestril) 10 mg DAILY PO ; Start 07/19/18 at 09:00 Venlafaxine HCl (Effexor Xr) 75 mg DAILY PO ; Start 07/19/18 at 09:00 Potassium Chloride/Dextrose/ Sod Cl 1,000 ml @ 50 mls/hr Q20H IV Last administered on 07/17/18at 14:59; Admin Dose 50 MLS/HR; Start 07/16/18 at 14:30 Diagnostic Test (Pha) (Accu-Chek) 1 ea 02 XX ; Start 07/17/18 at 02:00 Insulin Aspart (Novolog Insulin Pen) NOVOLOG *MILD* ALGORITHM WITH MEALS BEDTIME SC Last administered on 07/17/18at 12:11; Admin Dose 1 UNIT; Start 07/16/18 at 18:05 Miscellaneous Information 1 ea NOTE XX ; Start 07/16/18 at 14:30 Glucose (Glutose) 15 gm Q15M PRN PO DECREASED GLUCOSE; Start 07/16/18 at 14:30 Glucose (Glutose) 22.5 gm Q15M PRN PO DECREASED GLUCOSE; Start 07/16/18 at 14:30 Dextrose (D50w Syringe) 25 ml Q15M PRN IV DECREASED GLUCOSE; Start 07/16/18 at 14:30 Dextrose (D50w Syringe) 50 ml Q15M PRN IV DECREASED GLUCOSE; Start 07/16/18 at 14:30 Glucagon (Glucagen) 1 mg Q15M PRN IM DECREASED GLUCOSE; Start 07/16/18 at 14:30 Glucose (Glutose) 15 gm Q15M PRN BUCCAL DECREASED GLUCOSE; Start 07/16/18 at 14:30 Polyethylene Glycol (Miralax) 17 gm BID PRN PO CONSTIPATION Last administered on 07/17/18at 08:19; Admin Dose 17 GM; Start 07/16/18 at 20:00 Meropenem/Sodium Chloride 50 ml @ 100 mls/hr Q12 IVPB Last administered on 07/17/18at 14:14; Admin Dose 100 MLS/HR; Start 07/17/18 at 13:00 GRACIE TILLMAN MD July 17, 2018 16:16
[2018-07-17 20:00] VITALS: BP 147/69; PULSE 54; RESP 19
[2018-07-18 02:00] VITALS: BP 184/81; PULSE 56; RESP 19
[2018-07-18] MEDS: ACCU-CHEK XX SCH (02:00)
[2018-07-18] MEDS ORDERED: hydrALAzine 20 MG INJ IV ONE (03:30)
[2018-07-18] MEDS: PANTOPRAZOLE (EC) 40 MG TAB PO SCH (05:56)
[2018-07-18] MEDS: LACTOBACILLUS RHAMNOSUS CAP PO SCH ×2 (08:48→20:46)
[2018-07-18] MEDS: ROPINIROLE 0.25 MG TAB PO SCH ×4 (08:48→20:45)
[2018-07-18] MEDS: OXYBUTYNIN (XL) 5 MG TAB PO SCH (08:48)
[2018-07-18] MEDS: CARBIDOPA/LEVODOPA (25/100) TAB PO SCH ×4 (08:48→20:45)
[2018-07-18] MEDS: CALCIUM CARBONATE 1.25 GM TAB PO SCH ×2 (08:48→20:46)
[2018-07-18] MEDS: INSULIN ASPART [NOVOLOG] 3 ML PEN SC SCH ×4 (08:49→20:40)
[2018-07-18] MEDS: HEPARIN 5,000 UNIT/1 ML VIAL SC SCH ×2 (08:50→20:45)
[2018-07-18] MEDS: MEROPENEM 500MG/50 ML (PMX) 50 ML IVPB SCH ×2 (08:51→20:47)
[2018-07-18 08:56] VITALS: BP 150/65; PULSE 66; RESP 17
[2018-07-18] MEDS ORDERED: hydrALAzine 20 MG INJ IV PRN (11:30)
[2018-07-18] MEDS: ATENOLOL 25 MG TAB PO SCH (12:28)
[2018-07-18] MEDS: D5W-0.45 NACL + KCL 20 MEQ 1,000 ML IV SCH (12:32)
[2018-07-18 14:00] VITALS: BP 173/81; PULSE 66; RESP 17
--- NOTE | 2018-07-18 15:59 | CONS ---
Assessment/Plan Assessment/Plan Hospital Course (Demo Recall) Summary Assessment and Plan: Assessment: Proctocolitis -Hx of colonoscopy 04-07- proctitis- bx negative Constipation UTI- on ABX DM, type type 2 Parkinsonism Dyslipidemia Hypertension Metabolic syndrome Diverticulosis Plan: Diet as tolerated Plan for colonoscopy Thursday Endoscopy - risks/benefits/alternatives/indications of procedure and sedation/anesthesia discussed with patient who states understanding and gives informed consent to proceed. Patient seen in collaboration with Dr. Moser CC: ARLINE MOSER ; Consultation Date/Type/Reason Admit Date/Time July 15, 2018 at 21:24 Date of Consultation: July 18, 2018 Type of Consult GI Reason for Consultation Proctocolitis Date/Time of Note DATE: 07/18/18 TIME: 15:52 Hx of Present Illness This is an 83-year-old female with past medical history of hypertension, dyslipidemia who was admitted for left flank pain and left lower quadrant pain imaging was completed a CT abdomen pelvis without contrast shows circumferential wall thickening along the distal rectosigmoid colon possibly proctocolitis was obtained positive for UTI. At time evaluation daughter is at bedside patient does complain of mild discomfort to the lower abdomen she denies diarrhea, hematochezia, melena last colonoscopy noted here was in 2012 showing proctocolitis and negative biopsies. Yue plan for possible colonoscopy Thursday reviewed risk/benefits of sedation and procedure patient and daughter both verbalized understanding are agreeable to colonoscopy. Review of Systems: A 12 system, review was conducted and is negative except as noted in the HPI or here. Past Medical History Home Meds Active Scripts Pantoprazole* (Pantoprazole*) 40 Mg Tablet., 40 MG PO DAILY for 30 Days, #30 TAB 1 Refill Prov:WHIT BERGER M. 03/18/18 Lactobacillus Rhamnosus* (Culturelle*) 1 Each Cap.sprink, 1 CAP PO BID, #20 CAP Prov:WHIT BERGER M. 03/18/18 Nitrofurantoin Monohyd Macrocr* (Macrobid*) 100 Mg Capsr, 100 MG PO BID, #20 CAP Prov:ABFREDRICKO M. 03/18/18 Reported Medications Lactobacillus Acidophilus (Probiotic Acidophilus) 1 Each Tablet, 1 EACH PO BID, TAB 07/16/18 Ergocalciferol (Vitamin D2) (VITAMIN D2) 50,000 Unit Capsule, 74046 UNIT PO Q7D for QMONDAY, CAP 07/16/18 Calcium Carbonate/Vitamin D3 (Oysco 500+D Tablet) 1 Each Tablet, 1 TAB PO DAILY for 30 Days, #60 07/16/18 Glipizide* (Glipizide*) 5 Mg Tablet, 5 MG PO QHS for 60 Days, #60 07/16/18 Fenofibrate, Micronized* (Fenofibrate*) 160 Mg Tablet, 160 MG PO DAILY for 30 Days, #30 07/16/18 Meloxicam* (Mobic*) 15 Mg Tablet, 15 MG PO DAILY for 30 Days, #30 07/16/18 Gabapentin* (Gabapentin*) 100 Mg Capsule, 200 MG PO TID for 30 Days 07/16/18 Docusate Sodium (Dok) 100 Mg Capsule, 100 MG PO TID 07/16/18 Cholecalciferol* (Vitamin D*) Unknown Strength Tablet, PO DAILY, TAB 03/15/18 Aspirin* (Aspirin* Chew) 81 Mg Tab.chew, 81 MG PO DAILY, TAB.CHEW 03/12/18 Calcium Carbonate ([id number]) 500 Mg Tablet, 500 MG PO BID, TAB 03/12/18 Fenofibrate Nanocrystallized* (Fenofibrate*) 145 Mg Tablet, 145 MG PO DAILY, TAB 03/12/18 Venlafaxine Hcl* (Venlafaxine Hcl ER*) 75 Mg Cap.er.24h, 75 MG PO DAILY, CAP 03/12/18 Ropinirole Hcl* (Ropinirole Hcl*) 0.5 Mg Tablet, 0.5 MG PO QID TAKE AT 7:00 A.M, 11:00 AM, 3:00PM, & 7:00 PM 03/12/18 Carbidopa/Levodopa (Carbidopa-Levodopa 25-100 Tab) 1 Each Tablet, 1 TAB PO QID 03/12/18 Meclizine Hcl* (Meclizine Hcl*) 25 Mg Tablet, 12.5 MG PO Q8H PRN for DIZZINESS, TAB 03/12/18 Oxybutynin Chloride* (Ditropan* XL) 5 Mg Tabsr, 5 MG PO DAILY, TAB.SA 03/12/18 Gemfibrozil* (Gemfibrozil*) 600 Mg Tablet, 600 MG PO BID, TAB 03/12/18 Atorvastatin* (Atorvastatin*) 40 Mg Tablet, 40 MG PO QHS, #30 TAB 03/12/18 Lisinopril* (Lisinopril*) 10 Mg Tablet, 10 MG PO DAILY, #30 TAB 03/12/18 Atenolol* (Atenolol*) 25 Mg Tablet, 25 MG PO DAILY, #30 TAB 03/12/18 Glipizide* (Glipizide*) 10 Mg Tablet, 10 MG PO BID 12/08/12 Omeprazole* (Omeprazole*) 40 Mg Capsule.dr, 40 MG PO AC BREAKFAST 12/08/12 Discontinued Reported Medications Meloxicam* (Meloxicam*) 7.5 Mg/5 Ml Oral.susp, 15 MG PO DAILY, #300 ML 03/12/18 Discontinued Scripts Levofloxacin* (Levaquin*) 750 Mg Tablet, 750 MG PO DAILY for 7 Days, #7 TAB Prov:WHIT BERGER 03/18/18 Medications Current Medications IV Flush (NS 3 ml) 3 ml PER PROTOCOL IV ; Start 07/16/18 at 02:00 Ondansetron HCl (Zofran Inj) 4 mg Q6H PRN IV NAUSEA/VOMITING; Start 07/16/18 at 02:00 Acetaminophen (Tylenol Tab) 650 mg Q6H PRN PO .PAIN 1-3 OR TEMP Last administered on 07/17/18at 20:28; Admin Dose 650 MG; Start 07/16/18 at 02:00 Heparin Sodium (Porcine) (Heparin (5000 Units/1ml)) 5,000 unit Q12 SC Last administered on 07/18/18at 08:50; Admin Dose 5,000 UNIT; Start 07/16/18 at 09:00 Albuterol/ Ipratropium (Duoneb) 3 ml Q2H RESP THERAPY PRN HHN SHORTNESS OF BREATH; Start 07/16/18 at 02:00 Calcium Carbonate (Oyster Shell Calcium) 0.5 gm BID PO Last administered on 07/18/18at 08:48; Admin Dose 0.5 GM; Start 07/16/18 at 09:00 Carbidopa/Levodopa (Sinemet (25/ 100)) 1 tab QID PO Last administered on 07/18/18at 12:28; Admin Dose 1 TAB; Start 07/16/18 at 09:00 Lactobacillus Acidophilus/ Rhamnosus (Culturelle) 1 cap BID PO Last administered on 07/18/18at 08:48; Admin Dose 1 CAP; Start 07/16/18 at 09:00 Meclizine HCl (Antivert) 12.5 mg Q8H PRN PO DIZZINESS; Start 07/16/18 at 02:00 Oxybutynin Chloride (Ditropan Xl) 5 mg DAILY PO Last administered on 07/18/18at 08:48; Admin Dose 5 MG; Start 07/16/18 at 09:00 Pantoprazole (Protonix Tab) 40 mg DAILY@0600 PO Last administered on 07/18/18at 05:56; Admin Dose 40 MG; Start 07/16/18 at 06:00 Ropinirole HCl (Requip) 0.5 mg QID PO Last administered on 07/18/18at 12:28; Admin Dose 0.5 MG; Start 07/16/18 at 09:00 Aspirin (Aspirin) 81 mg DAILY PO ; Start 07/19/18 at 09:00 Atenolol (Tenormin) 25 mg DAILY PO ; Start 07/19/18 at 09:00 Atorvastatin Calcium (Lipitor) 40 mg QHS PO ; Start 07/19/18 at 21:00 Fenofibrate (Tricor) 145 mg DAILY PO ; Start 07/19/18 at 09:00 Gemfibrozil (Lopid) 600 mg BID PO ; Start 07/19/18 at 09:00 Venlafaxine HCl (Effexor Xr) 75 mg DAILY PO ; Start 07/19/18 at 09:00 Potassium Chloride/Dextrose/ Sod Cl 1,000 ml @ 50 mls/hr Q20H IV Last administered on 07/18/18at 12:32; Admin Dose 50 MLS/HR; Start 07/16/18 at 14:30 Diagnostic Test (Pha) (Accu-Chek) 1 ea 02 XX ; Start 07/17/18 at 02:00 Insulin Aspart (Novolog Insulin Pen) NOVOLOG *MILD* ALGORITHM WITH MEALS BEDTIME SC Last administered on 07/18/18at 12:31; Admin Dose 1 UNIT; Start 07/16/18 at 18:05 Miscellaneous Information 1 ea NOTE XX ; Start 07/16/18 at 14:30 Glucose (Glutose) 15 gm Q15M PRN PO DECREASED GLUCOSE; Start 07/16/18 at 14:30 Glucose (Glutose) 22.5 gm Q15M PRN PO DECREASED GLUCOSE; Start 07/16/18 at 14:30 Dextrose (D50w Syringe) 25 ml Q15M PRN IV DECREASED GLUCOSE; Start 07/16/18 at 14:30 Dextrose (D50w Syringe) 50 ml Q15M PRN IV DECREASED GLUCOSE; Start 07/16/18 at 14:30 Glucagon (Glucagen) 1 mg Q15M PRN IM DECREASED GLUCOSE; Start 07/16/18 at 14:30 Glucose (Glutose) 15 gm Q15M PRN BUCCAL DECREASED GLUCOSE; Start 07/16/18 at 14:30 Polyethylene Glycol (Miralax) 17 gm BID PRN PO CONSTIPATION Last administered on 07/17/18at 08:19; Admin Dose 17 GM; Start 07/16/18 at 20:00 Meropenem/Sodium Chloride 50 ml @ 100 mls/hr Q12 IVPB Last administered on 07/18/18at 08:51; Admin Dose 100 MLS/HR; Start 07/17/18 at 13:00 Lisinopril (Zestril) 10 mg HS PO ; Start 07/19/18 at 21:00 Atenolol (Tenormin) 25 mg DAILY PO Last administered on 07/18/18at 12:28; Admin Dose 25 MG; Start 07/18/18 at 11:30 Hydralazine HCl (Apresoline) 10 mg Q4H PRN IV ELEVATED SYSTOLIC BP; Start 07/18/18 at 11:30 Allergies: Coded Allergies: No Known Allergies (Unverified Allergy, Unknown, 07/16/18) Past Surgical History Past Surgical Hx: appendectomy, cholecystectomy, other Social History Smoking Status: Never smoker Exam/Review of Systems Exam Vitals Vital Signs Date Temp Pulse Resp B/P (MAP) Pulse Ox O2 O2 Flow FiO2 Time Delivery Rate 07/18/18 98.5 66 17 150/65 93 Room Air 08:56 (93) Intake and Output 07/17/18 07/17/18 07/18/18 1515:00 23:00 07:00 IntakeIntake Total 1390 ml 400 ml 480 ml BalanceBalance 1390 ml 400 ml 480 ml Exam PHYSICAL EXAMINATION: GENERAL: Well developed, well nourished, alert & oriented x 3, in no acute distress SKIN: No lesions HEAD: Normocephalic, atraumatic, no tenderness. EYES: Pupils equal reactive to light, no discharge. EARS/NOSE AND THROAT: Ears normal, nose normal. NECK: Supple, no masses CHEST: Inspection within normal limits. CARDIOVASCULAR: Heart: Regular rate and rhythm GASTROINTESTINAL AND LIVER: Abdomen: Soft, mild lower abd tenderness, mildly distended, no hernias, no masses, no organomegaly, no ascites, no guarding, no rebound tenderness, normoactive bowel sounds. Rectal: Deferred. EXTREMITIES: No cyanosis, clubbing or edema. Results Result Diagram: 07/18/18 0438 07/18/18 0438 Results 24hrs Laboratory Tests Test 07/17/18 17:17 07/17/18 20:25 07/18/18 04:38 07/18/18 08:02 Bedside Glucose 148 169 141 White Blood Count 6.5 # Red Blood Count 3.85 L Hemoglobin 11.6 L Hematocrit 35.5 L Mean Corpuscular 92.2 Volume Mean Corpuscular 30.1 Hemoglobin Mean Corpuscular 32.7 Hemoglobin Concent Red Cell 13.2 Distribution Width Platelet Count 333 Mean Platelet Volume 10.8 H Immature 1.500 H Granulocytes % Neutrophils % 55.0 Lymphocytes % 28.6 Monocytes % 8.5 Eosinophils % 5.8 Basophils % 0.6 Nucleated Red Blood 0.0 Cells % Immature 0.100 H Granulocytes # Neutrophils # 3.6 Lymphocytes # 1.9 Monocytes # 0.6 Eosinophils # 0.4 Basophils # 0.0 Nucleated Red Blood 0.0 Cells # Sodium Level 141 Potassium Level 4.0 Chloride Level 104 Carbon Dioxide Level 30 Anion Gap 7 Blood Urea Nitrogen 23 H Creatinine 0.87 Est Glomerular Filtrat Rate mL/min Glucose Level 149 Calcium Level 9.5 Test 07/18/18 12:27 Bedside Glucose 142 Medications Medication Current Medications IV Flush (NS 3 ml) 3 ml PER PROTOCOL IV ; Start 07/16/18 at 02:00 Ondansetron HCl (Zofran Inj) 4 mg Q6H PRN IV NAUSEA/VOMITING; Start 07/16/18 at 02:00 Acetaminophen (Tylenol Tab) 650 mg Q6H PRN PO .PAIN 1-3 OR TEMP Last administered on 07/17/18 20:28; Admin Dose 650 MG; Start 07/16/18 at 02:00 Heparin Sodium (Porcine) (Heparin (5000 Units/1ml)) 5,000 unit Q12 SC Last administered on 07/18/18 08:50; Admin Dose 5,000 UNIT; Start 07/16/18 at 09:00 Albuterol/ Ipratropium (Duoneb) 3 ml Q2H RESP THERAPY PRN HHN SHORTNESS OF BREATH; Start 07/16/18 at 02:00 Calcium Carbonate (Oyster Shell Calcium) 0.5 gm BID PO Last administered on 07/18/18 08:48; Admin Dose 0.5 GM; Start 07/16/18 at 09:00 Carbidopa/Levodopa (Sinemet (/ )) 1 tab QID PO Last administered on 07/18/18 12:28; Admin Dose 1 TAB; Start 07/16/18 at 09:00 Lactobacillus Acidophilus/ Rhamnosus (Culturelle) 1 cap BID PO Last administered on 07/18/18 08:48; Admin Dose 1 CAP; Start 07/16/18 at 09:00 Meclizine HCl (Antivert) 12.5 mg Q8H PRN PO DIZZINESS; Start 07/16/18 at 02:00 Oxybutynin Chloride (Ditropan Xl) 5 mg DAILY PO Last administered on 07/18/18 08:48; Admin Dose 5 MG; Start 07/16/18 at 09:00 Pantoprazole (Protonix Tab) 40 mg DAILY@0600 PO Last administered on 07/18/18 05:56; Admin Dose 40 MG; Start 07/16/18 at 06:00 Ropinirole HCl (Requip) 0.5 mg QID PO Last administered on 07/18/18 12:28; Admin Dose 0.5 MG; Start 07/16/18 at 09:00 Aspirin (Aspirin) 81 mg DAILY PO ; Start 07/19/18 at 09:00 Atenolol (Tenormin) 25 mg DAILY PO ; Start 07/19/18 at 09:00 Atorvastatin Calcium (Lipitor) 40 mg QHS PO ; Start 07/19/18 at 21:00 Fenofibrate (Tricor) 145 mg DAILY PO ; Start 07/19/18 at 09:00 Gemfibrozil (Lopid) 600 mg BID PO ; Start 07/19/18 at 09:00 Venlafaxine HCl (Effexor Xr) 75 mg DAILY PO ; Start 07/19/18 at 09:00 Potassium Chloride/Dextrose/ Sod Cl 1,000 ml @ 50 mls/hr Q20H IV Last administered on 07/18/18at 12:32; Admin Dose 50 MLS/HR; Start 07/16/18 at 14:30 Diagnostic Test (Pha) (Accu-Chek) 1 ea 02 XX ; Start 07/17/18 at 02:00 Insulin Aspart (Novolog Insulin Pen) NOVOLOG *MILD* ALGORITHM WITH MEALS BEDTIME SC Last administered on 07/18/18at 12:31; Admin Dose 1 UNIT; Start 07/16/18 at 18:05 Miscellaneous Information 1 ea NOTE XX ; Start 07/16/18 at 14:30 Glucose (Glutose) 15 gm Q15M PRN PO DECREASED GLUCOSE; Start 07/16/18 at 14:30 Glucose (Glutose) 22.5 gm Q15M PRN PO DECREASED GLUCOSE; Start 07/16/18 at 14:30 Dextrose (D50w Syringe) 25 ml Q15M PRN IV DECREASED GLUCOSE; Start 07/16/18 at 14:30 Dextrose (D50w Syringe) 50 ml Q15M PRN IV DECREASED GLUCOSE; Start 07/16/18 at 14:30 Glucagon (Glucagen) 1 mg Q15M PRN IM DECREASED GLUCOSE; Start 07/16/18 at 14:30 Glucose (Glutose) 15 gm Q15M PRN BUCCAL DECREASED GLUCOSE; Start 07/16/18 at 14:30 Polyethylene Glycol (Miralax) 17 gm BID PRN PO CONSTIPATION Last administered on 07/17/18at 08:19; Admin Dose 17 GM; Start 07/16/18 at 20:00 Meropenem/Sodium Chloride 50 ml @ 100 mls/hr Q12 IVPB Last administered on 07/18/18at 08:51; Admin Dose 100 MLS/HR; Start 07/17/18 at 13:00 Lisinopril (Zestril) 10 mg HS PO ; Start 07/19/18 at 21:00 Atenolol (Tenormin) 25 mg DAILY PO Last administered on 07/18/18at 12:28; Admin Dose 25 MG; Start 07/18/18 at 11:30 Hydralazine HCl (Apresoline) 10 mg Q4H PRN IV ELEVATED SYSTOLIC BP; Start 07/18/18 at 11:30 MARCIANO WEBB July 18, 2018 15:59
[2018-07-18 20:00] VITALS: BP 143/74; PULSE 52; RESP 18
[2018-07-18] MEDS: ACETAMINOPHEN 325 MG TAB PO PRN (20:46)
--- NOTE | 2018-07-18 21:04 | PN ---
Date/Time of Note Date/Time of Note DATE: 07/18/18 TIME: 21:02 Assessment/Plan VTE Prophylaxis Risk score (from Ns)>0 risk: 4 SCD applied (from Ns): Yes SCD contraindicated: low risk/ambulating Pharmacological prophylaxis: LMWH Lines/Catheters IV Catheter Type (from Nrs): Peripheral IV Assessment/Plan Hospital Course Assessment and plan 1. Proctocolitis? stable. Etio constipation vs ischemia? colonoscopy Thursday 2. Constipation; previous colonoscopies have been unremarkable 3. Hypoglycemia resolved 4. Type 2 diabetes 5. Parkinsonism? 6. Dyslipidemia 7. Hypertension 8. Metabolic syndrome 9. Diverticulosis 10. Acute cystitisE. coli cont meropenem S: 07/16 Lwr abd pain, no nausea vomiting fever. Occasionally eats nuts or seeds but has been having issues with constipation. Possible dysuria and urinary incontinence /25 less distress. 07/18: no distress O: Vital signs stable PE No pallor Regular no m/r/g Clear Bs diminish nt below the umbilicus no r/r/g No edema Result Diagram: 07/18/18 0438 07/18/18 0438 Results 24hrs Laboratory Tests Test 07/18/18 04:38 07/18/18 08:02 07/18/18 12:27 07/18/18 17:38 White Blood Count 6.5 # Red Blood Count 3.85 L Hemoglobin 11.6 L Hematocrit 35.5 L Mean Corpuscular 92.2 Volume Mean Corpuscular 30.1 Hemoglobin Mean Corpuscular 32.7 Hemoglobin Concent Red Cell 13.2 Distribution Width Platelet Count 333 Mean Platelet Volume 10.8 H Immature 1.500 H Granulocytes % Neutrophils % 55.0 Lymphocytes % 28.6 Monocytes % 8.5 Eosinophils % 5.8 Basophils % 0.6 Nucleated Red Blood 0.0 Cells % Immature 0.100 H Granulocytes # Neutrophils # 3.6 Lymphocytes # 1.9 Monocytes # 0.6 Eosinophils # 0.4 Basophils # 0.0 Nucleated Red Blood 0.0 Cells # Sodium Level 141 Potassium Level 4.0 Chloride Level 104 Carbon Dioxide Level 30 Anion Gap 7 Blood Urea Nitrogen 23 H Creatinine 0.87 Est Glomerular Filtrat Rate mL/min Glucose Level 149 Calcium Level 9.5 Bedside Glucose 141 142 163 Test 07/18/18 20:40 Bedside Glucose 168 Exam/Review of Systems Exam Vitals Vital Signs Date Temp Pulse Resp B/P (MAP) Pulse Ox O2 O2 Flow FiO2 Time Delivery Rate 07/18/18 98.3 66 17 173/81 92 Room Air 14:00 (111) Intake and Output 07/17/18 07/17/18 07/18/18 1515:00 23:00 07:00 IntakeIntake Total 1390 ml 400 ml 480 ml BalanceBalance 1390 ml 400 ml 480 ml Results Results 24hrs Laboratory Tests Test 07/18/18 04:38 07/18/18 08:02 07/18/18 12:27 07/18/18 17:38 White Blood Count 6.5 # Red Blood Count 3.85 L Hemoglobin 11.6 L Hematocrit 35.5 L Mean Corpuscular 92.2 Volume Mean Corpuscular 30.1 Hemoglobin Mean Corpuscular 32.7 Hemoglobin Concent Red Cell 13.2 Distribution Width Platelet Count 333 Mean Platelet Volume 10.8 H Immature 1.500 H Granulocytes % Neutrophils % 55.0 Lymphocytes % 28.6 Monocytes % 8.5 Eosinophils % 5.8 Basophils % 0.6 Nucleated Red Blood 0.0 Cells % Immature 0.100 H Granulocytes # Neutrophils # 3.6 Lymphocytes # 1.9 Monocytes # 0.6 Eosinophils # 0.4 Basophils # 0.0 Nucleated Red Blood 0.0 Cells # Sodium Level 141 Potassium Level 4.0 Chloride Level 104 Carbon Dioxide Level 30 Anion Gap 7 Blood Urea Nitrogen 23 H Creatinine 0.87 Est Glomerular Filtrat Rate mL/min Glucose Level 149 Calcium Level 9.5 Bedside Glucose 141 142 163 Test 07/18/18 20:40 Bedside Glucose 168 Medications Medication Current Medications IV Flush (NS 3 ml) 3 ml PER PROTOCOL IV ; Start 07/16/18 at 02:00 Ondansetron HCl (Zofran Inj) 4 mg Q6H PRN IV NAUSEA/VOMITING; Start 07/16/18 at 02:00 Acetaminophen (Tylenol Tab) 650 mg Q6H PRN PO .PAIN 1-3 OR TEMP Last admi nistered on 07/18/18at 20:46; Admin Dose 650 MG; Start 07/16/18 at 02:00 Heparin Sodium (Porcine) (Heparin (5000 Units/1ml)) 5,000 unit Q12 SC Last administered on 07/18/18at 20:45; Admin Dose 5,000 UNIT; Start 07/16/18 at 09:00 Albuterol/ Ipratropium (Duoneb) 3 ml Q2H RESP THERAPY PRN HHN SHORTNESS OF BREATH; Start 07/16/18 at 02:00 Calcium Carbonate (Oyster Shell Calcium) 0.5 gm BID PO Last administered on 07/18/18 20:46; Admin Dose 0.5 GM; Start 07/16/18 at 09:00 Carbidopa/Levodopa (Sinemet (25/ 100)) 1 tab QID PO Last administered on 07/18/18 20:45; Admin Dose 1 TAB; Start 07/16/18 at 09:00 Lactobacillus Acidophilus/ Rhamnosus (Culturelle) 1 cap BID PO Last administered on 07/18/18 20:46; Admin Dose 1 CAP; Start 07/16/18 at 09:00 Meclizine HCl (Antivert) 12.5 mg Q8H PRN PO DIZZINESS; Start 07/16/18 at 02:00 Oxybutynin Chloride (Ditropan Xl) 5 mg DAILY PO Last administered on 07/18/18at 08:48; Admin Dose 5 MG; Start 07/16/18 at 09:00 Pantoprazole (Protonix Tab) 40 mg DAILY@0600 PO Last administered on 07/18/18 05:56; Admin Dose 40 MG; Start 07/16/18 at 06:00 Ropinirole HCl (Requip) 0.5 mg QID PO Last administered on 07/18/18at 20:45; Admin Dose 0.5 MG; Start 07/16/18 at 09:00 Aspirin (Aspirin) 81 mg DAILY PO ; Start 07/19/18 at 09:00 Atorvastatin Calcium (Lipitor) 40 mg QHS PO ; Start 07/19/18 at 21:00 Fenofibrate (Tricor) 145 mg DAILY PO ; Start 07/19/18 at 09:00 Gemfibrozil (Lopid) 600 mg BID PO ; Start 07/19/18 at 09:00 Venlafaxine HCl (Effexor Xr) 75 mg DAILY PO ; Start 07/19/18 at 09:00 Potassium Chloride/Dextrose/ Sod Cl 1,000 ml @ 50 mls/hr Q20H IV Last administered on 07/18/18at 12:32; Admin Dose 50 MLS/HR; Start 07/16/18 at 14:30 Diagnostic Test (Pha) (Accu-Chek) 1 ea 02 XX ; Start 07/17/18 at 02:00 Insulin Aspart (Novolog Insulin Pen) NOVOLOG *MILD* ALGORITHM WITH MEALS BEDTIME SC Last administered on 07/18/18at 17:42; Admin Dose 1 UNIT; Start 07/16/18 at 18:05 Miscellaneous Information 1 ea NOTE XX ; Start 07/16/18 at 14:30 Glucose (Glutose) 15 gm Q15M PRN PO DECREASED GLUCOSE; Start 07/16/18 at 14:30 Glucose (Glutose) 22.5 gm Q15M PRN PO DECREASED GLUCOSE; Start 07/16/18 at 14:30 Dextrose (D50w Syringe) 25 ml Q15M PRN IV DECREASED GLUCOSE; Start 07/16/18 at 14:30 Dextrose (D50w Syringe) 50 ml Q15M PRN IV DECREASED GLUCOSE; Start 07/16/18 at 14:30 Glucagon (Glucagen) 1 mg Q15M PRN IM DECREASED GLUCOSE; Start 07/16/18 at 14:30 Glucose (Glutose) 15 gm Q15M PRN BUCCAL DECREASED GLUCOSE; Start 07/16/18 at 14:30 Polyethylene Glycol (Miralax) 17 gm BID PRN PO CONSTIPATION Last administered on 07/17/18at 08:19; Admin Dose 17 GM; Start 07/16/18 at 20:00 Meropenem/Sodium Chloride 50 ml @ 100 mls/hr Q12 IVPB Last administered on 07/18/18at 20:47; Admin Dose 100 MLS/HR; Start 07/17/18 at 13:00 Lisinopril (Zestril) 10 mg HS PO ; Start 07/19/18 at 21:00 Atenolol (Tenormin) 25 mg DAILY PO Last administered on 07/18/18at 12:28; Admin Dose 25 MG; Start 07/18/18 at 11:30 Hydralazine HCl (Apresoline) 10 mg Q4H PRN IV ELEVATED SYSTOLIC BP; Start 07/18/18 at 11:30 GRACIE TILLMAN MD July 18, 2018 21:04
[2018-07-19 02:00] VITALS: BP 159/71; PULSE 54
[2018-07-19] MEDS: ACCU-CHEK XX SCH (02:00)
[2018-07-19] MEDS: PANTOPRAZOLE (EC) 40 MG TAB PO SCH (06:02)
[2018-07-19 08:05] VITALS: BP 182/76; PULSE 50; RESP 18
[2018-07-19] MEDS: CARBIDOPA/LEVODOPA (25/100) TAB PO SCH ×4 (08:12→20:49)
[2018-07-19] MEDS: LACTOBACILLUS RHAMNOSUS CAP PO SCH ×2 (08:12→20:48)
[2018-07-19] MEDS: CALCIUM CARBONATE 1.25 GM TAB PO SCH ×2 (08:12→20:48)
[2018-07-19] MEDS: OXYBUTYNIN (XL) 5 MG TAB PO SCH (08:12)
[2018-07-19] MEDS: ROPINIROLE 0.25 MG TAB PO SCH ×4 (08:12→20:48)
[2018-07-19] MEDS: INSULIN ASPART [NOVOLOG] 3 ML PEN SC SCH ×4 (08:12→20:47)
[2018-07-19] MEDS: HEPARIN 5,000 UNIT/1 ML VIAL SC SCH ×2 (08:12→20:51)
[2018-07-19] MEDS: FENOFIBRATE 145 MG TAB PO SCH (08:15)
[2018-07-19] MEDS: ASPIRIN 81 MG TAB PO SCH (08:15)
[2018-07-19] MEDS: GEMFIBROZIL 600 MG TAB PO SCH ×2 (08:15→20:49)
[2018-07-19] MEDS: VENLAFAXINE (XR) 75 MG CAP PO SCH (08:15)
[2018-07-19] MEDS: ATENOLOL 25 MG TAB PO SCH (08:16)
[2018-07-19] MEDS: MEROPENEM 500MG/50 ML (PMX) 50 ML IVPB SCH ×2 (08:20→20:48)
[2018-07-19] MEDS ORDERED: LISINOPRIL 10 MG TAB PO SCH ×2 (09:00→21:00)
[2018-07-19] MEDS ORDERED: ATENOLOL 25 MG TAB PO SCH (09:00)
--- NOTE | 2018-07-19 10:17 | PN ---
Date/Time of Note Date/Time of Note DATE: 07/19/18 TIME: 10:10 Assessment/Plan VTE Prophylaxis Risk score (from Ns)>0 risk: 5 SCD applied (from Nsg): Yes Pharmacological prophylaxis: other (scds) Lines/Catheters IV [facility] Peripheral IV Assessment/Plan Hospital Course Assessment: Proctocolitis -Hx of colonoscopy 213- proctitis- bx negative Constipation UTI- with ESBL on ABX -Pt in contact isolation for ESBL DM, type type 2 Parkinsonism Dyslipidemia Hypertension Metabolic syndrome Diverticulosis Plan: Clear liquid diet today Start prep today NPO after 07/20/18 08[address] Reddy Endoscopy - risks/benefits/alternatives/indications of procedure and sedation /anesthesia discussed with patient who states understanding and gives informed consent to proceed. Patient seen in collaboration with Dr. Adams Subjective: Course reviewed with nursing staff Patient interviewed and examined All labs, imaging and other results reviewed The patient sitting up in emil, she continues to have lower abd pain more so to the left side- unclear if etiology to 2/2 to proctitis seen on imaging or secondary to urinary tract infection Daughter is at bedside discussed plan again reviewed risk/benefits of procedure and sedation understanding was verbalized and procedure is agreed upon Exam PHYSICAL EXAMINATION: GENERAL: Well developed, well nourished, alert & oriented x 3, in no acute distress SKIN: No lesions HEAD: Normocephalic, atraumatic, no tenderness. EYES: Pupils equal reactive to light, no discharge. EARS/NOSE AND THROAT: Ears normal, nose normal. NECK: Supple, no masses CHEST: Inspection within normal limits. CARDIOVASCULAR: Heart: Regular rate and rhythm GASTROINTESTINAL AND LIVER: Abdomen: Soft, mild lower abd tenderness, mildly distended, no hernias, no masses, no organomegaly, no ascites, no guarding, no rebound tenderness, normoactive bowel sounds. Rectal: Deferred. EXTREMITIES: No cyanosis, clubbing or edema. Result Diagram: 07/19/1851807/19/18518 Results 24hrs Laboratory Tests Test 07/18/18 12:27 07/18/18 17:38 07/18/18 20:40 07/19/18 05:18 Bedside Glucose 142 163 168 Prothrombin Time 12.8 Prothrombin Time 1.0 Ratio INR International 0.95 Normalized Ratio Test 07/19/18 05:19 07/19/18 08:09 White Blood Count 7.4 Red Blood Count 3.96 L Hemoglobin 11.9 L Hematocrit 36.7 L Mean Corpuscular 92.7 Volume Mean Corpuscular 30.1 Hemoglobin Mean Corpuscular 32.4 Hemoglobin Concent Red Cell 13.2 Distribution Width Platelet Count 354 Mean Platelet Volume 10.5 H Immature 0.500 H Granulocytes % Neutrophils % 59.2 Lymphocytes % 27.6 Monocytes % 8.4 Eosinophils % 3.8 Basophils % 0.5 Nucleated Red Blood 0.0 Cells % Immature 0.040 H Granulocytes # Neutrophils # 4.4 Lymphocytes # 2.0 Monocytes # 0.6 Eosinophils # 0.3 Basophils # 0.0 Nucleated Red Blood 0.0 Cells # Sodium Level 141 Potassium Level 4.0 Chloride Level 105 Carbon Dioxide Level 30 Anion Gap 6 Blood Urea Nitrogen 19 Creatinine 0.77 Est Glomerular Filtrat Rate mL/min Glucose Level 153 Calcium Level 9.8 Total Bilirubin 0.2 Direct Bilirubin 0.00 Indirect Bilirubin 0.2 Aspartate Amino 25 Transf (AST/SGOT) Alanine 16 Aminotransferase (AL T/SGPT) Alkaline Phosphatase 33 L Total Protein 7.0 Albumin 3.9 Globulin 3.10 Albumin/Globulin 1.25 Ratio Bedside Glucose 147 Exam/Review of Systems Exam Vitals Vital Signs Date Temp Pulse Resp B/P (MAP) Pulse Ox O2 O2 Flow FiO2 Time Delivery Rate 07/19/18 98.3 50 18 182/76 93 Room Air 08:05 (111) Intake and Output 07/18/18 07/18/18 07/19/18 1515:00 23:00 07:00 IntakeIntake Total 1450 ml 1050 ml 715 ml BalanceBalance 1450 ml 1050 ml 715 ml Results Results 24hrs Laboratory Tests Test 07/18/18 12:27 07/18/18 17:38 07/18/18 20:40 07/19/18 05:18 Bedside Glucose 142 163 168 Prothrombin Time 12.8 Prothrombin Time 1.0 Ratio INR International 0.95 Normalized Ratio Test 07/19/18 05:19 07/19/18 08:09 White Blood Count 7.4 Red Blood Count 3.96 L Hemoglobin 11.9 L Hematocrit 36.7 L Mean Corpuscular 92.7 Volume Mean Corpuscular 30.1 Hemoglobin Mean Corpuscular 32.4 Hemoglobin Concent Red Cell 13.2 Distribution Width Platelet Count 354 Mean Platelet Volume 10.5 H Immature 0.500 H Granulocytes % Neutrophils % 59.2 Lymphocytes % 27.6 Monocytes % 8.4 Eosinophils % 3.8 Basophils % 0.5 Nucleated Red Blood 0.0 Cells % Immature 0.040 H Granulocytes # Neutrophils # 4.4 Lymphocytes # 2.0 Monocytes # 0.6 Eosinophils # 0.3 Basophils # 0.0 Nucleated Red Blood 0.0 Cells # Sodium Level 141 Potassium Level 4.0 Chloride Level 105 Carbon Dioxide Level 30 Anion Gap 6 Blood Urea Nitrogen 19 Creatinine 0.77 Est Glomerular Filtrat Rate mL/min Glucose Level 153 Calcium Level 9.8 Total Bilirubin 0.2 Direct Bilirubin 0.00 Indirect Bilirubin 0.2 Aspartate Amino 25 Transf (AST/SGOT) Alanine 16 Aminotransferase (AL T/SGPT) Alkaline Phosphatase 33 L Total Protein 7.0 Albumin 3.9 Globulin 3.10 Albumin/Globulin 1.25 Ratio Bedside Glucose 147 Medications Medication Current Medications IV Flush (NS 3 ml) 3 ml PER PROTOCOL IV ; Start 07/16/18 at 02:00 Ondansetron HCl (Zofran Inj) 4 mg Q6H PRN IV NAUSEA/VOMITING; Start 07/16/18 at 02:00 Acetaminophen (Tylenol Tab) 650 mg Q6H PRN PO .PAIN 1-3 OR TEMP Last administered on 07/18/18at 20:46; Admin Dose 650 MG; Start 07/16/18 at 02:00 Heparin Sodium (Porcine) (Heparin (5000 Units/1ml)) 5,000 unit Q12 SC Last administered on 07/19/18at 08:12; Admin Dose 5,000 UNIT; Start 07/16/18 at 09:00 Albuterol/ Ipratropium (Duoneb) 3 ml Q2H RESP THERAPY PRN HHN SHORTNESS OF BREATH; Start 07/16/18 at 02:00 Calcium Carbonate (Oyster Shell Calcium) 0.5 gm BID PO Last administered on 07/19/18 08:12; Admin Dose 0.5 GM; Start 07/16/18 at 09:00 Carbidopa/Levodopa (Sinemet (25/ 100)) 1 tab QID PO Last administered on 07/19/18 08:12; Admin Dose 1 TAB; Start 07/16/18 at 09:00 Lactobacillus Acidophilus/ Rhamnosus (Culturelle) 1 cap BID PO Last administered on 07/19/18 08:12; Admin Dose 1 CAP; Start 07/16/18 at 09:00 Meclizine HCl (Antivert) 12.5 mg Q8H PRN PO DIZZINESS; Start 07/16/18 at 02:00 Oxybutynin Chloride (Ditropan Xl) 5 mg DAILY PO Last administered on 07/19/18at 08:12; Admin Dose 5 MG; Start 07/16/18 at 09:00 Pantoprazole (Protonix Tab) 40 mg DAILY@0600 PO Last administered on 07/19/18at 06:02; Admin Dose 40 MG; Start 07/16/18 at 06:00 Ropinirole HCl (Requip) 0.5 mg QID PO Last administered on 07/19/18 08:12; Admin Dose 0.5 MG; Start 07/16/18 at 09:00 Aspirin (Aspirin) 81 mg DAILY PO Last administered on 07/19/18at 08:15; Admin Dose 81 MG; Start 07/19/18 at 09:00 Atorvastatin Calcium (Lipitor) 40 mg QHS PO ; Start 07/19/18 at 21:00 Fenofibrate (Tricor) 145 mg DAILY PO Last administered on 07/19/18at 08:15; Admin Dose 145 MG; Start 07/19/18 at 09:00 Gemfibrozil (Lopid) 600 mg BID PO Last administered on 07/19/18at 08:15; Admin Dose 600 MG; Start 07/19/18 at 09:00 Venlafaxine HCl (Effexor Xr) 75 mg DAILY PO Last administered on 07/19/18at 08:15; Admin Dose 75 MG; Start 07/19/18 at 09:00 Diagnostic Test (Pha) (Accu-Chek) 1 ea 02 XX ; Start 07/17/18 at 02:00 Insulin Aspart (Novolog Insulin Pen) NOVOLOG *MILD* ALGORITHM WITH MEALS BEDTIME SC Last administered on 07/19/18at 08:12; Admin Dose 1 UNIT; Start 07/16/18 at 18:05 Miscellaneous Information 1 ea NOTE XX ; Start 07/16/18 at 14:30 Glucose (Glutose) 15 gm Q15M PRN PO DECREASED GLUCOSE; Start 07/16/18 at 14:30 Glucose (Glutose) 22.5 gm Q15M PRN PO DECREASED GLUCOSE; Start 07/16/18 at 14:30 Dextrose (D50w Syringe) 25 ml Q15M PRN IV DECREASED GLUCOSE; Start 07/16/18 at 14:30 Dextrose (D50w Syringe) 50 ml Q15M PRN IV DECREASED GLUCOSE; Start 07/16/18 at 14:30 Glucagon (Glucagen) 1 mg Q15M PRN IM DECREASED GLUCOSE; Start 07/16/18 at 14:30 Glucose (Glutose) 15 gm Q15M PRN BUCCAL DECREASED GLUCOSE; Start 07/16/18 at 14:30 Polyethylene Glycol (Miralax) 17 gm BID PRN PO CONSTIPATION Last administered on 07/17/18at 08:19; Admin Dose 17 GM; Start 07/16/18 at 20:00 Meropenem/Sodium Chloride 50 ml @ 100 mls/hr Q12 IVPB Last administered on 07/19/18at 08:20; Admin Dose 100 MLS/HR; Start 07/17/18 at 13:00 Atenolol (Tenormin) 25 mg DAILY PO Last administered on 07/19/18at 08:16; Admin Dose 25 MG; Start 07/18/18 at 11:30 Hydralazine HCl (Apresoline) 10 mg Q4H PRN IV ELEVATED SYSTOLIC BP; Start 07/18/18 at 11:30 Lisinopril (Zestril) 20 mg HS PO ; Start 07/19/18 at 21:00 MARCIANO WEBB July 19, 2018 10:16
[2018-07-19] MEDS ORDERED: BISACODYL (EC) 5 MG TAB PO ONE (10:30)
--- NOTE | 2018-07-19 11:58 | PN ---
Date/Time of Note Date/Time of Note DATE: 07/19/18 TIME: 11:58 Assessment/Plan VTE Prophylaxis Risk score (from Ns)>0 risk: 5 SCD applied (from Ns): Yes Pharmacological prophylaxis: NA/contraindicated Pharm contraindication: surgical contra Lines/Catheters IV Catheter Type (from Nrsg): Peripheral IV Assessment/Plan Assessment/Plan 1. Proctocolitis - GI on board and appreciate recommendations. Plans for colonoscopy on Thursday. prep today and NPO after 8:30am. Clear diet 2. Constipation - bowel prep 3. Type 2 diabetes - A1c noted - ISS and accuchecks 4. Parkinsonism - stable 5. Right ear pain - no otoscope available at this time 6. Hypertension - BP medications adjusted 7. Acute cystitis - on Meropenem day 3 - most likely colonization given <10K on UA 8. Disposition - Plans for Colonoscopy tomorrow. Prep today Result Diagram: 07/19/1851807/19/18518 Results 24hrs Laboratory Tests Test 07/18/18 12:27 07/18/18 17:38 07/18/18 20:40 07/19/18 05:18 Bedside Glucose 142 163 168 Prothrombin Time 12.8 Prothrombin Time 1.0 Ratio INR International 0.95 Normalized Ratio Test 07/19/18 05:19 07/19/18 08:09 White Blood Count 7.4 Red Blood Count 3.96 L Hemoglobin 11.9 L Hematocrit 36.7 L Mean Corpuscular 92.7 Volume Mean Corpuscular 30.1 Hemoglobin Mean Corpuscular 32.4 Hemoglobin Concent Red Cell 13.2 Distribution Width Platelet Count 354 Mean Platelet Volume 10.5 H Immature 0.500 H Granulocytes % Neutrophils % 59.2 Lymphocytes % 27.6 Monocytes % 8.4 Eosinophils % 3.8 Basophils % 0.5 Nucleated Red Blood 0.0 Cells % Immature 0.040 H Granulocytes # Neutrophils # 4.4 Lymphocytes # 2.0 Monocytes # 0.6 Eosinophils # 0.3 Basophils # 0.0 Nucleated Red Blood 0.0 Cells # Sodium Level 141 Potassium Level 4.0 Chloride Level 105 Carbon Dioxide Level 30 Anion Gap 6 Blood Urea Nitrogen 19 Creatinine 0.77 Est Glomerular Filtrat Rate mL/min Glucose Level 153 Calcium Level 9.8 Total Bilirubin 0.2 Direct Bilirubin 0.00 Indirect Bilirubin 0.2 Aspartate Amino 25 Transf (AST/SGOT) Alanine 16 Aminotransferase (AL T/SGPT) Alkaline Phosphatase 33 L Total Protein 7.0 Albumin 3.9 Globulin 3.10 Albumin/Globulin 1.25 Ratio Bedside Glucose 147 Subjective 24 Hr Interval Summary Free Text/Dictation Patient states she had some ear pain that starts at base of her neck and radiates to head. Concerned she has an inner ear infection but denies any ringing. Exam/Review of Systems Exam Vitals Vital Signs Date Temp Pulse Resp B/P (MAP) Pulse Ox O2 O2 Flow FiO2 Time Delivery Rate 07/19/18 98.3 50 18 182/76 93 Room Air 08:05 (111) Intake and Output 07/18/18 07/18/18 07/19/18 1414:59 22:59 06:59 IntakeIntake Total 1450 ml 1050 ml 715 ml BalanceBalance 1450 ml 1050 ml 715 ml Exam General: Patient is pleasant female, currently lying in bed in no acute distress Neck: Supple Chest: Nontender Lungs: Clear to auscultation bilaterally, no wheezing or rhonchi Heart: Normal S1-S2, Regular rhythm and rate. No murmur, S3, or S4 Abdomen: Soft , nontender, nondistended , bowel sounds are present. No guarding no rebound tenderness Extremities: Normal to inspection, no edema no cyanosis Skin: no rashes or lesions Results Results 24hrs Laboratory Tests Test 07/18/18 12:27 07/18/18 17:38 07/18/18 20:40 07/19/18 05:18 Bedside Glucose 142 163 168 Prothrombin Time 12.8 Prothrombin Time 1.0 Ratio INR International 0.95 Normalized Ratio Test 07/19/18 05:19 07/19/18 08:09 White Blood Count 7.4 Red Blood Count 3.96 L Hemoglobin 11.9 L Hematocrit 36.7 L Mean Corpuscular 92.7 Volume Mean Corpuscular 30.1 Hemoglobin Mean Corpuscular 32.4 Hemoglobin Concent Red Cell 13.2 Distribution Width Platelet Count 354 Mean Platelet Volume 10.5 H Immature 0.500 H Granulocytes % Neutrophils % 59.2 Lymphocytes % 27.6 Monocytes % 8.4 Eosinophils % 3.8 Basophils % 0.5 Nucleated Red Blood 0.0 Cells % Immature 0.040 H Granulocytes # Neutrophils # 4.4 Lymphocytes # 2.0 Monocytes # 0.6 Eosinophils # 0.3 Basophils # 0.0 Nucleated Red Blood 0.0 Cells # Sodium Level 141 Potassium Level 4.0 Chloride Level 105 Carbon Dioxide Level 30 Anion Gap 6 Blood Urea Nitrogen 19 Creatinine 0.77 Est Glomerular Filtrat Rate mL/min Glucose Level 153 Calcium Level 9.8 Total Bilirubin 0.2 Direct Bilirubin 0.00 Indirect Bilirubin 0.2 Aspartate Amino 25 Transf (AST/SGOT) Alanine 16 Aminotransferase (AL T/SGPT) Alkaline Phosphatase 33 L Total Protein 7.0 Albumin 3.9 Globulin 3.10 Albumin/Globulin 1.25 Ratio Bedside Glucose 147 Medications Medication Current Medications IV Flush (NS 3 ml) 3 ml PER PROTOCOL IV ; Start 07/16/18 at 02:00 Ondansetron HCl (Zofran Inj) 4 mg Q6H PRN IV NAUSEA/VOMITING; Start 07/16/18 at 02:00 Acetaminophen (Tylenol Tab) 650 mg Q6H PRN PO .PAIN 1-3 OR TEMP Last administered on 07/18/18at 20:46; Admin Dose 650 MG; Start 07/16/18 at 02:00 Heparin Sodium (Porcine) (Heparin (5000 Units/1ml)) 5,000 unit Q12 SC Last administered on 07/19/18 08:12; Admin Dose 5,000 UNIT; Start 07/16/18 at 09:00 Albuterol/ Ipratropium (Duoneb) 3 ml Q2H RESP THERAPY PRN HHN SHORTNESS OF BREATH; Start 07/16/18 at 02:00 Calcium Carbonate (Oyster Shell Calcium) 0.5 gm BID PO Last administered on 07/19/18at 08:12; Admin Dose 0.5 GM; Start 07/16/18 at 09:00 Carbidopa/Levodopa (Sinemet (25/ 100)) 1 tab QID PO Last administered on 07/19/18 08:12; Admin Dose 1 TAB; Start 07/16/18 at 09:00 Lactobacillus Acidophilus/ Rhamnosus (Culturelle) 1 cap BID PO Last administered on 07/19/18 08:12; Admin Dose 1 CAP; Start 07/16/18 at 09:00 Meclizine HCl (Antivert) 12.5 mg Q8H PRN PO DIZZINESS; Start 07/16/18 at 02:00 Oxybutynin Chloride (Ditropan Xl) 5 mg DAILY PO Last administered on 07/19/18at 08:12; Admin Dose 5 MG; Start 07/16/18 at 09:00 Pantoprazole (Protonix Tab) 40 mg DAILY@0600 PO Last administered on 07/19/18at 06:02; Admin Dose 40 MG; Start 07/16/18 at 06:00 Ropinirole HCl (Requip) 0.5 mg QID PO Last administered on 07/19/18at 08:12; Admin Dose 0.5 MG; Start 07/16/18 at 09:00 Aspirin (Aspirin) 81 mg DAILY PO Last administered on 07/19/18at 08:15; Admin Dose 81 MG; Start 07/19/18 at 09:00 Atorvastatin Calcium (Lipitor) 40 mg QHS PO ; Start 07/19/18 at 21:00 Fenofibrate (Tricor) 145 mg DAILY PO Last administered on 07/19/18at 08:15; Admin Dose 145 MG; Start 07/19/18 at 09:00 Gemfibrozil (Lopid) 600 mg BID PO Last administered on 07/19/18at 08:15; Admin Dose 600 MG; Start 07/19/18 at 09:00 Venlafaxine HCl (Effexor Xr) 75 mg DAILY PO Last administered on 07/19/18at 08:15; Admin Dose 75 MG; Start 07/19/18 at 09:00 Diagnostic Test (Pha) (Accu-Chek) 1 ea 02 XX ; Start 07/17/18 at 02:00 Insulin Aspart (Novolog Insulin Pen) NOVOLOG *MILD* ALGORITHM WITH MEALS BEDTIME SC Last administered on 07/19/18at 08:12; Admin Dose 1 UNIT; Start 07/16/18 at 18:05 Miscellaneous Information 1 ea NOTE XX ; Start 07/16/18 at 14:30 Glucose (Glutose) 15 gm Q15M PRN PO DECREASED GLUCOSE; Start 07/16/18 at 14:30 Glucose (Glutose) 22.5 gm Q15M PRN PO DECREASED GLUCOSE; Start 07/16/18 at 14:30 Dextrose (D50w Syringe) 25 ml Q15M PRN IV DECREASED GLUCOSE; Start 07/16/18 at 14:30 Dextrose (D50w Syringe) 50 ml Q15M PRN IV DECREASED GLUCOSE; Start 07/16/18 at 14:30 Glucagon (Glucagen) 1 mg Q15M PRN IM DECREASED GLUCOSE; Start 07/16/18 at 14:30 Glucose (Glutose) 15 gm Q15M PRN BUCCAL DECREASED GLUCOSE; Start 07/16/18 at 14:30 Polyethylene Glycol (Miralax) 17 gm BID PRN PO CONSTIPATION Last administered on 07/17/18at 08:19; Admin Dose 17 GM; Start 07/16/18 at 20:00 Meropenem/Sodium Chloride 50 ml @ 100 mls/hr Q12 IVPB Last administered on 07/19/18at 08:20; Admin Dose 100 MLS/HR; Start 07/17/18 at 13:00 Atenolol (Tenormin) 25 mg DAILY PO Last administered on 07/19/18at 08:16; Admin Dose 25 MG; Start 07/18/18 at 11:30 Hydralazine HCl (Apresoline) 10 mg Q4H PRN IV ELEVATED SYSTOLIC BP; Start 07/18/18 at 11:30 Lisinopril (Zestril) 20 mg HS PO ; Start 07/19/18 at 21:00 Magnesium Citrate (Citroma) 300 ml ONCE ONCE PO ; Start 07/19/18 at 17:30; Stop 07/19/18 at 17:31 Polyethylene Glycol (Miralax) 119 gm ONCE ONCE PO ; Start 07/19/18 at 18:30; Stop 07/19/18 at 18:31 Polyethylene Glycol (Miralax) 119 gm 2ND DOSE (GI PREP) ONCE PO ; Start 07/20/18 at 06:00; Stop 07/20/18 at 06:01 Bisacodyl (Dulcolax) 10 mg 2ND DOSE (GI PREP) ONCE PO ; Start 07/20/18 at 08:00; Stop 07/20/18 at 08:01 JC MAGANA MD July 19, 2018 11:58
[2018-07-19] MEDS: ACETAMINOPHEN 325 MG TAB PO PRN (12:20)
[2018-07-19 15:09] VITALS: BP 187/71; PULSE 50; RESP 17
[2018-07-19 15:28] VITALS: BP 153/70; PULSE 60
[2018-07-19] MEDS ORDERED: MAGNESIUM CITRATE 300 ML BTL PO ONE (17:30)
[2018-07-19] MEDS ORDERED: POLYETHYLENE GLYCOL 3350 119 GM POWDER PO ONE (18:30)
[2018-07-19 20:26] VITALS: BP 178/77; PULSE 56; RESP 18
[2018-07-19] MEDS: ATORVASTATIN 40 MG TAB PO SCH (20:49)
[2018-07-19] MEDS ORDERED: LISINOPRIL 20 MG TAB PO SCH (21:00)
[2018-07-19 22:49] VITALS: BP 136/65
[2018-07-20] VITALS (12 sets, daily range): BP systolic 126–166; BP diastolic 60–72; PULSE 52–67; RESP 16–24
[2018-07-20] MEDS: ACCU-CHEK XX SCH (01:07)
[2018-07-20] MEDS ORDERED: POLYETHYLENE GLYCOL 3350 119 GM POWDER PO ONE (06:00)
[2018-07-20] MEDS: PANTOPRAZOLE (EC) 40 MG TAB PO SCH (06:05)
[2018-07-20] MEDS ORDERED: BISACODYL (EC) 5 MG TAB PO ONE (08:00)
[2018-07-20] MEDS: FENOFIBRATE 145 MG TAB PO SCH (08:52)
[2018-07-20] MEDS: CALCIUM CARBONATE 1.25 GM TAB PO SCH ×2 (08:52→20:35)
[2018-07-20] MEDS: ATENOLOL 25 MG TAB PO SCH (08:52)
[2018-07-20] MEDS: VENLAFAXINE (XR) 75 MG CAP PO SCH (08:52)
[2018-07-20] MEDS: ROPINIROLE 0.25 MG TAB PO SCH ×4 (08:53→20:35)
[2018-07-20] MEDS: OXYBUTYNIN (XL) 5 MG TAB PO SCH (08:53)
[2018-07-20] MEDS: INSULIN ASPART [NOVOLOG] 3 ML PEN SC SCH ×4 (08:53→20:40)
[2018-07-20] MEDS: ASPIRIN 81 MG TAB PO SCH (08:53)
[2018-07-20] MEDS: HEPARIN 5,000 UNIT/1 ML VIAL SC SCH ×2 (08:53→20:45)
[2018-07-20] MEDS: GEMFIBROZIL 600 MG TAB PO SCH ×2 (08:53→20:35)
[2018-07-20] MEDS: CARBIDOPA/LEVODOPA (25/100) TAB PO SCH ×4 (08:53→20:35)
[2018-07-20] MEDS: LACTOBACILLUS RHAMNOSUS CAP PO SCH ×2 (08:53→20:34)
[2018-07-20] MEDS: MEROPENEM 500MG/50 ML (PMX) 50 ML IVPB SCH ×2 (08:53→20:37)
--- NOTE | 2018-07-20 16:28 | PN ---
Date/Time of Note Date/Time of Note DATE: 07/20/18 TIME: 16:25 Assessment/Plan VTE Prophylaxis Risk score (from Nsg)>0 risk: 5 SCD applied (from Nsg): Yes Pharmacological prophylaxis: NA/contraindicated Pharm contraindication: low risk/ambulating Lines/Catheters IV Catheter Type (from Nrsg): Saline Lock Assessment/Plan Assessment/Plan 1. Proctocolitis- improving - GI on board and appreciate recommendations. Colonoscopy scheduled for today 2. Constipation - bowel prep 3. Type 2 diabetes - A1c noted - ISS and accuchecks 4. Parkinsonism - stable 5. Right ear pain- improving - no otoscope available at this time 6. Hypertension - BP medications adjusted 7. Acute cystitis - on Meropenem day 4 - most likely colonization given <10K on UA 8. Disposition - colonoscopy planned for today. Possible discharge tomorrow based on findings Result Diagram: 07/19/1851807/19/18518 Results 24hrs Laboratory Tests Test 07/19/18 17:21 07/19/18 20:46 07/20/18 08:49 07/20/18 12:33 Bedside Glucose 105 137 124 118 Subjective 24 Hr Interval Summary Free Text/Dictation Patient states her ear and headache discomfort has improved. Denies any acute issues. awaiting colonoscopy today. Exam/Review of Systems Exam Vitals Vital Signs Date Temp Pulse Resp B/P (MAP) Pulse Ox O2 O2 Flow FiO2 Time Delivery Rate 07/20/18 98.0 60 18 158/72 95 14:14 (100) 07/19/18 Room Air 15:09 Intake and Output 07/19/18 07/19/18 07/20/18 1515:00 23:00 07:00 IntakeIntake Total 365 ml 690 ml 350 ml BalanceBalance 365 ml 690 ml 350 ml Exam General: Patient is pleasant female, currently lying in bed in no acute distress Neck: Supple Chest: Nontender Lungs: Clear to auscultation bilaterally, no wheezing or rhonchi Heart: Normal S1-S2, Regular rhythm and rate. No murmur, S3, or S4 Abdomen: Soft , nontender, nondistended , bowel sounds are present. No guarding no rebound tenderness Extremities: Normal to inspection, no edema no cyanosis Skin: no rashes or lesions Results Results 24hrs Laboratory Tests Test 07/19/18 17:21 07/19/18 20:46 07/20/18 08:49 07/20/18 12:33 Bedside Glucose 105 137 124 118 Medications Medication Current Medications IV Flush (NS 3 ml) 3 ml PER PROTOCOL IV ; Start 07/16/18 at 02:00 Ondansetron HCl (Zofran Inj) 4 mg Q6H PRN IV NAUSEA/VOMITING; Start 07/16/18 at 02:00 Acetaminophen (Tylenol Tab) 650 mg Q6H PRN PO .PAIN 1-3 OR TEMP Last administered on 07/19/18 12:20; Admin Dose 650 MG; Start 07/16/18 at 02:00 Heparin Sodium (Porcine) (Heparin (5000 Units/1ml)) 5,000 unit Q12 SC Last administered on 07/19/18 20:51; Admin Dose 5,000 UNIT; Start 07/16/18 at 09:00 Albuterol/ Ipratropium (Duoneb) 3 ml Q2H RESP THERAPY PRN HHN SHORTNESS OF BREATH; Start 07/16/18 at 02:00 Calcium Carbonate (Oyster Shell Calcium) 0.5 gm BID PO Last administered on 07/20/18 08:52; Admin Dose 0.5 GM; Start 07/16/18 at 09:00 Carbidopa/Levodopa (Sinemet (25/ 100)) 1 tab QID PO Last administered on 07/20/18 12:34; Admin Dose 1 TAB; Start 07/16/18 at 09:00 Lactobacillus Acidophilus/ Rhamnosus (Culturelle) 1 cap BID PO Last administered on 07/20/18 08:53; Admin Dose 1 CAP; Start 07/16/18 at 09:00 Meclizine HCl (Antivert) 12.5 mg Q8H PRN PO DIZZINESS; Start 07/16/18 at 02:00 Oxybutynin Chloride (Ditropan Xl) 5 mg DAILY PO Last administered on 07/20/18 08:53; Admin Dose 5 MG; Start 07/16/18 at 09:00 Pantoprazole (Protonix Tab) 40 mg DAILY@0600 PO Last administered on 07/20/18 06:05; Admin Dose 40 MG; Start 07/16/18 at 06:00 Ropinirole HCl (Requip) 0.5 mg QID PO Last administered on 07/20/18at 12:34; Admin Dose 0.5 MG; Start 07/16/18 at 09:00 Aspirin (Aspirin) 81 mg DAILY PO Last administered on 07/20/18at 08:53; Admin Dose 81 MG; Start 07/19/18 at 09:00 Atorvastatin Calcium (Lipitor) 40 mg QHS PO Last administered on 07/19/18at 20:49; Admin Dose 40 MG; Start 07/19/18 at 21:00 Fenofibrate (Tricor) 145 mg DAILY PO Last administered on 07/20/18at 08:52; Admin Dose 145 MG; Start 07/19/18 at 09:00 Gemfibrozil (Lopid) 600 mg BID PO Last administered on 07/20/18at 08:53; Admin Dose 600 MG; Start 07/19/18 at 09:00 Venlafaxine HCl (Effexor Xr) 75 mg DAILY PO Last administered on 07/20/18at 08:52; Admin Dose 75 MG; Start 07/19/18 at 09:00 Diagnostic Test (Pha) (Accu-Chek) 1 ea 02 XX ; Start 07/17/18 at 02:00 Miscellaneous Information 1 ea NOTE XX ; Start 07/16/18 at 14:30 Glucose (Glutose) 15 gm Q15M PRN PO DECREASED GLUCOSE; Start 07/16/18 at 14:30 Glucose (Glutose) 22.5 gm Q15M PRN PO DECREASED GLUCOSE; Start 07/16/18 at 14:30 Dextrose (D50w Syringe) 25 ml Q15M PRN IV DECREASED GLUCOSE; Start 07/16/18 at 14:30 Dextrose (D50w Syringe) 50 ml Q15M PRN IV DECREASED GLUCOSE; Start 07/16/18 at 14:30 Glucagon (Glucagen) 1 mg Q15M PRN IM DECREASED GLUCOSE; Start 07/16/18 at 14:30 Glucose (Glutose) 15 gm Q15M PRN BUCCAL DECREASED GLUCOSE; Start 07/16/18 at 14:30 Polyethylene Glycol (Miralax) 17 gm BID PRN PO CONSTIPATION Last administered o n 07/17/18at 08:19; Admin Dose 17 GM; Start 07/16/18 at 20:00 Meropenem/Sodium Chloride 50 ml @ 100 mls/hr Q12 IVPB Last administered on 07/20/18 08:53; Admin Dose 100 MLS/HR; Start 07/17/18 at 13:00 Atenolol (Tenormin) 25 mg DAILY PO Last administered on 07/20/18at 08:52; Admin Dose 25 MG; Start 07/18/18 at 11:30 Hydralazine HCl (Apresoline) 10 mg Q4H PRN IV ELEVATED SYSTOLIC BP Last administered on 07/19/18at 15:01; Admin Dose 10 MG; Start 07/18/18 at 11:30 Lisinopril (Zestril) 20 mg HS PO Last administered on 07/19/18at 20:49; Admin Dose 20 MG; Start 07/19/18 at 21:00 Insulin Aspart (Novolog Insulin Pen) NOVOLOG *MILD* ALGORI... Q4 SC ; Start 07/20/18 at 09:00 JC MAGANA MD July 20, 2018 16:28
--- NOTE | 2018-07-20 17:04 | PREAC ---
Date/Time of Note Date/Time of Note DATE: 07/20/18 TIME: 17:03 Anesthesia Eval and Record Evaluation Time Pre-Procedure Interview DATE: 07/20/18 TIME: 17:03 Age 83 Sex female NPO: 8 hrs Preoperative diagnosis Abdominal pain Planned procedure Colonoscopy Past Medical History Past Medical History: Includes Cardio: HTN, Dyslipidemia Neuro: Other GI: Obesity Surgery & Anesthesia Issues No known issue Meds Anticoagulation: No Beta Laila within 24 hr: No Reason Beta Laila not given: Pt. not on B-Laila Active Scripts Pantoprazole* (Pantoprazole*) 40 Mg Tablet.dr, 40 MG PO DAILY for 30 Days, #30 TAB 1 [facility] 03/18/18 Lactobacillus Rhamnosus* (Culturelle*) 1 Each Cap.sprink, 1 CAP PO BID, #20 CAP [facility]. 03/18/18 Nitrofurantoin Monohyd Macrocr* (Macrobid*) 100 Mg Capsr, 100 MG PO BID, #20 CAP Prov[facility]. 03/18/18 Reported Medications Lactobacillus Acidophilus (Probiotic Acidophilus) 1 Each Tablet, 1 EACH PO BID, TAB 07/16/18 Ergocalciferol (Vitamin D2) (VITAMIN D2) 50,000 Unit Capsule, 21454 UNIT PO Q7D for QMONDAY, CAP 07/16/18 Calcium Carbonate/Vitamin D3 (Oysco 500+D Tablet) 1 Each Tablet, 1 TAB PO DAILY for 30 Days, #60 07/16/18 Glipizide* (Glipizide*) 5 Mg Tablet, 5 MG PO QHS for 60 Days, #60 07/16/18 Fenofibrate, Micronized* (Fenofibrate*) 160 Mg Tablet, 160 MG PO DAILY for 30 Days, #30 07/16/18 Meloxicam* (Mobic*) 15 Mg Tablet, 15 MG PO DAILY for 30 Days, #30 07/16/18 Gabapentin* (Gabapentin*) 100 Mg Capsule, 200 MG PO TID for 30 Days 07/16/18 Docusate Sodium (Dok) 100 Mg Capsule, 100 MG PO TID 07/16/18 Cholecalciferol* (Vitamin D*) Unknown Strength Tablet, PO DAILY, TAB 03/15/18 Aspirin* (Aspirin* Chew) 81 Mg Tab.chew, 81 MG PO DAILY, TAB.CHEW 03/12/18 Calcium Carbonate ([id number]) 500 Mg Tablet, 500 MG PO BID, TAB 03/12/18 Fenofibrate Nanocrystallized* (Fenofibrate*) 145 Mg Tablet, 145 MG PO DAILY, TAB 03/12/18 Venlafaxine Hcl* (Venlafaxine Hcl ER*) 75 Mg Cap.er.24h, 75 MG PO DAILY, CAP 03/12/18 Ropinirole Hcl* (Ropinirole Hcl*) 0.5 Mg Tablet, 0.5 MG PO QID TAKE AT 7:00 A.M, 11:00 AM, 3:00PM, & 7:00 PM 03/12/18 Carbidopa/Levodopa (Carbidopa-Levodopa 25-100 Tab) 1 Each Tablet, 1 TAB PO QID 03/12/18 Meclizine Hcl* (Meclizine Hcl*) 25 Mg Tablet, 12.5 MG PO Q8H PRN for DIZZINESS, TAB 03/12/18 Oxybutynin Chloride* (Ditropan* XL) 5 Mg Tabsr, 5 MG PO DAILY, TAB.SA 03/12/18 Gemfibrozil* (Gemfibrozil*) 600 Mg Tablet, 600 MG PO BID, TAB 03/12/18 Atorvastatin* (Atorvastatin*) 40 Mg Tablet, 40 MG PO QHS, #30 TAB 03/12/18 Lisinopril* (Lisinopril*) 10 Mg Tablet, 10 MG PO DAILY, #30 TAB 03/12/18 Atenolol* (Atenolol*) 25 Mg Tablet, 25 MG PO DAILY, #30 TAB 03/12/18 Glipizide* (Glipizide*) 10 Mg Tablet, 10 MG PO BID 12/08/12 Omeprazole* (Omeprazole*) 40 Mg Capsule.dr, 40 MG PO AC BREAKFAST 12/08/12 Discontinued Reported Medications Meloxicam* (Meloxicam*) 7.5 Mg/5 Ml Oral.susp, 15 MG PO DAILY, #300 ML 03/12/18 Discontinued Scripts Levofloxacin* (Levaquin*) 750 Mg Tablet, 750 MG PO DAILY for 7 Days, #7 TAB Prov:WHIT BERGER 03/18/18 Current Medications IV Flush (NS 3 ml) 3 ml PER PROTOCOL IV ; Start 07/16/18 at 02:00 Ondansetron HCl (Zofran Inj) 4 mg Q6H PRN IV NAUSEA/VOMITING; Start 07/16/18 at 02:00 Acetaminophen (Tylenol Tab) 650 mg Q6H PRN PO .PAIN 1-3 OR TEMP Last administered on 07/19/18 12:20; Admin Dose 650 MG; Start 07/16/18 at 02:00 Heparin Sodium (Porcine) (Heparin (5000 Units/1ml)) 5,000 unit Q12 SC Last administered on 07/19/18 20:51; Admin Dose 5,000 UNIT; Start 07/16/18 at 09:00 Albuterol/ Ipratropium (Duoneb) 3 ml Q2H RESP THERAPY PRN HHN SHORTNESS OF BREATH; Start 07/16/18 at 02:00 Calcium Carbonate (Oyster Shell Calcium) 0.5 gm BID PO Last administered on 07/20/18 08:52; Admin Dose 0.5 GM; Start 07/16/18 at 09:00 Carbidopa/Levodopa (Sinemet (25/ 100)) 1 tab QID PO Last administered on 07/20/18 16:33; Admin Dose 1 TAB; Start 07/16/18 at 09:00 Lactobacillus Acidophilus/ Rhamnosus (Culturelle) 1 cap BID PO Last administered on 07/20/18 08:53; Admin Dose 1 CAP; Start 07/16/18 at 09:00 Meclizine HCl (Antivert) 12.5 mg Q8H PRN PO DIZZINESS; Start 07/16/18 at 02:00 Oxybutynin Chloride (Ditropan Xl) 5 mg DAILY PO Last administered on 07/20/18 08:53; Admin Dose 5 MG; Start 07/16/18 at 09:00 Pantoprazole (Protonix Tab) 40 mg DAILY@0600 PO Last administered on 07/20/18 06:05; Admin Dose 40 MG; Start 07/16/18 at 06:00 Ropinirole HCl (Requip) 0.5 mg QID PO Last administered on 07/20/18 16:33; Admin Dose 0.5 MG; Start 07/16/18 at 09:00 Aspirin (Aspirin) 81 mg DAILY PO Last administered on 07/20/18 08:53; Admin Dose 81 MG; Start 07/19/18 at 09:00 Atorvastatin Calcium (Lipitor) 40 mg QHS PO Last administered on 07/19/18 20:49; Admin Dose 40 MG; Start 07/19/18 at 21:00 Fenofibrate (Tricor) 145 mg DAILY PO Last administered on 07/20/18 08:52; Admin Dose 145 MG; Start 07/19/18 at 09:00 Gemfibrozil (Lopid) 600 mg BID PO Last administered on 07/20/18 08:53; Admin Dose 600 MG; Start 07/19/18 at 09:00 Venlafaxine HCl (Effexor Xr) 75 mg DAILY PO Last administered on 07/20/18 08:52; Admin Dose 75 MG; Start 07/19/18 at 09:00 Diagnostic Test (Pha) (Accu-Chek) 1 ea 02 XX ; Start 07/17/18 at 02:00 Miscellaneous Information 1 ea NOTE XX ; Start 07/16/18 at 14:30 Glucose (Glutose) 15 gm Q15M PRN PO DECREASED GLUCOSE; Start 07/16/18 at 14:30 Glucose (Glutose) 22.5 gm Q15M PRN PO DECREASED GLUCOSE; Start 07/16/18 at 14:30 Dextrose (D50w Syringe) 25 ml Q15M PRN IV DECREASED GLUCOSE; Start 07/16/18 at 14:30 Dextrose (D50w Syringe) 50 ml Q15M PRN IV DECREASED GLUCOSE; Start 07/16/18 at 14:30 Glucagon (Glucagen) 1 mg Q15M PRN IM DECREASED GLUCOSE; Start 07/16/18 at 14:30 Glucose (Glutose) 15 gm Q15M PRN BUCCAL DECREASED GLUCOSE; Start 07/16/18 at 14:30 Polyethylene Glycol (Miralax) 17 gm BID PRN PO CONSTIPATION Last administered on 07/17/18 08:19; Admin Dose 17 GM; Start 07/16/18 at 20:00 Meropenem/Sodium Chloride 50 ml @ 100 mls/hr Q12 IVPB Last administered on 07/20/18 08:53; Admin Dose 100 MLS/HR; Start 07/17/18 at 13:00 Atenolol (Tenormin) 25 mg DAILY PO Last administered on 07/20/18at 08:52; Admin Dose 25 MG; Start 07/18/18 at 11:30 Hydralazine HCl (Apresoline) 10 mg Q4H PRN IV ELEVATED SYSTOLIC BP Last administered on 07/19/18at 15:01; Admin Dose 10 MG; Start 07/18/18 at 11:30 Insulin Aspart (Novolog Insulin Pen) NOVOLOG *MILD* ALGORI... Q4 SC ; Start 07/20/18 at 09:00 Lisinopril (Zestril) 30 mg HS PO ; Start 07/20/18 at 21:00 Meds reviewed: Yes Allergies Coded Allergies: No Known Allergies (Unverified Allergy, Unknown, 07/16/18) Allergies Reviewed: Yes Labs/Studies Labs Reviewed: Reviewed by anesthesiologist Result Diagram: 07/19/1851807/19/18518 test: N/A Pre-procedure Exam Last vitals Vital Signs Date Temp Pulse Resp B/P (MAP) Pulse Ox O2 O2 Flow FiO2 Time Delivery Rate 07/20/18 98.0 60 18 158/72 95 14:14 (100) 07/19/18 Room Air 15:09 Airway: Adequate mouth opening Mallampati: Mallampati II Teeth: Normal Lung: Normal Heart: Normal ASA Physical Status ASA physical status: 3 Emergency: None Planned Anesthetic General/MAC: MAC Planned Pain Management Parenteral pain med Pre-operative Attestations Prior to commencing anesthesia and surgery, the patient was re-evaluated, there was verification of: *The patient's identity *The results of appropriate recent lab work and preoperative vital signs *The above evaluation not changing prior to induction *Anesthetic plan, risk benefits, alternative and complications discussed with patient/family; questions answered; patient/family understands, accepts and wishes to proceed. ANA KNOX MD July 20, 2018 17:04
[2018-07-20] MEDS ORDERED: PROPOFOL 20 ML ONE (17:55)
--- NOTE | 2018-07-20 17:56 | HPN ---
Date/Time of Note Date/Time of Note DATE: 07/20/18 TIME: 17:56 Interval H&P Admission Note Pt. seen H&P reviewed: No system changes OLGA YANEZ MD July 20, 2018 17:56
--- NOTE | 2018-07-20 19:21 | PAC ---
Date/Time of Note Date/Time of Note DATE: 07/20/18 TIME: 19:21 Post-Anesthesia Notes Post-Anesthesia Note Last documented vital signs Vital Signs Date Temp Pulse Resp B/P (MAP) Pulse Ox O2 O2 Flow FiO2 Time Delivery Rate 07/20/18 60 24 146/67 92 Room Air 18:43 (93) 07/20/18 98.7 18:30 07/20/18 10 17:22 Activity: WNL Respiratory function: WNL Cardiovascular function: WNL Mental status: Baseline Pain reasonably controlled: Yes Hydration appropriate: Yes Nausea/Vomiting absent: Yes ANA KNOX MD July 20, 2018 19:21
[2018-07-20] MEDS: ATORVASTATIN 40 MG TAB PO SCH (20:36)
[2018-07-20] MEDS: LISINOPRIL 20 MG TAB PO SCH (20:39)
[2018-07-21] MEDS: ACCU-CHEK XX SCH (01:15)
[2018-07-21 02:17] VITALS: BP 126/62; PULSE 63; RESP 16
[2018-07-21] MEDS: ACETAMINOPHEN 325 MG TAB PO PRN ×2 (02:24→08:25)
[2018-07-21] MEDS: PANTOPRAZOLE (EC) 40 MG TAB PO SCH (06:02)
[2018-07-21 07:59] VITALS: BP 149/62; PULSE 60; RESP 18
[2018-07-21] MEDS: INSULIN ASPART [NOVOLOG] 3 ML PEN SC SCH ×4 (08:00→20:52)
[2018-07-21] MEDS: CALCIUM CARBONATE 1.25 GM TAB PO SCH ×2 (08:24→20:52)
[2018-07-21] MEDS: HEPARIN 5,000 UNIT/1 ML VIAL SC SCH ×2 (08:25→20:54)
[2018-07-21] MEDS: FENOFIBRATE 145 MG TAB PO SCH (08:25)
[2018-07-21] MEDS: CARBIDOPA/LEVODOPA (25/100) TAB PO SCH ×4 (08:25→20:51)
[2018-07-21] MEDS: VENLAFAXINE (XR) 75 MG CAP PO SCH (08:25)
[2018-07-21] MEDS: ROPINIROLE 0.25 MG TAB PO SCH ×4 (08:25→20:51)
[2018-07-21] MEDS: ASPIRIN 81 MG TAB PO SCH (08:25)
[2018-07-21] MEDS: LACTOBACILLUS RHAMNOSUS CAP PO SCH ×2 (08:25→20:52)
[2018-07-21] MEDS: GEMFIBROZIL 600 MG TAB PO SCH ×2 (08:26→20:52)
[2018-07-21] MEDS: ATENOLOL 25 MG TAB PO SCH (08:26)
[2018-07-21] MEDS: OXYBUTYNIN (XL) 5 MG TAB PO SCH (08:26)
[2018-07-21] MEDS: ARTIFICIAL TEARS 15 ML OPH BOTH EYES SCH ×4 (10:18→20:51)
[2018-07-21] MEDS: MEROPENEM 500MG/50 ML (PMX) 50 ML IVPB SCH ×2 (10:42→20:51)
--- NOTE | 2018-07-21 14:13 | PN ---
Date/Time of Note Date/Time of Note DATE: 07/21/18 TIME: 14:09 Assessment/Plan VTE Prophylaxis Risk score (from Ns)>0 risk: 5 SCD applied (from Nsg): Yes Pharmacological prophylaxis: other (scds) Lines/Catheters [facility] Saline Lock Assessment/Plan Hospital Course Assessment: Proctocolitis Colonoscopy 07/20/2018 Severe left-sided diverticulosis Moderate-sized internal hemorrhoids Otherwise normal colonoscopy Constipation UTI- with ESBL on ABX -Pt in contact isolation for ESBL DM, type type 2 Parkinsonism Dyslipidemia Hypertension Metabolic syndrome Diverticulosis Normocytic anemia- stable Plan: Advance diet as tolerated High fiber diet Simethicone for gas/bloating PRN- if bloating continues- pt can be seen as an out-pt to check for SIBO GI will sign off but will be available upon reconsult as needed Patient seen in collaboration with Dr. Reddy Subjective: Course reviewed with nursing staff Patient interviewed and examined All labs, imaging and other results reviewed No over night events, pt with mild chronic anemia- stable No overt signs of GI bleed. No c/o n.v or abd pain. Patient c/o bloating/gas discussed diet options Exam PHYSICAL EXAMINATION: GENERAL: Well developed, well nourished, alert & oriented x 3, in no acute distress SKIN: No lesions HEAD: Normocephalic, atraumatic, no tenderness. EYES: Pupils equal reactive to light, no discharge. EARS/NOSE AND THROAT: Ears normal, nose normal. NECK: Supple, no masses CHEST: Inspection within normal limits. CARDIOVASCULAR: Heart: Regular rate and rhythm GASTROINTESTINAL AND LIVER: Abdomen: Soft, mild lower abd tenderness, mildly distended, no hernias, no masses, no organomegaly, no ascites, no guarding, no rebound tenderness, normoactive bowel sounds. Rectal: Deferred. EXTREMITIES: No cyanosis, clubbing or edema. Result Diagram: 07/19/1851807/19/18518 Results 24hrs Laboratory Tests Test 07/20/18 16:31 07/20/18 20:33 07/21/18 08:23 07/21/18 12:16 Bedside Glucose 107 116 138 122 Exam/Review of Systems Exam Vitals Vital Signs Date Temp Pulse Resp B/P (MAP) Pulse Ox O2 O2 Flow FiO2 Time Delivery Rate 07/21/18 98.3 08:25 07/21/18 60 18 149/62 92 07:59 (91) 07/20/18 Room Air 20:00 07/20/18 10 17:22 Intake and Output 07/20/18 07/20/18 07/21/18 1515:00 23:00 07:00 IntakeIntake Total 50 ml 370 ml BalanceBalance 50 ml 370 ml Results Results 24hrs Laboratory Tests Test 07/20/18 16:31 07/20/18 20:33 07/21/18 08:23 07/21/18 12:16 Bedside Glucose 107 116 138 122 Medications Medication Current Medications IV Flush (NS 3 ml) 3 ml PER PROTOCOL IV ; Start 07/16/18 at 02:00 Ondansetron HCl (Zofran Inj) 4 mg Q6H PRN IV NAUSEA/VOMITING; Start 07/16/18 at 02:00 Acetaminophen (Tylenol Tab) 650 mg Q6H PRN PO .PAIN 1-3 OR TEMP Last administered on 07/21/18 08:25; Admin Dose 650 MG; Start 07/16/18 at 02:00 Heparin Sodium (Porcine) (Heparin (5000 Units/1ml)) 5,000 unit Q12 SC Last administered on 07/21/18 08:25; Admin Dose 5,000 UNIT; Start 07/16/18 at 09:00 Albuterol/ Ipratropium (Duoneb) 3 ml Q2H RESP THERAPY PRN HHN SHORTNESS OF [place] ATH; Start 07/16/18 at 02:00 Calcium Carbonate (Oyster Shell Calcium) 0.5 gm BID PO Last administered on 07/21/18 08:24; Admin Dose 0.5 GM; Start 07/16/18 at 09:00 Carbidopa/Levodopa (Sinemet (25/ 100)) 1 tab QID PO Last administered on 07/21/18 12:17; Admin Dose 1 TAB; Start 07/16/18 at 09:00 Lactobacillus Acidophilus/ Rhamnosus (Culturelle) 1 cap BID PO Last administered on 07/21/18 08:25; Admin Dose 1 CAP; Start 07/16/18 at 09:00 Meclizine HCl (Antivert) 12.5 mg Q8H PRN PO DIZZINESS; Start 07/16/18 at 02:00 Oxybutynin Chloride (Ditropan Xl) 5 mg DAILY PO Last administered on 07/21/18 08:26; Admin Dose 5 MG; Start 07/16/18 at 09:00 Pantoprazole (Protonix Tab) 40 mg DAILY@0600 PO Last administered on 07/21/18 06:02; Admin Dose 40 MG; Start 07/16/18 at 06:00 Ropinirole HCl (Requip) 0.5 mg QID PO Last administered on 07/21/18 12:17; Admin Dose 0.5 MG; Start 07/16/18 at 09:00 Aspirin (Aspirin) 81 mg DAILY PO Last administered on 07/21/18 08:25; Admin Dose 81 MG; Start 07/19/18 at 09:00 Atorvastatin Calcium (Lipitor) 40 mg QHS PO Last administered on 07/20/18 20:36; Admin Dose 40 MG; Start 07/19/18 at 21:00 Fenofibrate (Tricor) 145 mg DAILY PO Last administered on 07/21/18 08:25; Admin Dose 145 MG; Start 07/19/18 at 09:00 Gemfibrozil (Lopid) 600 mg BID PO Last administered on 07/21/18 08:26; Admin Dose 600 MG; Start 07/19/18 at 09:00 Venlafaxine HCl (Effexor Xr) 75 mg DAILY PO Last administered on 07/21/18 08:25; Admin Dose 75 MG; Start 07/19/18 at 09:00 Miscellaneous Information 1 ea NOTE XX ; Start 07/16/18 at 14:30 Glucose (Glutose) 15 gm Q15M PRN PO DECREASED GLUCOSE; Start 07/16/18 at 14:30 Glucose (Glutose) 22.5 gm Q15M PRN PO DECREASED GLUCOSE; Start 07/16/18 at 14:30 Dextrose (D50w Syringe) 25 ml Q15M PRN IV DECREASED GLUCOSE; Start 07/16/18 at 14:30 Dextrose (D50w Syringe) 50 ml Q15M PRN IV DECREASED GLUCOSE; Start 07/16/18 at 14:30 Glucagon (Glucagen) 1 mg Q15M PRN IM DECREASED GLUCOSE; Start 07/16/18 at 14:30 Glucose (Glutose) 15 gm Q15M PRN BUCCAL DECREASED GLUCOSE; Start 07/16/18 at 14:30 Polyethylene Glycol (Miralax) 17 gm BID PRN PO CONSTIPATION Last administered on 07/17/18 08:19; Admin Dose 17 GM; Start 07/16/18 at 20:00 Meropenem/Sodium Chloride 50 ml @ 100 mls/hr Q12 IVPB Last administered on 07/21/18at 10:42; Admin Dose 100 MLS/HR; Start 07/17/18 at 13:00 Atenolol (Tenormin) 25 mg DAILY PO Last administered on 07/21/18at 08:26; Admin Dose 25 MG; Start 07/18/18 at 11:30 Hydralazine HCl (Apresoline) 10 mg Q4H PRN IV ELEVATED SYSTOLIC BP Last administered on 07/19/18at 15:01; Admin Dose 10 MG; Start 07/18/18 at 11:30 Lisinopril (Zestril) 30 mg HS PO Last administered on 07/20/18at 20:39; Admin Dose 30 MG; Start 07/20/18 at 21:00 Diagnostic Test (Pha) (Accu-Chek) 1 ea 02 XX ; Start 07/21/18 at 02:00 Insulin Aspart (Novolog Insulin Pen) NOVOLOG *MILD* ALGORITHM WITH MEALS BEDTIME SC ; Start 07/20/18 at 21:00 Eye Lubricant (Artificial Tears Oph) 2 drop QID BOTH EYES Last administered on 07/21/18at 12:17; Admin Dose 2 DROP; Start 07/21/18 at 09:00 Ciprofloxacin HCl (Ciprofloxacin HCl Otic) 2 drop BID RIGHT EAR ; Start 07/21/18 at 13:30 MARCIANO WEBB July 21, 2018 14:13
[2018-07-21 14:30] VITALS: BP 135/62; PULSE 67; RESP 16
--- NOTE | 2018-07-21 16:12 | PN ---
Date/Time of Note Date/Time of Note DATE: 07/21/18 TIME: 16:07 Assessment/Plan VTE Prophylaxis Risk score (from Nsg)>0 risk: 5 SCD applied (from Ns): Yes Pharmacological prophylaxis: NA/contraindicated Pharm contraindication: low risk/ambulating Lines/Catheters IV Catheter Type (from Nrsg): Saline Lock Assessment/Plan Assessment/Plan 1. Proctocolitis- resolving - GI on board and appreciate recommendations - Colonoscopy yesterday showed diverticulosis and internal hemorrhoids. No active bleeding 2. Constipation - had BM yesterday with prep and feeling significantly better 3. Type 2 diabetes - A1c noted - ISS and accuchecks 4. Parkinsonism - stable 5. Right ear pain - will start on antibiotics empirically and monitor for improvement - no otoscope available at this time 6. Hypertension - BP medications adjusted 7. Acute cystitis - on Meropenem day 5 - most likely colonization given <10K on UA 8. Disposition - If no acute issues, will d/c tomorrow Result Diagram: 07/19/1851807/19/18518 Results 24hrs Laboratory Tests Test 07/20/18 16:31 07/20/18 20:33 07/21/18 08:23 07/21/18 12:16 Bedside Glucose 107 116 138 122 Subjective 24 Hr Interval Summary Free Text/Dictation Patient doing well and states feeling significantly better. Does admit to headaches at night that's localized more to right ear. Exam/Review of Systems Exam Vitals Vital Signs Date Temp Pulse Resp B/P (MAP) Pulse Ox O2 O2 Flow FiO2 Time Delivery Rate 07/21/18 98.2 67 16 135/62 96 14:30 (86) 07/20/18 Room Air 20:00 07/20/18 10 17:22 Intake and Output 07/20/18 07/20/18 07/21/18 1515:00 23:00 07:00 IntakeIntake Total 50 ml 370 ml BalanceBalance 50 ml 370 ml Exam General: Patient is pleasant female, current sitting in chair at bedside Neck: Supple Chest: Nontender Lungs: Clear to auscultation bilaterally, no wheezing or rhonchi Heart: Normal S1-S2, Regular rhythm and rate. No murmur, S3, or S4 Abdomen: Soft , nontender, nondistended, bowel sounds are present. No guarding no rebound tenderness Extremities: Normal to inspection, no edema no cyanosis Skin: no rashes or lesions Results Results 24hrs Laboratory Tests Test 07/20/18 16:31 07/20/18 20:33 07/21/18 08:23 07/21/18 12:16 Bedside Glucose 107 116 138 122 Medications Medication Current Medications IV Flush (NS 3 ml) 3 ml PER PROTOCOL IV ; Start 07/16/18 at 02:00 Ondansetron HCl (Zofran Inj) 4 mg Q6H PRN IV NAUSEA/VOMITING; Start 07/16/18 at 02:00 Acetaminophen (Tylenol Tab) 650 mg Q6H PRN PO .PAIN 1-3 OR TEMP Last administered on 07/21/18 08:25; Admin Dose 650 MG; Start 07/16/18 at 02:00 Heparin Sodium (Porcine) (Heparin (5000 Units/1ml)) 5,000 unit Q12 SC Last administered on 07/21/18 08:25; Admin Dose 5,000 UNIT; Start 07/16/18 at 09:00 Albuterol/ Ipratropium (Duoneb) 3 ml Q2H RESP THERAPY PRN HHN SHORTNESS OF BREATH; Start 07/16/18 at 02:00 Calcium Carbonate (Oyster Shell Calcium) 0.5 gm BID PO Last administered on 07/21/18 08:24; Admin Dose 0.5 GM; Start 07/16/18 at 09:00 Carbidopa/Levodopa (Sinemet (25/ 100)) 1 tab QID PO Last administered on 07/21/18 12:17; Admin Dose 1 TAB; Start 07/16/18 at 09:00 Lactobacillus Acidophilus/ Rhamnosus (Culturelle) 1 cap BID PO Last admi nistered on 07/21/18 08:25; Admin Dose 1 CAP; Start 07/16/18 at 09:00 Meclizine HCl (Antivert) 12.5 mg Q8H PRN PO DIZZINESS; Start 07/16/18 at 02:00 Oxybutynin Chloride (Ditropan Xl) 5 mg DAILY PO Last administered on 07/21/18 08:26; Admin Dose 5 MG; Start 07/16/18 at 09:00 Pantoprazole (Protonix Tab) 40 mg DAILY@0600 PO Last administered on 07/21/18 06:02; Admin Dose 40 MG; Start 07/16/18 at 06:00 Ropinirole HCl (Requip) 0.5 mg QID PO Last administered on 07/21/18 12:17; Admin Dose 0.5 MG; Start 07/16/18 at 09:00 Aspirin (Aspirin) 81 mg DAILY PO Last administered on 07/21/18 08:25; Admin Dose 81 MG; Start 07/19/18 at 09:00 Atorvastatin Calcium (Lipitor) 40 mg QHS PO Last administered on 07/20/18 20:36; Admin Dose 40 MG; Start 07/19/18 at 21:00 Fenofibrate (Tricor) 145 mg DAILY PO Last administered on 07/21/18 08:25; Admin Dose 145 MG; Start 07/19/18 at 09:00 Gemfibrozil (Lopid) 600 mg BID PO Last administered on 07/21/18 08:26; Admin Dose 600 MG; Start 07/19/18 at 09:00 Venlafaxine HCl (Effexor Xr) 75 mg DAILY PO Last administered on 07/21/18 08:25; Admin Dose 75 MG; Start 07/19/18 at 09:00 Miscellaneous Information 1 ea NOTE XX ; Start 07/16/18 at 14:30 Glucose (Glutose) 15 gm Q15M PRN PO DECREASED GLUCOSE; Start 07/16/18 at 14:30 Glucose (Glutose) 22.5 gm Q15M PRN PO DECREASED GLUCOSE; Start 07/16/18 at 14:30 Dextrose (D50w Syringe) 25 ml Q15M PRN IV DECREASED GLUCOSE; Start 07/16/18 at 14:30 Dextrose (D50w Syringe) 50 ml Q15M PRN IV DECREASED GLUCOSE; Start 07/16/18 at 14:30 Glucagon (Glucagen) 1 mg Q15M PRN IM DECREASED GLUCOSE; Start 07/16/18 at 14:30 Glucose (Glutose) 15 gm Q15M PRN BUCCAL DECREASED GLUCOSE; Start 07/16/18 at 14:30 Polyethylene Glycol (Miralax) 17 gm BID PRN PO CONSTIPATION Last administered on 07/17/18 08:19; Admin Dose 17 GM; Start 07/16/18 at 20:00 Meropenem/Sodium Chloride 50 ml @ 100 mls/hr Q12 IVPB Last administered on 07/21/18at 10:42; Admin Dose 100 MLS/HR; Start 07/17/18 at 13:00 Atenolol (Tenormin) 25 mg DAILY PO Last administered on 07/21/18at 08:26; Admin Dose 25 MG; Start 07/18/18 at 11:30 Hydralazine HCl (Apresoline) 10 mg Q4H PRN IV ELEVATED SYSTOLIC BP Last administered on 07/19/18at 15:01; Admin Dose 10 MG; Start 07/18/18 at 11:30 Lisinopril (Zestril) 30 mg HS PO Last administered on 07/20/18at 20:39; Admin Dose 30 MG; Start 07/20/18 at 21:00 Diagnostic Test (Pha) (Accu-Chek) 1 ea 02 XX ; Start 07/21/18 at 02:00 Insulin Aspart (Novolog Insulin Pen) NOVOLOG *MILD* ALGORITHM WITH MEALS BEDT TELLY SC ; Start 07/20/18 at 21:00 Eye Lubricant (Artificial Tears Oph) 2 drop QID BOTH EYES Last administered on 07/21/18at 12:17; Admin Dose 2 DROP; Start 07/21/18 at 09:00 Ciprofloxacin HCl (Ciprofloxacin HCl Otic) 2 drop BID RIGHT EAR ; Start 07/21/18 at 13:30 Simethicone (Mylicon) 80 mg Q6 PRN PO gas/bloating; Start 07/21/18 at 14:30 JC MAGANA MD July 21, 2018 16:12
[2018-07-21] MEDS: CIPROFLOXACIN HCL OTIC DROP 0.25 ML RIGHT EAR SCH ×2 (17:26→20:51)
[2018-07-21 20:00] VITALS: BP 159/72; PULSE 78; RESP 18
[2018-07-21] MEDS: ATORVASTATIN 40 MG TAB PO SCH (20:52)
[2018-07-21] MEDS: LISINOPRIL 20 MG TAB PO SCH (20:52)
[2018-07-22 02:00] VITALS: BP 156/70; PULSE 78; RESP 18
[2018-07-22] MEDS: ACCU-CHEK XX SCH (02:00)
[2018-07-22] MEDS: PANTOPRAZOLE (EC) 40 MG TAB PO SCH (05:32)
[2018-07-22] MEDS: INSULIN ASPART [NOVOLOG] 3 ML PEN SC SCH ×4 (08:00→21:00)
[2018-07-22] MEDS: HEPARIN 5,000 UNIT/1 ML VIAL SC SCH ×2 (08:25→21:48)
[2018-07-22] MEDS: ROPINIROLE 0.25 MG TAB PO SCH ×4 (08:26→21:45)
[2018-07-22] MEDS: GEMFIBROZIL 600 MG TAB PO SCH ×2 (08:26→21:45)
[2018-07-22] MEDS: CALCIUM CARBONATE 1.25 GM TAB PO SCH ×2 (08:26→21:43)
[2018-07-22] MEDS: VENLAFAXINE (XR) 75 MG CAP PO SCH (08:26)
[2018-07-22] MEDS: FENOFIBRATE 145 MG TAB PO SCH (08:26)
[2018-07-22] MEDS: CIPROFLOXACIN HCL OTIC DROP 0.25 ML RIGHT EAR SCH (08:26)
[2018-07-22] MEDS: LACTOBACILLUS RHAMNOSUS CAP PO SCH ×2 (08:26→21:44)
[2018-07-22] MEDS: ASPIRIN 81 MG TAB PO SCH (08:26)
[2018-07-22] MEDS: CARBIDOPA/LEVODOPA (25/100) TAB PO SCH ×4 (08:27→21:47)
[2018-07-22] MEDS: OXYBUTYNIN (XL) 5 MG TAB PO SCH (08:27)
[2018-07-22] MEDS: ARTIFICIAL TEARS 15 ML OPH BOTH EYES SCH ×4 (08:28→21:50)
[2018-07-22] MEDS: MEROPENEM 500MG/50 ML (PMX) 50 ML IVPB SCH ×2 (08:28→23:06)
[2018-07-22] MEDS: ATENOLOL 25 MG TAB PO SCH (08:28)
[2018-07-22 10:31] VITALS: BP 150/61; PULSE 70; RESP 18
[2018-07-22 14:00] VITALS: BP 123/59; PULSE 63; RESP 18
[2018-07-22] MEDS: OXYBUTYNIN 5 MG TAB PO SCH ×2 (15:56→21:46)
--- NOTE | 2018-07-22 16:22 | PN ---
Date/Time of Note Date/Time of Note DATE: 07/22/18 TIME: 16:20 Assessment/Plan VTE Prophylaxis Risk score (from Nsg)>0 risk: 4 SCD applied (from Nsg): Yes Pharmacological prophylaxis: NA/contraindicated Pharm contraindication: low risk/ambulating Lines/Catheters IV Catheter Type (from Nrsg): Saline Lock Assessment/Plan Assessment/Plan 1. Proctocolitis- resolving - GI on board and appreciate recommendations - Colonoscopy yesterday showed diverticulosis and internal hemorrhoids. No active bleeding 2. Constipation- resolved 3. Type 2 diabetes - A1c noted - ISS and accuchecks 4. Parkinsonism - stable 5. Bilateral ear pain - continue antibiotics which has been helping 6. Hypertension - stable 7. Acute cystitis - on Meropenem day 6 - most likely colonization given <10K on UA 8. Urinary incontinence - will try oxybutynin and recommend outpatient follow up 9. Disposition - if tolerating oxybutynin with no acute issues, will d/c tomorrow Result Diagram: 07/19/1851807/19/18518 Results 24hrs Laboratory Tests Test 07/21/18 17:17 07/21/18 20:50 07/22/18 08:24 07/22/18 12:07 Bedside Glucose 126 142 123 123 Subjective 24 Hr Interval Summary Free Text/Dictation Patient doing well and states right ear pain has improved but requesting for drops be placed in L ear as well. Concerned about overactive bladder which has been going on since February. Exam/Review of Systems Exam Vitals Vital Signs Date Temp Pulse Resp B/P (MAP) Pulse Ox O2 O2 Flow FiO2 Time Delivery Rate 07/22/18 98.0 63 18 123/59 91 Room Air 14:00 (80) 07/20/18 10 17:22 Intake and Output 07/21/18 07/21/18 07/22/18 1515:00 23:00 07:00 IntakeIntake Total 410 ml 1140 ml 600 ml BalanceBalance 410 ml 1140 ml 600 ml Exam General: Patient is pleasant female, current sitting in chair at bedside Lungs: Clear to auscultation bilaterally, no wheezing or rhonchi Heart: Normal S1-S2, Regular rhythm and rate. No murmur, S3, or S4 Abdomen: Soft , nontender, nondistended, bowel sounds are present. No guarding no rebound tenderness Extremities: Normal to inspection, no edema no cyanosis Skin: no rashes or lesions Results Results 24hrs Laboratory Tests Test 07/21/18 17:17 07/21/18 20:50 07/22/18 08:24 07/22/18 12:07 Bedside Glucose 126 142 123 123 Medications Medication Current Medications IV Flush (NS 3 ml) 3 ml PER PROTOCOL IV ; Start 07/16/18 at 02:00 Ondansetron HCl (Zofran Inj) 4 mg Q6H PRN IV NAUSEA/VOMITING; Start 07/16/18 at 02:00 Acetaminophen (Tylenol Tab) 650 mg Q6H PRN PO .PAIN 1-3 OR TEMP Last administered on 07/21/18 08:25; Admin Dose 650 MG; Start 07/16/18 at 02:00 Heparin Sodium (Porcine) (Heparin (5000 Units/1ml)) 5,000 unit Q12 SC Last administered on 07/22/18 08:25; Admin Dose 5,000 UNIT; Start 07/16/18 at 09:00 Albuterol/ Ipratropium (Duoneb) 3 ml Q2H RESP THERAPY PRN HHN SHORTNESS OF BREATH; Start 07/16/18 at 02:00 Calcium Carbonate (Oyster Shell Calcium) 0.5 gm BID PO Last administered on 07/22/18 08:26; Admin Dose 0.5 GM; Start 07/16/18 at 09:00 Carbidopa/Levodopa (Sinemet (25/ 100)) 1 tab QID PO Last administered on 07/22/18 12:08; Admin Dose 1 TAB; Start 07/16/18 at 09:00 Lactobacillus Acidophilus/ Rhamnosus (Culturelle) 1 cap BID PO Last ad ministered on 07/22/18 08:26; Admin Dose 1 CAP; Start 07/16/18 at 09:00 Meclizine HCl (Antivert) 12.5 mg Q8H PRN PO DIZZINESS; Start 07/16/18 at 02:00 Oxybutynin Chloride (Ditropan Xl) 5 mg DAILY PO Last administered on 07/22/18 08:27; Admin Dose 5 MG; Start 07/16/18 at 09:00 Pantoprazole (Protonix Tab) 40 mg DAILY@0600 PO Last administered on 07/22/18 05:32; Admin Dose 40 MG; Start 07/16/18 at 06:00 Ropinirole HCl (Requip) 0.5 mg QID PO Last administered on 07/22/18 12:08; Admin Dose 0.5 MG; Start 07/16/18 at 09:00 Aspirin (Aspirin) 81 mg DAILY PO Last administered on 07/22/18 08:26; Admin Dose 81 MG; Start 07/19/18 at 09:00 Atorvastatin Calcium (Lipitor) 40 mg QHS PO Last administered on 07/21/18 20:52; Admin Dose 40 MG; Start 07/19/18 at 21:00 Fenofibrate (Tricor) 145 mg DAILY PO Last administered on 07/22/18 08:26; Admin Dose 145 MG; Start 07/19/18 at 09:00 Gemfibrozil (Lopid) 600 mg BID PO Last administered on 07/22/18 08:26; Admin Dose 600 MG; Start 07/19/18 at 09:00 Venlafaxine HCl (Effexor Xr) 75 mg DAILY PO Last administered on 07/22/18 08:26; Admin Dose 75 MG; Start 07/19/18 at 09:00 Miscellaneous Information 1 ea NOTE XX ; Start 07/16/18 at 14:30 Glucose (Glutose) 15 gm Q15M PRN PO DECREASED GLUCOSE; Start 07/16/18 at 14:30 Glucose (Glutose) 22.5 gm Q15M PRN PO DECREASED GLUCOSE; Start 07/16/18 at 14:30 Dextrose (D50w Syringe) 25 ml Q15M PRN IV DECREASED GLUCOSE; Start 07/16/18 at 14:30 Dextrose (D50w Syringe) 50 ml Q15M PRN IV DECREASED GLUCOSE; Start 07/16/18 at 14:30 Glucagon (Glucagen) 1 mg Q15M PRN IM DECREASED GLUCOSE; Start 07/16/18 at 14:30 Glucose (Glutose) 15 gm Q15M PRN BUCCAL DECREASED GLUCOSE; Start 07/16/18 at 14:30 Polyethylene Glycol (Miralax) 17 gm BID PRN PO CONSTIPATION Last administered on 07/17/18 08:19; Admin Dose 17 GM; Start 07/16/18 at 20:00 Meropenem/Sodium Chloride 50 ml @ 100 mls/hr Q12 IVPB Last administered on 07/22/18 08:28; Admin Dose 100 MLS/HR; Start 07/17/18 at 13:00 Atenolol (Tenormin) 25 mg DAILY PO Last administered on 07/22/18 08:28; Admin Dose 25 MG; Start 07/18/18 at 11:30 Hydralazine HCl (Apresoline) 10 mg Q4H PRN IV ELEVATED SYSTOLIC BP Last administered on 07/19/18 15:01; Admin Dose 10 MG; Start 07/18/18 at 11:30 Lisinopril (Zestril) 30 mg HS PO Last administered on 07/21/18 20:52; Admin Dose 30 MG; Start 07/20/18 at 21:00 Diagnostic Test (Pha) (Accu-Chek) 1 ea 02 XX ; Start 07/21/18 at 02:00 Insulin Aspart (Novolog Insulin Pen) NOVOLOG *MILD* ALGORITHM WITH MEALS BE DTIME SC ; Start 07/20/18 at 21:00 Eye Lubricant (Artificial Tears Oph) 2 drop QID BOTH EYES Last administered on 07/22/18at 12:09; Admin Dose 2 DROP; Start 07/21/18 at 09:00 Simethicone (Mylicon) 80 mg Q6 PRN PO gas/bloating; Start 07/21/18 at 14:30 Ciprofloxacin HCl (Ciprofloxacin HCl Otic) 2 drop BID BOTH EARS ; Start 07/22/18 at 21:00 Oxybutynin Chloride (Ditropan) 5 mg TID PO Last administered on 07/22/18at 15:56; Admin Dose 5 MG; Start 07/22/18 at 15:00 JC MAGANA MD July 22, 2018 16:22
[2018-07-22 19:40] VITALS: BP 135/60; PULSE 56; RESP 20
[2018-07-22] MEDS: ATORVASTATIN 40 MG TAB PO SCH (21:46)
[2018-07-22] MEDS: LISINOPRIL 20 MG TAB PO SCH (21:47)
[2018-07-22] MEDS: CIPROFLOXACIN HCL OTIC DROP 0.25 ML BOTH EARS SCH (21:49)
[2018-07-23] MEDS: ACCU-CHEK XX SCH (01:56)
[2018-07-23 02:05] VITALS: BP 121/57; PULSE 52; RESP 20
[2018-07-23] MEDS: PANTOPRAZOLE (EC) 40 MG TAB PO SCH (06:21)
[2018-07-23 07:30] VITALS: BP 146/70; PULSE 53; RESP 20
[2018-07-23] MEDS: INSULIN ASPART [NOVOLOG] 3 ML PEN SC SCH ×2 (08:00→11:45)
[2018-07-23] MEDS: OXYBUTYNIN (XL) 5 MG TAB PO SCH (08:30)
[2018-07-23] MEDS: LACTOBACILLUS RHAMNOSUS CAP PO SCH (08:30)
[2018-07-23] MEDS: ARTIFICIAL TEARS 15 ML OPH BOTH EYES SCH ×2 (08:30→12:16)
[2018-07-23] MEDS: VENLAFAXINE (XR) 75 MG CAP PO SCH (08:31)
[2018-07-23] MEDS: ATENOLOL 25 MG TAB PO SCH (08:31)
[2018-07-23] MEDS: GEMFIBROZIL 600 MG TAB PO SCH (08:31)
[2018-07-23] MEDS: OXYBUTYNIN 5 MG TAB PO SCH ×2 (08:31→12:16)
[2018-07-23] MEDS: ASPIRIN 81 MG TAB PO SCH (08:32)
[2018-07-23] MEDS: CALCIUM CARBONATE 1.25 GM TAB PO SCH (08:32)
[2018-07-23] MEDS: FENOFIBRATE 145 MG TAB PO SCH (08:32)
[2018-07-23] MEDS: CARBIDOPA/LEVODOPA (25/100) TAB PO SCH ×2 (08:32→12:16)
[2018-07-23] MEDS: ROPINIROLE 0.25 MG TAB PO SCH ×2 (08:33→12:16)
[2018-07-23] MEDS: MEROPENEM 500MG/50 ML (PMX) 50 ML IVPB SCH (08:34)
[2018-07-23] MEDS: HEPARIN 5,000 UNIT/1 ML VIAL SC SCH (08:36)
[2018-07-23] MEDS: CIPROFLOXACIN HCL OTIC DROP 0.25 ML BOTH EARS SCH (11:45)
--- NOTE | 2018-07-23 12:20 | PN ---
Date/Time of Note Date/Time of Note DATE: 07/23/18 TIME: 12:15 Assessment/Plan VTE Prophylaxis Risk score (from Ns)>0 risk: 5 SCD applied (from Nsg): Yes Pharmacological prophylaxis: NA/contraindicated Pharm contraindication: low risk/ambulating Lines/Catheters IV Catheter Type (from Nrsg): Saline Lock Assessment/Plan Assessment/Plan 1. Proctocolitis- resolved - GI on board and appreciate recommendations - Colonoscopy yesterday showed diverticulosis and internal hemorrhoids. No active bleeding 2. Constipation- resolved 3. Type 2 diabetes - A1c noted - ISS and accuchecks 4. Parkinsonism - stable 5. Bilateral ear pain - continue antibiotics 6. Hypertension - stable 7. Acute cystitis - on Meropenem day 7 - most likely colonization given <10K on UA 8. Urinary incontinence - continue on oxybutynin 9. Disposition - Medically stable for discharge home Result Diagram: 07/19/1851807/19/18518 Results 24hrs Laboratory Tests Test 07/22/18 17:16 07/22/18 19:52 07/23/18 08:06 07/23/18 11:44 Bedside Glucose 140 133 115 109 Subjective 24 Hr Interval Summary Free Text/Dictation Patient doing well and states urinary issues have improved a little since started on new medication. No acute overnight events. Exam/Review of Systems Exam Vitals Vital Signs Date Temp Pulse Resp B/P (MAP) Pulse Ox O2 O2 Flow FiO2 Time Delivery Rate 07/23/18 98.8 53 20 146/70 94 Room Air 07:30 (95) 07/20/18 10 17:22 Intake and Output 07/22/18 07/22/18 07/23/18 1515:00 23:00 07:00 IntakeIntake Total 610 ml 560 ml 50 ml BalanceBalance 610 ml 560 ml 50 ml Exam General: Patient is pleasant female, no acute distress Lungs: Clear to auscultation bilaterally, no wheezing or rhonchi Heart: Normal S1-S2, Regular rhythm and rate. No murmur, S3, or S4 Abdomen: Soft , nontender, nondistended, bowel sounds are present. No guarding no rebound tenderness Extremities: Normal to inspection, no edema no cyanosis Skin: no rashes or lesions Results Results 24hrs Laboratory Tests Test 07/22/18 17:16 07/22/18 19:52 07/23/18 08:06 07/23/18 11:44 Bedside Glucose 140 133 115 109 Medications Medication Current Medications IV Flush (NS 3 ml) 3 ml PER PROTOCOL IV ; Start 07/16/18 at 02:00 Ondansetron HCl (Zofran Inj) 4 mg Q6H PRN IV NAUSEA/VOMITING; Start 07/16/18 at 02:00 Acetaminophen (Tylenol Tab) 650 mg Q6H PRN PO .PAIN 1-3 OR TEMP Last administered on 07/21/18 08:25; Admin Dose 650 MG; Start 07/16/18 at 02:00 Heparin Sodium (Porcine) (Heparin (5000 Units/1ml)) 5,000 unit Q12 SC Last administered on 07/23/18 08:36; Admin Dose 5,000 UNIT; Start 07/16/18 at 09:00 Albuterol/ Ipratropium (Duoneb) 3 ml Q2H RESP THERAPY PRN HHN SHORTNESS OF BREATH; Start 07/16/18 at 02:00 Calcium Carbonate (Oyster Shell Calcium) 0.5 gm BID PO Last administered on 07/23/18 08:32; Admin Dose 0.5 GM; Start 07/16/18 at 09:00 Carbidopa/Levodopa (Sinemet (25/ 100)) 1 tab QID PO Last administered on 07/23/18 08:32; Admin Dose 1 TAB; Start 07/16/18 at 09:00 Lactobacillus Acidophilus/ Rhamnosus (Culturelle) 1 cap BID PO Last administered on 07/23/18 08:30; Admin Dose 1 CAP; Start 07/16/18 at 09:00 Meclizine HCl (Antivert) 12.5 mg Q8H PRN PO DIZZINESS; Start 07/16/18 at 02:00 Oxybutynin Chloride (Ditropan Xl) 5 mg DAILY PO Last administered on 07/23/18 08:30; Admin Dose 5 MG; Start 07/16/18 at 09:00 Pantoprazole (Protonix Tab) 40 mg DAILY@0600 PO Last administered on 07/23/18 06:21; Admin Dose 40 MG; Start 07/16/18 at 06:00 Ropinirole HCl (Requip) 0.5 mg QID PO Last administered on 07/23/18 08:33; Admin Dose 0.5 MG; Start 07/16/18 at 09:00 Aspirin (Aspirin) 81 mg DAILY PO Last administered on 07/23/18 08:32; Admin Dose 81 MG; Start 07/19/18 at 09:00 Atorvastatin Calcium (Lipitor) 40 mg QHS PO Last administered on 07/22/18 21:46; Admin Dose 40 MG; Start 07/19/18 at 21:00 Fenofibrate (Tricor) 145 mg DAILY PO Last administered on 07/23/18 08:32; Admin Dose 145 MG; Start 07/19/18 at 09:00 Gemfibrozil (Lopid) 600 mg BID PO Last administered on 07/23/18 08:31; Admin Dose 600 MG; Start 07/19/18 at 09:00 Venlafaxine HCl (Effexor Xr) 75 mg DAILY PO Last administered on 07/23/18 08:31; Admin Dose 75 MG; Start 07/19/18 at 09:00 Miscellaneous Information 1 ea NOTE XX ; Start 07/16/18 at 14:30 Glucose (Glutose) 15 gm Q15M PRN PO DECREASED GLUCOSE; Start 07/16/18 at 14:30 Glucose (Glutose) 22.5 gm Q15M PRN PO DECREASED GLUCOSE; Start 07/16/18 at 14:30 Dextrose (D50w Syringe) 25 ml Q15M PRN IV DECREASED GLUCOSE; Start 07/16/18 at 14:30 Dextrose (D50w Syringe) 50 ml Q15M PRN IV DECREASED GLUCOSE; Start 07/16/18 at 14:30 Glucagon (Glucagen) 1 mg Q15M PRN IM DECREASED GLUCOSE; Start 07/16/18 at 14:30 Glucose (Glutose) 15 gm Q15M PRN BUCCAL DECREASED GLUCOSE; Start 07/16/18 at 14:30 Polyethylene Glycol (Miralax) 17 gm BID PRN PO CONSTIPATION Last administered on 07/17/18 08:19; Admin Dose 17 GM; Start 07/16/18 at 20:00 Meropenem/Sodium Chloride 50 ml @ 100 mls/hr Q12 IVPB Last administered on 07/23/18 08:34; Admin Dose 100 MLS/HR; Start 07/17/18 at 13:00 Atenolol (Tenormin) 25 mg DAILY PO Last administered on 07/23/18 08:31; Admin Dose 25 MG; Start 07/18/18 at 11:30 Hydralazine HCl (Apresoline) 10 mg Q4H PRN IV ELEVATED SYSTOLIC BP Last administered on 07/19/18 15:01; Admin Dose 10 MG; Start 07/18/18 at 11:30 Lisinopril (Zestril) 30 mg HS PO Last administered on 07/22/18 21:47; Admin Dose 30 MG; Start 07/20/18 at 21:00 Diagnostic Test (Pha) (Accu-Chek) 1 ea 02 XX ; Start 07/21/18 at 02:00 Insulin Aspart (Novolog Insulin Pen) NOVOLOG *MILD* ALGORITHM WITH MEALS BEDTIME SC ; Start 07/20/18 at 21:00 Eye Lubricant (Artificial Tears Oph) 2 drop QID BOTH EYES Last administered on 07/23/18 08:30; Admin Dose 2 DROP; Start 07/21/18 at 09:00 Simethicone (Mylicon) 80 mg Q6 PRN PO gas/bloating; Start 07/21/18 at 14:30 Ciprofloxacin HCl (Ciprofloxacin HCl Otic) 2 drop BID BOTH EARS Last administered on 07/23/18 11:45; Admin Dose 2 DROP; Start 07/22/18 at 21:00 Oxybutynin Chloride (Ditropan) 5 mg TID PO Last administered on 07/23/18 08:31; Admin Dose 5 MG; Start 07/22/18 at 15:00 JC MAGANA MD July 23, 2018 12:20
[2018-07-23] MEDS ORDERED: LISI30TA47 PO (12:39)
[2018-07-23] MEDS ORDERED: CRAN1TAB5 PO (12:39)
[2018-07-23] MEDS ORDERED: OFLO5DRO7 BOTH EARS (12:39)
[2018-07-23] MEDS ORDERED: OXYB10TA6 PO (12:39)
--- NOTE | 2018-07-23 12:49 | PDOCDIS ---
Discharge Instructions DIAGNOSIS Discharge Diagnosis 1. Proctocolitis- resolved 2. Constipation- resolved 3. Type 2 diabetes 4. Parkinsonism 5. Bilateral ear pain 6. Hypertension 7. Acute cystitis- resolved 8. Urinary incontinence CONDITION [id number] Patient Condition: [id number] Stable HOME CARE INSTRUCTIONS: [id number] Diet Instructions: [id number] Low Fat /Cholesterol ACTIVITY: [id number] Activity Restrictions: [id number] No Restrictions FOLLOW UP/APPOINTMENTS Follow-up Plan 1. Follow up with your primary care physician in 1-2 weeks. To establish care with a new physician, it is best to call your insurance to find out who is under your coverage. Dr. Oli Mccracken is also accepting new patients as well 2. Take all medications as prescribed 3. Take cranberry pills twice a day to prevent urinary tract infections and keep well hydrated. Make sure to empty your bladder regularly as well 4. Your lisinopril was increased to help keep your blood pressure better controlled 5. Make sure to increase the fiber in your diet to prevent constipation 6. Your sugars are well controlled. You will need to continue glyburide twice a day 7. Continue putting ear drops in your ear for another 5 days. If the antibiotic drops are too expensive, you can use Polysporin ear drops as well. Ask someone at the pharmacy to assist with finding the medication for you 8. if experiencing any other concerning symptoms. please go to your nearest emergency department 1. seguimiento con alas mdico de atencin primaria en 1-2 semanas. Para establecer el cuidado con un nuevo mdico, lo mejor es llamar a alas seguro para averiguar elina est bajo alas cobertura. El Dr. oli quijano est aceptando nuevos pacientes, as 2. [place] todos los medicamentos segn lo prescrito 3. tome pastillas de arndano dos veces al da para prevenir las infecciones del tracto urinario y mantenerse natalia hidratado. Asegrese de vaciar la vejiga con regularidad samm 4. alas lisinopril aument para ayudar a mantener alas presin arterial mejor controlada 5. Asegrese de aumentar la fibra en alas dieta para prevenir el estreimiento 6. alonzo azcares estn natalia controlados. Tendr que continuar con la gliburida dos veces al da 7. Contine poniendo gotas en el odo jacinta otros 5 olivier. Si las gotas antibiticas son demasiado costosas, samm puede usar gotas para las orejas de Polysporin. Pdale a alguien de la farmacia que le ayude a encontrar el medicamento para usted 8. Si experimenta cualquier otro con respecto a los sntomas. dirjase al Departamento de emergencias ms cercano REFERRALS Other Referrals Oli Mccracken MD Specialty: Internal Medicine Office Address [address] [facility] [address] [place] [address] Office JC MAGANA MD July 23, 2018 12:49
--- NOTE | 2018-07-23 18:26 | DS ---
Date/Time of Note Date/Time of Note DATE: 07/23/18 TIME: 18:14 Discharge Summary Admission/Discharge Info Admit Date/Time July 15, 2018 at 21:24 Discharge Date/Time July 23, 2018 at 14:05 Discharge Diagnosis 1. Proctocolitis- resolved 2. Constipation- resolved 3. Type 2 diabetes 4. Parkinsonism 5. Bilateral ear pain 6. Hypertension 7. Acute cystitis- resolved 8. Urinary incontinence Consults GI- Dr. Reddy Procedures Colonoscopy 07/20/2018 Severe left-sided diverticulosis Moderate-sized internal hemorrhoids Otherwise normal colonoscopy Hx of Present Illness This is an 83-year-old female with a history of hypertension, type 2 diabetes, dyslipidemia, Parkinson's disease and multiple abdominal surgeries (appendectomy, splenectomy and hysterectomy) who presented to the ER complaining of left flank pain and left lower quadrant pain. Symptoms been progressively getting worse for over 1 week. When she presented to the ER, she was febrile, however she was found to be hypoglycemic. Patient is on sulfonylurea at home. UA consistent with UTI. CT abdomen/pelvis shows the following: No hydronephrosis or urinary stone. Apparent circumferential wall thickening along the distal rectosigmoid colon. This raises the possibility of a proctocolitis, although no pericolonic inflammation is seen. Status post cholecystectomy and hysterectomy. Moderate sigmoid colon diverticulosis. Mild atherosclerotic arterial calcifications. Hospital Course Patient was admitted for treatment of acute proctocolitis and GI was consulted. Patient was also noted with UTI symptoms and started on IV antibiotics. Patient underwent colonoscopy with findings of internal hemorrhoids and diverticulosis. She was encouraged to increase fiber in her diet. Patient was also complaining of ear discomfort with headache and started on otic drops empirically since unable to visualize since otoscope was not available. Patient was also complaining of urinary incontinence and Oxybutynin dose was increased. Patient constipation resolved after she underwent colonoscopy prep with improvement in her GI symptoms. Patients presenting symptoms improved and patient completed course of antibiotics for urinary tract infection. Patient was discharged home in good condition. Home Meds Active Scripts Ofloxacin Otic (Ofloxacin Otic) 5 Ml Drops, 10 DROP BOTH EARS DAILY for 7 Days, #1 BOTTLE Prov:JC MAGANA MD 07/23/18 Cranberry Conc/C/Bacill Coag (Azo Cranberry Tablet) 1 Each Tablet, 1 EACH PO BID for 30 Days, #60 TAB 1 Refill Prov:JC MAGANA MD 07/23/18 Oxybutynin Chloride* (Ditropan* XL) 10 Mg Tab.er.24, 20 MG PO DAILY for 30 Days, #60 TAB.SA Prov:JC MAGANA MD 07/23/18 Lisinopril* (Lisinopril*) 30 Mg Tablet, 30 MG PO QHS for 30 Days, #30 TAB Prov:JC MAGANA MD 07/23/18 Pantoprazole* (Pantoprazole*) 40 Mg Tablet.dr, 40 MG PO DAILY for 30 Days, #30 TAB 1 Refill Prov:FREDRICK BERGERJoselyn Benavidez. 03/18/18 Lactobacillus Rhamnosus* (Culturelle*) 1 Each Cap.sprink, 1 CAP PO BID, #20 CAP Prov:MARY BERGERDAVID Benavidez. 03/18/18 Reported Medications Ergocalciferol (Vitamin D2) (VITAMIN D2) 50,000 Unit Capsule, 13460 UNIT PO Q7D for QMONDAY, CAP 07/16/18 Calcium Carbonate/Vitamin D3 (Oysco 500+D Tablet) 1 Each Tablet, 1 TAB PO DAILY for 30 Days, #60 07/16/18 Meloxicam* (Mobic*) 15 Mg Tablet, 15 MG PO DAILY for 30 Days, #30 07/16/18 Gabapentin* (Gabapentin*) 100 Mg Capsule, 200 MG PO TID for 30 Days 07/16/18 Cholecalciferol* (Vitamin D*) Unknown Strength Tablet, PO DAILY, TAB 03/15/18 Aspirin* (Aspirin* Chew) 81 Mg Tab.chew, 81 MG PO DAILY, TAB.CHEW 03/12/18 Calcium Carbonate (Eynz-Jes-442) 500 Mg Tablet, 500 MG PO BID, TAB 03/12/18 Fenofibrate Nanocrystallized* (Fenofibrate*) 145 Mg Tablet, 145 MG PO DAILY, TAB 03/12/18 Venlafaxine Hcl* (Venlafaxine Hcl ER*) 75 Mg Cap.er.24h, 75 MG PO DAILY, CAP 03/12/18 Ropinirole Hcl* (Ropinirole Hcl*) 0.5 Mg Tablet, 0.5 MG PO QID TAKE AT 7:00 A.M, 11:00 AM, 3:00PM, & 7:00 PM 03/12/18 Carbidopa/Levodopa (Carbidopa-Levodopa 25-100 Tab) 1 Each Tablet, 1 TAB PO QID 03/12/18 Meclizine Hcl* (Meclizine Hcl*) 25 Mg Tablet, 12.5 MG PO Q8H PRN for DIZZINESS, TAB 03/12/18 Gemfibrozil* (Gemfibrozil*) 600 Mg Tablet, 600 MG PO BID, TAB 03/12/18 Atorvastatin* (Atorvastatin*) 40 Mg Tablet, 40 MG PO QHS, #30 TAB 03/12/18 Atenolol* (Atenolol*) 25 Mg Tablet, 25 MG PO DAILY, #30 TAB 03/12/18 Glipizide* (Glipizide*) 10 Mg Tablet, 10 MG PO BID 12/08/12 Discontinued Reported Medications Lactobacillus Acidophilus (Probiotic Acidophilus) 1 Each Tablet, 1 EACH PO BID, TAB 07/16/18 Glipizide* (Glipizide*) 5 Mg Tablet, 5 MG PO QHS for 60 Days, #60 07/16/18 Fenofibrate, Micronized* (Fenofibrate*) 160 Mg Tablet, 160 MG PO DAILY for 30 Days, #30 07/16/18 Docusate Sodium (Dok) 100 Mg Capsule, 100 MG PO TID 07/16/18 Oxybutynin Chloride* (Ditropan* XL) 5 Mg Tabsr, 5 MG PO DAILY, TAB.SA 03/12/18 Lisinopril* (Lisinopril*) 10 Mg Tablet, 10 MG PO DAILY, #30 TAB 03/12/18 Omeprazole* (Omeprazole*) 40 Mg Capsule.dr, 40 MG PO AC BREAKFAST 12/08/12 Meloxicam* (Meloxicam*) 7.5 Mg/5 Ml Oral.susp, 15 MG PO DAILY, #300 ML 03/12/18 Discontinued Scripts Nitrofurantoin Monohyd Macrocr* (Macrobid*) 100 Mg Capsr, 100 MG PO BID, #20 CAP Prov:WHIT BERGER 03/18/18 Levofloxacin* (Levaquin*) 750 Mg Tablet, 750 MG PO DAILY for 7 Days, #7 TAB Prov:WHIT BERGER 03/18/18 Follow-up Plan 1. Follow up with your primary care physician in 1-2 weeks. To establish care with a new physician, it is best to call your insurance to find out who is under your coverage. Dr. Angel Mccracken is also accepting new patients as well 2. Take all medications as prescribed 3. Take cranberry pills twice a day to prevent urinary tract infections and keep well hydrated. Make sure to empty your bladder regularly as well 4. Your lisinopril was increased to help keep your blood pressure better controlled 5. Make sure to increase the fiber in your diet to prevent constipation 6. Your sugars are well controlled. You will need to continue glyburide twice a day 7. Continue putting ear drops in your ear for another 5 days. If the antibiotic drops are too expensive, you can use Polysporin ear drops as well. Ask someone at the pharmacy to assist with finding the medication for you 8. if experiencing any other concerning symptoms. please go to your nearest emergency department 1. seguimiento con alas mdico de atencin primaria en 1-2 semanas. Para establecer el cuidado con un nuevo mdico, lo mejor es llamar a alas seguro para averiguar elina est bajo alas cobertura. El Dr. angel quijano est aceptando nuevos pacientes, as 2. [place] todos los medicamentos segn lo prescrito 3. tome pastillas de arndano dos veces al da para prevenir las infecciones del tracto urinario y mantenerse natalia hidratado. Asegrese de vaciar la vejiga con regularidad samm 4. alas lisinopril aument para ayudar a mantener alas presin arterial mejor controlada 5. Asegrese de aumentar la fibra en alas dieta para prevenir el estreimiento 6. alonzo azcares estn natalia controlados. Tendr que continuar con la gliburida dos veces al da 7. Contine poniendo gotas en el odo jacinta otros 5 olivier. Si las gotas antibiticas son demasiado costosas, samm puede usar gotas para las orejas de Polysporin. Pdale a alguien de la farmacia que le ayude a encontrar el medicamento para usted 8. Si experimenta cualquier otro con respecto a los sntomas. dirjase al Departamento de emergencias ms cercano Primary Care Provider Care Physician No Primary Time spent on discharge: > 30 minutes Pending Labs Laboratory Tests Test 07/22/18 19:52 07/23/18 08:06 07/23/18 11:44 Bedside Glucose 133 mg/dL (70-220) 115 mg/dL (70-220) 109 mg/dL (70-220) JC MAGANA MD July 23, 2018 18:25
== END 2018-07-23 14:05 | disposition home or self-care (01) | DRG 386 ==
LOC: E/R 17:31 → PP2 21:24
PROVIDERS: ADMIT Internal Medicine; ATTEND Internal Medicine
PROC: 0DJD8ZZ Inspection of Lower Intestinal Tract, Via Natural or Artificial Opening Endoscopic (ICD-10-PCS; principal; 2018-07-20 18:00)
DX: K51.30 Ulcerative (chronic) rectosigmoiditis without complications (principal); N30.00 Acute cystitis without hematuria; K57.30 Diverticulosis of large intestine without perforation or abscess without bleeding; E11.649 Type 2 diabetes mellitus with hypoglycemia without coma; I10 Essential (primary) hypertension; E78.5 Hyperlipidemia, unspecified; G20 Parkinson's disease; K59.00 Constipation, unspecified; E88.81 Metabolic syndrome and other insulin resistance; B96.20 Unspecified Escherichia coli [E. coli] as the cause of diseases classified elsewhere; H92.01 Otalgia, right ear; E66.9 Obesity, unspecified; Z68.32 Body mass index [BMI] 32.0-32.9, adult; K64.8 Other hemorrhoids; D64.9 Anemia, unspecified; R32 Unspecified urinary incontinence
CPT/HCPCS: 36415; 71045; 74176; 80048; 80053; 80061; 81001; 82962; 83036; 83690; 83735; 84100; 84443; 85025; 85610; 87045; 87086; 96365; 96375; J0360; J0696; J1644; J1815; J2185; J2270; J2405; J2543; J3480; J7030

== ENCOUNTER 2018-09-05 00:17 | Inpatient (IN) | payer OTHER ==
[~2018-09-05] VITALS: Ht 152.4 cm; Wt 78.3 kg
[~2018-09-05 00:17] MED LIST changes: +CALC1TAB79 PO; +CRAN1TAB5 PO; +ERGO500013 PO; +GABA100C14 PO; -LEVO750T25 PO; -LISI10TA2 PO; +LISI30TA47 PO; +MELO15TA30 PO; -MELO7.5O PO; -NITR-58 PO; +OFLO5DRO7 BOTH EARS; -OMEP40CA6 PO; +OXYB10TA6 PO; -OXYB5TAB22 PO
[2018-09-05] MEDS ORDERED: AZITHROMYCIN 500MG/NS (PMX) 250 ML IV STA (00:35)
[2018-09-05] MEDS ORDERED: CEFTRIAXONE 1 GM/50 ML (PMX) 50 ML IVPB STA (00:35)
[2018-09-05] MEDS ORDERED: ALBUTEROL 0.083% (NEB) 2.5 MG/3 ML AMP INH ONE (01:00)
--- NOTE | 2018-09-05 02:12 | ERD ---
ER Documentation Chief Complaint Chief Complaint Fever and cough for a few days, tylenol 1000mg@ 2230 HPI This is a 83-year-old female who is here because she had a cough for about 3 days with hare productive sputum. She is having some subjective fever and chills at home. No nausea vomiting diarrhea she is getting some shortness of breath when she walks with some wheezing. No chest pain no palpitations dizziness syncope. No GI symptoms or neurological symptoms ROS All systems reviewed and are negative except as per history of present illness. Medications Home Meds Active Scripts Ofloxacin Otic (Ofloxacin Otic) 5 Ml Drops, 10 DROP BOTH EARS DAILY for 7 Days, #1 BOTTLE Prov:JC MAGANA MD 07/23/18 Cranberry Conc/C/Bacill Coag (Azo Cranberry Tablet) 1 Each Tablet, 1 EACH PO BID for 30 Days, #60 TAB 1 Refill Prov:JC MAGANA MD 07/23/18 Oxybutynin Chloride* (Ditropan* XL) 10 Mg Tab.er.24, 20 MG PO DAILY for 30 Days, #60 TAB.SA Prov:JC MAGANA MD 07/23/18 Lisinopril* (Lisinopril*) 30 Mg Tablet, 30 MG PO QHS for 30 Days, #30 TAB Prov:JC MAGANA MD 07/23/18 Pantoprazole* (Pantoprazole*) 40 Mg Tablet.dr, 40 MG PO DAILY for 30 Days, #30 TAB 1 Refill Prov:WHIT BERGER 03/18/18 Lactobacillus Rhamnosus* (Culturelle*) 1 Each Cap.sprink, 1 CAP PO BID, #20 CAP Prov:WHIT BERGER 03/18/18 Reported Medications Ergocalciferol (Vitamin D2) (VITAMIN D2) 50,000 Unit Capsule, 08015 UNIT PO Q7D for QMONDAY, CAP 07/16/18 Calcium Carbonate/Vitamin D3 (Oysco 500+D Tablet) 1 Each Tablet, 1 TAB PO DAILY for 30 Days, #60 07/16/18 Meloxicam* (Mobic*) 15 Mg Tablet, 15 MG PO DAILY for 30 Days, #30 07/16/18 Gabapentin* (Gabapentin*) 100 Mg Capsule, 200 MG PO TID for 30 Days 07/16/18 Cholecalciferol* (Vitamin D*) Unknown Strength Tablet, PO DAILY, TAB 03/15/18 Aspirin* (Aspirin* Chew) 81 Mg Tab.chew, 81 MG PO DAILY, TAB.CHEW 03/12/18 Calcium Carbonate ([id number]) 500 Mg Tablet, 500 MG PO BID, TAB 03/12/18 Fenofibrate Nanocrystallized* (Fenofibrate*) 145 Mg Tablet, 145 MG PO DAILY, TAB 03/12/18 Venlafaxine Hcl* (Venlafaxine Hcl ER*) 75 Mg Cap.er.24h, 75 MG PO DAILY, CAP 03/12/18 Ropinirole Hcl* (Ropinirole Hcl*) 0.5 Mg Tablet, 0.5 MG PO QID TAKE AT 7:00 A.M, 11:00 AM, 3:00PM, & 7:00 PM 03/12/18 Carbidopa/Levodopa (Carbidopa-Levodopa 25-100 Tab) 1 Each Tablet, 1 TAB PO QID 03/12/18 Meclizine Hcl* (Meclizine Hcl*) 25 Mg Tablet, 12.5 MG PO Q8H PRN for DIZZINESS, TAB 03/12/18 Gemfibrozil* (Gemfibrozil*) 600 Mg Tablet, 600 MG PO BID, TAB 03/12/18 Atorvastatin* (Atorvastatin*) 40 Mg Tablet, 40 MG PO QHS, #30 TAB 03/12/18 Atenolol* (Atenolol*) 25 Mg Tablet, 25 MG PO DAILY, #30 TAB 03/12/18 Glipizide* (Glipizide*) 10 Mg Tablet, 10 MG PO BID 12/08/12 Allergies Allergies: Coded Allergies: No Known Allergies (Unverified Allergy, Unknown, 07/16/18) PMhx/Soc History of Surgery: Yes (total hysterectomy, appendectomy 1966, spl enectomy,total cholescystectomy) Anesthesia Reaction: No Hx Neurological Disorder: Yes (Parkinson's) Hx Respiratory Disorders: Yes (pneumonia feb 2018) Hx Cardiac Disorders: Yes (HTN, HLD, OK 2014, STROKE 20 YEARS AGO) Hx Psychiatric Problems: Yes (depression, anxiety) Hx Miscellaneous Medical Probl: No Hx Alcohol Use: No Hx Substance Use: No Hx Tobacco Use: No Smoking Status: Never smoker FmHx Family History: No coronary disease Physical Exam Vitals Vital Signs Date Temp Pulse Resp B/P (MAP) Pulse Ox O2 O2 Flow FiO2 Time Delivery Rate 09/05/18 77 27 141/56 98 Nasal 2.0 01:30 (84) Cannula 09/05/18 Nasal 2.0 01:17 Cannula 09/05/18 66 27 169/55 97 Nasal 2.0 01:00 (93) Cannula 09/05/18 67 24 96 Nasal 2.0 00:50 Cannula 09/05/18 Nasal 2 00:38 Cannula 09/05/18 99.7 71 21 175/71 90 Room Air 00:31 (105) 09/05/18 100.8 70 24 181/78 89 00:24 (112) Physical Exam Const: Well-developed, well-nourished Head: Atraumatic, normocephalic Eyes: Normal Conjunctiva, PERRLA, EOMI, normal sclera, no nystagmus ENT: Normal External Ears, Nose and Mouth, moist mucus membranes. Neck: Full range of motion. No meningismus, no lymphadenopathy. Resp: Decreased breath sounds bilaterally with some rhonchi and wheezes in the bases] Cardio: Regular rate and rhythm, no murmurs, S1 S2 present Abd: Soft, non tender x 4, non distended. Normal bowel sounds, no guarding or rebound, no pulsitile abdominal masses or bruits Skin: No petechiae or rashes, no ecchymosis , no maculopapular rash Back: No midline or flank tenderness Ext: No cyanosis, or edema, FROM x 4, normal inspection, neurovascularly intact x 4 Neur: Awake and alert, STR 5/5 x 4, sensation intact x 4, no focal findings, cerebellum intact Psych: Normal Mood and Affect Result Diagram: 09/05/18 0053 Results 24 hrs Laboratory Tests Test 09/05/18 00:53 White Blood Count 7.0 10^3/ul Red Blood Count 3.62 10^6/ul Hemoglobin 10.8 g/dl Hematocrit 32.0 % Mean Corpuscular Volume 88.4 fl Mean Corpuscular Hemoglobin 29.8 pg Mean Corpuscular Hemoglobin Concent 33.8 g/dl Red Cell Distribution Width 12.9 % Platelet Count 258 10^3/UL Mean Platelet Volume 10.6 fl Immature Granulocytes % 0.300 % Neutrophils % 54.8 % Lymphocytes % 31.5 % Monocytes % 11.3 % Eosinophils % 1.7 % Basophils % 0.4 % Nucleated Red Blood Cells % 0.0 /100WBC Immature Granulocytes # 0.020 10^3/ul Neutrophils # 3.8 10^3/ul Lymphocytes # 2.2 10^3/ul Monocytes # 0.8 10^3/ul Eosinophils # 0.1 10^3/ul Basophils # 0.0 10^3/ul Nucleated Red Blood Cells # 0.0 10^3/ul Current Medications Medications Dose Sig/Shakira Start Time Status Last (Trade) Ordered Route PRN Stop Time Admin Dose Reason Admin Albuterol 7.5 mg ONCE ONCE 09/05/18 DC 09/05/18 (Proventil INH 01:00 00:50 0.083% (Neb)) 09/05/18 01:01 Azithromycin 250 ml @ ONCE STAT 09/05/18 DC 250 mls/hr IV 00:35 09/05/18 01:34 Ceftriaxone 50 ml @ ONCE STAT 09/05/18 DC 09/05/18 Sodium 100 mls/hr IVPB 00:35 01:23 09/05/18 01:04 Procedures/[place] [id number] Radiology Main Line: [phone] DIAGNOSTIC IMAGING REPORT Patient: CAROLINA PIERCE : 1935 Age: 83 Sex: F MR #: [id number] DOS: 09/05/18 0035 Ordering MD: CARIN CHÁVEZ DO Location: E/R Room/Bed: PROCEDURE: CHEST - 1 VIEW CLINICAL INDICATION: 83-year-old female with shortness of breath. TECHNIQUE: A single frontal AP portable view of the chest was performed. The images were reviewed on a PACS workstation. COMPARISON: CHEST 07/16/2018; CHEST 03/16/2018; CHEST 03/15/2018; CR CHEST 07/13/2014 FINDINGS: There is a shallow inspiration accentuating the heart size. Accounting for this, the cardiomediastinal silhouette is prominent but without significant interval change. The thoracic aortic arch is calcified. The thoracic aortic arch is calcified. There is mild bibasilar subsegmental atelectasis. There is no evidence for focal consolidation. There is no evidence for congestive heart failure. There is no evidence for pneumothorax. The osseous structures are intact. IMPRESSION: 1. Calcified thoracic aortic arch. 2. Shallow inspiration with mild bibasilar subsegmental atelectasis. .Zheng Khoury MD, Date Time Electronically viewed and signed by .Zheng Khoury MD, on 09/05/2018 01:19 .M/ CC: CARIN CHÁVEZ DO [id number] Patient got some meds and some steroids and her sats are still 88 to 93% on 2 L nasal cannula. There is no evidence of pneumonia blood work looks relatively stable. Will admit for pulmonary therapy Departure Diagnosis: Primary Impression: Hypoxia Additional Impression: Bronchitis Condition: Stable CARIN CHÁVEZ DO Sep 05, 2018 02:12
--- NOTE | 2018-09-05 02:18 | HP ---
Date/Time of Note Date/Time of Note DATE: 09/05/18 TIME: 02:18 Assessment/Plan VTE Prophylaxis SCD applied (from Nsg): Yes Pharmacological prophylaxis: NA/contraindicated Pharm contraindication: low risk/ambulating Lines/Catheters IV Catheter Type (from Nrsg): Saline Lock Assessment/Plan Hospital Course This is a 83-year-old female being admitted to the telemetry floor for: #1 Upper respiratory infection: Likely bronchitis. Patient did present with fevers. Broad-spectrum antibiotics of Zosyn and azithromycin. PRN nebulizers. #2 diabetes mellitus: We will check hemoglobin A1c, apparently she is only on glipizide which we will hold. Put on insulin sliding scale. #3 hypertension: She does not appear to have any antihypertensive medications on med recon we will need to confirm with family. PRN hydralazine #4 Parkinson's disease: She does not appear to have any parkinsonian medications. Will need to confirm with family if she is on anything at home. #5 DVT GI prophylaxis: SCDs, no GI prophylaxis indicated Further treatment strategy will be implemented as per the clinical course Result Diagram: 09/05/18 0053 09/05/18 0052 Results 24hrs Laboratory Tests Test 09/05/18 00:52 09/05/18 00:53 Sodium Level 135 Potassium Level 3.8 Chloride Level 98 Carbon Dioxide Level 28 Anion Gap 9 Blood Urea Nitrogen 22 H Creatinine 0.80 Est Glomerular Filtrat Rate mL/min Glucose Level 116 Calcium Level 9.2 Total Bilirubin 0.3 Direct Bilirubin 0.00 Indirect Bilirubin 0.3 Aspartate Amino Transf (AST/SGOT) 21 Alanine Aminotransferase (ALT/SGPT) 17 Alkaline Phosphatase 31 L Troponin I < 0.012 Total Protein 7.0 Albumin 3.9 Globulin 3.10 Albumin/Globulin Ratio 1.25 White Blood Count 7.0 Red Blood Count 3.62 L Hemoglobin 10.8 L Hematocrit 32.0 L Mean Corpuscular Volume 88.4 Mean Corpuscular Hemoglobin 29.8 Mean Corpuscular Hemoglobin Concent 33.8 Red Cell Distribution Width 12.9 Platelet Count 258 # Mean Platelet Volume 10.6 H Immature Granulocytes % 0.300 Neutrophils % 54.8 Lymphocytes % 31.5 Monocytes % 11.3 H Eosinophils % 1.7 Basophils % 0.4 Nucleated Red Blood Cells % 0.0 Immature Granulocytes # 0.020 Neutrophils # 3.8 Lymphocytes # 2.2 Monocytes # 0.8 Eosinophils # 0.1 Basophils # 0.0 Nucleated Red Blood Cells # 0.0 HPI/ROS Admit Date/Time Admit Date/Time Hx of Present Illness Chief complaint: Fever, lethargy decreased appetite the following history was obtained from the ED physician documentation as well as the daughter at the bedside as patient was not able to provide history given her lethargy. This is a 83-year-old female who presented to the emergency department with her daughter with complaints of cough for approximately 3 days. She states that the patient's cough is productive of grayish-brown phlegm. She did report fevers as well. She states that her mom has been sleeping a lot more lately. She also has had a decreased appetite. She is also been having foul-smelling urine. She denies that the mother is complaining of any chest pain. No nausea vomiting or diarrhea. Allergies: NKDA Medications: See MAR CHRISTY Subjective hx not possible: other (Patient is arousable but lethargic) PMH/Family/Social Past Medical History hypertension, type 2 diabetes, dyslipidemia, Parkinson's disease Medications Current Medications Ondansetron HCl (Zofran Inj) 4 mg ER BRIDGE PRN IV NAUSEA/VOMITING; Start 09/05/18 at 02:30; Stop 09/06/18 at 02:29 Acetaminophen (Tylenol Tab) 650 mg ER BRIDGE PRN PO .MILD PAIN 1-3 OR TEMP; Start 09/05/18 at 02:30; Stop 09/06/18 at 02:29 Aspirin (Aspirin) 81 mg DAILY PO ; Start 09/05/18 at 09:00; Status UNV Coded Allergies: No Known Allergies (Unverified Allergy, Unknown, 07/16/18) Past Surgical History multiple abdominal surgeries (appendectomy, splenectomy and hysterectomy) Past Surgical Hx: appendectomy, cholecystectomy, other Family History Significant Family History: no pertinent family hx Social History Alcohol Use: none Smoking Status: Never smoker Drug Use: none Exam/Review of Systems Vital Signs Vitals Vital Signs Date Temp Pulse Resp B/P (MAP) Pulse Ox O2 O2 Flow FiO2 Time Delivery Rate 09/05/18 77 27 141/56 98 Nasal 2.0 01:30 (84) Cannula 09/05/18 99.7 00:31 Intake and Output 09/04/18 09/04/1819 1515:00 23:00 07:00 IntakeIntake Total 50 ml BalanceBalance 50 ml Exam Exam General: Lethargic, arousable HEENT: Atraumatic, normocephalic. The pupils are equal, round and reactive. Extraocular motor are intact Neck: Supple with full range of motion. No rigidity or meningismus Chest: Nontender Lungs: Clear to auscultation bilaterally no crackles rales or wheezing Heart: Normal S1-S2, Regular rhythm and rate. No murmur, S3, or S4 Abdomen: Soft , nontender, nondistended , bowel sounds are present. No guarding no rebound tenderness , No masses or organomegaly. No costovertebral temporal angle mass Extremities: Normal to inspection, no edema no cyanosis Neurologic: Arousable but lethargic. Able to answer questions. Additional Comments PROCEDURE: CHEST - 1 VIEW CLINICAL INDICATION: 83-year-old female with shortness of breath. TECHNIQUE: A single frontal AP portable view of the chest was performed. The images were reviewed on a PACS workstation. COMPARISON: CHEST 07/16/2018; CHEST 03/16/2018; CHEST 03/15/2018; GUIDO CHEST 07/13/2014 FINDINGS: There is a shallow inspiration accentuating the heart size. Accounting for this, the cardiomediastinal silhouette is prominent but without significant interval change. The thoracic aortic arch is calcified. The thoracic aortic arch is calcified. There is mild bibasilar subsegmental atelectasis. There is no evidence for focal consolidation. There is no evidence for congestive heart failure. There is no evidence for pneumothorax. The osseous structures are intact. IMPRESSION: 1. Calcified thoracic aortic arch. 2. Shallow inspiration with mild bibasilar subsegmental atelectasis. .Zheng Khoury MD, Date Time Electronically viewed and signed by .Zheng Khoury MD, MD on 09/05/2018 01:19 .M/ CC: CARIN CHÁVEZ DO [id number] RENETTA LYN Sep 05, 2018 02:18
[2018-09-05] MEDS ORDERED: DOCUSATE SODIUM 100 MG CAP PO PRN (02:30)
[2018-09-05] MEDS ORDERED: ACETAMINOPHEN 325 MG TAB PO PRN (02:30)
[2018-09-05] MEDS ORDERED: BISACODYL (EC) 5 MG TAB PO PRN (02:30)
[2018-09-05] MEDS ORDERED: NACL 0.9% 3 ML SYG IV SCH (02:30)
[2018-09-05] MEDS ORDERED: ALBUTEROL 0.083% (NEB) 2.5 MG/3 ML AMP HHN PRN (02:30)
[2018-09-05] MEDS ORDERED: ONDANSETRON 4 MG INJ IV PRN ×2 (02:30)
[2018-09-05 04:50] VITALS: BP 134/92; PULSE 68; RESP 18
[2018-09-05 05:15] VITALS: Ht 152.4 cm; Wt 78.3 kg
[2018-09-05] MEDS: PANTOPRAZOLE (EC) 40 MG TAB PO SCH (06:20)
[2018-09-05 07:28] VITALS: BP 158/70; PULSE 57; RESP 16
[2018-09-05] MEDS ORDERED: AZITHROMYCIN 250 MG in SOD CHLORIDE 0.9% 250 ML IVPB SCH (07:30)
[2018-09-05] MEDS ORDERED: CALCIUM CARBONATE 1.25 GM TAB PO SCH (09:00)
[2018-09-05] MEDS ORDERED: FENOFIBRATE 145 MG TAB PO SCH (09:00)
[2018-09-05] MEDS ORDERED: ASPIRIN 81 MG TAB PO SCH (09:00)
[2018-09-05] MEDS ORDERED: GEMFIBROZIL 600 MG TAB PO SCH (09:00)
[2018-09-05] MEDS ORDERED: OXYBUTYNIN (XL) 5 MG TAB PO SCH (09:00)
[2018-09-05] MEDS ORDERED: ERGOCALCIFEROL 50,000 UNIT CAP PO SCH ×2 (09:00→11:00)
[2018-09-05] MEDS: ATENOLOL 25 MG TAB PO SCH (09:29)
[2018-09-05] MEDS: CARBIDOPA/LEVODOPA (25/100) TAB PO SCH ×4 (09:30→21:05)
[2018-09-05] MEDS: GABAPENTIN 100 MG CAP PO SCH ×3 (09:30→21:05)
[2018-09-05] MEDS: CALCIUM/VITAMIN D (500/200) TAB PO SCH (09:30)
[2018-09-05] MEDS: ENOXAPARIN 40 MG/0.4 ML SYG SC SCH (09:39)
[2018-09-05 11:38] VITALS: BP 135/63; PULSE 55; RESP 20
[2018-09-05] MEDS: ROPINIROLE 0.25 MG TAB PO SCH ×4 (11:51→21:06)
[2018-09-05] MEDS: VENLAFAXINE (XR) 75 MG CAP PO SCH (11:57)
[2018-09-05] MEDS ORDERED: IOHEXOL 14.3 MG(I)/ML (ADULT) BTL PO ONE (12:30)
--- NOTE | 2018-09-05 13:46 | CONS ---
Assessment/Plan Assessment/Plan Assessment/Plan (Daily) Assessment: Epigastric pain -rule out gastroparesis Last EGD February 2018gastritis Bloating Diabetes mellitus Chronic constipation Plan: Start Amitiza twice daily Start Levsin 3 times daily Lactose-free diet Gastric emptying study Consider EGD if gastric emptying study is negative Patient seen in collaboration with Dr. Reddy Consultation Date/Type/Reason Admit Date/Time Date of Consultation: Sep 05, 2018 Type of Consult GI Reason for Consultation Epigastric pain Date/Time of Note DATE: 09/05/18 TIME: 13:29 Hx of Present Illness This is an 83-year-old female with a history of hypertension, diabetes mellitus type 2, dyslipidemia and Parkinson disease who was admitted for cough and fatigue. GI was consulted for epigastric pain radiating to the back. Patient states she had the symptoms over 1 year. Last EGD was in February 2018 with findings of gastritis, negative for H. pylori. Patient is also complaining of feeling of fullness, bloating, gas and constipation. Patient had recent colonoscopy in June 2018. Currently there is no evidence of nausea, vomiting, hematemesis, diarrhea or fever. The plan is to restart Amitiza twice daily for treatment of constipation. Patient is scheduled for gastric emptying study to rule out gastroparesis. If gastric emptying study is negative we will consider doing EGD. Discussed the plan with the patient. Gastrointestinal: no complaints (See HPI) Past Medical History hypertension type 2 diabetes dyslipidemia Parkinson's disease Home Meds Active Scripts Ofloxacin Otic (Ofloxacin Otic) 5 Ml Drops, 10 DROP BOTH EARS DAILY for 7 Days, #1 BOTTLE Prov:JC MAGANA MD 07/23/18 Cranberry Conc/C/Bacill Coag (Azo Cranberry Tablet) 1 Each Tablet, 1 EACH PO BID for 30 Days, #60 TAB 1 Refill Prov:JC MAGANA MD 07/23/18 Oxybutynin Chloride* (Ditropan* XL) 10 Mg Tab.er.24, 20 MG PO DAILY for 30 Days, #60 TAB.SA Prov:JC MAGANA MD 07/23/18 Lisinopril* (Lisinopril*) 30 Mg Tablet, 30 MG PO QHS for 30 Days, #30 TAB Prov:JC MAGANA MD 07/23/18 Pantoprazole* (Pantoprazole*) 40 Mg Tablet.dr, 40 MG PO DAILY for 30 Days, #30 TAB 1 Refill Prov:WHIT BERGER. 03/18/18 Lactobacillus Rhamnosus* (Culturelle*) 1 Each Cap.sprink, 1 CAP PO BID, #20 CAP Prov:WHIT BERGER. 03/18/18 Reported Medications Ergocalciferol (Vitamin D2) (VITAMIN D2) 50,000 Unit Capsule, 03204 UNIT PO Q7D for QMONDAY, CAP 07/16/18 Calcium Carbonate/Vitamin D3 (Oysco 500+D Tablet) 1 Each Tablet, 1 TAB PO DAILY for 30 Days, #60 07/16/18 Meloxicam* (Mobic*) 15 Mg Tablet, 15 MG PO DAILY for 30 Days, #30 07/16/18 Gabapentin* (Gabapentin*) 100 Mg Capsule, 200 MG PO TID for 30 Days 07/16/18 Cholecalciferol* (Vitamin D*) Unknown Strength Tablet, PO DAILY, TAB 03/15/18 Aspirin* (Aspirin* Chew) 81 Mg Tab.chew, 81 MG PO DAILY, TAB.CHEW 03/12/18 Calcium Carbonate ([id number]) 500 Mg Tablet, 500 MG PO BID, TAB 03/12/18 Fenofibrate Nanocrystallized* (Fenofibrate*) 145 Mg Tablet, 145 MG PO DAILY, TAB 03/12/18 Venlafaxine Hcl* (Venlafaxine Hcl ER*) 75 Mg Cap.er.24h, 75 MG PO DAILY, CAP 03/12/18 Ropinirole Hcl* (Ropinirole Hcl*) 0.5 Mg Tablet, 0.5 MG PO QID TAKE AT 7:00 A.M, 11:00 AM, 3:00PM, & 7:00 PM 03/12/18 Carbidopa/Levodopa (Carbidopa-Levodopa 25-100 Tab) 1 Each Tablet, 1 TAB PO QID 03/12/18 Meclizine Hcl* (Meclizine Hcl*) 25 Mg Tablet, 12.5 MG PO Q8H PRN for DIZZINESS, TAB 03/12/18 Gemfibrozil* (Gemfibrozil*) 600 Mg Tablet, 600 MG PO BID, TAB 03/12/18 Atorvastatin* (Atorvastatin*) 40 Mg Tablet, 40 MG PO QHS, #30 TAB 03/12/18 Atenolol* (Atenolol*) 25 Mg Tablet, 25 MG PO DAILY, #30 TAB 03/12/18 Glipizide* (Glipizide*) 10 Mg Tablet, 10 MG PO BID 12/08/12 Medications Current Medications Ondansetron HCl (Zofran Inj) 4 mg ER BRIDGE PRN IV NAUSEA/VOMITING; Start 09/05/18 at 02:30; Stop 09/06/18 at 02:29 Acetaminophen (Tylenol Tab) 650 mg ER BRIDGE PRN PO .MILD PAIN 1-3 OR TEMP; Start 09/05/18 at 02:30; Stop 09/06/18 at 02:29 Atenolol (Tenormin) 25 mg DAILY PO Last administered on 09/05/18at 09:29; Admin Dose 25 MG; Start 09/05/18 at 09:00 Atorvastatin Calcium (Lipitor) 40 mg QHS PO ; Start 09/05/18 at 21:00 Calcium/Vitamin D (Oyster Shell/ Vit-D (500/200)) 1 tab DAILY PO Last administered on 09/05/18 09:30; Admin Dose 1 TAB; Start 09/05/18 at 09:00 Carbidopa/Levodopa (Sinemet (25/ 100)) 1 tab QID PO Last administered on 9at 11:54; Admin Dose 1 TAB; Start 09/05/18 at 09:00 Gabapentin (Neurontin) 200 mg TID PO Last administered on 09/05/18 11:55; Admin Dose 200 MG; Start 09/05/18 at 09:00 Pantoprazole (Protonix Tab) 40 mg DAILY@0600 PO Last administered on 09/05/18 06:20; Admin Dose 40 MG; Start 09/05/18 at 06:00 Ropinirole HCl (Requip) 0.5 mg QID PO Last administered on 09/05/18 11:51; Admin Dose 0.5 MG; Start 09/05/18 at 09:00 Venlafaxine HCl (Effexor Xr) 75 mg DAILY PO Last administered on 09/05/18 11: 57; Admin Dose 75 MG; Start 09/05/18 at 09:00 IV Flush (NS 3 ml) 3 ml PER PROTOCOL IV ; Start 09/05/18 at 02:30 Ondansetron HCl (Zofran Inj) 4 mg Q6H PRN IV NAUSEA/VOMITING; Start 09/05/18 at 02:30 Acetaminophen (Tylenol Tab) 650 mg Q6H PRN PO .PAIN 1-3 OR TEMP; Start 09/05/18 at 02:30 Docusate Sodium (Colace) 100 mg Q12H PRN PO .CONSTIPATION; Start 09/05/18 at 02:30 Bisacodyl (Dulcolax) 5 mg DAILY PRN PO .CONSTIPATION; Start 09/05/18 at 02:30 Enoxaparin Sodium (Lovenox) 40 mg DAILY SC Last administered on 09/05/18at 09:39; Admin Dose 40 MG; Start 09/05/18 at 09:00 Albuterol (Proventil 0.083% (Neb)) 2.5 mg Q4H RESP THERAPY PRN HHN SHORTNESS OF BREATH; Start 09/05/18 at 02:30 Ceftriaxone Sodium 50 ml @ 100 mls/hr Q24H IVPB ; Start 09/06/18 at 02:00 Azithromycin 250 mg/Sodium Chloride 250 ml @ 250 mls/hr Q24H IVPB ; Start 09/06/18 at 02:00 Allergies: Coded Allergies: No Known Allergies (Unverified Allergy, Unknown, 07/16/18) Past Surgical History Past Surgical Hx: appendectomy, cholecystectomy, other Social History Alcohol Use: none Smoking Status: Never smoker Drug Use: none Exam/Review of Systems Exam Vitals Vital Signs Date Temp Pulse Resp B/P (MAP) Pulse Ox O2 O2 Flow FiO2 Time Delivery Rate 09/05/18 98.4 55 20 135/63 97 Nasal 11:38 (87) Cannula 09/05/18 2.0 05:17 Intake and Output 09/04/18 09/04/18 09/05/18 1414:59 22:59 06:59 IntakeIntake Total 400 ml BalanceBalance 400 ml Exam PHYSICAL EXAMINATION: GENERAL: Well developed, obese, well nourished, alert & oriented x 3, in no acute distress SKIN: No lesions, no stigmata chronic liver disease, no evidence of bleeding diathesis LYMPHATIC: No palpable lymphadenopathy. HEAD: Normocephalic, atraumatic, no tenderness. EYES: Pupils equal reactive to light and accommodation, full extraocular movements, sclera clear, non-icteric, no discharge. EARS/NOSE AND THROAT: Ears normal, nose normal, oropharynx normal, oral membranes well hydrated without lesions. NECK: Supple, no masses, thyroid normal, JVP within normal limits, carotids normal without bruits. CHEST: Inspection within normal limits. CARDIOVASCULAR: Heart: Regular rate and rhythm, no murmurs, gallops or rubs. Peripheral pulses present within normal limits, no cyanosis, clubbing or edemas. No pulsatile abdominal mass RESPIRATORY: Lungs clear to auscultation and percussion, no wheezing, no rubs GASTROINTESTINAL AND LIVER: Abdomen: Soft, epigastric tenderness, non-distended, no hernias, no masses, no organomegaly, no ascites, no guarding, no rebound tenderness, normoactive bowel sounds. Rectal: Deferred. GENITOURINARY: Female genitalia within normal limits. EXTREMITIES: No cyanosis, clubbing or edema. Results Result Diagram: 09/05/18 0053 09/05/18 0052 Results 24hrs Laboratory Tests Test 09/05/18 00:52 09/05/18 00:53 09/05/18 03:45 Sodium Level 135 Potassium Level 3.8 Chloride Level 98 Carbon Dioxide Level 28 Anion Gap 9 Blood Urea Nitrogen 22 H Creatinine 0.80 Est Glomerular Filtrat Rate mL/min Glucose Level 116 Calcium Level 9.2 Total Bilirubin 0.3 Direct Bilirubin 0.00 Indirect Bilirubin 0.3 Aspartate Amino 21 Transf (AST/SGOT) Alanine 17 Aminotransferase (ALT/SGPT) Alkaline Phosphatase 31 L Troponin I < 0.012 Total Protein 7.0 Albumin 3.9 Globulin 3.10 Albumin/Globulin Ratio 1.25 White Blood Count 7.0 Red Blood Count 3.62 L Hemoglobin 10.8 L Hematocrit 32.0 L Mean Corpuscular Volume 88.4 Mean Corpuscular Hemoglobin 29.8 Mean Corpuscular 33.8 Hemoglobin Concent Red Cell Distribution Width 12.9 Platelet Count 258 # Mean Platelet Volume 10.6 H Immature Granulocytes % 0.300 Neutrophils % 54.8 Lymphocytes % 31.5 Monocytes % 11.3 H Eosinophils % 1.7 Basophils % 0.4 Nucleated Red Blood Cells % 0.0 Immature Granulocytes # 0.020 Neutrophils # 3.8 Lymphocytes # 2.2 Monocytes # 0.8 Eosinophils # 0.1 Basophils # 0.0 Nucleated Red Blood Cells # 0.0 Urine Color YELLOW Urine Clarity SLIGHTLY CLOUDY A Urine pH 8.0 Urine Specific [place] 1.009 Urine Ketones NEGATIVE Urine Nitrite NEGATIVE Urine Bilirubin NEGATIVE Urine Urobilinogen NEGATIVE Urine Leukocyte Esterase NEGATIVE Urine Microscopic RBC 1 Urine Microscopic WBC 4 Urine Amorphous Crystals FEW A Urine Bacteria FEW A Urine Hemoglobin NEGATIVE Urine Glucose NEGATIVE Urine Total Protein NEGATIVE Medications Medication Current Medications Ondansetron HCl (Zofran Inj) 4 mg ER BRIDGE PRN IV NAUSEA/VOMITING; Start 09/05/18 at 02:30; Stop 09/06/18 at 02:29 Acetaminophen (Tylenol Tab) 650 mg ER BRIDGE PRN PO .MILD PAIN 1-3 OR TEMP; Start 09/05/18 at 02:30; Stop 09/06/18 at 02:29 Atenolol (Tenormin) 25 mg DAILY PO Last administered on 09/05/18 09:29; Admin Dose 25 MG; Start 09/05/18 at 09:00 Atorvastatin Calcium (Lipitor) 40 mg QHS PO ; Start 09/05/18 at 21:00 Calcium/Vitamin D (Oyster Shell/ Vit-D (500/200)) 1 tab DAILY PO Last administered on 09/05/18 09:30; Admin Dose 1 TAB; Start 09/05/18 at 09:00 Carbidopa/Levodopa (Sinemet (25/ 100)) 1 tab QID PO Last administered on 09/05/18 11:54; Admin Dose 1 TAB; Start 09/05/18 at 09:00 Gabapentin (Neurontin) 200 mg TID PO Last administered on 09/05/18 11:55; Admin Dose 200 MG; Start 09/05/18 at 09:00 Pantoprazole (Protonix Tab) 40 mg DAILY@0600 PO Last administered on 09/05/18 06:20; Admin Dose 40 MG; Start 09/05/18 at 06:00 Ropinirole HCl (Requip) 0.5 mg QID PO Last administered on 09/05/18 11:51; Admin Dose 0.5 MG; Start 09/05/18 at 09:00 Venlafaxine HCl (Effexor Xr) 75 mg DAILY PO Last administered on 09/05/18 11:57; Admin Dose 75 MG; Start 09/05/18 at 09:00 IV Flush (NS 3 ml) 3 ml PER PROTOCOL IV ; Start 09/05/18 at 02:30 Ondansetron HCl (Zofran Inj) 4 mg Q6H PRN IV NAUSEA/VOMITING; Start 09/05/18 at 02:30 Acetaminophen (Tylenol Tab) 650 mg Q6H PRN PO .PAIN 1-3 OR TEMP; Start 09/05/18 at 02:30 Docusate Sodium (Colace) 100 mg Q12H PRN PO .CONSTIPATION; Start 09/05/18 at 02:30 Bisacodyl (Dulcolax) 5 mg DAILY PRN PO .CONSTIPATION; Start 09/05/18 at 02:30 Enoxaparin Sodium (Lovenox) 40 mg DAILY SC Last administered on 09/05/18at 09:39; Admin Dose 40 MG; Start 09/05/18 at 09:00 Albuterol (Proventil 0.083% (Neb)) 2.5 mg Q4H RESP THERAPY PRN HHN SHORTNESS OF BREATH; Start 09/05/18 at 02:30 Ceftriaxone Sodium 50 ml @ 100 mls/hr Q24H IVPB ; Start 09/06/18 at 02:00 Azithromycin 250 mg/Sodium Chloride 250 ml @ 250 mls/hr Q24H IVPB ; Start 09/06/18 at 02:00 [facility]IS[facility] URRUTIA NP Sep 05, 2018 13:44
--- NOTE | 2018-09-05 15:26 | PN ---
Date/Time of Note Date/Time of Note DATE: 09/05/18 TIME: 15:24 Assessment/Plan VTE Prophylaxis Risk score (from Ns)>0 risk: 5 SCD applied (from Nsg): Yes Pharmacological prophylaxis: heparin Lines/Catheters IV Catheter Type (from Nrsg): Saline Lock Urinary Cath still in place: No Assessment/Plan Hospital Course 83-year-old female with Parkinson's disease and diverticulosis who presents with chronic epigastric pain and right upper quadrant pain. She has previously undergone CT imaging and endoscopy for this without explanation of her symptoms. It is possible that she has gastroparesis given her Parkinson's and diabetes we will order a nuclear medicine gastric emptying study. I have consulted GI for consideration of repeat EGD. Polypharmacy may be contributing as well which should limit nonessential medications. Continue PPI therapy Parkinson's: -Continue Sinemet and ropinirole Bronchitis: -Seems to have improved on ceftriaxone and azithromycin is okay to continue this discharge planning: Can be discharged home following nuclear medicine study and possible EGD Result Diagram: 09/05/18 0053 09/05/18 0052 Results 24hrs Laboratory Tests Test 09/05/18 00:52 09/05/18 00:53 09/05/18 03:45 Sodium Level 135 Potassium Level 3.8 Chloride Level 98 Carbon Dioxide Level 28 Anion Gap 9 Blood Urea Nitrogen 22 H Creatinine 0.80 Est Glomerular Filtrat Rate mL/min Glucose Level 116 Calcium Level 9.2 Total Bilirubin 0.3 Direct Bilirubin 0.00 Indirect Bilirubin 0.3 Aspartate Amino 21 Transf (AST/SGOT) Alanine 17 Aminotransferase (ALT/SGPT) Alkaline Phosphatase 31 L Troponin I < 0.012 Total Protein 7.0 Albumin 3.9 Globulin 3.10 Albumin/Globulin Ratio 1.25 White Blood Count 7.0 Red Blood Count 3.62 L Hemoglobin 10.8 L Hematocrit 32.0 L Mean Corpuscular Volume 88.4 Mean Corpuscular Hemoglobin 29.8 Mean Corpuscular 33.8 Hemoglobin Concent Red Cell Distribution Width 12.9 Platelet Count 258 # Mean Platelet Volume 10.6 H Immature Granulocytes % 0.300 Neutrophils % 54.8 Lymphocytes % 31.5 Monocytes % 11.3 H Eosinophils % 1.7 Basophils % 0.4 Nucleated Red Blood Cells % 0.0 Immature Granulocytes # 0.020 Neutrophils # 3.8 Lymphocytes # 2.2 Monocytes # 0.8 Eosinophils # 0.1 Basophils # 0.0 Nucleated Red Blood Cells # 0.0 Urine Color YELLOW Urine Clarity SLIGHTLY CLOUDY A Urine pH 8.0 Urine Specific [place] 1.009 Urine Ketones NEGATIVE Urine Nitrite NEGATIVE Urine Bilirubin NEGATIVE Urine Urobilinogen NEGATIVE Urine Leukocyte Esterase NEGATIVE Urine Microscopic RBC 1 Urine Microscopic WBC 4 Urine Amorphous Crystals FEW A Urine Bacteria FEW A Urine Hemoglobin NEGATIVE Urine Glucose NEGATIVE Urine Total Protein NEGATIVE Subjective 24 Hr Interval Summary Free Text/Dictation Describes consistent right upper quadrant and epigastric pain pain seems related to food. She has avoided eating over the past few days because it causes pain. The symptoms have been present for months to may be years Exam/Review of Systems Exam Vitals Vital Signs Date Temp Pulse Resp B/P (MAP) Pulse Ox O2 O2 Flow FiO2 Time Delivery Rate 09/05/18 98.4 55 20 135/63 97 Nasal 11:38 (87) Cannula 09/05/18 2.0 05:17 Intake and Output 09/04/18 09/04/18 09/05/18 1515:00 23:00 07:00 IntakeIntake Total 400 ml BalanceBalance 400 ml Constitutional: alert, oriented, well developed Psych: no complaints, nl mood/affect Head: normocephalic, atraumatic Eyes: nl conjunctiva, EOMI, nl lids, nl sclera, PERRL ENMT: nl external ears & nose, nl lips & teeth, nl nasal mucosa & septum Neck: supple, non-tender Respiratory: clear to auscultation, normal air movement Cardiovascular: regular rate and rhythm, nl pulses Gastrointestinal: soft, nl liver, spleen, non-tender Musculoskeletal: nl extremities to inspection, nl gait and stance Extremities: normal pulses Neurological: WOOD GRAINER II-XII intact, nl mental status, nl speech, nl strength Skin: nl turgor; No rash or lesions Lymph: nl lymph nodes Results Results 24hrs Laboratory Tests Test 09/05/18 00:52 09/05/18 00:53 09/05/18 03:45 Sodium Level 135 Potassium Level 3.8 Chloride Level 98 Carbon Dioxide Level 28 Anion Gap 9 Blood Urea Nitrogen 22 H Creatinine 0.80 Est Glomerular Filtrat Rate mL/min Glucose Level 116 Calcium Level 9.2 Total Bilirubin 0.3 Direct Bilirubin 0.00 Indirect Bilirubin 0.3 Aspartate Amino 21 Transf (AST/SGOT) Alanine 17 Aminotransferase (ALT/SGPT) Alkaline Phosphatase 31 L Troponin I < 0.012 Total Protein 7.0 Albumin 3.9 Globulin 3.10 Albumin/Globulin Ratio 1.25 White Blood Count 7.0 Red Blood Count 3.62 L Hemoglobin 10.8 L Hematocrit 32.0 L Mean Corpuscular Volume 88.4 Mean Corpuscular Hemoglobin 29.8 Mean Corpuscular 33.8 Hemoglobin Concent Red Cell Distribution Width 12.9 Platelet Count 258 # Mean Platelet Volume 10.6 H Immature Granulocytes % 0.300 Neutrophils % 54.8 Lymphocytes % 31.5 Monocytes % 11.3 H Eosinophils % 1.7 Basophils % 0.4 Nucleated Red Blood Cells % 0.0 Immature Granulocytes # 0.020 Neutrophils # 3.8 Lymphocytes # 2.2 Monocytes # 0.8 Eosinophils # 0.1 Basophils # 0.0 Nucleated Red Blood Cells # 0.0 Urine Color YELLOW Urine Clarity SLIGHTLY CLOUDY A Urine pH 8.0 Urine Specific [place] 1.009 Urine Ketones NEGATIVE Urine Nitrite NEGATIVE Urine Bilirubin NEGATIVE Urine Urobilinogen NEGATIVE Urine Leukocyte Esterase NEGATIVE Urine Microscopic RBC 1 Urine Microscopic WBC 4 Urine Amorphous Crystals FEW A Urine Bacteria FEW A Urine Hemoglobin NEGATIVE Urine Glucose NEGATIVE Urine Total Protein NEGATIVE Medications Medication Current Medications Ondansetron HCl (Zofran Inj) 4 mg ER BRIDGE PRN IV NAUSEA/VOMITING; Start 09/05/18 at 02:30; Stop 09/06/18 at 02:29 Acetaminophen (Tylenol Tab) 650 mg ER BRIDGE PRN PO .MILD PAIN 1-3 OR TEMP; Start 09/05/18 at 02:30; Stop 09/06/18 at 02:29 Atenolol (Tenormin) 25 mg DAILY PO Last administered on 09/05/18at 09:29; Admin Dose 25 MG; Start 09/05/18 at 09:00 Atorvastatin Calcium (Lipitor) 40 mg QHS PO ; Start 09/05/18 at 21:00 Calcium/Vitamin D (Oyster Shell/ Vit-D (500/200)) 1 tab DAILY PO Last administered on 09/05/18at 09:30; Admin Dose 1 TAB; Start 09/05/18 at 09:00 Carbidopa/Levodopa (Sinemet (25/ 100)) 1 tab QID PO Last administered on 09/05/18at 11:54; Admin Dose 1 TAB; Start 09/05/18 at 09:00 Gabapentin (Neurontin) 200 mg TID PO Last administered on 09/05/18at 11:55; Admin Dose 200 MG; Start 09/05/18 at 09:00 Pantoprazole (Protonix Tab) 40 mg DAILY@0600 PO Last administered on 09/05/18at 06:20; Admin Dose 40 MG; Start 09/05/18 at 06:00 Ropinirole HCl (Requip) 0.5 mg QID PO Last administered on 09/05/18at 11:51; Admin Dose 0.5 MG; Start 09/05/18 at 09:00 Venlafaxine HCl (Effexor Xr) 75 mg DAILY PO Last administered on 09/05/18at 11:57; Admin Dose 75 MG; Start 09/05/18 at 09:00 IV Flush (NS 3 ml) 3 ml PER PROTOCOL IV ; Start 09/05/18 at 02:30 Ondansetron HCl (Zofran Inj) 4 mg Q6H PRN IV NAUSEA/VOMITING; Start 09/05/18 at 02:30 Acetaminophen (Tylenol Tab) 650 mg Q6H PRN PO .PAIN 1-3 OR TEMP; Start 09/05/18 at 02:30 Docusate Sodium (Colace) 100 mg Q12H PRN PO .CONSTIPATION; Start 09/05/18 at 02:30 Bisacodyl (Dulcolax) 5 mg DAILY PRN PO .CONSTIPATION; Start 09/05/18 at 02:30 Enoxaparin Sodium (Lovenox) 40 mg DAILY SC Last administered on 09/05/18at 09:39; Admin Dose 40 MG; Start 09/05/18 at 09:00 Albuterol (Proventil 0.083% (Neb)) 2.5 mg Q4H RESP THERAPY PRN HHN SHORTNESS OF BREATH; Start 09/05/18 at 02:30 Ceftriaxone Sodium 50 ml @ 100 mls/hr Q24H IVPB ; Start 09/06/18 at 02:00 Azithromycin 250 mg/Sodium Chloride 250 ml @ 250 mls/hr Q24H IVPB ; Start 09/06/18 at 02:00 Lubiprostone (Amitiza) 24 mcg BID PO ; Start 09/05/18 at 14:00 Hyoscyamine (Levsin (Sl)) 0.125 mg Q8 PO ; Start 09/05/18 at 14:00 TUAN BRYANT MD Sep 05, 2018 15:26
[2018-09-05 15:49] VITALS: BP 131/63; PULSE 53; RESP 22
[2018-09-05] MEDS: HYOSCYAMINE 0.125 MG SUBL TAB PO SCH ×2 (16:34→21:06)
[2018-09-05] MEDS: LUBIPROSTONE 24 MCG CAP PO SCH ×2 (16:39→21:06)
[2018-09-05] MEDS ORDERED: IOHEXOL 300MG/ML 150 ML BTL ONE (19:05)
[2018-09-05] MEDS ORDERED: SOD CHLORIDE 0.9% 100 ML ONE (19:05)
[2018-09-05 20:33] VITALS: BP 159/72; PULSE 52; RESP 16
[2018-09-05] MEDS ORDERED: LISINOPRIL 10 MG TAB PO SCH (21:00)
[2018-09-05] MEDS: ATORVASTATIN 40 MG TAB PO SCH (21:06)
[2018-09-06 00:32] VITALS: BP 148/64; PULSE 48; RESP 18
[2018-09-06] MEDS: CEFTRIAXONE 1 GM/50 ML (PMX) 50 ML IVPB SCH (01:32)
[2018-09-06] MEDS: AZITHROMYCIN 250 MG in SOD CHLORIDE 0.9% 250 ML IVPB SCH (02:31)
[2018-09-06 04:28] VITALS: BP 159/72; PULSE 50; RESP 18
[2018-09-06] MEDS: HYOSCYAMINE 0.125 MG SUBL TAB PO SCH ×3 (05:14→21:37)
[2018-09-06] MEDS: PANTOPRAZOLE (EC) 40 MG TAB PO SCH (05:14)
[2018-09-06 07:42] VITALS: BP 138/71; PULSE 54; RESP 19
[2018-09-06] MEDS: ENOXAPARIN 40 MG/0.4 ML SYG SC SCH ×2 (09:00→12:19)
[2018-09-06] MEDS: ROPINIROLE 0.25 MG TAB PO SCH ×4 (09:00→21:38)
[2018-09-06] MEDS: ATENOLOL 25 MG TAB PO SCH (09:00)
[2018-09-06] MEDS: GABAPENTIN 100 MG CAP PO SCH ×3 (09:00→21:38)
[2018-09-06] MEDS: LUBIPROSTONE 24 MCG CAP PO SCH ×3 (09:00→21:37)
[2018-09-06] MEDS: VENLAFAXINE (XR) 75 MG CAP PO SCH ×2 (09:00→12:14)
[2018-09-06] MEDS: CARBIDOPA/LEVODOPA (25/100) TAB PO SCH ×4 (09:00→21:38)
[2018-09-06] MEDS: CALCIUM/VITAMIN D (500/200) TAB PO SCH ×2 (09:00→12:13)
[2018-09-06 12:45] VITALS: BP 133/60; PULSE 58; RESP 19
--- NOTE | 2018-09-06 15:38 | PN ---
Date/Time of Note Date/Time of Note DATE: 09/06/18 TIME: 15:36 Assessment/Plan VTE Prophylaxis Risk score (from Ns)>0 risk: 5 SCD applied (from Ns): Yes Pharmacological prophylaxis: LMWH Lines/Catheters IV Catheter Type (from Nrs): Saline Lock Urinary Cath still in place: No Assessment/Plan Hospital Course 1. Chronic epigastric pain possibly secondary to gastroparesis Nuclear gastric emptying setting does show decreased emptying GI consultation appreciated Continue PPI therapy 2. Parkinson's disease Continue Sinemet and ropinirole 3. Bronchitis: Seems to have improved on ceftriaxone and azithromycin is okay to continue this Prophylaxis: Lovenox DC planning: Follow-up with GI recommendations, anticipate DC tomorrow Result Diagram: 09/06/18 0535 09/06/18 0535 Results 24hrs Laboratory Tests Test 09/06/18 05:35 White Blood Count 8.0 Red Blood Count 3.57 L Hemoglobin 10.9 L Hematocrit 32.9 L Mean Corpuscular Volume 92.2 Mean Corpuscular Hemoglobin 30.5 Mean Corpuscular Hemoglobin Concent 33.1 Red Cell Distribution Width 12.7 Platelet Count 261 Mean Platelet Volume 10.8 H Immature Granulocytes % 0.500 H Neutrophils % 63.8 Lymphocytes % 23.7 Monocytes % 8.8 Eosinophils % 2.9 Basophils % 0.3 Nucleated Red Blood Cells % 0.0 Immature Granulocytes # 0.040 H Neutrophils # 5.1 Lymphocytes # 1.9 Monocytes # 0.7 Eosinophils # 0.2 Basophils # 0.0 Nucleated Red Blood Cells # 0.0 Sodium Level 135 Potassium Level 4.1 Chloride Level 101 Carbon Dioxide Level 27 Anion Gap 7 Blood Urea Nitrogen 18 Creatinine 0.76 Est Glomerular Filtrat Rate mL/min Glucose Level 120 Hemoglobin A1c 5.8 Calcium Level 8.9 Magnesium Level 1.7 Total Bilirubin 0.3 Direct Bilirubin 0.00 Indirect Bilirubin 0.3 Aspartate Amino Transf (AST/SGOT) 18 Alanine Aminotransferase (ALT/SGPT) 11 L Alkaline Phosphatase 26 L Total Protein 6.6 Albumin 3.6 Globulin 3.00 Albumin/Globulin Ratio 1.20 Triglycerides Level 174 H Cholesterol Level 114 LDL Cholesterol, Calculated 55 HDL Cholesterol 24 L Cholesterol/HDL Ratio 4.7 Thyroid Stimulating Hormone (TSH) 1.760 Subjective 24 Hr Interval Summary Constitutional: no complaints Exam/Review of Systems Exam Vitals Vital Signs Date Temp Pulse Resp B/P (MAP) Pulse Ox O2 O2 Flow FiO2 Time Delivery Rate 09/06/18 Nasal 2.0 09:30 Cannula 09/06/18 98.7 54 19 138/71 99 07:42 (93) 09/06/18 21 01:02 Intake and Output 09/05/18 09/05/18 09/06/18 1414:59 22:59 06:59 IntakeIntake Total 240 ml 120 ml 730 ml OutputOutput Total 550 ml BalanceBalance 240 ml 120 ml 180 ml Constitutional: alert Respiratory: clear to auscultation Cardiovascular: regular rate and rhythm Gastrointestinal: soft; No distended Musculoskeletal: nl extremities to inspection Results Results 24hrs Laboratory Tests Test 09/06/18 05:35 White Blood Count 8.0 Red Blood Count 3.57 L Hemoglobin 10.9 L Hematocrit 32.9 L Mean Corpuscular Volume 92.2 Mean Corpuscular Hemoglobin 30.5 Mean Corpuscular Hemoglobin Concent 33.1 Red Cell Distribution Width 12.7 Platelet Count 261 Mean Platelet Volume 10.8 H Immature Granulocytes % 0.500 H Neutrophils % 63.8 Lymphocytes % 23.7 Monocytes % 8.8 Eosinophils % 2.9 Basophils % 0.3 Nucleated Red Blood Cells % 0.0 Immature Granulocytes # 0.040 H Neutrophils # 5.1 Lymphocytes # 1.9 Monocytes # 0.7 Eosinophils # 0.2 Basophils # 0.0 Nucleated Red Blood Cells # 0.0 Sodium Level 135 Potassium Level 4.1 Chloride Level 101 Carbon Dioxide Level 27 Anion Gap 7 Blood Urea Nitrogen 18 Creatinine 0.76 Est Glomerular Filtrat Rate mL/min Glucose Level 120 Hemoglobin A1c 5.8 Calcium Level 8.9 Magnesium Level 1.7 Total Bilirubin 0.3 Direct Bilirubin 0.00 Indirect Bilirubin 0.3 Aspartate Amino Transf (AST/SGOT) 18 Alanine Aminotransferase (ALT/SGPT) 11 L Alkaline Phosphatase 26 L Total Protein 6.6 Albumin 3.6 Globulin 3.00 Albumin/Globulin Ratio 1.20 Triglycerides Level 174 H Cholesterol Level 114 LDL Cholesterol, Calculated 55 HDL Cholesterol 24 L Cholesterol/HDL Ratio 4.7 Thyroid Stimulating Hormone (TSH) 1.760 Medications Medication Current Medications Atenolol (Tenormin) 25 mg DAILY PO Last administered on 09/05/18at 09:29; Admin Dose 25 MG; Start 09/05/18 at 09:00 Atorvastatin Calcium (Lipitor) 40 mg QHS PO Last administered on 09/05/18 21:06; Admin Dose 40 MG; Start 09/05/18 at 21:00 Calcium/Vitamin D (Oyster Shell/ Vit-D (500/200)) 1 tab DAILY PO Last administered on 09/06/18 12:13; Admin Dose 1 TAB; Start 09/05/18 at 09:00 Carbidopa/Levodopa (Sinemet (25/ 100)) 1 tab QID PO Last administered on 09/06/18 12:15; Admin Dose 1 TAB; Start 09/05/18 at 09:00 Gabapentin (Neurontin) 200 mg TID PO Last administered on 09/06/18 12:15; Admin Dose 200 MG; Start 09/05/18 at 09:00 Pantoprazole (Protonix Tab) 40 mg DAILY@0600 PO Last administered on 09/06/18 05:14; Admin Dose 40 MG; Start 09/05/18 at 06:00 Ropinirole HCl (Requip) 0.5 mg QID PO Last administered on 09/06/18 12:15; Admin Dose 0.5 MG; Start 09/05/18 at 09:00 Venlafaxine HCl (Effexor Xr) 75 mg DAILY PO Last administered on 09/06/18 12:14; Admin Dose 75 MG; Start 09/05/18 at 09:00 IV Flush (NS 3 ml) 3 ml PER PROTOCOL IV ; Start 09/05/18 at 02:30 Ondansetron HCl (Zofran Inj) 4 mg Q6H PRN IV NAUSEA/VOMITING; Start 09/05/18 at 02:30 Acetaminophen (Tylenol Tab) 650 mg Q6H PRN PO .PAIN 1-3 OR TEMP; Start 09/05/18 at 02:30 Docusate Sodium (Colace) 100 mg Q12H PRN PO .CONSTIPATION; Start 09/05/18 at 02:30 Bisacodyl (Dulcolax) 5 mg DAILY PRN PO .CONSTIPATION; Start 09/05/18 at 02:30 Enoxaparin Sodium (Lovenox) 40 mg DAILY SC Last administered on 09/06/18 12:19; Admin Dose 40 MG; Start 09/05/18 at 09:00 Albuterol (Proventil 0.083% (Neb)) 2.5 mg Q4H RESP THERAPY PRN HHN SHORTNESS OF BREATH; Start 09/05/18 at 02:30 Ceftriaxone Sodium 50 ml @ 100 mls/hr Q24H IVPB Last administered on 09/06/18at 01:32; Admin Dose 100 MLS/HR; Start 09/06/18 at 02:00 Azithromycin 250 mg/Sodium Chloride 250 ml @ 250 mls/hr Q24H IVPB Last administered on 09/06/18at 02:31; Admin Dose 250 MLS/HR; Start 09/06/18 at 02:00 Lubiprostone (Amitiza) 24 mcg BID PO Last administered on 09/06/18 12:15; Admin Dose 24 MCG; Start 09/05/18 at 14:00 Hyoscyamine (Levsin (Sl)) 0.125 mg Q8 PO Last administered on 09/06/18 14:04; Admin Dose 0.125 MG; Start 09/05/18 at 14:00 TREMAINE DIXON Sep 06, 2018 15:38
--- NOTE | 2018-09-06 15:39 | PN ---
Date/Time of Note Date/Time of Note DATE: 09/06/18 TIME: 15:20 Assessment/Plan VTE Prophylaxis Risk score (from Nsg)>0 risk: 5 SCD applied (from Nsg): Yes Pharmacological prophylaxis: other Lines/Catheters IV Catheter Type (from Nrsg): Saline Lock Urinary Cath still in place: No Assessment/Plan Hospital Course Assessment: Epigastric pain --rule out gastroparesis- Last EGD February 2018gastritis Bloating Diabetes mellitus Chronic constipation Plan: Optimize glycemic control Low fat/diabetic diet Reglan 5 mg po TID - reviewed potential side effects Amitiza twice daily, Levsin 3 times daily No plan for repeat EGD at this time. Patient seen in collaboration with Dr. Reddy Subjective: Course reviewed with nursing staff Patient interviewed and examined All labs, imaging and other results reviewed The patient states she is feeling better today I discussed results of gastric emptying study with patient and daughter understanding was verbalized. Exam PHYSICAL EXAMINATION: GENERAL: Well developed, obese, well nourished, alert & oriented x 3. SKIN: No lesions HEAD: Normocephalic, atraumatic, no tenderness. EYES: Pupils equal reactive to light and accommodation, full extraocular movements, sclera clear, non-icteric, no discharge. EARS/NOSE AND THROAT: Ears normal, nose normal, oropharynx normal. NECK: Supple, no masses, thyroid normal. CHEST: Inspection within normal limits. CARDIOVASCULAR: Heart: Regular rate and rhythm RESPIRATORY: Lungs clear to auscultation and percussion, no wheezing, no rubs GASTROINTESTINAL AND LIVER: Abdomen: Soft, epigastric tenderness, non-distended, no hernias, no masses, no organomegaly, no ascites, no guarding, no rebound tenderness, normoactive bowel sounds. Rectal: Deferred. GENITOURINARY: Female genitalia within normal limits. EXTREMITIES: No cyanosis, clubbing or edema. Result Diagram: 09/06/18 0535 09/06/18 0535 Results 24hrs Laboratory Tests Test 09/06/18 05:35 White Blood Count 8.0 Red Blood Count 3.57 L Hemoglobin 10.9 L Hematocrit 32.9 L Mean Corpuscular Volume 92.2 Mean Corpuscular Hemoglobin 30.5 Mean Corpuscular Hemoglobin Concent 33.1 Red Cell Distribution Width 12.7 Platelet Count 261 Mean Platelet Volume 10.8 H Immature Granulocytes % 0.500 H Neutrophils % 63.8 Lymphocytes % 23.7 Monocytes % 8.8 Eosinophils % 2.9 Basophils % 0.3 Nucleated Red Blood Cells % 0.0 Immature Granulocytes # 0.040 H Neutrophils # 5.1 Lymphocytes # 1.9 Monocytes # 0.7 Eosinophils # 0.2 Basophils # 0.0 Nucleated Red Blood Cells # 0.0 Sodium Level 135 Potassium Level 4.1 Chloride Level 101 Carbon Dioxide Level 27 Anion Gap 7 Blood Urea Nitrogen 18 Creatinine 0.76 Est Glomerular Filtrat Rate mL/min Glucose Level 120 Hemoglobin A1c 5.8 Calcium Level 8.9 Magnesium Level 1.7 Total Bilirubin 0.3 Direct Bilirubin 0.00 Indirect Bilirubin 0.3 Aspartate Amino Transf (AST/SGOT) 18 Alanine Aminotransferase (ALT/SGPT) 11 L Alkaline Phosphatase 26 L Total Protein 6.6 Albumin 3.6 Globulin 3.00 Albumin/Globulin Ratio 1.20 Triglycerides Level 174 H Cholesterol Level 114 LDL Cholesterol, Calculated 55 HDL Cholesterol 24 L Cholesterol/HDL Ratio 4.7 Thyroid Stimulating Hormone (TSH) 1.760 Exam/Review of Systems Exam Vitals Vital Signs Date Temp Pulse Resp B/P (MAP) Pulse Ox O2 O2 Flow FiO2 Time Delivery Rate 09/06/18 Nasal 2.0 09:30 Cannula 09/06/18 98.7 54 19 138/71 99 07:42 (93) 09/06/18 21 01:02 Intake and Output 09/05/18 09/05/18 09/06/18 1515:00 23:00 07:00 IntakeIntake Total 240 ml 120 ml 730 ml OutputOutput Total 550 ml BalanceBalance 240 ml 120 ml 180 ml Results Results 24hrs Laboratory Tests Test 09/06/18 05:35 White Blood Count 8.0 Red Blood Count 3.57 L Hemoglobin 10.9 L Hematocrit 32.9 L Mean Corpuscular Volume 92.2 Mean Corpuscular Hemoglobin 30.5 Mean Corpuscular Hemoglobin Concent 33.1 Red Cell Distribution Width 12.7 Platelet Count 261 Mean Platelet Volume 10.8 H Immature Granulocytes % 0.500 H Neutrophils % 63.8 Lymphocytes % 23.7 Monocytes % 8.8 Eosinophils % 2.9 Basophils % 0.3 Nucleated Red Blood Cells % 0.0 Immature Granulocytes # 0.040 H Neutrophils # 5.1 Lymphocytes # 1.9 Monocytes # 0.7 Eosinophils # 0.2 Basophils # 0.0 Nucleated Red Blood Cells # 0.0 Sodium Level 135 Potassium Level 4.1 Chloride Level 101 Carbon Dioxide Level 27 Anion Gap 7 Blood Urea Nitrogen 18 Creatinine 0.76 Est Glomerular Filtrat Rate mL/min Glucose Level 120 Hemoglobin A1c 5.8 Calcium Level 8.9 Magnesium Level 1.7 Total Bilirubin 0.3 Direct Bilirubin 0.00 Indirect Bilirubin 0.3 Aspartate Amino Transf (AST/SGOT) 18 Alanine Aminotransferase (ALT/SGPT) 11 L Alkaline Phosphatase 26 L Total Protein 6.6 Albumin 3.6 Globulin 3.00 Albumin/Globulin Ratio 1.20 Triglycerides Level 174 H Cholesterol Level 114 LDL Cholesterol, Calculated 55 HDL Cholesterol 24 L Cholesterol/HDL Ratio 4.7 Thyroid Stimulating Hormone (TSH) 1.760 Medications Medication Current Medications Atenolol (Tenormin) 25 mg DAILY PO Last administered on 09/05/18 09:29; Admin Dose 25 MG; Start 09/05/18 at 09:00 Atorvastatin Calcium (Lipitor) 40 mg QHS PO Last administered on 09/05/18 21:06; Admin Dose 40 MG; Start 09/05/18 at 21:00 Calcium/Vitamin D (Oyster Shell/ Vit-D (500/200)) 1 tab DAILY PO Last administered on 09/06/18 12:13; Admin Dose 1 TAB; Start 09/05/18 at 09:00 Carbidopa/Levodopa (Sinemet (25/ 100)) 1 tab QID PO Last administered on 09/06/18 12:15; Admin Dose 1 TAB; Start 09/05/18 at 09:00 Gabapentin (Neurontin) 200 mg TID PO Last administered on 09/06/18 12:15; Admin Dose 200 MG; Start 09/05/18 at 09:00 Pantoprazole (Protonix Tab) 40 mg DAILY@0600 PO Last administered on 09/06/18 05:14; Admin Dose 40 MG; Start 09/05/18 at 06:00 Ropinirole HCl (Requip) 0.5 mg QID PO Last administered on 09/06/18 12:15; Admin Dose 0.5 MG; Start 09/05/18 at 09:00 Venlafaxine HCl (Effexor Xr) 75 mg DAILY PO Last administered on 09/06/18 12:14; Admin Dose 75 MG; Start 09/05/18 at 09:00 IV Flush (NS 3 ml) 3 ml PER PROTOCOL IV ; Start 09/05/18 at 02:30 Ondansetron HCl (Zofran Inj) 4 mg Q6H PRN IV NAUSEA/VOMITING; Start 09/05/18 at 02:30 Acetaminophen (Tylenol Tab) 650 mg Q6H PRN PO .PAIN 1-3 OR TEMP; Start 09/05/18 at 02:30 Docusate Sodium (Colace) 100 mg Q12H PRN PO .CONSTIPATION; Start 09/05/18 at 02:30 Bisacodyl (Dulcolax) 5 mg DAILY PRN PO .CONSTIPATION; Start 09/05/18 at 02:30 Enoxaparin Sodium (Lovenox) 40 mg DAILY SC Last administered on 09/06/18 12:19; Admin Dose 40 MG; Start 09/05/18 at 09:00 Albuterol (Proventil 0.083% (Neb)) 2.5 mg Q4H RESP THERAPY PRN HHN SHORTNESS OF BREATH; Start 09/05/18 at 02:30 Ceftriaxone Sodium 50 ml @ 100 mls/hr Q24H IVPB Last administered on 09/06/18 01:32; Admin Dose 100 MLS/HR; Start 09/06/18 at 02:00 Azithromycin 250 mg/Sodium Chloride 250 ml @ 250 mls/hr Q24H IVPB Last administered on 09/06/18 02:31; Admin Dose 250 MLS/HR; Start 09/06/18 at 02:00 Lubiprostone (Amitiza) 24 mcg BID PO Last administered on 09/06/18 12:15; Admin Dose 24 MCG; Start 09/05/18 at 14:00 Hyoscyamine (Levsin (Sl)) 0.125 mg Q8 PO Last administered on 09/06/18 14:04; Admin Dose 0.125 MG; Start 09/05/18 at 14:00 MARCIANO WEBB Sep 06, 2018 15:35
[2018-09-06 16:13] VITALS: BP 132/58; PULSE 56; RESP 19
[2018-09-06 19:54] VITALS: BP 161/68; PULSE 54; RESP 20
[2018-09-06] MEDS: ACETAMINOPHEN 325 MG TAB PO PRN (21:37)
[2018-09-06] MEDS: ATORVASTATIN 40 MG TAB PO SCH (21:37)
[2018-09-06] MEDS: METOCLOPRAMIDE 5 MG TAB PO SCH (21:38)
[2018-09-07 00:07] VITALS: BP 147/66; PULSE 54; RESP 20
[2018-09-07] MEDS: CEFTRIAXONE 1 GM/50 ML (PMX) 50 ML IVPB SCH (01:47)
[2018-09-07] MEDS: AZITHROMYCIN 250 MG in SOD CHLORIDE 0.9% 250 ML IVPB SCH (02:48)
[2018-09-07 04:12] VITALS: BP 171/74; PULSE 65; RESP 20
[2018-09-07 04:25] VITALS: BP 130/60; PULSE 62
[2018-09-07] MEDS: ACETAMINOPHEN 325 MG TAB PO PRN (05:10)
[2018-09-07] MEDS: PANTOPRAZOLE (EC) 40 MG TAB PO SCH (05:10)
[2018-09-07] MEDS: HYOSCYAMINE 0.125 MG SUBL TAB PO SCH ×2 (05:11→15:03)
[2018-09-07 07:36] VITALS: BP 131/92; PULSE 62; RESP 20
[2018-09-07] MEDS: CARBIDOPA/LEVODOPA (25/100) TAB PO SCH ×2 (08:14→12:37)
[2018-09-07] MEDS: LUBIPROSTONE 24 MCG CAP PO SCH (08:14)
[2018-09-07] MEDS: METOCLOPRAMIDE 5 MG TAB PO SCH ×2 (08:14→12:37)
[2018-09-07] MEDS: CALCIUM/VITAMIN D (500/200) TAB PO SCH (08:14)
[2018-09-07] MEDS: VENLAFAXINE (XR) 75 MG CAP PO SCH (08:14)
[2018-09-07] MEDS: ROPINIROLE 0.25 MG TAB PO SCH ×2 (08:14→12:37)
[2018-09-07] MEDS: GABAPENTIN 100 MG CAP PO SCH ×2 (08:15→12:37)
[2018-09-07] MEDS: ATENOLOL 25 MG TAB PO SCH (08:17)
[2018-09-07] MEDS: ENOXAPARIN 40 MG/0.4 ML SYG SC SCH (08:18)
[2018-09-07] MEDS ORDERED: METO5TAB2 PO (11:18)
[2018-09-07] MEDS ORDERED: HYOS0.1297 PO (11:18)
--- NOTE | 2018-09-07 11:19 | PDOCDIS ---
Discharge Instructions CONDITION [id number] Patient Condition: [id number] Good HOME CARE INSTRUCTIONS: [id number] Special Diet: [id number] LOW CARB ACTIVITY: [id number] Activity Restrictions: [id number] No Restrictions FOLLOW UP/APPOINTMENTS Follow-up Plan FOLLOW UP WITH YOUR PCP IN 1-2 WEEKS TREMAINE DIXON Sep 07, 2018 11:18
[2018-09-07 12:00] VITALS: BP 124/58; PULSE 58; RESP 20
--- NOTE | 2018-09-07 15:35 | DS ---
Date/Time of Note Date/Time of Note DATE: 09/07/18 TIME: 15:27 Discharge Summary Admission/Discharge Info Admit Date/Time Sep 05, 2018 at 02:09 Discharge Date/Time September 07, 2018 Discharge Diagnosis 1. Chronic epigastric pain secondary to gastroparesis and abdominal distention Nuclear gastric emptying setting does show decreased emptying DC with Reglan and Levsin GI consultation appreciated Continue PPI therapy 2. Parkinson's disease Continue Sinemet and ropinirole 3. Bronchitis: Status post antibiotics 4. Dyslipidemia Continue meds 5. Diabetes Continue meds 6. Morbid obesity Lifestyle changes Patient Condition: Good Hospital Course Patient is an 83-year-old female with history of obesity, dyslipidemia, diabetes , Parkinson's who presents with chronic epigastric pain. Patient does report worsening bloating and distention in the evening, patient had a nuclear gastric emptying study that did show decreased emptying. Patient was seen by GI was started on Reglan and Levsin, patient did have improvement in her abdominal pain and was stable for DC. On day of discharge patient's vitals, labs and physical exam are stable. Home Meds Active Scripts Metoclopramide Hcl* (Metoclopramide Hcl*) 5 Mg Tablet, 5 MG PO TID PRN for NAUSEA, #60 TAB Prov:TREMAINE DIXON 09/07/18 Hyoscyamine Sulfate* (Hyoscyamine Sulfate*) 0.125 Mg Tab.subl, 0.125 MG PO Q8, #90 TAB Prov:TREMAINE DIXON 09/07/18 Ofloxacin Otic (Ofloxacin Otic) 5 Ml Drops, 10 DROP BOTH EARS DAILY for 7 Days, #1 BOTTLE Prov:JC MAGANA MD 07/23/18 Cranberry Conc/C/Bacill Coag (Azo Cranberry Tablet) 1 Each Tablet, 1 EACH PO BID for 30 Days, #60 TAB 1 Refill Prov:JC MAGANA MD 07/23/18 Oxybutynin Chloride* (Ditropan* XL) 10 Mg Tab.er.24, 20 MG PO DAILY for 30 Days, #60 TAB.SA Prov:JC MAGANA MD 07/23/18 Lisinopril* (Lisinopril*) 30 Mg Tablet, 30 MG PO QHS for 30 Days, #30 TAB Prov:JC MAGANA MD 07/23/18 Pantoprazole* (Pantoprazole*) 40 Mg Tablet.dr, 40 MG PO DAILY for 30 Days, #30 TAB 1 Refill Prov:WHIT BERGER. 03/18/18 Lactobacillus Rhamnosus* (Culturelle*) 1 Each Cap.sprink, 1 CAP PO BID, #20 CAP Prov:WHIT BERGER. 03/18/18 Reported Medications Ergocalciferol (Vitamin D2) (VITAMIN D2) 50,000 Unit Capsule, 79121 UNIT PO Q7D for QMONDAY, CAP 07/16/18 Calcium Carbonate/Vitamin D3 (Oysco 500+D Tablet) 1 Each Tablet, 1 TAB PO DAILY for 30 Days, #60 07/16/18 Meloxicam* (Mobic*) 15 Mg Tablet, 15 MG PO DAILY for 30 Days, #30 07/16/18 Gabapentin* (Gabapentin*) 100 Mg Capsule, 200 MG PO TID for 30 Days 07/16/18 Cholecalciferol* (Vitamin D*) Unknown Strength Tablet, PO DAILY, TAB 03/15/18 Aspirin* (Aspirin* Chew) 81 Mg Tab.chew, 81 MG PO DAILY, TAB.CHEW 03/12/18 Calcium Carbonate ([id number]) 500 Mg Tablet, 500 MG PO BID, TAB 03/12/18 Fenofibrate Nanocrystallized* (Fenofibrate*) 145 Mg Tablet, 145 MG PO DAILY, TAB 03/12/18 Venlafaxine Hcl* (Venlafaxine Hcl ER*) 75 Mg Cap.er.24h, 75 MG PO DAILY, CAP 03/12/18 Ropinirole Hcl* (Ropinirole Hcl*) 0.5 Mg Tablet, 0.5 MG PO QID TAKE AT 7:00 A.M, 11:00 AM, 3:00PM, & 7:00 PM 03/12/18 Carbidopa/Levodopa (Carbidopa-Levodopa 25-100 Tab) 1 Each Tablet, 1 TAB PO QID 03/12/18 Meclizine Hcl* (Meclizine Hcl*) 25 Mg Tablet, 12.5 MG PO Q8H PRN for DIZZINESS, TAB 03/12/18 Gemfibrozil* (Gemfibrozil*) 600 Mg Tablet, 600 MG PO BID, TAB 03/12/18 Atorvastatin* (Atorvastatin*) 40 Mg Tablet, 40 MG PO QHS, #30 TAB 03/12/18 Atenolol* (Atenolol*) 25 Mg Tablet, 25 MG PO DAILY, #30 TAB 03/12/18 Glipizide* (Glipizide*) 10 Mg Tablet, 10 MG PO BID 12/08/12 Follow-up Plan FOLLOW UP WITH YOUR PCP IN 1-2 WEEKS Primary Care Provider Not On Staff Doctor Time spent on discharge: > 30 minutes TREMAINE DIXON Sep 07, 2018 15:35
[2018-09-07 16:00] VITALS: BP 132/61; PULSE 54; RESP 20
== END 2018-09-07 16:42 | disposition home health service (06) | DRG 392 ==
LOC: E/R 00:17 → 6WM 02:09
PROVIDERS: ADMIT Family Medicine; ATTEND Internal Medicine
DX: K31.84 Gastroparesis (principal); J40 Bronchitis, not specified as acute or chronic; G20 Parkinson's disease; E11.9 Type 2 diabetes mellitus without complications; I10 Essential (primary) hypertension; E78.5 Hyperlipidemia, unspecified; K59.09 Other constipation; E66.01 Morbid (severe) obesity due to excess calories; Z68.33 Body mass index [BMI] 33.0-33.9, adult
CPT/HCPCS: 36415; 71045; 74177; 78264; 80053; 80061; 81001; 81003; 82306; 83036; 83735; 84443; 84484; 85025; 94664; 96365; 97116; 97161; 97530; A9541; J0456; J0696; J1650; J7050; Q9967